=== PATIENT | male | born 1960 | race Hispanic/Latino ===

== ENCOUNTER 2018-04-24 20:46 | Inpatient (IN) | payer SELFPAY ==
[2018-04-24 21:39] VITALS: BMI 23.6
[2018-04-24] MEDS ORDERED: Morphine 4 mg/ml ISec IVP STA (21:51)
--- NOTE | 2018-04-24 21:56 | ED PDOC ---
Arrival/HPI <MirnaMarbin - Last Filed: 04/24/18 22:48> - General Historian: Patient - History of Present Illness Narrative History of Present Illness (Text): 04/24/18 21:59 57 y/o male, no significant pmh, nkda, c/o lower abdominal pain x 3 days. Pt. stated that he has lower abdominal pain x 3 days, nonradiating, associated with nausea/vomiting/diarrhea, no night sweat, no dizziness, no change in vision, no palpitation, no flank pain, no other medical or psychological complaints. <Melvin Moreau - Last Filed: 04/25/18 14:45> - General Time Seen by Provider: 04/24/18 21:45 Past Medical History - Provider Review Nursing Documentation Reviewed: Yes <Melvin Moreau - Last Filed: 04/25/18 14:45> Family/Social History - Physician Review Nursing Documentation Reviewed: Yes Family/Social History: Unknown Family HX <Melvin Moreau - Last Filed: 04/25/18 14:45> Allergies/Home Meds <Marbin Bradley - Last Filed: 04/24/18 22:48> <Melvin Moreau - Last Filed: 04/25/18 14:45> Allergies/Adverse Reactions: Allergies No Known Allergies Allergy (Verified 04/24/18 21:40) Home Medications: Home Meds Medication Instructions Recorded Confirmed No Known Home Med 04/24/18 04/24/18 Review of Systems - Review of Systems Constitutional: absent: Fatigue, Fevers Eyes: absent: Vision Changes ENT: absent: Hearing Changes Respiratory: absent: SOB, Cough Cardiovascular: absent: Chest Pain Gastrointestinal: Abdominal Pain, Diarrhea, Nausea, Vomiting Musculoskeletal: absent: Arthralgias, Back Pain Skin: absent: Rash, Pruritis Neurological: absent: Headache, Dizziness Psychiatric: absent: Anxiety, Depression, Suicidal Ideation <Melvin Moreau - Last Filed: 04/25/18 14:45> Physical Exam Vital Signs Reviewed: Yes Temperature: Afebrile Blood Pressure: Normal Pulse: Regular Respiratory Rate: Normal Appearance: Positive for: Well-Appearing, Non-Toxic, Comfortable Pain Distress: Mild Mental Status: Positive for: Alert and Oriented X 3 - Systems Exam Head: Present: Atraumatic, Normocephalic Pupils: Present: PERRL Extroacular Muscles: Present: EOMI Conjunctiva: Present: Normal Mouth: Present: Moist Mucous Membranes Neck: Present: Normal Range of Motion Respiratory/Chest: Present: Clear to Auscultation, Good Air Exchange. No: Respiratory Distress, Accessory Muscle Use Cardiovascular: Present: Regular Rate and Rhythm, Normal S1, S2. No: Murmurs Abdomen: Present: Tenderness (epigastric and lower periumbilical region). No: Distention, Peritoneal Signs, Rebound, Guarding Back: Present: Normal Inspection Upper Extremity: Present: Normal Inspection, Normal ROM, NORMAL PULSES, Neurovascularly Intact, Capillary Refill < 2s. No: Cyanosis, Edema, Deformity Lower Extremity: Present: Normal Inspection, Neurovascularly Intact. No: Edema Neurological: Present: GCS=15, CN II-XII Intact, Speech Normal, Motor Func Grossly Intact, Gait Normal, Memory Normal Skin: Present: Warm, Dry, Normal Color. No: Rashes Psychiatric: Present: Alert, Oriented x 3, Normal Insight, Normal Concentration <Melvin Moreau - Last Filed: 04/25/18 14:45> Medical Decision Making - RAD Interpretation Radiology Orders: 04/24/18 21:51 ABD & PELVIS IV CONTRAST ONLY [CT] Stat - Medication Orders Current Medication Orders: Sodium Chloride (Sodium Chloride 0.9%) 1,000 mls @ 100 mls/hr IV .Q10H MOODY Discontinued Medications Morphine Sulfate (Morphine) 4 mg IVP STAT STA Stop: 04/24/18 21:52 <Marbin Bradley - Last Filed: 04/24/18 22:48> ED Course and Treatment: 04/24/18 22:01 -Labs/ua -CT abdomen and pelvis -IVF/pepcid/morphine -Observe and reassess 04/25/18 00:33 -Labs show no acute findings except wbc 17.2 (blood culture/c.diff/stool cultures ordered, IV cipro and flagyl ordered) -Lactic acid within normal limit -UA ordered and pending result -CT abdomen and pelvis show Severe enteritis. Infections and inflammatory etiologies are considered. Consider consultation with GI service and follow-up with upper endoscopy and colonoscopy. Small amount of fluid in the pelvic cul-de-sac. -Pt. feels fatigue and tire, getting hydration now. -Pt. will need to be admitted for IV antibiotic/hydration and trending the wbc and further observation/evaluation/ -Paging hospitalist for admission. 04/25/18 00:57 -I spoke to the admitting team Dr. Lan Garza and the resident, discussed about the case/labs/radiology result, agreed on the admission. 04/25/18 02:19 -UA show no UTI - Lab Interpretations I have reviewed the lab results: Yes - RAD Interpretation Narrative RAD Interpretations (Text): CT Abdomen and Pelvis Findings: LUNG BASES: The lung bases appear clear. No pleural effusions are seen. LIVER: Unremarkable. GALLBLADDER AND BILE DUCTS: The gallbladder appears within normal limits. NO radiopaque gallstones are seen. No biliary ductal dilatation is evident. PANCREAS: Unremarkable. SPLEEN: Unremarkable. ADRENAL GLANDS: Unremarkable. KIDNEY, URETERS, AND BLADDER: The kidneys appear within normal limits. THere is no hydronephrosis or hydroureter. No urinary calculi are seen. STOMACH AND BOWEL: Thick walled fluid filled duodenum and loops of jejunum as well as ileum compatible with severe enteritis. Infections and inflammatory etiologies are considered. Consider consultatino with GI service and follow-up with upper endoscopy and colonoscopy. APPENDIX: No evidence of acute appendicitis on CT examination. PERITONEUM: No free fluids. No free air. LYMPH NODES: No lymphadenopathy is evident. REPRODUCTIVE: Unremarkable as visualized. VASCULATURE: No evidence of abdominal aortic aneurysm. BONES: s/p ORIF involving right proximal femur. MISCELLANEOUS: Small amount of fluid in the pelvic cul-de-sac Impression: 1. Severe enteritis. Infections and inflammatory etiologies are considered. Consider consultation with GI service and follow-up with upper endoscopy and colonoscopy. 2. Small amount of fluid in the pelvic cul-de-sac. Radiology Orders: 04/24/18 21:51 ABD & PELVIS IV CONTRAST ONLY [CT] Stat Container Repairer: Radiologist <Melvin Moreau - Last Filed: 04/25/18 14:45> - PA / BAND MAKER / Resident Statement / has reviewed & agrees with the documentation as recorded. <Marbin Bradley - Last Filed: 04/24/18 22:48> - PA / BAND MAKER / Resident Statement ZINA has reviewed & agrees with the documentation as recorded. <Melvin Moreau - Last Filed: 04/25/18 14:45> Disposition/Present on Arrival <Marbin Bradley - Last Filed: 04/24/18 22:48> - Present on Arrival Any Indicators Present on Arrival: No History of DVT/PE: No History of Uncontrolled Diabetes: No Urinary Catheter: No History of Decub. Ulcer: No - Disposition Have Diagnosis and Disposition been Completed?: Yes Disposition Time: 00:34 Patient Plan: Admission, Observation <Melvin Moreau - Last Filed: 04/25/18 14:45> - Disposition Diagnosis: Leukocytosis, Enteritis Disposition: HOSPITALIZED Patient Problems: Current Active Problems Problem Status Onset Enteritis Acute Leukocytosis Acute Condition: STABLE
[2018-04-24] MEDS: Sodium Chloride 0.9% 1,000 ML IV SCH (22:45)
[2018-04-24 23:08] LABS: BASO # 0.02 K/mm3 (0.0-2.0); BASO % 0.1 % (0.0-3.0); EOS % 0.1 % (1.5-5.0); GRAN # 14.35 (1.4-6.5); GRAN % 83.5 % (50.0-68.0); HEMOGLOBIN 14.4 g/dL (14.0-18.0); LYMPH # 1.5 (1.2-3.4); LYMPH % 8.4 % (22.0-35.0); MEAN CORPUSCULAR HEMOGLOBIN 31.6 pg (25.0-35.0); MEAN CORPUSCULAR HGB CONC 34.8 g/dl (31.0-37.0); MEAN PLATELET VOLUME 8.8 fl (7.0-11.0); MONO # 1.4 (0.1-0.6); MONO % 7.9 % (1.0-6.0); RBC 4.55 10^6/uL (3.5-6.1); RED CELL DISTRIBUTION WIDTH 13.6 % (11.5-14.5); WHITE BLOOD COUNT 17.2 10^3/ul (4.5-11.0)
[2018-04-24 23:18] LABS: ALB/GLOB RATIO 1.3 (1.1-1.8); ALBUMIN 4.5 g/dL (3.0-4.8); ALT/SGPT 13 U/L (7-56); AST/SGOT 21 U/L (17-59); BLOOD UREA NITROGEN 16 mg/dL (7-21); CALCIUM 9.6 mg/dL (8.4-10.5); GFR NON-AFRICAN AMERICAN > 60; LIPASE 45 U/L (23-300)
[2018-04-24] MEDS ORDERED: Magnesium Sulfate 1 gm in D5W 1 GM/100 ML BAG IVPB ONE (23:22)
[2018-04-24] MEDS ORDERED: Iohexol 350 MG/100 ML VIAL ONE (23:25)
[2018-04-24 23:57] LABS: VENOUS BLOOD GAS BASE EXCESS 1.5 mmol/L (0.0-2.0); VENOUS BLOOD GAS PO2 95 mm/Hg (30-55); VENOUS BLOOD PH 7.43 (7.32-7.43)
[2018-04-25] MEDS ORDERED: metroNIDAZOLE IV 500 mg/100 ml 500 MG/100 ML BAG IVPB STA (00:31)
[2018-04-25] MEDS ORDERED: Ciprofloxacin 400mg/200ml D5W 400 MG/200 ML BAG IVPB STA (00:31)
[2018-04-25] MEDS ORDERED: metroNIDAZOLE IV 500 mg/100 ml 500 MG/100 ML BAG IVPB SCH (01:45)
[2018-04-25 02:05] LABS: PH,URINE 6.5 (4.7-8.0); URINE BILIRUBIN NEGATIVE (NEGATIVE); URINE BLOOD NEGATIVE (NEGATIVE); URINE GLUCOSE (UA) NEGATIVE (NEGATIVE); URINE LEUKOCYTE ESTERASE NEGATIVE Leu/uL (NEGATIVE); URINE UROBILINOGEN 0.2 E.U./dL (<1 E.U./dL)
[2018-04-25 02:06] LABS: URINE APPEARANCE CLEAR (CLEAR); URINE PROTEIN NEGATIVE mg/dL (<30 mg/dL)
--- NOTE | 2018-04-25 02:19 | CP.PCM.HP ---
<Dave Cheung Alvino - Last Filed: 04/25/18 02:47> History of Present Illness - History of Present Illness History of Present Illness: Dave Cheung PGY1 History and Physical for Dr Cecile Garza Pt is a 57yo male with a PMH of alcoholism use who presents to the ED complaining of 10/10 lower abdominal pain which began Friday04-24-18 night. He states the pain is constant, does not radiate and worse after he urinates. Pt last bowel movement was yesterday morning, pt denies diarrhea, constipation, or blood in the stool. Pt denies nausea or vomiting. Nothing seems to make the pain better. Pt denies any sick contacts, or eating any new foods. This has never happened before. Pt rolling around in bed due to pain upon first arrival, upon second arrival pt was sleeping. A 12 point ROS was obtained and pertinent positives and negatives were added to HPI where appropriate. PMH: alcoholism PSH: right hip surgery SH: pt reports alcohol cessation 6 months ago, he used to drink 10 beers/day, tobacco 1ppd for 12 years, admits to daily marijuana use FH: reviewed and non contributory Home meds: pt take no medications Allergies: NKDA Present on Admission - Present on Admission Any Indicators Present on Admission: No Review of Systems - Review of Systems Review of Systems: a 12 point ROS was obtained and added to HPI where appropriate Past Patient History - Past Social History Smoking Status: Light Smoker < 10 Cigarettes Daily - CARDIAC Hx Cardiac Disorders: No - PULMONARY Hx Respiratory Disorders: No - NEUROLOGICAL Hx Neurological Disorder: No - HEMATOLOGICAL/ONCOLOGICAL Hx Blood Disorders: No - PSYCHIATRIC Hx Substance Use: No Meds Allergies/Adverse Reactions: Allergies Allergy/AdvReac Type Severity Reaction Status Date / Time No Known Allergies Allergy Verified 04/24/18 21:40 Physical Exam - Head Exam Head Exam: ATRAUMATIC, NORMOCEPHALIC - ENT Exam ENT Exam: Mucous Membranes Moist - Respiratory Exam Respiratory Exam: Clear to Auscultation Bilateral. absent: Accessory Muscle Use, Wheezes, Stridor - Cardiovascular Exam Cardiovascular Exam: RRR, +S1, +S2. absent: Diastolic murmur, Systolic Murmur - GI/Abdominal Exam GI & Abdominal Exam: Normal Bowel Sounds Additional comments: mild tenderness to palpation in the lower abdomen - Extremities Exam Extremities exam: Positive for: full ROM, pedal pulses present. Negative for: calf tenderness - Back Exam Back exam: FULL ROM. absent: CVA tenderness (L), CVA tenderness (R), muscle spasm - Neurological Exam Neurological exam: Alert, Oriented x3 - Skin Skin Exam: Intact, Normal Color, Warm Results - Vital Signs Recent Vital Signs: Last Vital Signs Temp 98 F 04/24/18 22:40 Pulse 86 04/25/18 00:41 Resp 18 04/25/18 00:41 BP 142/91 H 04/25/18 00:41 Pulse Ox 99 04/25/18 00:41 - Labs Result Diagrams: 04/24/18 22:51 04/24/18 22:51 Labs: Laboratory Results - last 24 hr 04/24/18 04/24/18 04/24/18 22:51 22:51 23:29 WBC 17.2 H RBC 4.55 Hgb 14.4 Hct 41.4 L MCV 91.0 MCH 31.6 MCHC 34.8 RDW 13.6 Plt Count 262 MPV 8.8 Gran % 83.5 H Lymph % (Auto) 8.4 L [place] % (Auto) 7.9 H Eos % (Auto) 0.1 L Baso % (Auto) 0.1 Gran # 14.35 H Lymph # (Auto) 1.5 [place] # (Auto) 1.4 H Eos # (Auto) 0.0 Baso # (Auto) 0.02 pO2 95 H VBG pH 7.43 VBG pCO2 39.0 L VBG HCO3 25.9 VBG Total CO2 27.1 VBG O2 Sat (Calc) 98.4 H VBG Base Excess 1.5 VBG Potassium 4.1 Glucose 126 H Lactate 0.9 FiO2 21.0 Sodium 137 133.0 Potassium 4.3 Chloride 98 100.0 Carbon Dioxide 26 Anion Gap 17 BUN 16 Creatinine 0.7 L Est GFR ( Amer) > 60 Est GFR (Non-Af Amer) > 60 Random Glucose 134 H Calcium 9.6 Magnesium 1.6 L Total Bilirubin 0.9 AST 21 ALT 13 Alkaline Phosphatase 92 Total Protein 8.0 Albumin 4.5 Globulin 3.6 Albumin/Globulin Ratio 1.3 Lipase 45 Venous Blood Potassium 4.1 Urine Color Urine Appearance Urine pH Ur Specific [place] Urine Protein Urine Glucose (UA) Urine Ketones Urine Blood Urine Nitrate Urine Bilirubin Urine Urobilinogen Ur Leukocyte Esterase 04/25/18 01:30 WBC RBC Hgb Hct MCV MCH MCHC RDW Plt Count MPV Gran % Lymph % (Auto) [place] % (Auto) Eos % (Auto) Baso % (Auto) Gran # Lymph # (Auto) [place] # (Auto) Eos # (Auto) Baso # (Auto) pO2 VBG pH VBG pCO2 VBG HCO3 VBG Total CO2 VBG O2 Sat (Calc) VBG Base Excess VBG Potassium Glucose Lactate FiO2 Sodium Potassium Chloride Carbon Dioxide Anion Gap BUN Creatinine Est GFR ( Amer) Est GFR (Non-Af Amer) Random Glucose Calcium Magnesium Total Bilirubin AST ALT Alkaline Phosphatase Total Protein Albumin Globulin Albumin/Globulin Ratio Lipase Venous Blood Potassium Urine Color yellow Urine Appearance Clear Urine pH 6.5 Ur Specific [place] 1.010 Urine Protein Negative Urine Glucose (UA) Negative Urine Ketones Trace H Urine Blood Negative Urine Nitrate Negative Urine Bilirubin Negative Urine Urobilinogen 0.2 Ur Leukocyte Esterase Negative Assessment & Plan - Assessment and Plan (Free Text) Assessment: Pt is a 57yo male with a PMH of alcoholism use who presents to the ED complaining of 10/10 lower abdominal pain which began Friday04-24-18 night. He states the pain is constant, does not radiate and worse after he urinates. Pt last bowel movement was yesterday morning, pt denies diarrhea, constipation, or blood in the stool. Plan: Intractable Abdominal Pain - WBC 17.2 - UDS - phos level - blood cultures - stool cultures - urine culture and sensitivities - c. diff ordered - tylenol 650mg PO q6 prn - one dose of Cipro given in ED - one dose of Flagyl given in ED - Morphine 4mg IVP stat given in ED - zofran 4mg IVP q6h PRN - NS 100 m/hr - CTAP: shows diffuse enteritis - klonopin 1mg - UA: no signs of UTI Hypomagnesemia - Mg 1.6 - replete PRN Tobacco use - nicotine patch History of alcoholism - alcohol screen, negative Ppx - protonix - NPO - SCD Pt seen, examined, assessment and plan discussed with Dr Cecile Cheung PGY1 - Date & Time Date: 04/25/18 Time: 02:23 <Cecile Garza - Last Filed: 04/26/18 00:19> History of Present Illness - History of Present Illness History of Present Illness: pt is c/o lower abdominal pain . pointing to supra pubic region pt is sleeping curling up . has received morphinr in ed does not answer questions and reluctant for exam. pt,s wbc count is 17 ,[address] abdomen shows enteritis. Results - Vital Signs Recent Vital Signs: Last Vital Signs Temp 98.6 F 04/25/18 16:06 Pulse 75 04/25/18 16:06 Resp 18 04/25/18 16:06 BP 99/62 L 04/25/18 16:06 Pulse Ox 96 04/25/18 16:06 - Labs Result Diagrams: 04/25/18 11:30 04/25/18 11:30 Labs: Laboratory Results - last 24 hr 04/24/18 04/25/18 04/25/18 23:29 01:30 01:30 WBC RBC Hgb Hct MCV MCH MCHC RDW Plt Count MPV Gran % Lymph % (Auto) [place] % (Auto) Eos % (Auto) Baso % (Auto) Gran # Lymph # (Auto) [place] # (Auto) Eos # (Auto) Baso # (Auto) PT INR pO2 95 H VBG pH 7.43 VBG pCO2 39.0 L VBG HCO3 25.9 VBG Total CO2 27.1 VBG O2 Sat (Calc) 98.4 H VBG Base Excess 1.5 VBG Potassium 4.1 Sodium 133.0 Chloride 100.0 Glucose 126 H Lactate 0.9 FiO2 21.0 Potassium Carbon Dioxide Anion Gap BUN Creatinine Est GFR ( Amer) Est GFR (Non-Af Amer) Random Glucose Calcium Phosphorus Magnesium Total Bilirubin AST ALT Alkaline Phosphatase Total Protein Albumin Globulin Albumin/Globulin Ratio Venous Blood Potassium 4.1 Urine Color yellow Urine Appearance Clear Urine pH 6.5 Ur Specific [place] 1.010 Urine Protein Negative Urine Glucose (UA) Negative Urine Ketones Trace H Urine Blood Negative Urine Nitrate Negative Urine Bilirubin Negative Urine Urobilinogen 0.2 Ur Leukocyte Esterase Negative Urine Opiates Screen Urine Methadone Screen Ur Barbiturates Screen Ur Phencyclidine Scrn Ur Amphetamines Screen U Benzodiazepines Scrn U Oth Cocaine Metabols U Cannabinoids Screen Alcohol, Quantitative < 10 04/25/18 04/25/18 04/25/18 04:40 11:30 11:30 WBC 19.0 H RBC 4.43 Hgb 14.1 Hct 39.9 L MCV 90.1 MCH 31.8 MCHC 35.3 RDW 13.6 Plt Count 248 MPV 9.0 Gran % 87.4 H Lymph % (Auto) 6.0 L [place] % (Auto) 6.5 H Eos % (Auto) 0.0 L Baso % (Auto) 0.1 Gran # 16.64 H Lymph # (Auto) 1.2 [place] # (Auto) 1.2 H Eos # (Auto) 0.0 Baso # (Auto) 0.01 PT INR pO2 VBG pH VBG pCO2 VBG HCO3 VBG Total CO2 VBG O2 Sat (Calc) VBG Base Excess VBG Potassium Sodium 134 Chloride 99 Glucose Lactate FiO2 Potassium 3.9 Carbon Dioxide 25 Anion Gap 13 BUN 16 Creatinine 0.8 Est GFR ( Amer) > 60 Est GFR (Non-Af Amer) > 60 Random Glucose 133 H Calcium 8.7 Phosphorus 3.5 Magnesium 1.8 Total Bilirubin 1.0 AST 20 ALT 13 Alkaline Phosphatase 83 Total Protein 7.1 Albumin 3.9 Globulin 3.2 Albumin/Globulin Ratio 1.2 Venous Blood Potassium Urine Color Urine Appearance Urine pH Ur Specific [place] Urine Protein Urine Glucose (UA) Urine Ketones Urine Blood Urine Nitrate Urine Bilirubin Urine Urobilinogen Ur Leukocyte Esterase Urine Opiates Screen Positive H Urine Methadone Screen Negative Ur Barbiturates Screen Negative Ur Phencyclidine Scrn Negative Ur Amphetamines Screen Negative U Benzodiazepines Scrn Negative U Oth Cocaine Metabols Negative U Cannabinoids Screen Positive H Alcohol, Quantitative 04/25/18 11:30 WBC RBC Hgb Hct MCV MCH MCHC RDW Plt Count MPV Gran % Lymph % (Auto) [place] % (Auto) Eos % (Auto) Baso % (Auto) Gran # Lymph # (Auto) [place] # (Auto) Eos # (Auto) Baso # (Auto) PT 15.3 H INR 1.32 pO2 VBG pH VBG pCO2 VBG HCO3 VBG Total CO2 VBG O2 Sat (Calc) VBG Base Excess VBG Potassium Sodium Chloride Glucose Lactate FiO2 Potassium Carbon Dioxide Anion Gap BUN Creatinine Est GFR ( Amer) Est GFR (Non-Af Amer) Random Glucose Calcium Phosphorus Magnesium Total Bilirubin AST ALT Alkaline Phosphatase Total Protein Albumin Globulin Albumin/Globulin Ratio Venous Blood Potassium Urine Color Urine Appearance Urine pH Ur Specific [place] Urine Protein Urine Glucose (UA) Urine Ketones Urine Blood Urine Nitrate Urine Bilirubin Urine Urobilinogen Ur Leukocyte Esterase Urine Opiates Screen Urine Methadone Screen Ur Barbiturates Screen Ur Phencyclidine Scrn Ur Amphetamines Screen U Benzodiazepines Scrn U Oth Cocaine Metabols U Cannabinoids Screen Alcohol, Quantitative
[2018-04-25] MEDS ORDERED: Influenza Vaccine 60 mcg/0.5 mL SYR (4YR UP) IM ONE (03:45)
[2018-04-25] MEDS ORDERED: Pneumococcal 23-Valent Vaccine IM ONE (03:45)
[2018-04-25] MEDS ORDERED: Pantoprazole 40 mg EC Tab PO SCH (06:00)
[2018-04-25 07:38] LABS: BARBITURATES, UR NEGATIVE (NEGATIVE); BENZODIAZEPINES, UR NEGATIVE (NEGATIVE); OPIATES, UR POSITIVE (NEGATIVE); PHENCYCLIDINE, UR NEGATIVE (NEGATIVE)
[2018-04-25] MEDS: metroNIDAZOLE IV 500 mg/100 ml 500 MG/100 ML BAG IVPB SCH ×2 (08:00→15:30)
--- NOTE | 2018-04-25 09:10 | CT ---
Date of service: 04/24/2018 PROCEDURE: CT Abdomen and Pelvis with contrast HISTORY: lower abdomina pain x 3 days COMPARISON: None. TECHNIQUE: Contrast dose: 100 cc Omnipaque 350 Radiation dose: Total exam DLP = 256.82 mGy-cm. This CT exam was performed using one or more of the following dose reduction techniques: Automated exposure control, adjustment of the mA and/or kV according to patient size, and/or use of iterative reconstruction technique. FINDINGS: LOWER THORAX: Unremarkable. LIVER: Unremarkable. No gross lesion or ductal dilatation. GALLBLADDER AND BILE DUCTS: Unremarkable. PANCREAS: Unremarkable. No gross lesion or ductal dilatation. SPLEEN: Unremarkable. ADRENALS: Unremarkable. No mass. KIDNEYS AND URETERS: Unremarkable. No hydronephrosis. No solid mass. VASCULATURE: Unremarkable. No aortic aneurysm. BOWEL: Unremarkable. No obstruction. No gross mural thickening. APPENDIX: The tubular structure in the right lower quadrant with multiple calcified densities likely appendicular less within an inflamed appendix. Acute appendicitis should be considered. There is more proximal dilatation of small bowel perhaps ileus related. Inflammatory changes in the right lower quadrant center about the cecum PERITONEUM: Trace fluid in the pelvis. No evidence of loculated air or free air. LYMPH NODES: Unremarkable. No enlarged lymph nodes. BLADDER: Unremarkable. REPRODUCTIVE: Unremarkable. BONES: No acute fracture. OTHER FINDINGS: None. IMPRESSION: Findings suspicious for acute appendicitis. Dilated tubular structure containing calcifications likely represents the appendix. There is trace fluid in the pelvis. Please note: These are discordant findings with those provided in the preliminary report rendered at 00:04. These findings were discussed with health Care personnel (Louise Wilson) involved in the care and management the patient at 09:09.
[2018-04-25] MEDS: Sodium Chloride 0.9% 1,000 ML IV SCH (09:21)
--- NOTE | 2018-04-25 09:22 | CARD ---
APPROVED REPORT Date of service: 04/25/2018 EKG Measurement Heart [id number] <Conclusion> Normal sinus rhythm Small q waves 2,3,F ST elevations 2,3,F. Possible early repolaruzation. LVH by voltage
--- NOTE | 2018-04-25 10:59 | CP.PCM.CON ---
History of Present Illness - History of Present Illness History of Present Illness: General Surgery Consult Note for Dr. Sarmiento This is a 57M with a PMH of polysubstance abuse and an AL 10 years ago, who presented to the ED last night 04/24/18 with abdominal pain that began one day prior 04/23/18. The pain started after dinner it was vague at first and gradually got worse, by last night he was unable to tolerate the pain so he came to the ED. He denies any similar incidence in the past. Nothing makes it better and nothing makes it worse. He reports his last BM was non bloody and of normal caliber yesterday morning. He reports nausea but no vomiting. He denies any feers or chills at home, he denies dysuria, or hematuria. In the Ed the pt had a CT scan initial read was significantfor enteritis however subequent read was significant for appendicitis. PMH: alcoholism, AL PSH: right hip surgery SH: pt reports alcohol cessation 6 months ago, he used to drink 10 beers/day, tobacco 1ppd for 12 years, admits to daily marijuana use Home meds: pt take no medications Allergies: NKDA Review of Systems - Review of Systems All systems: reviewed and no additional remarkable complaints except - Constitutional Constitutional: Anorexia. absent: Chills, Fever Past Patient History - Past Social History Smoking Status: Former Smoker - CARDIAC Hx Cardiac Disorders: No - PULMONARY Hx Respiratory Disorders: No - NEUROLOGICAL Hx Neurological Disorder: No - HEMATOLOGICAL/ONCOLOGICAL Hx Blood Disorders: No - MUSCULOSKELETAL/RHEUMATOLOGICAL Hx Falls: No - PSYCHIATRIC Hx Substance Use: No Meds Allergies/Adverse Reactions: Allergies Allergy/AdvReac Type Severity Reaction Status Date / Time No Known Allergies Allergy Verified 04/24/18 21:40 - Medications Medications: Current Medications Acetaminophen (Tylenol 325mg Tab) 650 mg PO Q6H PRN PRN Reason: Fever >100.4 F Sodium Chloride (Sodium Chloride 0.9%) 1,000 mls @ 100 mls/hr IV .Q10H [facility] Last Admin: 04/25/18 09:21 Dose: 100 mls/hr Ciprofloxacin (Cipro 400mg/200ml Dsw) 400 mg in 200 mls @ 133.3 mls/hr IVPB Q12 [facility]; Protocol Stop: 04/25/18 13:31 Metronidazole (Flagyl) 500 mg in 100 mls @ 100 mls/hr IVPB Q8 [facility]; Protocol Last Admin: 04/25/18 08:00 Dose: 100 mls/hr Ketorolac Tromethamine (Toradol) 15 mg IVP Q6 PRN PRN Reason: Pain, moderate (4-7) Last Admin: 04/25/18 08:00 Dose: 15 mg Nicotine (Nicoderm Cq) 1 patch TD DAILY [facility] Ondansetron HCl (Zofran Inj) 4 mg IVP Q6H PRN PRN Reason: Nausea/Vomiting Pantoprazole Sodium (Protonix Inj) 40 mg IVP DAILY [facility] Last Admin: 04/25/18 09:22 Dose: 40 mg Physical Exam - Constitutional Appears: Non-toxic - Head Exam Head Exam: ATRAUMATIC, NORMOCEPHALIC - Eye Exam Eye Exam: EOMI - ENT Exam ENT Exam: Mucous Membranes Moist - Respiratory Exam Respiratory Exam: NORMAL BREATHING PATTERN - Cardiovascular Exam Cardiovascular Exam: +S1, +S2 - GI/Abdominal Exam GI & Abdominal Exam: Guarding, Rebound, Soft, Tenderness. absent: Distended, Hernia, Rigid Additional comments: + rovsing, + obturator sign - Extremities Exam Extremities exam: Positive for: normal inspection - Neurological Exam Neurological exam: Alert - Psychiatric Exam Psychiatric exam: Normal Affect, Normal Mood - Skin Skin Exam: Dry, Intact Results - Vital Signs Recent Vital Signs: Last Vital Signs Temp 99.1 F 04/25/18 06:00 Pulse 97 H 04/25/18 06:00 Resp 20 04/25/18 06:00 BP 158/95 H 04/25/18 06:00 Pulse Ox 96 04/25/18 06:00 - Labs Result Diagrams: 04/24/18 22:51 04/24/18 22:51 Labs: Laboratory Results - last 24 hr 04/24/18 04/24/18 04/24/18 22:51 22:51 23:29 WBC 17.2 H RBC 4.55 Hgb 14.4 Hct 41.4 L MCV 91.0 MCH 31.6 MCHC 34.8 RDW 13.6 Plt Count 262 MPV 8.8 Gran % 83.5 H Lymph % (Auto) 8.4 L Mcpherson % (Auto) 7.9 H Eos % (Auto) 0.1 L Baso % (Auto) 0.1 Gran # 14.35 H Lymph # (Auto) 1.5 Mcpherson # (Auto) 1.4 H Eos # (Auto) 0.0 Baso # (Auto) 0.02 pO2 95 H VBG pH 7.43 VBG pCO2 39.0 L VBG HCO3 25.9 VBG Total CO2 27.1 VBG O2 Sat (Calc) 98.4 H VBG Base Excess 1.5 VBG Potassium 4.1 Glucose 126 H Lactate 0.9 FiO2 21.0 Sodium 137 133.0 Potassium 4.3 Chloride 98 100.0 Carbon Dioxide 26 Anion Gap 17 BUN 16 Creatinine 0.7 L Est GFR ( Amer) > 60 Est GFR (Non-Af Amer) > 60 Random Glucose 134 H Calcium 9.6 Magnesium 1.6 L Total Bilirubin 0.9 AST 21 ALT 13 Alkaline Phosphatase 92 Total Protein 8.0 Albumin 4.5 Globulin 3.6 Albumin/Globulin Ratio 1.3 Lipase 45 Venous Blood Potassium 4.1 Urine Color Urine Appearance Urine pH Ur Specific Weston Urine Protein Urine Glucose (UA) Urine Ketones Urine Blood Urine Nitrate Urine Bilirubin Urine Urobilinogen Ur Leukocyte Esterase Urine Opiates Screen Urine Methadone Screen Ur Barbiturates Screen Ur Phencyclidine Scrn Ur Amphetamines Screen U Benzodiazepines Scrn U Oth Cocaine Metabols U Cannabinoids Screen Alcohol, Quantitative 04/25/18 04/25/18 04/25/18 01:30 01:30 04:40 WBC RBC Hgb Hct MCV MCH MCHC RDW Plt Count MPV Gran % Lymph % (Auto) Mcpherson % (Auto) Eos % (Auto) Baso % (Auto) Gran # Lymph # (Auto) Mcpherson # (Auto) Eos # (Auto) Baso # (Auto) pO2 VBG pH VBG pCO2 VBG HCO3 VBG Total CO2 VBG O2 Sat (Calc) VBG Base Excess VBG Potassium Glucose Lactate FiO2 Sodium Potassium Chloride Carbon Dioxide Anion Gap BUN Creatinine Est GFR ( Amer) Est GFR (Non-Af Amer) Random Glucose Calcium Magnesium Total Bilirubin AST ALT Alkaline Phosphatase Total Protein Albumin Globulin Albumin/Globulin Ratio Lipase Venous Blood Potassium Urine Color yellow Urine Appearance Clear Urine pH 6.5 Ur Specific Weston 1.010 Urine Protein Negative Urine Glucose (UA) Negative Urine Ketones Trace H Urine Blood Negative Urine Nitrate Negative Urine Bilirubin Negative Urine Urobilinogen 0.2 Ur Leukocyte Esterase Negative Urine Opiates Screen Positive H Urine Methadone Screen Negative Ur Barbiturates Screen Negative Ur Phencyclidine Scrn Negative Ur Amphetamines Screen Negative U Benzodiazepines Scrn Negative U Oth Cocaine Metabols Negative U Cannabinoids Screen Positive H Alcohol, Quantitative < 10 - Imaging and Cardiology CT scan - pelvis Status: Image reviewed by me, Report reviewed by me CT scan - abdomen Status: Image reviewed by me, Report reviewed by me Assessment & Plan - Assessment and Plan (Free Text) Assessment: 57M with abdominal pain likely secondary to appendicitis NPO IVF ABX Plan for OR today F/U Medical clearance D/W Dr. Torsten Aranda PGY3
[2018-04-25 11:35] LABS: BASO # 0.01 K/mm3 (0.0-2.0); BASO % 0.1 % (0.0-3.0); GRAN # 16.64 (1.4-6.5); GRAN % 87.4 % (50.0-68.0); HEMOGLOBIN 14.1 g/dL (14.0-18.0); LYMPH # 1.2 (1.2-3.4); MEAN CELL VOLUME 90.1 fl (80.0-105.0); MEAN CORPUSCULAR HEMOGLOBIN 31.8 pg (25.0-35.0); MEAN CORPUSCULAR HGB CONC 35.3 g/dl (31.0-37.0); MONO # 1.2 (0.1-0.6); MONO % 6.5 % (1.0-6.0); RBC 4.43 10^6/uL (3.5-6.1); RED CELL DISTRIBUTION WIDTH 13.6 % (11.5-14.5)
[2018-04-25 11:45] LABS: ALB/GLOB RATIO 1.2 (1.1-1.8); ALBUMIN 3.9 g/dL (3.0-4.8); ALT/SGPT 13 U/L (7-56); AST/SGOT 20 U/L (17-59); BLOOD UREA NITROGEN 16 mg/dL (7-21); CALCIUM 8.7 mg/dL (8.4-10.5); GFR NON-AFRICAN AMERICAN > 60
[2018-04-25 11:58] LABS: INR 1.32; PROTHROMBIN TIME 15.3 SECONDS (9.4-12.5)
[2018-04-25] MEDS ORDERED: Ciprofloxacin 400mg/200ml D5W 400 MG/200 ML BAG IVPB SCH (12:00)
--- NOTE | 2018-04-25 12:33 | CP.PCM.PN ---
<Juaquin Tucker - Last Filed: 04/25/18 12:20> Subjective - Date & Time of Evaluation Date of Evaluation: 04/25/18 Time of Evaluation: 12:20 - Subjective Subjective: Yaniv Tucker PGY 2 IM Resident - Medicine Progress Note for Dr. Tate Patient seen and examined this AM. Patient noted to be in distress and in position in bed. Patient indicates suprapubic abdominal pain that is constant and not relieved with medication or positioning. Objective - Vital Signs/Intake and Output Vital Signs (last 24 hours): Temp Pulse Resp BP Pulse Ox 99.1 F 97 H 20 158/95 H 96 04/25/18 06:00 04/25/18 06:00 04/25/18 06:00 04/25/18 06:00 04/25/18 06:00 Intake and Output: 04/25/18 04/25/18 06:59 18:59 Intake Total 300 Balance 300 - Medications Medications: Current Medications Acetaminophen (Tylenol 325mg Tab) 650 mg PO Q6H PRN PRN Reason: Fever >100.4 F Sodium Chloride (Sodium Chloride 0.9%) 1,000 mls @ 100 mls/hr IV .Q10H [facility] Last Admin: 04/25/18 09:21 Dose: 100 mls/hr Ciprofloxacin (Cipro 400mg/200ml Dsw) 400 mg in 200 mls @ 133.3 mls/hr IVPB Q12 [facility]; Protocol Stop: 04/25/18 13:31 Metronidazole (Flagyl) 500 mg in 100 mls @ 100 mls/hr IVPB Q8 [facility]; Protocol Last Admin: 04/25/18 08:00 Dose: 100 mls/hr Ketorolac Tromethamine (Toradol) 15 mg IVP Q6 PRN PRN Reason: Pain, moderate (4-7) Last Admin: 04/25/18 08:00 Dose: 15 mg Nicotine (Nicoderm Cq) 1 patch TD DAILY [facility] Ondansetron HCl (Zofran Inj) 4 mg IVP Q6H PRN PRN Reason: Nausea/Vomiting Pantoprazole Sodium (Protonix Inj) 40 mg IVP DAILY [facility] Last Admin: 04/25/18 09:22 Dose: 40 mg - Labs Labs: 04/25/18 11:30 04/25/18 11:30 PT 15.3 SECONDS (9.4-12.5) H 04/25/18 11:30 INR 1.32 04/25/18 11:30 - Constitutional Appears: In Acute Distress - Head Exam Head Exam: ATRAUMATIC, NORMAL INSPECTION, NORMOCEPHALIC - Eye Exam Eye Exam: EOMI, PERRL - ENT Exam ENT Exam: Mucous Membranes Dry - Respiratory Exam Respiratory Exam: Clear to Ausculation Bilateral, NORMAL BREATHING PATTERN. absent: Rales, Rhonchi, Wheezes - Cardiovascular Exam Cardiovascular Exam: REGULAR RHYTHM, +S1, +S2 - GI/Abdominal Exam GI & Abdominal Exam: Guarding, Soft, Tenderness (diffuse, most prominent at suprapubic region b/l), Normal Bowel Sounds. absent: Distended, Firm, Rigid - Neurological Exam Neurological Exam: Alert, Awake, Normal Gait, Oriented x3 Neuro motor strength exam: Left Upper Extremity: 5, Right Upper Extremity: 5, Left Lower Extremity: 5, Right Lower Extremity: 5 - Psychiatric Exam Psychiatric exam: Agitated - Skin Skin Exam: Dry, Intact Assessment and Plan - Assessment and Plan (Free Text) Assessment: 57 year old male with past medical history of alcoholism and ?NH 10 years ago who presented to [facility] ED with abdominal pain. Patient evaluated with abdominal/pe lvis CT showing suspicious for acute eppendicitis and enteritis. General surgery consulted for appendectomy evaluation Plan: Possible Appendicitis - Abd/Pelvis CT showing suspicious findings for acute appendicitis - Elevated WBC, afebrile, rebound tenderness on exam - General Surgery consulted and agreeable to proceed with surgery - Cardiology consulted for risk stratification for surgery - EKG reviewed, CXR reviewed - Patient NPO - Receiving IVF, - Patient received flagyl and cipro in ED - Continue ciprofloxacin - Patient is considered to be moderate risk for low/moderate risk surgery Diagnosis, options for medical management vs. surgical intervention, risks and benefits were discussed with patient in detail. Patient verbalized his u nderstanding of conversation and was able to repeat it back to primary care team <Cameron Tate - Last Filed: 04/25/18 16:09> Objective - Vital Signs/Intake and Output Vital Signs (last 24 hours): Temp Pulse Resp BP Pulse Ox 98.6 F 77 20 102/64 97 04/25/18 15:51 04/25/18 15:51 04/25/18 15:51 04/25/18 15:51 04/25/18 15:51 Intake and Output: 04/25/18 04/25/18 06:59 18:59 Intake Total 300 Balance 300 - Medications Medications: Current Medications Acetaminophen (Tylenol 325mg Tab) 650 mg PO Q6H PRN PRN Reason: Fever >100.4 F Enoxaparin Sodium (Lovenox) 30 mg SC DAILY [facility]; Protocol Hydromorphone HCl (Dilaudid) 0.5 mg IVP Q15M PRN PRN Reason: Pain, moderate (4-7) Sodium Chloride (Sodium Chloride 0.9%) 1,000 mls @ 100 mls/hr IV .Q10H [facility] Last Admin: 04/25/18 09:21 Dose: 100 mls/hr Metronidazole (Flagyl) 500 mg in 100 mls @ 100 mls/hr IVPB Q8 [facility]; Protocol Stop: 04/25/18 22:00 Last Admin: 04/25/18 15:30 Dose: 100 mls/hr Lactated Ringer's (Lactated Ringer's) 1,000 mls @ 75 mls/hr IV .[id number] [facility] Stop: 04/25/18 17:16 Cefazolin Sodium 500 mg/ (Sodium Chloride) 100 mls @ 100 mls/hr IVPB Q8 [facility]; Protocol Stop: 04/26/18 06:59 Ketorolac Tromethamine (Toradol) 15 mg IVP Q6 PRN PRN Reason: Pain, moderate (4-7) Last Admin: 04/25/18 08:00 Dose: 15 mg Metoclopramide HCl (Reglan) 10 mg IV ONCE PRN PRN Reason: Nausea/Vomiting Nicotine (Nicoderm Cq) 1 patch TD DAILY [facility] Ondansetron HCl (Zofran Inj) 4 mg IVP Q6H PRN PRN Reason: Nausea/Vomiting Pantoprazole Sodium (Protonix Inj) 40 mg IVP DAILY [facility] Last Admin: 04/25/18 09:22 Dose: 40 mg - Labs Labs: 04/25/18 11:30 04/25/18 11:30 PT 15.3 SECONDS (9.4-12.5) H 04/25/18 11:30 INR 1.32 04/25/18 11:30 Attending/Attestation - Attestation I have personally seen and examined this patient.: Yes I have fully participated in the care of the patient.: Yes I have reviewed all pertinent clinical information, including history, physical exam and plan: Yes Notes (Text): 04/25/18 16:05 57 year old male with past medical history of alcohol use and ?NH 10 years ago who presented last night with complaint of lower abdominal pain. He was found to have CT findings suspicious for acute appendicitis. Leukocytosis of 17.2. Continue with NPO, iv fluids and iv antibiotics. Surgery evaluation is requested. EKG was reviewed, possible early repolarization. Patient denies any chest pain or shortness of breath. Repeat labs ordered for this morning. Magnesium was repleted. Leukocytosis secondary to above. Case discussed with cardiology and surgery this morning; patient is moderate risk for low-moderate risk procedure. Cameron Tate MD Hospitalist.
[2018-04-25] MEDS ORDERED: Propofol 10 mg/ml Inj (20 ML) ONE (13:29)
[2018-04-25] MEDS ORDERED: Succinylcholine 200 mg/10 ml Inj IV ONE (13:29)
[2018-04-25] MEDS ORDERED: Rocuronium 10 mg/ml (5 ml) ONE (13:29)
[2018-04-25] MEDS ORDERED: Etomidate 20 mg/10ml Inj IV ONE (13:29)
[2018-04-25] MEDS ORDERED: Lidocaine 1% Inj (20ml) ONE (13:30)
[2018-04-25] MEDS ORDERED: Neostigmine Methylsulfate 3mg/3ml Syringe IV ONE (13:50)
[2018-04-25] MEDS: Bupivacaine 0.5% Inj(30mL) ONE ×2 (14:02→14:51)
[2018-04-25] MEDS ORDERED: Sodium Chloride 0.9% 10 ML IV ONE (14:10)
[2018-04-25] MEDS ORDERED: ePHEDrine 50 mg/ml Inj ONE (14:40)
--- NOTE | 2018-04-25 15:11 | PCM.SURG1 ---
Surgeon's Initial Post Op Note - Surgeon's Notes Surgeon: Dr. Sarmiento Cashier Office: Dr. Aranda Type of Anesthesia: General Endo Anesthesia Administered By: Dr. Farooq Pre-Operative Diagnosis: Acute Appendicitis Operative Findings: See operative dictation Post-Operative Diagnosis: Acute perforated appendicitis Operation Performed: Surgical Appendectomy Specimen/Specimens Removed: Appendix Estimated Blood Loss: EBL {In ML}: 10 Blood Products Given: N/A Drains Used: Shivam Post-Op Condition: Good Date of Surgery/Procedure: 04/25/18 Time of Surgery/Procedure: 15:11
[2018-04-25] MEDS ORDERED: HYDROmorphone 1 mg/ml ISec IVP PRN (15:12)
[2018-04-25] MEDS ORDERED: Lactated Ringer's 1,000 ML IV SCH (15:15)
[2018-04-25] MEDS ORDERED: metroNIDAZOLE IV 500 mg/100 ml 500 MG/100 ML BAG ONE (15:33)
[2018-04-26] MEDS: metroNIDAZOLE IV 500 mg/100 ml 500 MG/100 ML BAG IVPB SCH ×3 (00:46→21:43)
--- NOTE | 2018-04-26 01:47 | CON ---
DATE: 04/25/2018 REASON FOR CONSULTATION: Acute appendicitis and history of coronary artery disease. HISTORY OF PRESENT ILLNESS: The patient is a 57-year-old male who has history of coronary artery disease, status post coronary stenting 6 to 7 years ago. The patient has not had any cardiac issues since then. He presented because of right lower abdominal pain and was diagnosed with acute appendicitis. The patient denies any associated chest pain and denies any associated diaphoresis, dizziness, or syncope. MEDICATIONS: Flagyl 500 mg intravenously every 8 hours, Nicoderm patch, Toradol 15 mg intravenously every 6 hours p.r.n., normal saline 100 mL an hour, Zofran 4 mg intravenously every 6 hours. REVIEW OF SYSTEMS: The patient complains of nausea. He denies any chest pain, palpitations, dizziness, or diaphoresis. SOCIAL HISTORY: The patient is a smoker. PHYSICAL EXAMINATION: GENERAL: The patient is a middle-aged male who does not appear to be in any distress. VITAL SIGNS: Blood pressure 142/92, heart rate 98, temperature 98.6, respirations 20. HEENT: Normocephalic. CHEST: Clear. HEART: S1, S2, regular. ABDOMEN: Exquisite McBurney point tenderness. EXTREMITIES: No edema. LABORATORY DATA: Hemoglobin and hematocrit 14.1 and 39.9, white count 19,000, and platelet count 248,000. Today's SMA-7 is within normal limit except for glucose 133. EKG revealed normal sinus rhythm, early repolarization pattern, LVH by voltage. Urine drug screen is positive for cannabinoids and opiates. Abdomen and pelvis CT scan suspicious for acute appendicitis. ASSESSMENT: 1. Coronary artery disease with history of coronary artery stenting in the past, 6 to 7 years ago. 2. Evidence of early repolarization changes by the EKG, unlikely represent any acute injury pattern. 3. Acute appendicitis. 4. Hypertension. RECOMMENDATIONS: Continue current IV Flagyl and IV Protonix. The patient can undergo appendectomy on urgent basis from the cardiac point of view with postoperative telemetry monitoring. Crow Elias MD
--- NOTE | 2018-04-26 07:14 | CP.PCM.PN ---
Subjective - Date & Time of Evaluation Date of Evaluation: 04/26/18 Time of Evaluation: 07:11 - Subjective Subjective: General Surgery Progress note for Dr. Sarmiento This 57M was seen and examined this AM at bedside. No acute events to report overnight. Pt had 130cc of purulent output from his giancarlo drain. He reports "healing pains" however he feels significantly better today compared with yesterday. He denies any chest pain or SOB. Objective - Vital Signs/Intake and Output Vital Signs (last 24 hours): Temp Pulse Resp BP Pulse Ox 98.6 F 75 18 99/62 L 96 04/25/18 16:06 04/25/18 16:06 04/25/18 16:06 04/25/18 16:06 04/25/18 16:06 - Medications Medications: Current Medications Acetaminophen (Tylenol 325mg Tab) 650 mg PO Q6H PRN PRN Reason: Fever >100.4 F Enoxaparin Sodium (Lovenox) 30 mg SC DAILY [facility]; Protocol Hydromorphone HCl (Dilaudid) 0.5 mg IVP Q15M PRN PRN Reason: Pain, moderate (4-7) Sodium Chloride (Sodium Chloride 0.9%) 1,000 mls @ 100 mls/hr IV .Q10H [facility] Last Admin: 04/25/18 09:21 Dose: 100 mls/hr Metronidazole (Flagyl) 500 mg in 100 mls @ 100 mls/hr IVPB Q8 [facility]; Protocol Ketorolac Tromethamine (Toradol) 15 mg IVP Q6 PRN PRN Reason: Pain, moderate (4-7) Last Admin: 04/26/18 00:53 Dose: 15 mg Metoclopramide HCl (Reglan) 10 mg IV ONCE PRN PRN Reason: Nausea/Vomiting Nicotine (Nicoderm Cq) 1 patch TD DAILY [facility] Last Admin: 04/25/18 17:22 Dose: Not Given Ondansetron HCl (Zofran Inj) 4 mg IVP Q6H PRN PRN Reason: Nausea/Vomiting Pantoprazole Sodium (Protonix Inj) 40 mg IVP DAILY [facility] Last Admin: 04/25/18 09:22 Dose: 40 mg - Labs Labs: 04/25/18 11:30 04/25/18 11:30 PT 15.3 SECONDS (9.4-12.5) H 04/25/18 11:30 INR 1.32 04/25/18 11:30 - Constitutional Appears: Non-toxic, No Acute Distress - Head Exam Head Exam: ATRAUMATIC, NORMOCEPHALIC - Eye Exam Eye Exam: EOMI, Normal appearance - ENT Exam ENT Exam: Mucous Membranes Moist - Respiratory Exam Respiratory Exam: NORMAL BREATHING PATTERN - Cardiovascular Exam Cardiovascular Exam: +S1, +S2 - GI/Abdominal Exam GI & Abdominal Exam: Soft, Tenderness Additional comments: apropriatly tender dressing clean dry and intact - Neurological Exam Neurological Exam: Alert, Awake - Psychiatric Exam Psychiatric exam: Normal Affect, Normal Mood - Skin Skin Exam: Dry, Intact Assessment and Plan - Assessment and Plan (Free Text) Assessment: 57M with acute perforated appendicits Regular diet Ambulate Pain control IV abx Monitor outputs Wound Checks Further recs per Dr. Torsten Aranda PGY3
[2018-04-26 07:23] LABS: BASO # 0.02 K/mm3 (0.0-2.0); BASO % 0.2 % (0.0-3.0); EOS # 0.1 (0.0-0.7); EOS % 0.7 % (1.5-5.0); GRAN # 10.14 (1.4-6.5); LYMPH # 1.7 (1.2-3.4); LYMPH % 13.3 % (22.0-35.0); MEAN CELL VOLUME 91.1 fl (80.0-105.0); MEAN CORPUSCULAR HEMOGLOBIN 31.1 pg (25.0-35.0); MEAN CORPUSCULAR HGB CONC 34.1 g/dl (31.0-37.0); MEAN PLATELET VOLUME 9.1 fl (7.0-11.0); MONO # 0.7 (0.1-0.6); MONO % 5.8 % (1.0-6.0); RBC 3.83 10^6/uL (3.5-6.1)
[2018-04-26 07:27] LABS: ALT/SGPT 19 U/L (7-56); AST/SGOT 24 U/L (17-59); BLOOD UREA NITROGEN 14 mg/dL (7-21); CALCIUM 8.2 mg/dL (8.4-10.5); GFR NON-AFRICAN AMERICAN > 60; HDL CHOLESTEROL 33 mg/dL (29-60)
[2018-04-26 07:37] LABS: LDL CHOLESTEROL 35 mg/dL (0-129)
[2018-04-26 08:01] LABS: HEMOGLOBIN 11.9 g/dL (14.0-18.0); WHITE BLOOD COUNT 12.7 10^3/ul (4.5-11.0)
[2018-04-26] MEDS: Sodium Chloride 0.9% 1,000 ML IV SCH (08:22)
[2018-04-26] MEDS ORDERED: Enoxaparin 30 mg Syringe SC SCH (10:00)
--- NOTE | 2018-04-26 10:36 | CP.PCM.PN ---
<Timothy Abbott - Last Filed: 04/26/18 15:13> Subjective - Date & Time of Evaluation Date of Evaluation: 04/26/18 Time of Evaluation: 09:36 - Subjective Subjective: Timothy Abbott PGY2 IM Progress Note for Dr. Tate Patient was seen and examined at bedside. His abdominal pain has improved. Per surgery team, "1300 purulent output from his giancarlo drain." Surgery team would like patient to remain for IV abx and further check-ups. Patient denies fevers/chills, nausea/vomiting/diarrhea. He denies passing flatus or any BMs. Objective - Vital Signs/Intake and Output Vital Signs (last 24 hours): Temp Pulse Resp BP Pulse Ox 98.6 F 75 16 111/76 96 04/26/18 06:00 04/26/18 06:00 04/26/18 06:00 04/26/18 06:00 04/26/18 06:00 Intake and Output: 04/26/18 04/26/18 06:59 18:59 Intake Total 1120 Output Total 1340 Balance -220 - Medications Medications: Current Medications Acetaminophen (Tylenol 325mg Tab) 650 mg PO Q6H PRN PRN Reason: Fever >100.4 F Enoxaparin Sodium (Lovenox) 30 mg SC DAILY [facility]; Protocol Last Admin: 04/26/18 09:54 Dose: 30 mg Hydromorphone HCl (Dilaudid) 0.5 mg IVP Q15M PRN PRN Reason: Pain, moderate (4-7) Metronidazole (Flagyl) 500 mg in 100 mls @ 100 mls/hr IVPB Q8 [facility]; Protocol Ampicillin Sodium/Sulbactam (Sodium 3 gm/ Sodium Chloride) 100 mls @ 200 mls/hr IVPB Q6 [facility]; Protocol Ketorolac Tromethamine (Toradol) 15 mg IVP Q6 PRN PRN Reason: Pain, moderate (4-7) Last Admin: 04/26/18 08:21 Dose: 15 mg Metoclopramide HCl (Reglan) 10 mg IV ONCE PRN PRN Reason: Nausea/Vomiting Nicotine (Nicoderm Cq) 1 patch TD DAILY [facility] Last Admin: 04/26/18 09:53 Dose: Not Given Ondansetron HCl (Zofran Inj) 4 mg IVP Q6H PRN PRN Reason: Nausea/Vomiting Pantoprazole Sodium (Protonix Inj) 40 mg IVP DAILY [facility] Last Admin: 04/26/18 09:58 Dose: 40 mg - Labs Labs: 04/26/18 06:30 04/26/18 06:30 PT 15.3 SECONDS (9.4-12.5) H 04/25/18 11:30 INR 1.32 04/25/18 11:30 - Constitutional Appears: Non-toxic, No Acute Distress - Head Exam Head Exam: NORMAL INSPECTION - Eye Exam Eye Exam: Normal appearance - ENT Exam ENT Exam: Mucous Membranes Moist - Neck Exam Neck Exam: Normal Inspection - Respiratory Exam Respiratory Exam: NORMAL BREATHING PATTERN. absent: Rales, Rhonchi, Wheezes - Cardiovascular Exam Cardiovascular Exam: RRR, +S1, +S2 - GI/Abdominal Exam GI & Abdominal Exam: Soft, Tenderness (right sided abdominal moderate tenderness w/ palpation), Diminished Bowel Sounds. absent: Distended Additional comments: drain in place w/ serosanguinous output - Extremities Exam Extremities Exam: Full ROM. absent: Pedal Edema - Back Exam Back Exam: NORMAL INSPECTION - Neurological Exam Neurological Exam: Alert, Awake, Oriented x3 - Psychiatric Exam Psychiatric exam: Normal Mood - Skin Skin Exam: Normal Color Assessment and Plan - Assessment and Plan (Free Text) Assessment: 57 year old male with past medical history of alcoholism and NH 10 years ago who presented to [facility] ED with abdominal pain, found to have acute appendicitis on imaging and clinically. Patient is POD 1 for lap appendectomy. Plan: 1. Appendicitis s/p appendectomy - leukocytosis improving - regular diet advanced as tolerated - started on Unasyn by Surgery team, cont on Flagyl - Zofran PRN n/v - Reglan PRN n/v - Toradol PRN pain - Tylenol PRN fevers - Dilaudid PRN severe pain 2. Nicotine use - nicoderm 3. PPX - cont PTX for GI ppx - Lovenox for DVT ppx Patient was examined and discussed with attending, Dr. Bebeto Abbott PGY2 <Cameron Tate - Last Filed: 04/26/18 15:30> Objective - Vital Signs/Intake and Output Vital Signs (last 24 hours): Temp Pulse Resp BP Pulse Ox 98.6 F 75 16 111/76 96 04/26/18 06:00 04/26/18 06:00 04/26/18 06:00 04/26/18 06:00 04/26/18 06:00 Intake and Output: 04/26/18 04/26/18 06:59 18:59 Intake Total 1120 Output Total 1340 Balance -220 - Medications Medications: Current Medications Acetaminophen (Tylenol 325mg Tab) 650 mg PO Q6H PRN PRN Reason: Fever >100.4 F Aspirin (Ecotrin) 81 mg PO DAILY [facility] Enoxaparin Sodium (Lovenox) 40 mg SC DAILY [facility]; Protocol Hydromorphone HCl (Dilaudid) 0.5 mg IVP Q15M PRN PRN Reason: Pain, moderate (4-7) Metronidazole (Flagyl) 500 mg in 100 mls @ 100 mls/hr IVPB Q8 [facility]; Protocol Last Admin: 04/26/18 14:00 Dose: 100 mls/hr Ampicillin Sodium/Sulbactam (Sodium 3 gm/ Sodium Chloride) 100 mls @ 200 mls/hr IVPB Q6 [facility]; Protocol Last Admin: 04/26/18 11:57 Dose: 200 mls/hr Ketorolac Tromethamine (Toradol) 15 mg IVP Q6 PRN PRN Reason: Pain, moderate (4-7) Last Admin: 04/26/18 08:21 Dose: 15 mg Metoclopramide HCl (Reglan) 10 mg IV ONCE PRN PRN Reason: Nausea/Vomiting Nicotine (Nicoderm Cq) 1 patch TD DAILY [facility] Last Admin: 04/26/18 09:53 Dose: Not Given Ondansetron HCl (Zofran Inj) 4 mg IVP Q6H PRN PRN Reason: Nausea/Vomiting Pantoprazole Sodium (Protonix Inj) 40 mg IVP DAILY [facility] Last Admin: 04/26/18 09:58 Dose: 40 mg - Labs Labs: 04/26/18 06:30 04/26/18 06:30 PT 15.3 SECONDS (9.4-12.5) H 04/25/18 11:30 INR 1.32 04/25/18 11:30 Attending/Attestation - Attestation I have personally seen and examined this patient.: Yes I have fully participated in the care of the patient.: Yes I have reviewed all pertinent clinical information, including history, physical exam and plan: Yes Notes (Text): 04/26/18 15:26 57 year old male with past medical history of alcohol use and CAD/NH s/p stent 10 years ago who presented with lower abdominal pain. He was found to have acute appendicitis on CT abd/pelvis. Leukocytosis of 17.2. He was seen by surgery and is s/p appendectomy POD #1. Continue with analgesics prn and antibiotics. Leukocytosis is improved. Continue with drain care as per surgery. Diet was advanced. Encouraged incentive spirometry. Encouraged OOB to chair. He has history of CAD s/p stent 10 years prior but is not on any medications. Started on aspirin. LDL is 35. Patient has no pmd and upon discharge can follow up at [facility]. Follow up with surgery as well. Cameron Tate MD Hospitalist.
--- NOTE | 2018-04-26 10:36 | RAD ---
Date of service: 04/26/2018 PROCEDURE: CHEST RADIOGRAPH, 1 VIEW HISTORY: surgical risk stratification COMPARISON: 09/28/2013 FINDINGS: LUNGS: Clear. PLEURA: No pneumothorax or pleural fluid seen. CARDIOVASCULAR: No radiographic findings to suggest acute or significant cardiovascular disease. OSSEOUS STRUCTURES: No significant abnormalities. VISUALIZED UPPER ABDOMEN: Normal. OTHER FINDINGS: None. IMPRESSION: No active disease. No acute/significant interval changes.
--- NOTE | 2018-04-26 19:01 | PN ---
DATE: 04/26/2018 SUBJECTIVE: The patient denies any chest pain. He tolerated clear liquid today. PHYSICAL EXAMINATION: VITAL SIGNS: Blood pressure 111/76, heart rate 75, temperature 98.6, respirations 16. HEENT: Normocephalic. CHEST: Clear. HEART: S1 and S2, regular. EXTREMITIES: No edema. LABORATORY DATA: Today's hemoglobin and hematocrit 11.9 and 34.9, white count 12.7, platelet count 223,000. Today's SMA-7 is within normal limit. Calcium is 8.2. ASSESSMENT: 1. History of coronary artery disease, status post coronary artery stenting, 6 to 7 years ago. 2. Status post appendectomy yesterday. 3. Hypertension. RECOMMENDATIONS: Continue current IV ampicillin 3 g every 6 hours. Continue IV Flagyl 500 mg every 8 hours, subcutaneous Lovenox 30 mg daily. Obtain 12-lead EKG postoperatively. Crow Elias MD
[2018-04-27] MEDS ORDERED: Morphine 4 mg/ml ISec IVP STA (01:39)
[2018-04-27] MEDS: metroNIDAZOLE IV 500 mg/100 ml 500 MG/100 ML BAG IVPB SCH ×3 (05:23→21:29)
[2018-04-27 06:36] LABS: ALB/GLOB RATIO 0.9 (1.1-1.8); ALBUMIN 2.9 g/dL (3.0-4.8); ALT/SGPT 20 U/L (7-56); AST/SGOT 24 U/L (17-59); BLOOD UREA NITROGEN 13 mg/dL (7-21); CALCIUM 8.1 mg/dL (8.4-10.5); GFR NON-AFRICAN AMERICAN > 60
[2018-04-27 07:11] LABS: BASO # 0.02 K/mm3 (0.0-2.0); BASO % 0.2 % (0.0-3.0); EOS # 0.3 (0.0-0.7); GRAN # 9.38 (1.4-6.5); GRAN % 76.5 % (50.0-68.0); LYMPH # 1.6 (1.2-3.4); MEAN CORPUSCULAR HGB CONC 34.9 g/dl (31.0-37.0); MEAN PLATELET VOLUME 8.9 fl (7.0-11.0); MONO % 8.3 % (1.0-6.0); RBC 4.19 10^6/uL (3.5-6.1); RED CELL DISTRIBUTION WIDTH 13.4 % (11.5-14.5); WHITE BLOOD COUNT 12.3 10^3/ul (4.5-11.0)
--- NOTE | 2018-04-27 07:31 | CP.PCM.PN ---
Subjective - Date & Time of Evaluation Date of Evaluation: 04/27/18 Time of Evaluation: 07:27 - Subjective Subjective: General Surgery Progress note for Dr. Sarmiento Patient was seen and examined at bedside. No acute events overnight. Patient denies having a bowel movement. He denies any chest pain, fevers, chills, or SOB. Objective - Vital Signs/Intake and Output Vital Signs (last 24 hours): Temp Pulse Resp BP Pulse Ox 100.2 F H 81 22 147/100 H 95 04/27/18 00:00 04/27/18 00:00 04/27/18 00:00 04/27/18 00:00 04/27/18 00:00 Intake and Output: 04/27/18 04/27/18 06:59 18:59 Intake Total 2740 Output Total 2405 Balance 335 - Medications Medications: Current Medications Acetaminophen (Tylenol 325mg Tab) 650 mg PO Q6H PRN PRN Reason: Fever >100.4 F Aspirin (Ecotrin) 81 mg PO DAILY [facility] Docusate Sodium (Colace) 100 mg PO TID [facility] Enoxaparin Sodium (Lovenox) 40 mg SC DAILY [facility]; Protocol Hydromorphone HCl (Dilaudid) 0.5 mg IVP Q15M PRN PRN Reason: Pain, moderate (4-7) Metronidazole (Flagyl) 500 mg in 100 mls @ 100 mls/hr IVPB Q8 [facility]; Protocol Last Admin: 04/27/18 05:23 Dose: 100 mls/hr Ampicillin Sodium/Sulbactam (Sodium 3 gm/ Sodium Chloride) 100 mls @ 200 mls/hr IVPB Q6 [facility]; Protocol Last Admin: 04/27/18 05:24 Dose: 200 mls/hr Ketorolac Tromethamine (Toradol) 15 mg IVP Q6 PRN PRN Reason: Pain, moderate (4-7) Last Admin: 04/27/18 05:24 Dose: 15 mg Metoclopramide HCl (Reglan) 10 mg IV ONCE PRN PRN Reason: Nausea/Vomiting Nicotine (Nicoderm Cq) 1 patch TD DAILY [facility] Last Admin: 04/26/18 09:53 Dose: Not Given Ondansetron HCl (Zofran Inj) 4 mg IVP Q6H PRN PRN Reason: Nausea/Vomiting Pantoprazole Sodium (Protonix Inj) 40 mg IVP DAILY [facility] Last Admin: 04/26/18 09:58 Dose: 40 mg - Labs Labs: 04/27/18 06:00 04/27/18 06:00 PT 15.3 SECONDS (9.4-12.5) H 04/25/18 11:30 INR 1.32 04/25/18 11:30 - Constitutional Appears: Well, Non-toxic, No Acute Distress - Head Exam Head Exam: ATRAUMATIC, NORMOCEPHALIC - Eye Exam Eye Exam: Normal appearance - ENT Exam ENT Exam: Mucous Membranes Moist - Respiratory Exam Respiratory Exam: NORMAL BREATHING PATTERN. absent: Decreased Breath Sounds, Respiratory Distress - Cardiovascular Exam Cardiovascular Exam: RRR - GI/Abdominal Exam GI & Abdominal Exam: Soft. absent: Distended, Tenderness Additional comments: Shivam drain in place in RLQ draining 855 mL of yellowish serous fluids. Dressing C/D/I. - Extremities Exam Extremities Exam: Normal Inspection - Neurological Exam Neurological Exam: Alert, Awake, Oriented x3 - Psychiatric Exam Psychiatric exam: Normal Affect, Normal Mood - Skin Skin Exam: Dry, Intact, Normal Color, Warm Assessment and Plan - Assessment and Plan (Free Text) Assessment: 57 year old male with acute perforated appendicitis. Plan: - Regular diet - Encourage ambulation as tolerated - Pain control - Continue with IV antibiotics - Monitor outputs - Wound Checks Discussed case with Dr. Torsten Severino DO PGY-1
--- NOTE | 2018-04-27 09:33 | CARD ---
APPROVED REPORT Date of service: 04/26/2018 EKG Measurement Heart [id number] <Conclusion> Normal sinus rhythm Minimal voltage criteria for LVH, may be normal variant Small q waves and ST elevations in 2,3,F No change
[2018-04-27] MEDS: Enoxaparin 40 mg Syringe SC SCH (10:27)
--- NOTE | 2018-04-27 14:06 | CP.PCM.PN ---
<Karan Lopez - Last Filed: 04/27/18 16:09> Subjective - Date & Time of Evaluation Date of Evaluation: 04/27/18 Time of Evaluation: 10:15 - Subjective Subjective: PGY-1 Karan Lopez Medicine Progress Note for Dr. Nichols's service Patient seen and examined at bedside. Patient reports lower abdominal pain both right and left sides. Patient states he has not had a bowel movement since friday. Patient denies headaches, lightheadedness, dizziness, chest pain, sob, nausea or vomiting, diarrhea, fevers and chills. Objective - Vital Signs/Intake and Output Vital Signs (last 24 hours): Temp Pulse Resp BP Pulse Ox 99.6 F 69 20 138/100 H 97 04/27/18 08:38 04/27/18 08:38 04/27/18 08:38 04/27/18 08:38 04/27/18 08:38 Intake and Output: 04/27/18 04/27/18 06:59 18:59 Intake Total 2740 Output Total 2405 Balance 335 - Medications Medications: Current Medications Acetaminophen (Tylenol 325mg Tab) 650 mg PO Q6H PRN PRN Reason: Fever >100.4 F Aspirin (Ecotrin) 81 mg PO DAILY [facility] Last Admin: 04/27/18 10:27 Dose: 81 mg Docusate Sodium (Colace) 100 mg PO TID [facility] Last Admin: 04/27/18 10:26 Dose: 100 mg Enoxaparin Sodium (Lovenox) 40 mg SC DAILY [facility]; Protocol Last Admin: 04/27/18 10:27 Dose: 40 mg Hydromorphone HCl (Dilaudid) 0.5 mg IVP Q15M PRN PRN Reason: Pain, moderate (4-7) Metronidazole (Flagyl) 500 mg in 100 mls @ 100 mls/hr IVPB Q8 [facility]; Protocol Last Admin: 04/27/18 05:23 Dose: 100 mls/hr Ampicillin Sodium/Sulbactam (Sodium 3 gm/ Sodium Chloride) 100 mls @ 200 mls/hr IVPB Q6 [facility]; Protocol Last Admin: 04/27/18 11:08 Dose: 200 mls/hr Ketorolac Tromethamine (Toradol) 15 mg IVP Q4 PRN PRN Reason: Pain, moderate (4-7) Last Admin: 04/27/18 11:10 Dose: 15 mg Nicotine (Nicoderm Cq) 1 patch TD DAILY [facility] Last Admin: 04/27/18 10:40 Dose: Not Given Ondansetron HCl (Zofran Inj) 4 mg IVP Q6H PRN PRN Reason: Nausea/Vomiting Pantoprazole Sodium (Protonix Ec Tab) 40 mg PO ACB [facility] - Labs Labs: 04/27/18 06:00 04/27/18 06:00 PT 15.3 SECONDS (9.4-12.5) H 04/25/18 11:30 INR 1.32 04/25/18 11:30 - Constitutional Appears: Non-toxic, No Acute Distress - Head Exam Head Exam: NORMAL INSPECTION, NORMOCEPHALIC - Eye Exam Eye Exam: EOMI, Normal appearance. absent: Nystagmus, Scleral icterus - ENT Exam ENT Exam: Mucous Membranes Moist - Respiratory Exam Respiratory Exam: Clear to Ausculation Bilateral, NORMAL BREATHING PATTERN. absent: Rales, Rhonchi, Wheezes - Cardiovascular Exam Cardiovascular Exam: REGULAR RHYTHM, +S1, +S2 - GI/Abdominal Exam GI & Abdominal Exam: Soft, Tenderness, Normal Bowel Sounds. absent: Distended Additional comments: drain in right lower abdominal area; no signs of erythema, oozing, draining noted at site of incision drain showing clear liquid - Extremities Exam Extremities Exam: Normal Inspection. absent: Calf Tenderness, Pedal Edema - Neurological Exam Neurological Exam: Alert, Awake, Oriented x3 - Psychiatric Exam Psychiatric exam: Normal Affect, Normal Mood - Skin Skin Exam: Intact, Normal Color Assessment and Plan - Assessment and Plan (Free Text) Assessment: 57 year old male with past medical history of alcoholism and ?[place] 10 years ago who presented to [facility] with abdominal pain. Patient evaluated with abdominal/pelvis CT showing suspicious for acute appendicitis. General surgery consulted for appendectomy evaluation. Ruptured appendix was noted with drain put in place and patient started on Abx s/p appendectomy. POD 3 currently. Plan: Acute Ruptured Appendicitis Surgery Consulted- Dr. Villanueva- Pain control + IV abx Dilaudid 0.5mg IVP q15m; Toradol 15mg IVP q4h prn Amb/Sulbactam q6 [facility] Flagyl 500mg q8 [facility] Drain clearing clear fluid - removal pending surgery reccs Constipation Docusate 100mg po tid [facility] Lactulose 30gm po once PPx: GI ppx- Protonix 40mg po DVT ppx- Lovenox 40mg sc daily <SimoneAdalandreas - Last Filed: 05/02/18 17:56> Objective - Vital Signs/Intake and Output Vital Signs (last 24 hours): Temp Pulse Resp BP Pulse Ox 98.1 F 89 20 143/95 H 96 05/02/18 08:06 05/02/18 08:06 05/02/18 08:06 05/01/18 17:00 05/02/18 08:06 Intake and Output: 05/02/18 05/02/18 06:59 18:59 Intake Total 960 Balance 960 - Medications Medications: Current Medications Acetaminophen (Tylenol 325mg Tab) 650 mg PO Q6H PRN PRN Reason: Fever >100.4 F Aspirin (Ecotrin) 81 mg PO DAILY [facility] Last Admin: 05/02/18 09:54 Dose: 81 mg Cephalexin Monohydrate (Keflex) 500 mg PO TID [facility]; Protocol Last Admin: 05/02/18 17:35 Dose: 500 mg Docusate Sodium (Colace) 100 mg PO TID [facility] Last Admin: 05/02/18 17:37 Dose: Not Given Enoxaparin Sodium (Lovenox) 40 mg SC DAILY [facility]; Protocol Last Admin: 05/02/18 09:54 Dose: 40 mg Hydralazine HCl (Apresoline) 10 mg IVP Q6 PRN PRN Reason: Systolic Blood Pressure Last Admin: 05/01/18 05:53 Dose: 10 mg Nicotine (Nicoderm Cq) 1 patch TD DAILY [facility] Last Admin: 05/02/18 08:59 Dose: Not Given Ondansetron HCl (Zofran Inj) 4 mg IVP Q6H PRN PRN Reason: Nausea/Vomiting Last Admin: 05/01/18 19:55 Dose: 4 mg Pantoprazole Sodium (Protonix Ec Tab) 40 mg PO ACB [facility] Last Admin: 05/02/18 06:37 Dose: 40 mg - Labs Labs: 05/01/18 05:30 05/02/18 13:00 PT 15.3 SECONDS (9.4-12.5) H 04/25/18 11:30 INR 1.32 04/25/18 11:30 Attending/Attestation - Attestation I have personally seen and examined this patient.: Yes I have fully participated in the care of the patient.: Yes I have reviewed all pertinent clinical information, including history, physical exam and plan: Yes Notes (Text): 05/02/18 17:56 Medical record note made by the resident after discussion with my direction and input after the patient was personally seen and examined by me. I have reviewed the chart and agree that the record accurately reflects by personal performance of the history, physical exam, data review, and medical decision-making, in the course for the patient. I have also personally directed the plan of care.
--- NOTE | 2018-04-27 22:02 | PN ---
DATE: 04/27/2018 SUBJECTIVE: The patient is experiencing lower abdominal pain, nausea, and vomiting. No retrosternal chest pain. PHYSICAL EXAMINATION: VITAL SIGNS: Blood pressure 147/100, heart rate 81, temperature 100.2, respirations 22. HEENT: Normocephalic. CHEST: Clear. HEART: S1 and S2 regular. ABDOMEN: Diffusely tender. EXTREMITIES: No edema. LABORATORY DATA: Hemoglobin and hematocrit 13 and 37.3, white count 12.3, and platelet count 233,000. Today's SMA-7: Sodium 129, potassium 3.7, chloride 94, CO2 of 26, glucose 107, BUN 13, creatinine 0.7. Yesterday, his EKG revealed normal sinus rhythm, minimal voltage criteria for LVH. No change compared to the preoperative EKG. ASSESSMENT: 1. Status post appendectomy. 2. Diffuse abdominal pain. 3. Hypertension. 4. History of coronary artery stenting 6 to 7 years ago. 5. Hyponatremia. RECOMMENDATIONS: Continue current IV ampicillin at 3 g every 6 hours. May hold on oral medications for now including aspirin. I recommended surgical followup and the nurse has already called the surgical team. Crow Elias MD
--- NOTE | 2018-04-28 03:44 | OP ---
PROCEDURE DATE: 04/25/2018 PREOPERATIVE DIAGNOSIS: Acute appendicitis. POSTOPERATIVE DIAGNOSIS: Acute perforated appendicitis. PROCEDURE: Open appendectomy. SURGEON: Richard Sarmiento MD WINERY CELLAR HAND: Geovani Aranda DO ANESTHESIOLOGIST: Wayne Farooq MD ANESTHESIA: General endotracheal anesthesia. ESTIMATED BLOOD LOSS: Minimum. SPECIMEN: Appendix. INDICATIONS: This is a 57-year-old male with past medical history of polysubstance abuse, who presented to the ED with 3 days of abdominal pain, which became significantly worsened the day prior to admission. On admission, the patient had significant leukocytosis. CT scan was performed showed fluid and inflammation in the pelvis and the right lower quadrant. The patient had tenderness in the right lower quadrant. CT scan was significant for calcifications and what appeared to be an appendiceal lumen. Decision was made to take the patient to the operating room for an appendectomy. DESCRIPTION OF PROCEDURE: The patient was brought to the operating room and placed in the operating table in the supine position. The patient was connected to the EKG, blood pressure, and pulse ox monitors. The patient underwent endotracheal intubation. He was prepped and draped in a usual sterile fashion. Standard time-out procedure took place when everyone was in the room and agreed to the patient's identity, diagnosis, and procedure that was going to be performed. The patient was placed in the operating table in the supine position. The incision was made in natural skin line centered over McBurney's point. Subcutaneous tissue was divided so the aponeurosis of external oblique was encountered, this was opened in direction parallel to the fibers extended immediately towards the rectus sheath and laterally towards the iliac crest. The underlying internal oblique aponeurosis was exposed and transverse abdominus was encountered and internally split, the transversalis fascia was encountered. The peritoneum was lifted using Elzbieta clamps and was opened using scalpel carefully to avoid injury to the bowel below, turbid fluid was encountered and cultured. Moist pads were used to protect the wound edge. The cecum was identified after omentum was moved cephalad. The abdomen was suctioned and using blunt finger dissection, the appendix was identified. Attachments and adhesions were dissected using sharp dissection. The appendix was then lifted through the incision. The mesentery of the appendix was divided between 2 clamps and ligated with a silk suture. The base of the appendix was identified and was dissected down meticulously. There was a Perforation about a Centimeter above of the base of the appendix with presence of some fecal material. The appendix was removed using a 35 TA stapler a Centimeter below the perforation and the staple line was cleaned with betadine. A Z-stitch taking the wall of the cecum and the appendix was then imbricated. Hemostasis was checked. Omentum was placed on the site. No other pathologies were noted. All purulent material was copiously irrigated and suctioned. A Shivam drain was placed along the paracolic recess as well as in the pelvis. The incision was closed in layers loosely and iodoform packing was placed below Jensen's fascia. The skin was closed using aram. A debriefing was completed to share information critical to the postoperative care of the patient. The patient tolerated the procedure well and was taken to the Postanesthesia Unit in satisfactory condition. Geovani Aranda DO Richard Sarmiento MD MTDEmely
[2018-04-28] MEDS: metroNIDAZOLE IV 500 mg/100 ml 500 MG/100 ML BAG IVPB SCH ×3 (05:30→21:37)
--- NOTE | 2018-04-28 07:51 | CP.PCM.PN ---
Subjective - Date & Time of Evaluation Date of Evaluation: 04/28/18 Time of Evaluation: 06:45 - Subjective Subjective: Patient seen and examined. Reports having one bout of bilious emesis earlier this morning. Denies any abdominal pain. Drain had 890cc/24hr of slightly seropurulent drainage from it. No other complaints. Abdominal dressing taken down, surgical incision site is c/d/i. Objective - Vital Signs/Intake and Output Vital Signs (last 24 hours): Temp Pulse Resp BP Pulse Ox 99.0 F 85 20 134/77 95 04/27/18 18:19 04/27/18 18:19 04/27/18 18:19 04/27/18 18:19 04/27/18 18:19 Intake and Output: 04/28/18 04/28/18 06:59 18:59 Intake Total 1320 Output Total 1290 Balance 30 - Medications Medications: Current Medications Acetaminophen (Tylenol 325mg Tab) 650 mg PO Q6H PRN PRN Reason: Fever >100.4 F Aspirin (Ecotrin) 81 mg PO DAILY [facility] Last Admin: 04/27/18 10:27 Dose: 81 mg Docusate Sodium (Colace) 100 mg PO TID [facility] Last Admin: 04/27/18 17:52 Dose: 100 mg Enoxaparin Sodium (Lovenox) 40 mg SC DAILY [facility]; Protocol Last Admin: 04/27/18 10:27 Dose: 40 mg Hydromorphone HCl (Dilaudid) 0.5 mg IVP Q15M PRN PRN Reason: Pain, moderate (4-7) Metronidazole (Flagyl) 500 mg in 100 mls @ 100 mls/hr IVPB Q8 [facility]; Protocol Last Admin: 04/28/18 05:30 Dose: 100 mls/hr Ampicillin Sodium/Sulbactam (Sodium 3 gm/ Sodium Chloride) 100 mls @ 200 mls/hr IVPB Q6 [facility]; Protocol Last Admin: 04/28/18 05:24 Dose: 200 mls/hr Nicotine (Nicoderm Cq) 1 patch TD DAILY [facility] Last Admin: 04/27/18 10:40 Dose: Not Given Ondansetron HCl (Zofran Inj) 4 mg IVP Q6H PRN PRN Reason: Nausea/Vomiting Last Admin: 04/28/18 05:28 Dose: 4 mg Pantoprazole Sodium (Protonix Ec Tab) 40 mg PO ACB [facility] - Labs Labs: 04/27/18 06:00 04/27/18 06:00 PT 15.3 SECONDS (9.4-12.5) H 04/25/18 11:30 INR 1.32 04/25/18 11:30 - Constitutional Appears: No Acute Distress - Head Exam Head Exam: NORMOCEPHALIC - Eye Exam Eye Exam: EOMI, Normal appearance - ENT Exam ENT Exam: Mucous Membranes Moist - Respiratory Exam Respiratory Exam: NORMAL BREATHING PATTERN - Cardiovascular Exam Cardiovascular Exam: +S1, +S2 - GI/Abdominal Exam GI & Abdominal Exam: Soft. absent: Distended, Firm, Guarding, Rigid, Rebound - Neurological Exam Neurological Exam: Alert, Awake, Oriented x3 - Psychiatric Exam Psychiatric exam: Normal Mood - Skin Skin Exam: Dry, Intact, Warm Assessment and Plan - Assessment and Plan (Free Text) Assessment: 57M with perforated appendix POD 4 Plan: -Monitor drain output -C/w ABx -DVT ppx -Encourage ambulation -Will d/c abdominal wound packing prior to d/c -D/w Dr. Torsten Brennan PGY3
[2018-04-28 08:00] LABS: BASO # 0.02 K/mm3 (0.0-2.0); BASO % 0.2 % (0.0-3.0); EOS # 0.2 (0.0-0.7); EOS % 1.9 % (1.5-5.0); GRAN # 7.67 (1.4-6.5); GRAN % 76.6 % (50.0-68.0); HEMOGLOBIN 12.8 g/dL (14.0-18.0); LYMPH # 1.1 (1.2-3.4); MEAN CELL VOLUME 87.7 fl (80.0-105.0); MEAN CORPUSCULAR HEMOGLOBIN 30.8 pg (25.0-35.0); MEAN CORPUSCULAR HGB CONC 35.2 g/dl (31.0-37.0); MEAN PLATELET VOLUME 8.5 fl (7.0-11.0); MONO % 10.3 % (1.0-6.0); RBC 4.15 10^6/uL (3.5-6.1); RED CELL DISTRIBUTION WIDTH 13.2 % (11.5-14.5)
[2018-04-28 08:22] LABS: ALBUMIN 3.1 g/dL (3.0-4.8); ALT/SGPT 18 U/L (7-56); AST/SGOT 26 U/L (17-59); BLOOD UREA NITROGEN 18 mg/dL (7-21); CALCIUM 8.5 mg/dL (8.4-10.5); GFR NON-AFRICAN AMERICAN > 60
[2018-04-28] MEDS: Enoxaparin 40 mg Syringe SC SCH (09:38)
[2018-04-28] MEDS: Pantoprazole 40 mg EC Tab PO SCH (09:38)
[2018-04-28] MEDS ORDERED: POLYETHYLENE GLYCOL 3350 17 GM/Dose PACKET PO STA (11:00)
--- NOTE | 2018-04-28 13:35 | CP.PCM.PN ---
<JohnJonnathanmell - Last Filed: 04/28/18 13:29> Subjective - Date & Time of Evaluation Date of Evaluation: 04/28/18 Time of Evaluation: 10:30 - Subjective Subjective: PGY-1 [facility] Progress Note for Dr. Nichols's service Patient seen and examined at bedside. Patient reports no complete bowel movement but states a very little came out. Patient states less abdominal discomfort from yesterday. Patient states he had 1 episode of vomiting early in the morning looking similar to bile. No more episodes since. Patient denies fever, chills, sob, chest pain Objective - Vital Signs/Intake and Output Vital Signs (last 24 hours): Temp Pulse Resp BP Pulse Ox 97.8 F 87 20 140/97 H 97 04/28/18 07:54 04/28/18 07:54 04/28/18 07:54 04/28/18 07:54 04/28/18 07:54 Intake and Output: 04/28/18 04/28/18 06:59 18:59 Intake Total 1320 Output Total 1290 Balance 30 - Medications Medications: Current Medications Acetaminophen (Tylenol 325mg Tab) 650 mg PO Q6H PRN PRN Reason: Fever >100.4 F Aspirin (Ecotrin) 81 mg PO DAILY [facility] Last Admin: 04/28/18 09:38 Dose: 81 mg Docusate Sodium (Colace) 100 mg PO TID [facility] Last Admin: 04/28/18 09:37 Dose: 100 mg Enoxaparin Sodium (Lovenox) 40 mg SC DAILY [facility]; Protocol Last Admin: 04/28/18 09:38 Dose: 40 mg Metronidazole (Flagyl) 500 mg in 100 mls @ 100 mls/hr IVPB Q8 [facility]; Protocol Last Admin: 04/28/18 05:30 Dose: 100 mls/hr Ampicillin Sodium/Sulbactam (Sodium 3 gm/ Sodium Chloride) 100 mls @ 200 mls/hr IVPB Q6 [facility]; Protocol Last Admin: 04/28/18 12:04 Dose: 200 mls/hr Nicotine (Nicoderm Cq) 1 patch TD DAILY [facility] Last Admin: 04/28/18 09:38 Dose: Not Given Ondansetron HCl (Zofran Inj) 4 mg IVP Q6H PRN PRN Reason: Nausea/Vomiting Last Admin: 04/28/18 05:28 Dose: 4 mg Pantoprazole Sodium (Protonix Ec Tab) 40 mg PO ACB [facility] Last Admin: 04/28/18 09:38 Dose: 40 mg - Labs Labs: 04/28/18 07:45 04/28/18 07:45 PT 15.3 SECONDS (9.4-12.5) H 04/25/18 11:30 INR 1.32 04/25/18 11:30 - Additional Findings Additional findings: - Constitutional Appears: Non-toxic, No Acute Distress - Head Exam Head Exam: NORMAL INSPECTION, NORMOCEPHALIC - Eye Exam Eye Exam: EOMI, Normal appearance. absent: Nystagmus, Scleral icterus - ENT Exam ENT Exam: Mucous Membranes Moist - Respiratory Exam Respiratory Exam: Clear to Ausculation Bilateral, NORMAL BREATHING PATTERN. absent: Rales, Rhonchi, Wheezes - Cardiovascular Exam Cardiovascular Exam: REGULAR RHYTHM, +S1, +S2 - GI/Abdominal Exam GI & Abdominal Exam: Soft, Tenderness, Normal Bowel Sounds. absent: Distended Additional comments: giancarlo drain in right lower abdominal area; no signs of erythema, oozing, draining noted at site of incision drain showing yellow fluid - Extremities Exam Extremities Exam: Normal Inspection. absent: Calf Tenderness, Pedal Edema - Neurological Exam Neurological Exam: Alert, Awake, Oriented x3 - Psychiatric Exam Psychiatric exam: Normal Affect, Normal Mood - Skin Skin Exam: Intact, Normal Color Assessment and Plan - Assessment and Plan (Free Text) Assessment: 57 year old male with past medical history of alcoholism and ?[place] 10 years ago who [place] [facility] [place]. Patient evaluated with abdominal/pelvis CT showing suspicious for acute appendicitis. General surgery consulted for appendectomy evaluation. Ruptured appendix was noted with drain put in place and patient started on Abx s/p appendectomy. POD 4 currently. Plan: Acute Ruptured Appendicitis Surgery Consulted- Dr. Villanueva- Pain control + IV abx + giancarlo drain Tylenol 325mg for fever; Zofran 4mg IVP q6h prn for N/V Amb/Sulbactam q6 [facility] Flagyl 500mg q8 [facility] Drain clearing clear yellow fluid - removal pending surgery reccs Constipation Docusate 100mg po tid [facility] Lactulose 30gm po once Miralax 17gm po once Mineral oil enema 135 ml RC once PPx: GI ppx- Protonix 40mg po DVT ppx- Lovenox 40mg sc daily Plan discussed with Dr. Simone Lopez PGY-2 <Joseluis Nichols - Last Filed: 05/02/18 17:56> Objective - Vital Signs/Intake and Output Vital Signs (last 24 hours): Temp Pulse Resp BP Pulse Ox 98.1 F 89 20 143/95 H 96 05/02/18 08:06 05/02/18 08:06 05/02/18 08:06 05/01/18 17:00 05/02/18 08:06 Intake and Output: 05/02/18 05/02/18 06:59 18:59 Intake Total 960 Balance 960 - Medications Medications: Current Medications Acetaminophen (Tylenol 325mg Tab) 650 mg PO Q6H PRN PRN Reason: Fever >100.4 F Aspirin (Ecotrin) 81 mg PO DAILY [facility] Last Admin: 05/02/18 09:54 Dose: 81 mg Cephalexin Monohydrate (Keflex) 500 mg PO TID [facility]; Protocol Last Admin: 05/02/18 17:35 Dose: 500 mg Docusate Sodium (Colace) 100 mg PO TID [facility] Last Admin: 05/02/18 17:37 Dose: Not Given Enoxaparin Sodium (Lovenox) 40 mg SC DAILY [facility]; Protocol Last Admin: 05/02/18 09:54 Dose: 40 mg Hydralazine HCl (Apresoline) 10 mg IVP Q6 PRN PRN Reason: Systolic Blood Pressure Last Admin: 05/01/18 05:53 Dose: 10 mg Nicotine (Nicoderm Cq) 1 patch TD DAILY [facility] Last Admin: 05/02/18 08:59 Dose: Not Given Ondansetron HCl (Zofran Inj) 4 mg IVP Q6H PRN PRN Reason: Nausea/Vomiting Last Admin: 05/01/18 19:55 Dose: 4 mg Pantoprazole Sodium (Protonix Ec Tab) 40 mg PO ACB [facility] Last Admin: 05/02/18 06:37 Dose: 40 mg - Labs Labs: 05/01/18 05:30 05/02/18 13:00 PT 15.3 SECONDS (9.4-12.5) H 04/25/18 11:30 INR 1.32 04/25/18 11:30 Attending/Attestation - Attestation I have personally seen and examined this patient.: Yes I have fully participated in the care of the patient.: Yes I have reviewed all pertinent clinical information, including history, physical exam and plan: Yes Notes (Text): 05/02/18 17:56 Medical record note made by the resident after discussion with my direction and input after the patient was personally seen and examined by me. I have reviewed the chart and agree that the record accurately reflects by personal performance of the history, physical exam, data review, and medical decision-making, in the course for the patient. I have also personally directed the plan of care.
[2018-04-28] MEDS ORDERED: Mineral Oil Enema 135 ml RC ONE (13:40)
[2018-04-28] MEDS: Lactated Ringer's 1,000 ML IV SCH (16:36)
--- NOTE | 2018-04-28 16:58 | PN ---
DATE: 04/28/2018 FOLLOWUP SUBJECTIVE: The patient's abdominal pain has improved. He did eat breakfast, but vomited today. No retrosternal chest pain. PHYSICAL EXAMINATION: VITAL SIGNS: Blood pressure 140/97, heart rate 87, temperature 97.8, respirations 20. HEENT: Normocephalic. CHEST: Clear. HEART: S1 and S2 regular. EXTREMITIES: No edema. LABORATORY DATA: Hemoglobin and hematocrit 12.8 and 36.4. White count and platelet count are within normal limits. SMA-7: Sodium 131, potassium 3.7, chloride 96, CO2 of 26, glucose 114, BUN 18, creatinine 0.8. ASSESSMENT: 1. Status post appendectomy. 2. History of coronary artery disease, status post coronary artery stenting in the past. 3. Hypertension. 4. Hyponatremia. RECOMMENDATIONS: Continue current IV ampicillin at 3 g every 6 hours, continue aspirin 81 mg once a day, Flagyl 500 mg intravenously every 8 hours. Continue IV lactated Ringer's at 100 mL an hour, subcutaneous Lovenox at 40 mg once a day, Protonix 40 mg orally daily and Zofran 4 mg intravenously every 6 hours p.r.n. Crow Elias MD
[2018-04-29] MEDS ORDERED: DiphenhydrAMINE 50 mg/ml Inj IVP STA (00:22)
[2018-04-29] MEDS: metroNIDAZOLE IV 500 mg/100 ml 500 MG/100 ML BAG IVPB SCH ×3 (05:37→22:40)
[2018-04-29 06:02] LABS: BASO # 0.06 K/mm3 (0.0-2.0); BASO % 0.6 % (0.0-3.0); EOS # 0.3 (0.0-0.7); GRAN # 6.77 (1.4-6.5); GRAN % 64.6 % (50.0-68.0); HEMOGLOBIN 12.5 g/dL (14.0-18.0); LYMPH # 1.7 (1.2-3.4); MEAN CELL VOLUME 88.7 fl (80.0-105.0); MEAN CORPUSCULAR HEMOGLOBIN 30.6 pg (25.0-35.0); MEAN CORPUSCULAR HGB CONC 34.5 g/dl (31.0-37.0); MEAN PLATELET VOLUME 8.4 fl (7.0-11.0); MONO # 1.7 (0.1-0.6); MONO % 15.8 % (1.0-6.0); RBC 4.08 10^6/uL (3.5-6.1); RED CELL DISTRIBUTION WIDTH 13.2 % (11.5-14.5); WHITE BLOOD COUNT 10.5 10^3/ul (4.5-11.0)
[2018-04-29 06:17] LABS: ALB/GLOB RATIO 0.9 (1.1-1.8); ALBUMIN 2.9 g/dL (3.0-4.8); ALT/SGPT 19 U/L (7-56); AST/SGOT 24 U/L (17-59); BLOOD UREA NITROGEN 15 mg/dL (7-21); CALCIUM 8.4 mg/dL (8.4-10.5); GFR NON-AFRICAN AMERICAN > 60
[2018-04-29] MEDS: Pantoprazole 40 mg EC Tab PO SCH (08:50)
[2018-04-29] MEDS: Enoxaparin 40 mg Syringe SC SCH (09:24)
--- NOTE | 2018-04-29 11:39 | CP.PCM.PN ---
Subjective - Date & Time of Evaluation Date of Evaluation: 04/29/18 Time of Evaluation: 11:36 - Subjective Subjective: Surgery: Dr. Sarmiento Patient feeling better today. No further nausea vomiting episodes. Reports being out of bed ambulating. Objective - Vital Signs/Intake and Output Vital Signs (last 24 hours): Temp Pulse Resp BP Pulse Ox 98.2 F 66 18 155/97 H 97 04/29/18 06:00 04/29/18 06:00 04/29/18 06:00 04/29/18 06:00 04/29/18 06:00 Intake and Output: 04/29/18 04/29/18 06:59 18:59 Intake Total 1460 Output Total 2110 Balance -650 - Medications Medications: Current Medications Acetaminophen (Tylenol 325mg Tab) 650 mg PO Q6H PRN PRN Reason: Fever >100.4 F Aspirin (Ecotrin) 81 mg PO DAILY [facility] Last Admin: 04/29/18 09:25 Dose: 81 mg Docusate Sodium (Colace) 100 mg PO TID [facility] Last Admin: 04/29/18 09:25 Dose: 100 mg Enoxaparin Sodium (Lovenox) 40 mg SC DAILY [facility]; Protocol Last Admin: 04/29/18 09:24 Dose: 40 mg Metronidazole (Flagyl) 500 mg in 100 mls @ 100 mls/hr IVPB Q8 [facility]; Protocol Last Admin: 04/29/18 05:37 Dose: 100 mls/hr Ampicillin Sodium/Sulbactam (Sodium 3 gm/ Sodium Chloride) 100 mls @ 200 mls/hr IVPB Q6 [facility]; Protocol Last Admin: 04/29/18 05:36 Dose: 200 mls/hr Lactated Ringer's (Lactated Ringer's) 1,000 mls @ 100 mls/hr IV .Q10H [facility] Last Admin: 04/28/18 16:36 Dose: 100 mls/hr Potassium Chloride (Potassium Chloride 20 Meq/100 Ml) 20 meq in 100 mls @ 50 mls/hr IVPB Q2H [facility] Stop: 04/29/18 11:44 Last Admin: 04/29/18 11:24 Dose: 50 mls/hr Metoclopramide HCl (Reglan) 10 mg IVP Q6H PRN PRN Reason: n/v Last Admin: 04/29/18 09:25 Dose: 10 mg Nicotine (Nicoderm Cq) 1 patch TD DAILY [facility] Last Admin: 04/29/18 09:25 Dose: Not Given Ondansetron HCl (Zofran Inj) 4 mg IVP Q6H PRN PRN Reason: Nausea/Vomiting Last Admin: 04/28/18 21:37 Dose: 4 mg Pantoprazole Sodium (Protonix Ec Tab) 40 mg PO ACB [facility] Last Admin: 04/29/18 08:50 Dose: 40 mg - Labs Labs: 04/29/18 05:30 04/29/18 05:30 PT 15.3 SECONDS (9.4-12.5) H 04/25/18 11:30 INR 1.32 04/25/18 11:30 - Constitutional Appears: Non-toxic, No Acute Distress - Head Exam Head Exam: ATRAUMATIC, NORMOCEPHALIC - Eye Exam Eye Exam: EOMI, Normal appearance - ENT Exam ENT Exam: Mucous Membranes Moist - Respiratory Exam Respiratory Exam: NORMAL BREATHING PATTERN. absent: Respiratory Distress - Cardiovascular Exam Cardiovascular Exam: REGULAR RHYTHM. absent: Tachycardia - GI/Abdominal Exam GI & Abdominal Exam: Soft. absent: Distended, Guarding, Tenderness, Rebound Additional comments: giancarlo output serous 400cc - Neurological Exam Neurological Exam: Alert, Awake Assessment and Plan - Assessment and Plan (Free Text) Assessment: 57 y/o male s/p open appendectomy w/ post operative ileus-improving Plan: -liquid diet -OOB -replace electrolytes prn -d/c IVFs once tolerating diet -ADAT -will remove drain when cleared for d/c -if patient tolerating regular diet and +BMs, possible d/c 04/30 -seen and examined w/ Dr. Sarmiento [facility] PGY4
--- NOTE | 2018-04-29 12:40 | CP.PCM.PN ---
<Dell Real - Last Filed: 04/29/18 12:36> Subjective - Date & Time of Evaluation Date of Evaluation: 04/29/18 Time of Evaluation: 11:00 - Subjective Subjective: Dell Real PGY1 Progress Note for Dr. Nichols Pt was examined at bedside this morning. He denied any further episodes of nausea or vomiting. He reported 2 small bowel movements. He denied any chest pain, shortness of breath, abdominal pain, dysuria. Objective - Vital Signs/Intake and Output Vital Signs (last 24 hours): Temp Pulse Resp BP Pulse Ox 98.2 F 66 18 155/97 H 97 04/29/18 06:00 04/29/18 06:00 04/29/18 06:00 04/29/18 06:00 04/29/18 06:00 Intake and Output: 04/29/18 04/29/18 06:59 18:59 Intake Total 1460 Output Total 2110 Balance -650 - Medications Medications: Current Medications Acetaminophen (Tylenol 325mg Tab) 650 mg PO Q6H PRN PRN Reason: Fever >100.4 F Aspirin (Ecotrin) 81 mg PO DAILY [facility] Last Admin: 04/29/18 09:25 Dose: 81 mg Docusate Sodium (Colace) 100 mg PO TID [facility] Last Admin: 04/29/18 09:25 Dose: 100 mg Enoxaparin Sodium (Lovenox) 40 mg SC DAILY [facility]; Protocol Last Admin: 04/29/18 09:24 Dose: 40 mg Metronidazole (Flagyl) 500 mg in 100 mls @ 100 mls/hr IVPB Q8 [facility]; Protocol Last Admin: 04/29/18 05:37 Dose: 100 mls/hr Ampicillin Sodium/Sulbactam (Sodium 3 gm/ Sodium Chloride) 100 mls @ 200 mls/hr IVPB Q6 [facility]; Protocol Last Admin: 04/29/18 05:36 Dose: 200 mls/hr Lactated Ringer's (Lactated Ringer's) 1,000 mls @ 100 mls/hr IV .Q10H [facility] Last Admin: 04/28/18 16:36 Dose: 100 mls/hr Metoclopramide HCl (Reglan) 10 mg IVP Q6H PRN PRN Reason: n/v Last Admin: 04/29/18 09:25 Dose: 10 mg Nicotine (Nicoderm Cq) 1 patch TD DAILY [facility] Last Admin: 04/29/18 09:25 Dose: Not Given Ondansetron HCl (Zofran Inj) 4 mg IVP Q6H PRN PRN Reason: Nausea/Vomiting Last Admin: 04/28/18 21:37 Dose: 4 mg Pantoprazole Sodium (Protonix Ec Tab) 40 mg PO ACB [facility] Last Admin: 04/29/18 08:50 Dose: 40 mg - Labs Labs: 04/29/18 05:30 04/29/18 05:30 PT 15.3 SECONDS (9.4-12.5) H 04/25/18 11:30 INR 1.32 04/25/18 11:30 - Constitutional Appears: Well, No Acute Distress - Head Exam Head Exam: ATRAUMATIC, NORMOCEPHALIC - Eye Exam Eye Exam: EOMI, Normal appearance, PERRL Pupil Exam: NORMAL ACCOMODATION - ENT Exam ENT Exam: Mucous Membranes Moist - Neck Exam Neck Exam: Normal Inspection - Respiratory Exam Respiratory Exam: Clear to Ausculation Bilateral, NORMAL BREATHING PATTERN. absent: Rales, Rhonchi, Wheezes - Cardiovascular Exam Cardiovascular Exam: REGULAR RHYTHM, +S1, +S2. absent: Gallop, Rubs, Murmur - GI/Abdominal Exam GI & Abdominal Exam: Soft, Tenderness, Normal Bowel Sounds. absent: Distended, Guarding Additional comments: tenderness near surgical site, clean dry intact, well-healing - Extremities Exam Extremities Exam: absent: Pedal Edema, Tenderness - Neurological Exam Neurological Exam: Alert, Awake, Oriented x3 - Psychiatric Exam Psychiatric exam: Normal Affect, Normal Mood Assessment and Plan - Assessment and Plan (Free Text) Assessment: 57 yo M with PMH of alcoholism and ?[place] 10 years ago who presented to [facility] [place] ED with abdominal pain. Patient evaluated with abdominal/pelvis CT showing suspicious for acute appendicitis. General surgery consulted for appendectomy evaluation. Ruptured appendix was noted with drain put in place and patient started on Abx s/p appendectomy. POD 5 currently. Plan: Acute Ruptured Appendicitis - pt afebrile - POD #5 s/p open appendectomy - Drain clearing clear yellow fluid - removal upon d/c - Tylenol 325mg for fever; Zofran 4mg IVP q6h prn for N/V - continue Amb/Sulbactam q6 formerly [facility] - continue Flagyl 500mg q8 [facility] - advance to clear liquid diet - Surgery Consulted- Dr. Villanueva- Pain control + IV abx + giancarlo drain Constipation - likely secondary to post-op ileus - pt reports two small bowel movements - Docusate 100mg po tid [facility] - Lactulose 30gm po once - Miralax 17gm po once - Mineral oil enema 135 ml RC once PPx: GI ppx- Protonix 40mg po DVT ppx- Lovenox 40mg sc daily Dispo: plan for d/c tomorrow if able to tolerate advanced diet Pt seen and plan discussed with Dr. Nichols <Joseluis Nichols - Last Filed: 05/02/18 16:45> Objective - Vital Signs/Intake and Output Vital Signs (last 24 hours): Temp Pulse Resp BP Pulse Ox 98.1 F 89 20 143/95 H 96 05/02/18 08:06 05/02/18 08:06 05/02/18 08:06 05/01/18 17:00 05/02/18 08:06 Intake and Output: 05/02/18 05/02/18 06:59 18:59 Intake Total 960 Balance 960 - Medications Medications: Current Medications Acetaminophen (Tylenol 325mg Tab) 650 mg PO Q6H PRN PRN Reason: Fever >100.4 F Aspirin (Ecotrin) 81 mg PO DAILY [facility] Last Admin: 05/02/18 09:54 Dose: 81 mg Cephalexin Monohydrate (Keflex) 500 mg PO TID [facility]; Protocol Docusate Sodium (Colace) 100 mg PO TID [facility] Last Admin: 05/02/18 14:18 Dose: 100 mg Enoxaparin Sodium (Lovenox) 40 mg SC DAILY [facility]; Protocol Last Admin: 05/02/18 09:54 Dose: 40 mg Hydralazine HCl (Apresoline) 10 mg IVP Q6 PRN PRN Reason: Systolic Blood Pressure Last Admin: 05/01/18 05:53 Dose: 10 mg Nicotine (Nicoderm Cq) 1 patch TD DAILY [facility] Last Admin: 05/02/18 08:59 Dose: Not Given Ondansetron HCl (Zofran Inj) 4 mg IVP Q6H PRN PRN Reason: Nausea/Vomiting Last Admin: 05/01/18 19:55 Dose: 4 mg Pantoprazole Sodium (Protonix Ec Tab) 40 mg PO ACB [facility] Last Admin: 05/02/18 06:37 Dose: 40 mg - Labs Labs: 05/01/18 05:30 05/02/18 13:00 PT 15.3 SECONDS (9.4-12.5) H 04/25/18 11:30 INR 1.32 04/25/18 11:30 Attending/Attestation - Attestation I have personally seen and examined this patient.: Yes I have fully participated in the care of the patient.: Yes I have reviewed all pertinent clinical information, including history, physical exam and plan: Yes Notes (Text): 05/02/18 16:45 Medical record note made by the resident after discussion with my direction and input after the patient was personally seen and examined by me. I have reviewed the chart and agree that the record accurately reflects by personal performance of the history, physical exam, data review, and medical decision-making, in the course for the patient. I have also personally directed the plan of care.
--- NOTE | 2018-04-29 15:38 | PN ---
DATE: 04/29/2018 FOLLOWUP SUBJECTIVE: No chest pain. The patient is still experiencing nausea. PHYSICAL EXAMINATION: VITAL SIGNS: Blood pressure 155/97, heart rate 66, temperature 98.2, respirations 18. HEENT: Normocephalic. CHEST: Clear. HEART: S1 and S2 regular. EXTREMITIES: No edema. LABORATORY DATA: Hemoglobin and hematocrit 12.5 and 36.2. White count and platelet count are within normal limit. Today's SMA-7 is within normal limit except for potassium of 3.4 and chloride of 96. ASSESSMENT: 1. Status post appendectomy. 2. Coronary artery disease with history of coronary artery stenting about 6 years ago. 3. Hypokalemia. RECOMMENDATIONS: Continue current IV ampicillin 3 g every 6 hours, aspirin 81 mg once a day, lactated Ringers at 100 mL/hour, subcutaneous Lovenox at 40 mg daily. The patient did receive today 20 mEq of IV potassium replacement. Crow Elias MD
[2018-04-29] MEDS: Lactated Ringer's 1,000 ML IV SCH (18:07)
[2018-04-30] MEDS ORDERED: DiphenhydrAMINE 50 mg/ml Inj IVP STA (00:22)
[2018-04-30] MEDS: metroNIDAZOLE IV 500 mg/100 ml 500 MG/100 ML BAG IVPB SCH ×3 (05:51→22:15)
[2018-04-30 07:15] LABS: BASO # 0.04 K/mm3 (0.0-2.0); BASO % 0.3 % (0.0-3.0); EOS # 0.2 (0.0-0.7); EOS % 1.6 % (1.5-5.0); GRAN # 9.08 (1.4-6.5); GRAN % 67.7 % (50.0-68.0); HEMOGLOBIN 12.3 g/dL (14.0-18.0); LYMPH % 14.8 % (22.0-35.0); MEAN CELL VOLUME 88.4 fl (80.0-105.0); MEAN CORPUSCULAR HEMOGLOBIN 31.1 pg (25.0-35.0); MEAN CORPUSCULAR HGB CONC 35.2 g/dl (31.0-37.0); MEAN PLATELET VOLUME 8.4 fl (7.0-11.0); MONO # 2.1 (0.1-0.6); MONO % 15.6 % (1.0-6.0); RBC 3.95 10^6/uL (3.5-6.1); RED CELL DISTRIBUTION WIDTH 13.2 % (11.5-14.5); WHITE BLOOD COUNT 13.4 10^3/ul (4.5-11.0)
[2018-04-30 07:16] LABS: ALT/SGPT 26 U/L (7-56); AST/SGOT 31 U/L (17-59); BLOOD UREA NITROGEN 8 mg/dL (7-21); CALCIUM 8.3 mg/dL (8.4-10.5); GFR NON-AFRICAN AMERICAN > 60
[2018-04-30] MEDS ORDERED: Barium Sulfate Susp 2.1% w/v, 2.0% w/w 450 mL Bottle PO ONE (08:22)
--- NOTE | 2018-04-30 08:53 | CP.PCM.PN ---
Subjective - Date & Time of Evaluation Date of Evaluation: 04/30/18 Time of Evaluation: 08:50 - Subjective Subjective: General Surgery Progress note for Dr. Sarmiento This 57M was seen and examined this AM at bedside. Overnight one episode of non bloody non bilious emesis. Pt had 75cc of serous output from his giancarlo drain. He reports mild vague lower abdominal pain. Otherwise he is ambulating, voiding, moving his bowels without issues. Objective - Vital Signs/Intake and Output Vital Signs (last 24 hours): Temp Pulse Resp BP Pulse Ox 98.6 F 75 20 151/98 H 99 04/29/18 18:00 04/29/18 18:00 04/29/18 18:00 04/29/18 18:00 04/29/18 18:00 Intake and Output: 04/30/18 04/30/18 06:59 18:59 Intake Total 4080 Output Total 300 Balance 3780 - Medications Medications: Current Medications Acetaminophen (Tylenol 325mg Tab) 650 mg PO Q6H PRN PRN Reason: Fever >100.4 F Aspirin (Ecotrin) 81 mg PO DAILY [facility] Last Admin: 04/29/18 09:25 Dose: 81 mg Docusate Sodium (Colace) 100 mg PO TID [facility] Last Admin: 04/29/18 18:06 Dose: 100 mg Enoxaparin Sodium (Lovenox) 40 mg SC DAILY [facility]; Protocol Last Admin: 04/29/18 09:24 Dose: 40 mg Metronidazole (Flagyl) 500 mg in 100 mls @ 100 mls/hr IVPB Q8 [facility]; Protocol Last Admin: 04/30/18 05:51 Dose: 100 mls/hr Ampicillin Sodium/Sulbactam (Sodium 3 gm/ Sodium Chloride) 100 mls @ 200 mls/hr IVPB Q6 [facility]; Protocol Last Admin: 04/30/18 05:50 Dose: 200 mls/hr Lactated Ringer's (Lactated Ringer's) 1,000 mls @ 100 mls/hr IV .Q10H [facility] Last Admin: 04/29/18 18:07 Dose: 100 mls/hr Metoclopramide HCl (Reglan) 10 mg IVP Q6H PRN PRN Reason: n/v Last Admin: 04/29/18 09:25 Dose: 10 mg Nicotine (Nicoderm Cq) 1 patch TD DAILY [facility] Last Admin: 04/29/18 09:25 Dose: Not Given Ondansetron HCl (Zofran Inj) 4 mg IVP Q6H PRN PRN Reason: Nausea/Vomiting Last Admin: 04/28/18 21:37 Dose: 4 mg Pantoprazole Sodium (Protonix Ec Tab) 40 mg PO ACB [facility] Last Admin: 04/29/18 08:50 Dose: 40 mg - Labs Labs: 04/30/18 06:30 04/30/18 06:30 PT 15.3 SECONDS (9.4-12.5) H 04/25/18 11:30 INR 1.32 04/25/18 11:30 - Constitutional Appears: Non-toxic, No Acute Distress - Head Exam Head Exam: ATRAUMATIC, NORMOCEPHALIC - Eye Exam Eye Exam: EOMI, Normal appearance - ENT Exam ENT Exam: Mucous Membranes Moist - Respiratory Exam Respiratory Exam: NORMAL BREATHING PATTERN. absent: Respiratory Distress - Cardiovascular Exam Cardiovascular Exam: REGULAR RHYTHM. absent: Tachycardia - GI/Abdominal Exam GI & Abdominal Exam: Soft. absent: Distended, Guarding, Tenderness, Rebound Additional comments: Wound well approximated non tender non erthematous non draining giancarlo output serous 75cc - Neurological Exam Neurological Exam: Alert, Awake Assessment and Plan - Assessment and Plan (Free Text) Assessment: 57M POD#5 s/p open appendectomy for a ruptured appendicitis with feculent peritonitis. WBC increased from 10.5 -->13.4 Mild tenderness Plan: -OOB -replace electrolytes prn -Follow up CT with PO & IV contrast if negative for abscess ADAT -will remove drain when cleared for d/c -Continue IV abx Further recs per Dr. Torsten Aranda PGY3
[2018-04-30] MEDS ORDERED: Iohexol 350 MG/100 ML VIAL ONE (08:59)
--- NOTE | 2018-04-30 09:28 | CP.PCM.PN ---
<Dell Real - Last Filed: 04/30/18 14:50> Subjective - Date & Time of Evaluation Date of Evaluation: 04/30/18 Time of Evaluation: 09:24 - Subjective Subjective: Dell Real PGY1 Progress Note for Dr. Nichols Pt was examined at bedside this morning. He reported one epsiode of green vomit last night. He reported some abdominal pain near the surgical site. He also reported another complete soft bowel movement. He denied any chest pain, shortness of breath, nausea, diarrhea. Objective - Vital Signs/Intake and Output Vital Signs (last 24 hours): Temp Pulse Resp BP Pulse Ox 98.6 F 75 20 151/98 H 99 04/29/18 18:00 04/29/18 18:00 04/29/18 18:00 04/29/18 18:00 04/29/18 18:00 Intake and Output: 04/30/18 04/30/18 06:59 18:59 Intake Total 4080 Output Total 300 Balance 3780 - Medications Medications: Current Medications Acetaminophen (Tylenol 325mg Tab) 650 mg PO Q6H PRN PRN Reason: Fever >100.4 F Aspirin (Ecotrin) 81 mg PO DAILY [facility] Last Admin: 04/29/18 09:25 Dose: 81 mg Docusate Sodium (Colace) 100 mg PO TID [facility] Last Admin: 04/29/18 18:06 Dose: 100 mg Enoxaparin Sodium (Lovenox) 40 mg SC DAILY [facility]; Protocol Last Admin: 04/29/18 09:24 Dose: 40 mg Metronidazole (Flagyl) 500 mg in 100 mls @ 100 mls/hr IVPB Q8 [facility]; Protocol Last Admin: 04/30/18 05:51 Dose: 100 mls/hr Ampicillin Sodium/Sulbactam (Sodium 3 gm/ Sodium Chloride) 100 mls @ 200 mls/hr IVPB Q6 [facility]; Protocol Last Admin: 04/30/18 05:50 Dose: 200 mls/hr Lactated Ringer's (Lactated Ringer's) 1,000 mls @ 100 mls/hr IV .Q10H [facility] Last Admin: 04/29/18 18:07 Dose: 100 mls/hr Metoclopramide HCl (Reglan) 10 mg IVP Q6H PRN PRN Reason: n/v Last Admin: 10/03/18 09:25 Dose: 10 mg Nicotine (Nicoderm Cq) 1 patch TD DAILY [facility] Last Admin: 04/29/18 09:25 Dose: Not Given Ondansetron HCl (Zofran Inj) 4 mg IVP Q6H PRN PRN Reason: Nausea/Vomiting Last Admin: 04/28/18 21:37 Dose: 4 mg Pantoprazole Sodium (Protonix Ec Tab) 40 mg PO ACB [facility] Last Admin: 04/29/18 08:50 Dose: 40 mg - Labs Labs: 04/30/18 06:30 04/30/18 06:30 PT 15.3 SECONDS (9.4-12.5) H 04/25/18 11:30 INR 1.32 04/25/18 11:30 - Constitutional Appears: Well, No Acute Distress - Head Exam Head Exam: ATRAUMATIC, NORMOCEPHALIC - Eye Exam Eye Exam: EOMI, Normal appearance Pupil Exam: NORMAL ACCOMODATION, PERRL - ENT Exam ENT Exam: Mucous Membranes Moist - Respiratory Exam Respiratory Exam: Clear to Ausculation Bilateral, NORMAL BREATHING PATTERN. absent: Rales, Rhonchi, Wheezes - Cardiovascular Exam Cardiovascular Exam: REGULAR RHYTHM, +S1, +S2. absent: Gallop, Rubs, Murmur - GI/Abdominal Exam GI & Abdominal Exam: Soft, Tenderness, Normal Bowel Sounds. absent: Distended, Rigid Additional comments: tenderness to L lower abdomen surgical site clean, dry intact - Extremities Exam Extremities Exam: Normal Inspection. absent: Pedal Edema - Neurological Exam Neurological Exam: Alert, Awake, Oriented x3 - Psychiatric Exam Psychiatric exam: Normal Affect, Normal Mood Assessment and Plan - Assessment and Plan (Free Text) Assessment: 57 yo M with PMH of alcoholism and ?[place] 10 years ago who presented to [facility] ED with abdominal pain. Patient evaluated with abdominal/pelvis CT showing suspicious for acute appendicitis. General surgery consulted for appendectomy evaluation. Ruptured appendix was noted with drain put in place and patient started on Abx s/p appendectomy. POD 6 currently. Plan: Acute Ruptured Appendicitis - pt afebrile - POD #6 s/p open appendectomy - peritoneal fluid Cx: E.coli and E. faecalis - Drain clearing clear yellow fluid - removal upon d/c - Tylenol 325mg for fever; Zofran 4mg IVP q6h prn for N/V - continue Amb/Sulbactam q6 lauryn - continue Flagyl 500mg q8 [facility] - Surgery Consulted- Dr. Villanueva- Pain control + IV abx + giancarlo drain Emesis - pt reports another episode of green vomit - likely secondary to intra-abdominal abscess - CT abdomen: large ileus, no abscess - continue zofran 4 IVP q6h PRN - advance diet as tolerated, currently on full liquid Constipation - likely secondary to post-op ileus - pt reports one larger bowel movement today - Docusate 100mg po tid lauryn - Lactulose 30gm po once - Miralax 17gm po once - Mineral oil enema 135 ml RC once PPx: GI ppx- Protonix 40mg po DVT ppx- Lovenox 40mg sc daily Dispo: plan for d/c tomorrow if able to tolerate advanced diet Pt seen and plan discussed with Dr. Nichols <Joseluis Nichols - Last Filed: 05/02/18 16:45> Objective - Vital Signs/Intake and Output Vital Signs (last 24 hours): Temp Pulse Resp BP Pulse Ox 98.1 F 89 20 143/95 H 96 05/02/18 08:06 05/02/18 08:06 05/02/18 08:06 05/01/18 17:00 05/02/18 08:06 Intake and Output: 05/02/18 05/02/18 06:59 18:59 Intake Total 960 Balance 960 - Medications Medications: Current Medications Acetaminophen (Tylenol 325mg Tab) 650 mg PO Q6H PRN PRN Reason: Fever >100.4 F Aspirin (Ecotrin) 81 mg PO DAILY [facility] Last Admin: 05/02/18 09:54 Dose: 81 mg Cephalexin Monohydrate (Keflex) 500 mg PO TID [facility]; Protocol Docusate Sodium (Colace) 100 mg PO TID [facility] Last Admin: 05/02/18 14:18 Dose: 100 mg Enoxaparin Sodium (Lovenox) 40 mg SC DAILY [facility]; Protocol Last Admin: 05/02/18 09:54 Dose: 40 mg Hydralazine HCl (Apresoline) 10 mg IVP Q6 PRN PRN Reason: Systolic Blood Pressure Last Admin: 05/01/18 05:53 Dose: 10 mg Nicotine (Nicoderm Cq) 1 patch TD DAILY [facility] Last Admin: 05/02/18 08:59 Dose: Not Given Ondansetron HCl (Zofran Inj) 4 mg IVP Q6H PRN PRN Reason: Nausea/Vomiting Last Admin: 05/01/18 19:55 Dose: 4 mg Pantoprazole Sodium (Protonix Ec Tab) 40 mg PO ACB [facility] Last Admin: 05/02/18 06:37 Dose: 40 mg - Labs Labs: 05/01/18 05:30 05/02/18 13:00 PT 15.3 SECONDS (9.4-12.5) H 04/25/18 11:30 INR 1.32 04/25/18 11:30 Attending/Attestation - Attestation I have personally seen and examined this patient.: Yes I have fully participated in the care of the patient.: Yes I have reviewed all pertinent clinical information, including history, physical exam and plan: Yes Notes (Text): 05/02/18 16:44 Medical record note made by the resident after discussion with my direction and input after the patient was personally seen and examined by me. I have reviewed the chart and agree that the record accurately reflects by personal performance of the history, physical exam, data review, and medical decision-making, in the course for the patient. I have also personally directed the plan of care.
[2018-04-30] MEDS: Enoxaparin 40 mg Syringe SC SCH (09:36)
[2018-04-30] MEDS: Pantoprazole 40 mg EC Tab PO SCH (09:39)
[2018-04-30] MEDS: Lactated Ringer's 1,000 ML IV SCH ×2 (09:47→18:18)
--- NOTE | 2018-04-30 12:03 | CT ---
Date of service: 04/30/2018 PROCEDURE: CT Abdomen and Pelvis with contrast HISTORY: rule out intra abdominal/pelvic abscess COMPARISON: 04/24/2018 TECHNIQUE: Contrast dose: 100 cc of Omni 350 Radiation dose: Total exam DLP = 361 mGy-cm. This CT exam was performed using one or more of the following dose reduction techniques: Automated exposure control, adjustment of the mA and/or kV according to patient size, and/or use of iterative reconstruction technique. FINDINGS: LOWER THORAX: Unremarkable. LIVER: Unremarkable. No gross lesion or ductal dilatation. GALLBLADDER AND BILE DUCTS: Unremarkable. PANCREAS: Unremarkable. No gross lesion or ductal dilatation. SPLEEN: Unremarkable. ADRENALS: Unremarkable. No mass. KIDNEYS AND URETERS: Unremarkable. No hydronephrosis. No solid mass. VASCULATURE: Unremarkable. No aortic aneurysm. BOWEL: Severely dilated loops of small bowel are seen throughout the abdomen. Findings are consistent with small bowel obstruction versus severe postoperative ileus. The colon is completely decompressed and flattened. There is a surgical drain in the right lower quadrant. No evidence of abscess APPENDIX: Resected PERITONEUM: Small amount of free fluid LYMPH NODES: Unremarkable. No enlarged lymph nodes. BLADDER: Unremarkable. REPRODUCTIVE: Unremarkable. BONES: No acute fracture. OTHER FINDINGS: None. IMPRESSION: Severely dilated loops of small bowel are seen throughout the abdomen. Findings are consistent with small bowel obstruction versus severe postoperative ileus. The colon is completely decompressed and flattened. There is a surgical drain in the right lower quadrant. No evidence of abscess
[2018-04-30] MEDS ORDERED: Metoprolol 1 mg/ml Inj IVP ONE (16:20)
[2018-04-30] MEDS ORDERED: Lactated Ringer's 1,000 ML IV SCH (16:45)
[2018-05-01] MEDS: Lactated Ringer's 1,000 ML IV SCH (01:00)
[2018-05-01] MEDS: metroNIDAZOLE IV 500 mg/100 ml 500 MG/100 ML BAG IVPB SCH (05:50)
[2018-05-01 06:10] LABS: BASO # 0.06 K/mm3 (0.0-2.0); BASO % 0.5 % (0.0-3.0); EOS # 0.3 (0.0-0.7); EOS % 2.6 % (1.5-5.0); GRAN # 7.43 (1.4-6.5); GRAN % 60.4 % (50.0-68.0); HEMOGLOBIN 12.7 g/dL (14.0-18.0); LYMPH # 2.3 (1.2-3.4); LYMPH % 18.6 % (22.0-35.0); MEAN CELL VOLUME 87.5 fl (80.0-105.0); MEAN CORPUSCULAR HEMOGLOBIN 31.1 pg (25.0-35.0); MEAN CORPUSCULAR HGB CONC 35.5 g/dl (31.0-37.0); MEAN PLATELET VOLUME 8.6 fl (7.0-11.0); MONO # 2.2 (0.1-0.6); MONO % 17.9 % (1.0-6.0); RBC 4.09 10^6/uL (3.5-6.1); RED CELL DISTRIBUTION WIDTH 13.2 % (11.5-14.5); WHITE BLOOD COUNT 12.3 10^3/ul (4.5-11.0)
[2018-05-01 07:13] LABS: ALBUMIN 2.9 g/dL (3.0-4.8); ALT/SGPT 26 U/L (7-56); AST/SGOT 33 U/L (17-59); BLOOD UREA NITROGEN 5 mg/dL (7-21); CALCIUM 8.1 mg/dL (8.4-10.5); GFR NON-AFRICAN AMERICAN > 60
[2018-05-01] MEDS ORDERED: Magnesium Sulfate 2 gm/50 ml 2 GM/50 ML BAG IVPB ONE (07:24)
--- NOTE | 2018-05-01 08:04 | CP.PCM.PN ---
Subjective - Date & Time of Evaluation Date of Evaluation: 05/01/18 Time of Evaluation: 07:59 - Subjective Subjective: General surgery progress note for Dr. Sarmiento Patient seen and examined at bedside. No acute events overnight. Patient did have a complaint of chest pain which began shortly after waking up this morning lasting 2 minutes. Described it as a burning sensation, 7/10, non radiating and was similar in pain to his previous OR (currently has [address]). Denies palpitations, SOB, diaphoresis, fevers, chills, N/V. Did have diarrhea overnight without blood. Objective - Vital Signs/Intake and Output Vital Signs (last 24 hours): Temp Pulse Resp BP Pulse Ox 98.1 F 72 20 151/107 H 97 04/30/18 16:57 04/30/18 16:57 04/30/18 16:57 05/01/18 05:53 04/30/18 16:57 - Medications Medications: Current Medications Acetaminophen (Tylenol 325mg Tab) 650 mg PO Q6H PRN PRN Reason: Fever >100.4 F Aspirin (Ecotrin) 81 mg PO DAILY [facility] Last Admin: 04/30/18 09:35 Dose: 81 mg Docusate Sodium (Colace) 100 mg PO TID [facility] Last Admin: 04/30/18 18:16 Dose: 100 mg Enoxaparin Sodium (Lovenox) 40 mg SC DAILY [facility]; Protocol Last Admin: 04/30/18 09:36 Dose: 40 mg Hydralazine HCl (Apresoline) 10 mg IVP Q6 PRN PRN Reason: Systolic Blood Pressure Last Admin: 05/01/18 05:53 Dose: 10 mg Magnesium Sulfate (Magnesium Sulfate 2 Gm/50 Ml Water) 2 gm in 50 mls @ 50 mls/hr IVPB ONCE ONE Stop: 05/01/18 08:23 Nicotine (Nicoderm Cq) 1 patch TD DAILY [facility] Last Admin: 04/30/18 09:36 Dose: Not Given Ondansetron HCl (Zofran Inj) 4 mg IVP Q6H PRN PRN Reason: Nausea/Vomiting Last Admin: 04/30/18 16:37 Dose: 4 mg Pantoprazole Sodium (Protonix Ec Tab) 40 mg PO ACB [facility] Last Admin: 04/30/18 09:39 Dose: 40 mg - Labs Labs: 05/01/18 05:30 05/01/18 05:30 PT 15.3 SECONDS (9.4-12.5) H 04/25/18 11:30 INR 1.32 04/25/18 11:30 - Constitutional Appears: Well, Non-toxic, No Acute Distress - Head Exam Head Exam: ATRAUMATIC, NORMOCEPHALIC - Eye Exam Eye Exam: Normal appearance - ENT Exam ENT Exam: Mucous Membranes Moist - Respiratory Exam Respiratory Exam: NORMAL BREATHING PATTERN. absent: Respiratory Distress - Cardiovascular Exam Cardiovascular Exam: RRR. absent: Bradycardia, Tachycardia, JVD - GI/Abdominal Exam GI & Abdominal Exam: Tenderness. absent: Distended, Guarding, Rigid Additional comments: Tenderness to palpation in LLQ - Extremities Exam Extremities Exam: absent: Calf Tenderness - Neurological Exam Neurological Exam: Alert, Awake, Oriented x3 - Psychiatric Exam Psychiatric exam: Normal Affect, Normal Mood - Skin Skin Exam: Dry, Intact, Normal Color, Warm. absent: Diaphoretic Assessment and Plan - Assessment and Plan (Free Text) Assessment: 57 year old male POD #6 s/p open appendectomy for a ruptured appendicitis with feculent peritonitis. Plan: - Encourage OOB and incentive spirometer - Clear liquid diet, advance as tolerated - Replace electrolytes PRN, magnesium repleted - Will remove drain when cleared for discharge - Discontinue IV antibiotics - Follow up EKG and troponin Case discussed with Dr. Torsten Severino DO PGY-1
[2018-05-01] MEDS: Pantoprazole 40 mg EC Tab PO SCH (08:50)
[2018-05-01] MEDS: Enoxaparin 40 mg Syringe SC SCH (11:43)
--- NOTE | 2018-05-01 14:28 | CP.PCM.PN ---
<Darrel Massey - Last Filed: 05/01/18 14:48> Subjective - Date & Time of Evaluation Date of Evaluation: 05/01/18 Time of Evaluation: 08:00 - Subjective Subjective: Darrel Massey PGY-1 Progress Note for Hospitalist Service HPI: Patient seen and evaluated at bedside. Patient reported improvement in abdominal pain and had no episodes of N/V. Reported passing a BM with minimal pain and flatus. Patient reported a passing episode of substernal chest pain that lasted a few minutes. Denies shortness of breath, radiation to arm or jaw, diaphoresis, leg swelling and leg pain. Objective - Vital Signs/Intake and Output Vital Signs (last 24 hours): Temp Pulse Resp BP Pulse Ox 98.0 F 78 220 H 150/99 H 95 05/01/18 06:00 05/01/18 06:00 05/01/18 06:00 05/01/18 06:00 05/01/18 06:00 - Medications Medications: Current Medications Acetaminophen (Tylenol 325mg Tab) 650 mg PO Q6H PRN PRN Reason: Fever >100.4 F Aspirin (Ecotrin) 81 mg PO DAILY [facility] Last Admin: 05/01/18 11:43 Dose: 81 mg Docusate Sodium (Colace) 100 mg PO TID [facility] Last Admin: 05/01/18 11:40 Dose: 100 mg Enoxaparin Sodium (Lovenox) 40 mg SC DAILY [facility]; Protocol Last Admin: 05/01/18 11:43 Dose: 40 mg Hydralazine HCl (Apresoline) 10 mg IVP Q6 PRN PRN Reason: Systolic Blood Pressure Last Admin: 05/01/18 05:53 Dose: 10 mg Nicotine (Nicoderm Cq) 1 patch TD DAILY [facility] Last Admin: 05/01/18 11:36 Dose: Not Given Ondansetron HCl (Zofran Inj) 4 mg IVP Q6H PRN PRN Reason: Nausea/Vomiting Last Admin: 04/30/18 16:37 Dose: 4 mg Pantoprazole Sodium (Protonix Ec Tab) 40 mg PO ACB [facility] Last Admin: 05/01/18 08:50 Dose: 40 mg - Labs Labs: 05/01/18 05:30 05/01/18 05:30 PT 15.3 SECONDS (9.4-12.5) H 04/25/18 11:30 INR 1.32 04/25/18 11:30 - Constitutional Appears: Well, Non-toxic, No Acute Distress - Head Exam Head Exam: ATRAUMATIC, NORMOCEPHALIC - Eye Exam Eye Exam: EOMI Pupil Exam: PERRL - ENT Exam ENT Exam: Mucous Membranes Moist - Neck Exam Neck Exam: Normal Inspection - Respiratory Exam Respiratory Exam: Clear to Ausculation Bilateral, NORMAL BREATHING PATTERN. absent: Chest Wall Tenderness, Decreased Breath Sounds - Cardiovascular Exam Cardiovascular Exam: REGULAR RHYTHM, RRR, +S1, +S2. absent: JVD - GI/Abdominal Exam GI & Abdominal Exam: Soft. absent: Tenderness Additional comments: surgical site RLQ nontender, nonerythematous, no drainage, discharge or purulence - Neurological Exam Neurological Exam: Alert, Awake, Oriented x3 Assessment and Plan - Assessment and Plan (Free Text) Assessment: Assessment: 57 yo M with PMH of alcoholism and ?[place] 10 years ago who presented to [facility] [place] ED with abdominal pain. Patient evaluated with abdominal/pelvis CT showing suspicious for acute appendicitis. General surgery consulted for appendectomy evaluation. Ruptured appendix was noted with drain put in place and patient started on Abx s/p appendectomy. POD 7 currently. Episode of chest pain this morning. Plan: Chest Pain r/o ACS 5 minute episode of nonradiating, pinpoint substernal chest pain this AM EKG was unchanged from previous one week ago other than prolonged QT. NSR @ 90, no new ST or T wave changes. Trop neg x2 - will follow up 3rd troponin Hyponatremia Na 127 in setting of normal glucose possibly due to poor oral intake f/u urine electrolytes for etiology Acute Ruptured Appendicitis - pt afebrile - POD #7 s/p open appendectomy - peritoneal fluid Cx: E.coli and E. faecalis - Drain clearing clear yellow fluid - removal upon d/c - Tylenol 325mg for fever; Zofran 4mg IVP q6h prn for N/V - antibiotics discontinued - Surgery Consulted- Dr. Villanueva- Pain control + IV abx + giancarlo drain to be removed today. HypoMg 1.5 Repleted with 2 gm Mg sulfate Continue to monitor Pseudohypocalcemia corrected Ca is 8.6 in setting of hypoalbuminemia continue to monitor Emesis- resolved - Pt reports no further episode of green vomit - CT abdomen: large ileus, no abscess - continue zofran 4 IVP q6h PRN - advance diet as tolerated. No pain with full liquid, so will advance to regular diet later today per surgery Constipation- resolved - pt reports flatus and bowel movement today - Docusate 100mg po tid lauryn - Mineral oil enema 135 ml RC once PPx: GI ppx- Protonix 40mg po DVT ppx- Lovenox 40mg sc daily Pt seen and plan discussed with Dr. Simone Massey, PGY-1 <Joseluis Nichols - Last Filed: 05/02/18 16:45> Objective - Vital Signs/Intake and Output Vital Signs (last 24 hours): Temp Pulse Resp BP Pulse Ox 98.1 F 89 20 143/95 H 96 05/02/18 08:06 05/02/18 08:06 05/02/18 08:06 05/01/18 17:00 05/02/18 08:06 Intake and Output: 05/02/18 05/02/18 06:59 18:59 Intake Total 960 Balance 960 - Medications Medications: Current Medications Acetaminophen (Tylenol 325mg Tab) 650 mg PO Q6H PRN PRN Reason: Fever >100.4 F Aspirin (Ecotrin) 81 mg PO DAILY [facility] Last Admin: 05/02/18 09:54 Dose: 81 mg Cephalexin Monohydrate (Keflex) 500 mg PO TID [facility]; Protocol Docusate Sodium (Colace) 100 mg PO TID [facility] Last Admin: 05/02/18 14:18 Dose: 100 mg Enoxaparin Sodium (Lovenox) 40 mg SC DAILY [facility]; Protocol Last Admin: 05/02/18 09:54 Dose: 40 mg Hydralazine HCl (Apresoline) 10 mg IVP Q6 PRN PRN Reason: Systolic Blood Pressure Last Admin: 05/01/18 05:53 Dose: 10 mg Nicotine (Nicoderm Cq) 1 patch TD DAILY [facility] Last Admin: 05/02/18 08:59 Dose: Not Given Ondansetron HCl (Zofran Inj) 4 mg IVP Q6H PRN PRN Reason: Nausea/Vomiting Last Admin: 05/01/18 19:55 Dose: 4 mg Pantoprazole Sodium (Protonix Ec Tab) 40 mg PO ACB [facility] Last Admin: 05/02/18 06:37 Dose: 40 mg - Labs Labs: 05/01/18 05:30 05/02/18 13:00 PT 15.3 SECONDS (9.4-12.5) H 04/25/18 11:30 INR 1.32 04/25/18 11:30 Attending/Attestation - Attestation I have personally seen and examined this patient.: Yes I have fully participated in the care of the patient.: Yes I have reviewed all pertinent clinical information, including history, physical exam and plan: Yes Notes (Text): 05/02/18 16:44 Medical record note made by the resident after discussion with my direction and input after the patient was personally seen and examined by me. I have reviewed the chart and agree that the record accurately reflects by personal performance of the history, physical exam, data review, and medical decision-making, in the course for the patient. I have also personally directed the plan of care.
--- NOTE | 2018-05-01 14:35 | CARD ---
APPROVED REPORT Date of service: 05/01/2018 EKG Measurement Heart [id number] <Conclusion> Normal sinus rhythm Minimal voltage criteria for LVH, may be normal variant Prolonged QT Abnormal ECG
[2018-05-01] MEDS: Sodium Chloride 0.9% 1,000 ML IV SCH (17:53)
[2018-05-01 18:20] LABS: OSMOLALITY,URINE 448 mosm/kg (300-1000)
[2018-05-02] MEDS: Sodium Chloride 0.9% 1,000 ML IV SCH (06:34)
[2018-05-02] MEDS: Pantoprazole 40 mg EC Tab PO SCH (06:37)
--- NOTE | 2018-05-02 08:59 | CP.PCM.PN ---
Subjective - Date & Time of Evaluation Date of Evaluation: 05/02/18 Time of Evaluation: 07:20 - Subjective Subjective: General Surgery progress note for Dr. Sarmiento Patient seen and examined this am at bedside. Patient is resting comfortably but does admit to one episode of bilious emesis overnight. He currently denies nausea, bloating, abdominal pain, ELIZABETH, CP, SOB, dysuria, and extremity pain. He does endorse flatus and BM overnight. Objective - Vital Signs/Intake and Output Vital Signs (last 24 hours): Temp Pulse Resp BP Pulse Ox 98.1 F 89 20 143/95 H 96 05/02/18 08:06 05/02/18 08:06 05/02/18 08:06 05/01/18 17:00 05/02/18 08:06 Intake and Output: 05/02/18 05/02/18 06:59 18:59 Intake Total 960 Balance 960 - Medications Medications: Current Medications Acetaminophen (Tylenol 325mg Tab) 650 mg PO Q6H PRN PRN Reason: Fever >100.4 F Aspirin (Ecotrin) 81 mg PO DAILY [facility] Last Admin: 05/01/18 11:43 Dose: 81 mg Docusate Sodium (Colace) 100 mg PO TID [facility] Last Admin: 05/01/18 17:57 Dose: 100 mg Enoxaparin Sodium (Lovenox) 40 mg SC DAILY [facility]; Protocol Last Admin: 05/01/18 11:43 Dose: 40 mg Hydralazine HCl (Apresoline) 10 mg IVP Q6 PRN PRN Reason: Systolic Blood Pressure Last Admin: 05/01/18 05:53 Dose: 10 mg Sodium Chloride (Sodium Chloride 0.9%) 1,000 mls @ 70 mls/hr IV .[id number] [facility] Last Admin: 05/02/18 06:34 Dose: 70 mls/hr Nicotine (Nicoderm Cq) 1 patch TD DAILY [facility] Last Admin: 05/01/18 11:36 Dose: Not Given Ondansetron HCl (Zofran Inj) 4 mg IVP Q6H PRN PRN Reason: Nausea/Vomiting Last Admin: 05/01/18 19:55 Dose: 4 mg Pantoprazole Sodium (Protonix Ec Tab) 40 mg PO ACB [facility] Last Admin: 05/02/18 06:37 Dose: 40 mg - Labs Labs: 05/01/18 05:30 05/01/18 05:30 PT 15.3 SECONDS (9.4-12.5) H 04/25/18 11:30 INR 1.32 04/25/18 11:30 - Constitutional Appears: Well, Non-toxic, No Acute Distress - Head Exam Head Exam: ATRAUMATIC, NORMOCEPHALIC - Eye Exam Eye Exam: EOMI - ENT Exam ENT Exam: Mucous Membranes Moist - Respiratory Exam Respiratory Exam: NORMAL BREATHING PATTERN - GI/Abdominal Exam GI & Abdominal Exam: Soft, Tenderness. absent: Distended, Guarding Additional comments: mild RLQ - Extremities Exam Extremities Exam: absent: Calf Tenderness, Pedal Edema, Tenderness - Neurological Exam Neurological Exam: Alert, Awake, Oriented x3 - Psychiatric Exam Psychiatric exam: Normal Affect, Normal Mood - Skin Skin Exam: Dry, Intact, Normal Color, Warm Assessment and Plan - Assessment and Plan (Free Text) Assessment: 57 year old male POD #7 s/p open appendectomy for a ruptured appendicitis with feculent peritonitis, recovering well Plan: - Encourage OOB and incentive spirometer - reg diet for breakfast, if pt vomits again will deescalate - Replace electrolytes PRN - drain site cdi, no drainage - troponins negative, EKG shows minimal lvh and prolonged QTc at 494, likely iat rogenic - will continue to follow, possible D/c planning for tomorrow Case discussed with Dr. Torsten Forrester, PGY 1
[2018-05-02] MEDS: Enoxaparin 40 mg Syringe SC SCH (09:54)
--- NOTE | 2018-05-02 12:48 | CP.PCM.PN ---
<Karan Lopez - Last Filed: 05/02/18 12:45> Subjective - Date & Time of Evaluation Date of Evaluation: 05/02/18 Time of Evaluation: 09:00 - Subjective Subjective: PGY-1 Medicine Progress Note for Dr. Nichols's service Patient seen and examined at bedside. Patient reports 1 episode bilious vomiting earlier in the morning. Patient admits to a bowel movement and passing gas. Patient denies fevers, chills, cp, sob, abd pain, nausea, constipation or diarrhea, dysuria. Objective - Vital Signs/Intake and Output Vital Signs (last 24 hours): Temp Pulse Resp BP Pulse Ox 98.1 F 89 20 143/95 H 96 05/02/18 08:06 05/02/18 08:06 05/02/18 08:06 05/01/18 17:00 05/02/18 08:06 Intake and Output: 05/02/18 05/02/18 06:59 18:59 Intake Total 960 Balance 960 - Medications Medications: Current Medications Acetaminophen (Tylenol 325mg Tab) 650 mg PO Q6H PRN PRN Reason: Fever >100.4 F Aspirin (Ecotrin) 81 mg PO DAILY [facility] Last Admin: 05/02/18 09:54 Dose: 81 mg Docusate Sodium (Colace) 100 mg PO TID [facility] Last Admin: 05/02/18 09:53 Dose: 100 mg Enoxaparin Sodium (Lovenox) 40 mg SC DAILY [facility]; Protocol Last Admin: 05/02/18 09:54 Dose: 40 mg Hydralazine HCl (Apresoline) 10 mg IVP Q6 PRN PRN Reason: Systolic Blood Pressure Last Admin: 05/01/18 05:53 Dose: 10 mg Sodium Chloride (Sodium Chloride 0.9%) 1,000 mls @ 70 mls/hr IV .[id number] [facility] Last Admin: 05/02/18 06:34 Dose: 70 mls/hr Nicotine (Nicoderm Cq) 1 patch TD DAILY [facility] Last Admin: 05/02/18 08:59 Dose: Not Given Ondansetron HCl (Zofran Inj) 4 mg IVP Q6H PRN PRN Reason: Nausea/Vomiting Last Admin: 05/01/18 19:55 Dose: 4 mg Pantoprazole Sodium (Protonix Ec Tab) 40 mg PO ACB [facility] Last Admin: 05/02/18 06:37 Dose: 40 mg - Labs Labs: 05/01/18 05:30 05/01/18 05:30 PT 15.3 SECONDS (9.4-12.5) H 04/25/18 11:30 INR 1.32 04/25/18 11:30 - Additional Findings Additional findings: - Constitutional Appears: Well, Non-toxic, No Acute Distress - Head Exam Head Exam: ATRAUMATIC, NORMOCEPHALIC - Eye Exam Eye Exam: EOMI Pupil Exam: PERRL - ENT Exam ENT Exam: Mucous Membranes Moist - Neck Exam Neck Exam: Normal Inspection - Respiratory Exam Respiratory Exam: Clear to Ausculation Bilateral, NORMAL BREATHING PATTERN. absent: Chest Wall Tenderness, Decreased Breath Sounds - Cardiovascular Exam Cardiovascular Exam: REGULAR RHYTHM, RRR, +S1, +S2. absent: JVD - GI/Abdominal Exam GI & Abdominal Exam: Soft. absent: Tenderness Additional comments: surgical site RLQ nontender, nonerythematous, no drainage, discharge or purulenc e - Neurological Exam Neurological Exam: Alert, Awake, Oriented x3 Assessment and Plan - Assessment and Plan (Free Text) Assessment: 57 yo M with PMH of alcoholism and ?OR 10 years ago who [place] [facility] [place]. Patient evaluated with abdominal/pelvis CT showing suspicious f or acute appendicitis. General surgery consulted for appendectomy evaluation. Ruptured appendix was noted with drain put in place and patient started on Abx s/p appendectomy. POD 7 currently. Episode of chest pain this morning. EKG shows no acute abnormalities. Surgery recommends 1 more day due to patient vomiting. Plan: Acute Ruptured Appendicitis Surgery Consulted- Dr. Villanueva- Drain removed and Abx course completed; Likely d/c from surgery possibly tomorrow dependent on patient tolerating diet w/o vomiting pt afebrile POD #7 s/p open appendectomy peritoneal fluid Cx: E.coli and E. faecalis Tylenol 325mg for fever; Zofran 4mg IVP q6h prn for N/V Chest Pain r/o ACS 5 minute episode of nonradiating, pinpoint substernal chest pain this AM EKG was unchanged from previous one week ago other than prolonged QT. NSR @ 90, no new ST or T wave changes. Trop neg x3 negative Hyponatremia Na 127 in setting of normal glucose possibly due to poor oral intake f/u urine electrolytes for etiology HypoMag Repeat Mag pending Pseudohypocalcemia corrected Ca is 8.6 in setting of hypoalbuminemia continue to monitor Emesis Pt reports no further episode of green vomit CT abdomen: large ileus, no abscess continue zofran 4 IVP q6h PRN Regular diet Constipation Resolved Colace 100mg po tid PPx GI ppx- Protonix 40mg po DVT ppx- Lovenox 40mg sc daily Dispo Possible d/c tomorrow as per surgery if no more episodes of vomitus Pt seen and plan discussed with Dr. Simone Lopez PGY-1 <Joseluis Nichols - Last Filed: 05/02/18 16:33> Objective - Vital Signs/Intake and Output Vital Signs (last 24 hours): Temp Pulse Resp BP Pulse Ox 98.1 F 89 20 143/95 H 96 05/02/18 08:06 05/02/18 08:06 05/02/18 08:06 05/01/18 17:00 05/02/18 08:06 Intake and Output: 05/02/18 05/02/18 06:59 18:59 Intake Total 960 Balance 960 - Medications Medications: Current Medications Acetaminophen (Tylenol 325mg Tab) 650 mg PO Q6H PRN PRN Reason: Fever >100.4 F Aspirin (Ecotrin) 81 mg PO DAILY [facility] Last Admin: 05/02/18 09:54 Dose: 81 mg Docusate Sodium (Colace) 100 mg PO TID [facility] Last Admin: 05/02/18 14:18 Dose: 100 mg Enoxaparin Sodium (Lovenox) 40 mg SC DAILY [facility]; Protocol Last Admin: 05/02/18 09:54 Dose: 40 mg Hydralazine HCl (Apresoline) 10 mg IVP Q6 PRN PRN Reason: Systolic Blood Pressure Last Admin: 05/01/18 05:53 Dose: 10 mg Nicotine (Nicoderm Cq) 1 patch TD DAILY [facility] Last Admin: 05/02/18 08:59 Dose: Not Given Ondansetron HCl (Zofran Inj) 4 mg IVP Q6H PRN PRN Reason: Nausea/Vomiting Last Admin: 05/01/18 19:55 Dose: 4 mg Pantoprazole Sodium (Protonix Ec Tab) 40 mg PO ACB [facility] Last Admin: 05/02/18 06:37 Dose: 40 mg - Labs Labs: 05/01/18 05:30 05/02/18 13:00 PT 15.3 SECONDS (9.4-12.5) H 04/25/18 11:30 INR 1.32 04/25/18 11:30 Attending/Attestation - Attestation I have personally seen and examined this patient.: Yes I have fully participated in the care of the patient.: Yes I have reviewed all pertinent clinical information, including history, physical exam and plan: Yes Notes (Text): 05/02/18 16:27 Medical record note made by the resident after discussion with my direction and input after the patient was personally seen and examined by me. I have reviewed the chart and agree that the record accurately reflects by personal performance of the history, physical exam, data review, and medical decision-making, in the course for the patient. I have also personally directed the plan of care. 57 yrs old Male with PMH of alcoholism and OR? 10 years ago who [place] [facility] [place]. Abdominal/pelvis CT showing suspicious for acute appendicitis. Patient underwent surghery and was found to have Ruptured appendix .He is SP s/p appendectomy and SP LOUIE drain which was removed yesterd ay.Patient is SP ileus which is resolved.Patient is tolerating regular food.He has one episode of vomiting last night, since then he is tolerating food. Hyponatremia is stable.Patient is asymptometic, did not improve with IV hydration, Urine sodium is high 142, Urine osmolality is also high 448, junior ggestive of SIADH. we will stop IV fluid, will start patient on fluid restriction and will get Nephrology consult. Patient is asymptomatic. 05/02/18 16:33 05/02/18 16:33
[2018-05-02 13:29] LABS: ALBUMIN 3.2 g/dL (3.0-4.8); ALT/SGPT 30 U/L (7-56); AST/SGOT 27 U/L (17-59); BLOOD UREA NITROGEN 7 mg/dL (7-21); CALCIUM 8.1 mg/dL (8.4-10.5); GFR NON-AFRICAN AMERICAN > 60
[2018-05-02] MEDS ORDERED: levoFLOXacin 500 MG TAB PO SCH (16:45)
--- NOTE | 2018-05-03 06:26 | CP.PCM.PN ---
Subjective - Date & Time of Evaluation Date of Evaluation: 05/03/18 Time of Evaluation: 10:30 - Subjective Subjective: PGY-1 Medicine Progress Note for Dr. Nichols's service Patient seen and examined at bedside. Patient offers no acute complaints. Patient did vomit after lunch. Patient denies fevers, chills, abdominal pain, chest pain, sob, n/v, constipation or diarrhea. Objective - Vital Signs/Intake and Output Vital Signs (last 24 hours): Temp Pulse Resp BP Pulse Ox 98.0 F 84 20 133/94 H 99 05/02/18 18:00 05/02/18 18:00 05/02/18 18:00 05/02/18 18:00 05/02/18 18:00 Intake and Output: 05/02/18 05/03/18 18:59 06:59 Intake Total 1670 Output Total 150 Balance 1520 - Medications Medications: Current Medications Acetaminophen (Tylenol 325mg Tab) 650 mg PO Q6H PRN PRN Reason: Fever >100.4 F Aspirin (Ecotrin) 81 mg PO DAILY [facility] Last Admin: 05/02/18 09:54 Dose: 81 mg Cephalexin Monohydrate (Keflex) 500 mg PO TID [facility]; Protocol Last Admin: 05/02/18 17:35 Dose: 500 mg Docusate Sodium (Colace) 100 mg PO TID [facility] Last Admin: 05/02/18 17:37 Dose: Not Given Enoxaparin Sodium (Lovenox) 40 mg SC DAILY [facility]; Protocol Last Admin: 05/02/18 09:54 Dose: 40 mg Hydralazine HCl (Apresoline) 10 mg IVP Q6 PRN PRN Reason: Systolic Blood Pressure Last Admin: 05/01/18 05:53 Dose: 10 mg Nicotine (Nicoderm Cq) 1 patch TD DAILY [facility] Last Admin: 05/02/18 08:59 Dose: Not Given Ondansetron HCl (Zofran Inj) 4 mg IVP Q6H PRN PRN Reason: Nausea/Vomiting Last Admin: 05/01/18 19:55 Dose: 4 mg Pantoprazole Sodium (Protonix Ec Tab) 40 mg PO ACB [facility] Last Admin: 05/02/18 06:37 Dose: 40 mg - Labs Labs: 05/01/18 05:30 05/02/18 13:00 PT 15.3 SECONDS (9.4-12.5) H 04/25/18 11:30 INR 1.32 04/25/18 11:30 - Additional Findings Additional findings: - Constitutional Appears: Well, Non-toxic, No Acute Distress - Head Exam Head Exam: ATRAUMATIC, NORMOCEPHALIC - Eye Exam Eye Exam: EOMI Pupil Exam: PERRL - ENT Exam ENT Exam: Mucous Membranes Moist - Neck Exam Neck Exam: Normal Inspection - Respiratory Exam Respiratory Exam: Clear to Ausculation Bilateral, NORMAL BREATHING PATTERN. absent: Chest Wall Tenderness, Decreased Breath Sounds - Cardiovascular Exam Cardiovascular Exam: REGULAR RHYTHM, RRR, +S1, +S2. absent: JVD - GI/Abdominal Exam GI & Abdominal Exam: Soft. absent: Tenderness Additional comments: surgical site RLQ nontender, nonerythematous, no drainage, discharge or purulence sutures in place - Extremities Exam Extremities Exam: Normal Inspection. absent: Calf Tenderness, Pedal Edema - Neurological Exam Neurological Exam: Alert, Awake, Oriented x3 - Psychiatric Exam Psychiatric exam: Normal Affect, Normal Mood - Skin Skin Exam: Intact, Normal Color Assessment and Plan - Assessment and Plan (Free Text) Assessment: 57 yo M with PMH of alcoholism and ?OR 10 years ago who presented to [facility] [place] with abdominal pain. Patient evaluated with abdominal/pelvis CT showing suspicious for acute appendicitis. General surgery consulted for appendectomy evaluation. Ruptured appendix was noted with drain put in place and patient started on Abx s/p appendectomy. POD 7 currently. Episode of chest pain this morning. EKG shows no acute abnormalities. Patient will be discharged pending 24 hrs of non vomitus Plan: Acute Ruptured Appendicitis Surgery Consulted- Dr. Villanueva- Drain removed and Abx course completed; Likel y d/c from surgery possibly tomorrow dependent on patient tolerating diet w/o vomiting POD #8 s/p open appendectomy peritoneal fluid Cx: E.coli and E. faecalis Tylenol 325mg for fever; Zofran 4mg IVP q6h prn for N/V Keflex 500mg tid (started -6) Hyponatremia Trending up Asymptomatic Rpeat CMP in AM Emesis Pt reports no further episode of green vomit CT abdomen: large ileus, no abscess continue zofran 4 IVP q6h PRN Regular diet PPx GI ppx- Protonix 40mg po DVT ppx- Lovenox 40mg sc daily Dispo Possible d/c tomorrow as per surgery if no more episodes of vomitus Pt seen and plan discussed with Dr. Simone Lopez PGY-1
[2018-05-03 07:20] LABS: BASO # 0.03 K/mm3 (0.0-2.0); BASO % 0.2 % (0.0-3.0); EOS # 0.2 (0.0-0.7); EOS % 1.6 % (1.5-5.0); GRAN # 7.39 (1.4-6.5); GRAN % 60.9 % (50.0-68.0); HEMOGLOBIN 12.5 g/dL (14.0-18.0); LYMPH # 2.3 (1.2-3.4); LYMPH % 19.1 % (22.0-35.0); MEAN CELL VOLUME 87.7 fl (80.0-105.0); MEAN CORPUSCULAR HEMOGLOBIN 30.9 pg (25.0-35.0); MEAN CORPUSCULAR HGB CONC 35.2 g/dl (31.0-37.0); MEAN PLATELET VOLUME 8.3 fl (7.0-11.0); MONO # 2.2 (0.1-0.6); MONO % 18.2 % (1.0-6.0); RBC 4.05 10^6/uL (3.5-6.1); RED CELL DISTRIBUTION WIDTH 13.3 % (11.5-14.5); WHITE BLOOD COUNT 12.1 10^3/ul (4.5-11.0)
[2018-05-03] MEDS: Pantoprazole 40 mg EC Tab PO SCH (08:25)
[2018-05-03] MEDS ORDERED: Potassium Chloride 20 mEq ER Tab PO ONE (09:37)
[2018-05-03] MEDS: Enoxaparin 40 mg Syringe SC SCH (09:48)
[2018-05-03 10:00] LABS: BLOOD UREA NITROGEN 9 mg/dL (7-21); GFR NON-AFRICAN AMERICAN > 60
[2018-05-03] MEDS ORDERED: Potassium Chloride 20 mEq ER Tab PO STA (10:00)
[2018-05-03 10:01] LABS: ALB/GLOB RATIO 0.9 (1.1-1.8); ALT/SGPT 24 U/L (7-56); AST/SGOT 43 U/L (17-59); CALCIUM 8.3 mg/dL (8.4-10.5)
--- NOTE | 2018-05-03 10:31 | CP.PCM.PN ---
Subjective - Date & Time of Evaluation Date of Evaluation: 05/03/18 Time of Evaluation: 10:28 - Subjective Subjective: Surgery: Dr. Sanchez covering Dr. Sarmiento Patient with vomiting last night, small amount gastric contents. Denies f/c. +flatus, +BM. Denies abdominal pain. Objective - Vital Signs/Intake and Output Vital Signs (last 24 hours): Temp Pulse Resp BP Pulse Ox 97.8 F 81 19 129/91 H 98 05/03/18 08:15 05/03/18 08:15 05/03/18 08:15 05/03/18 08:15 05/03/18 08:15 Intake and Output: 05/03/18 05/03/18 06:59 18:59 Intake Total 3370 Output Total 450 Balance 2920 - Medications Medications: Current Medications Acetaminophen (Tylenol 325mg Tab) 650 mg PO Q6H PRN PRN Reason: Fever >100.4 F Aspirin (Ecotrin) 81 mg PO DAILY [facility] Last Admin: 05/03/18 09:48 Dose: 81 mg Cephalexin Monohydrate (Keflex) 500 mg PO TID [facility]; Protocol Last Admin: 05/03/18 09:48 Dose: 500 mg Docusate Sodium (Colace) 100 mg PO TID [facility] Last Admin: 05/03/18 09:47 Dose: 100 mg Enoxaparin Sodium (Lovenox) 40 mg SC DAILY [facility]; Protocol Last Admin: 05/03/18 09:48 Dose: 40 mg Hydralazine HCl (Apresoline) 10 mg IVP Q6 PRN PRN Reason: Systolic Blood Pressure Last Admin: 05/01/18 05:53 Dose: 10 mg Nicotine (Nicoderm Cq) 1 patch TD DAILY [facility] Last Admin: 05/03/18 09:48 Dose: Not Given Ondansetron HCl (Zofran Inj) 4 mg IVP Q6H PRN PRN Reason: Nausea/Vomiting Last Admin: 05/01/18 19:55 Dose: 4 mg Pantoprazole Sodium (Protonix Ec Tab) 40 mg PO ACB [facility] Last Admin: 05/03/18 08:25 Dose: 40 mg - Labs Labs: 05/03/18 05:00 05/03/18 05:00 PT 15.3 SECONDS (9.4-12.5) H 04/25/18 11:30 INR 1.32 04/25/18 11:30 - Constitutional Appears: Non-toxic, No Acute Distress - Head Exam Head Exam: ATRAUMATIC, NORMOCEPHALIC - Eye Exam Eye Exam: EOMI, Normal appearance - ENT Exam ENT Exam: Mucous Membranes Moist - Respiratory Exam Respiratory Exam: NORMAL BREATHING PATTERN. absent: Respiratory Distress - Cardiovascular Exam Cardiovascular Exam: REGULAR RHYTHM. absent: Tachycardia - GI/Abdominal Exam GI & Abdominal Exam: Soft. absent: Distended, Tenderness Additional comments: Incision CDI staple closure Assessment and Plan - Assessment and Plan (Free Text) Assessment: 57 y/o male s/p open appy 04/25 Plan: -continues with vomiting although clinically not obstructed -rec GI consult -cont diet -work up for hyponatremia -replace electrolytes prn -OOB -DVT ppx -d/w Dr. Daniel Sarkar PGY4
[2018-05-03 16:13] LABS: BLOOD UREA NITROGEN 10 mg/dL (7-21); CALCIUM 8.5 mg/dL (8.4-10.5); GFR NON-AFRICAN AMERICAN > 60
--- NOTE | 2018-05-03 17:02 | CON ---
DATE: 05/03/2018 HISTORY OF PRESENT ILLNESS: I saw Mr. Keating this morning. He is a 57-year-old white male with past history of alcoholism, coronary artery disease, presenting with severe abdominal pain. I reviewed the notes for the last several days, which were significant for initial CT scan indicating acute appendicitis. Ruptured appendix was noted during laparotomy. The patient has been recovering, is currently postop day #7. The patient noted that yesterday he had some nausea, vomiting, and some mild abdominal pain, which subsequently resolved. At bedside this morning, the patient indicates may be 2 or 3 level mild right lower quadrant discomfort. Other than that, the abdomen has been decompressed and has no discomfort. He is not nauseous and is able to handle liquids and solids. PHYSICAL EXAMINATION: VITAL SIGNS: I reviewed this patient's vital signs. HEENT: Noncontributory. LUNGS: Clear to auscultation, apical decreased breath sounds, basilar. HEART: Irregular rhythm. ABDOMEN: Soft. Irregular bowel sounds. Mild tenderness elicited in the right lower quadrant. LABORATORY DATA: I reviewed this patient's laboratory data indicative of white count of 12,000 with H and H of 12 and 35, and platelet count 349, most recent. Chemistry for the most part indicative of hyponatremia. BUN and creatinine within normal limits. Mild elevation of glucose. Rest noncontributory. I reviewed the note of Dr. Nichols. OVERALL ASSESSMENT: This is a 57-year-old male admitted with acute appendicitis, postoperative laparotomy. The patient appears to be doing well according to the current notes. I reviewed the last CT scan obtained on 04/30/2018, significant for small bowel ileus, most likely postoperative. There is no abscess. The patient appears to be doing well. Symptoms appeared to be self limited that he had yesterday. The patient is going to be discharged as per surgical recommendations. Not much to offer in this case. Bam Tinajero DO, PhD CINDY
--- NOTE | 2018-05-04 01:24 | CON ---
DATE: 05/03/2018 REFERRING PHYSICIAN: Joseluis Nichols MD REASON FOR CONSULTATION: Hyponatremia. CHIEF COMPLAINT AND HISTORY OF PRESENT ILLNESS: This is a 57-year-old male who is coming into the hospital complaining of abdominal pain. The patient was found to have acute appendicitis. He was taken to the OR and had an appendectomy done. The patient had initially elevated white count that was 13.4. The patient initially came to the hospital with a normal sodium and that has slowly decreased to sodium of 128. The patient has not been eating well because he was having abdominal pain and had surgery. He says he is feeling better this morning. He has no complaints of any chest pain. No shortness of breath. He did had nausea also during his hospital stay and that has improved as well as the pain. He denies any fevers or chills. No dysuria or frequency. No nocturia. He says he is starting to eat regular meals now. REVIEW OF SYSTEMS: All other review of symptoms are within normal limits except that was mentioned. PAST MEDICAL HISTORY: Alcoholism. PAST SURGICAL HISTORY: Right hip surgery. SOCIAL HISTORY: He drinks about 10 beers a day. He smokes a pack a day for the past 12 years. He also uses marijuana. FAMILY HISTORY: Noncontributory. ALLERGIES: NO KNOWN DRUG ALLERGIES. HOME MEDICATIONS: The patient takes no medications at home. PHYSICAL EXAMINATION: VITAL SIGNS: Temperature is 97.8, pulse of 81, blood pressure is 129/91, respirations 19, O2 saturation 98%. GENERAL: The patient lying in bed, uncomfortable, and in no acute distress. HEENT: Atraumatic and normocephalic. Anicteric sclerae. Moist mucosa. Mazon conjunctivae. No oral lesions. NECK: No JVD, anterior and posterior adenopathy, thyromegaly, or bruits. CARDIOVASCULAR: S1 and S2 regular. No murmur, rubs, or gallop. LUNGS: Clear to auscultation bilaterally. No wheezes, rales, or rhonchi. ABDOMEN: Bowel sounds are positive. Soft, nontender and nondistended. No hepatosplenomegaly. No rebound and no guarding. EXTREMITIES: No cyanosis, clubbing, or edema. NEUROLOGIC: No facial asymmetry. Tongue is midline. No uvula deviation. Power is 5/5 upper extremity and lower extremity. Sensation intact in upper extremity and lower extremity. PSYCHIATRIC: She is awake, alert and oriented x3. No anxiety or depression. She has normal affect. GENITOURINARY: No CVA tenderness. VASCULAR: 2+ pulses in the carotid pulses and pedal pulses. SKIN: No erythema or nodules SPINE: Shows normal curvature. LABORATORY DATA: Sodium is 128. Creatinine is 0.8. Troponin x3 have been negative. White count of 12.1, hemoglobin 12.5, platelet count is 521. Chest x-ray done shows no active disease. EKG shows sinus rhythm with a heart rate of 87, there is small Qs in II, III and aVF. QTc is 478. ASSESSMENT: 1. Hyponatremia. 2. Hypokalemia. 3. History of alcoholism. 4. Status post appendectomy. 5. Tobacco use. PLAN: The patient is currently comfortable. His pain is better controlled. His hyponatremia is from a combination of nausea, pain and fluid intake with not much intake. The patient now is on a regular diet. His sodium has improved. He will also need potassium replacement, I will replace his potassium. The patient has no pain and nausea. Repeat blood work will be done tomorrow. The patient is on nicotine patch. He is going to continue with Protonix. He is on Zofran for any nausea. His urine osmolality is 448 indicating that he has ADH and this may be secondary to the pain, nausea that he was having. His sodium has improved slightly from yesterday. Continue current treatment. This is coverage for Dr. Block. Mohamud Adams MD
[2018-05-04 08:15] VITALS: BP 129/92; PULSE 76; RESP 19; TEMP 97.6; O2SAT 97
--- NOTE | 2018-05-04 09:28 | CP.PCM.PN ---
Subjective - Date & Time of Evaluation Date of Evaluation: 05/04/18 Time of Evaluation: 08:30 - Subjective Subjective: Patient was seen and examined at bedside. He reports having diarrhea and nausea overnight. He denies headache, chest pain, fever, weakness. Objective - Vital Signs/Intake and Output Vital Signs (last 24 hours): Temp Pulse Resp BP Pulse Ox 97.6 F 76 19 129/92 H 97 05/04/18 08:14 05/04/18 08:14 05/04/18 08:14 05/04/18 08:14 05/04/18 08:14 Intake and Output: 05/04/18 05/04/18 06:59 18:59 Intake Total 240 Output Total 150 Balance 90 - Medications Medications: Current Medications Acetaminophen (Tylenol 325mg Tab) 650 mg PO Q6H PRN PRN Reason: Fever >100.4 F Aspirin (Ecotrin) 81 mg PO DAILY [facility] Last Admin: 05/03/18 09:48 Dose: 81 mg Cephalexin Monohydrate (Keflex) 500 mg PO TID [facility]; Protocol Last Admin: 05/03/18 18:47 Dose: 500 mg Docusate Sodium (Colace) 100 mg PO TID [facility] Last Admin: 05/03/18 18:46 Dose: 100 mg Enoxaparin Sodium (Lovenox) 40 mg SC DAILY [facility]; Protocol Last Admin: 05/03/18 09:48 Dose: 40 mg Hydralazine HCl (Apresoline) 10 mg IVP Q6 PRN PRN Reason: Systolic Blood Pressure Last Admin: 05/01/18 05:53 Dose: 10 mg Nicotine (Nicoderm Cq) 1 patch TD DAILY [facility] Last Admin: 05/03/18 09:48 Dose: Not Given Ondansetron HCl (Zofran Inj) 4 mg IVP Q6H PRN PRN Reason: Nausea/Vomiting Last Admin: 05/01/18 19:55 Dose: 4 mg Pantoprazole Sodium (Protonix Ec Tab) 40 mg PO ACB [facility] Last Admin: 05/03/18 08:25 Dose: 40 mg - Labs Labs: 05/03/18 05:00 05/03/18 15:46 PT 15.3 SECONDS (9.4-12.5) H 04/25/18 11:30 INR 1.32 04/25/18 11:30 - Constitutional Appears: Well, Non-toxic - Head Exam Head Exam: ATRAUMATIC, NORMOCEPHALIC - Eye Exam Eye Exam: EOMI, Normal appearance - ENT Exam ENT Exam: Mucous Membranes Moist - Neck Exam Neck Exam: Normal Inspection - Respiratory Exam Respiratory Exam: Clear to Ausculation Bilateral, NORMAL BREATHING PATTERN - Cardiovascular Exam Cardiovascular Exam: RRR, +S1, +S2 - GI/Abdominal Exam GI & Abdominal Exam: absent: Tenderness, Rebound - Extremities Exam Extremities Exam: absent: Calf Tenderness, Tenderness - Neurological Exam Neurological Exam: Alert, Awake, CN II-XII Intact - Psychiatric Exam Psychiatric exam: Normal Affect, Normal Mood - Skin Skin Exam: Dry, Intact, Normal Color, Warm Assessment and Plan - Assessment and Plan (Free Text) Assessment: 57 year old male admitted for ruptured appendicitis who has had poor oral intake, been on IV fluids, and relatively hyponatremia that has since resolved. Plan: 1) Hyponatremia - Encourage regular diet Case reviewed and discussed with attending physician
[2018-05-04] MEDS ORDERED: Sodium Chloride 0.9% 1,000 ML IV SCH (10:00)
[2018-05-04] MEDS: Enoxaparin 40 mg Syringe SC SCH (10:01)
[2018-05-04] MEDS: Pantoprazole 40 mg EC Tab PO SCH (10:02)
[2018-05-04 11:25] LABS: ALBUMIN 3.1 g/dL (3.0-4.8); ALT/SGPT 22 U/L (7-56); AST/SGOT 44 U/L (17-59); BLOOD UREA NITROGEN 9 mg/dL (7-21); CALCIUM 8.2 mg/dL (8.4-10.5); GFR NON-AFRICAN AMERICAN > 60
--- NOTE | 2018-05-04 14:27 | CP.PCM.DIS ---
Provider - Provider Date of Admission: 04/26/18 12:58 Attending physician: Joseluis Nichols MD Consults: Dr. Mckayla Tinajero Time Spent in preparation of Discharge (in minutes): 45 Hospital Course - Lab Results Lab Results: Micro Results 04/25/18 14:15 Peritoneal Fluid Body Fluid Culture - Final Escherichia Coli Enterococcus Faecalis 04/25/18 01:00 Blood-Venous Blood Culture - Final NO GROWTH AFTER 5 DAYS 04/25/18 01:00 Blood-Venous Gram Stain - Final TEST NOT PERFORMED 04/25/18 00:30 Blood-Venous Blood Culture - Final NO GROWTH AFTER 5 DAYS 04/25/18 00:30 Blood-Venous Gram Stain - Final TEST NOT PERFORMED 04/25/18 04:40 Urine,Clean Catch Urine Culture - Final No Growth (<1,000 CFU/ML) Most Recent Lab Values WBC 12.1 10^3/ul (4.5-11.0) H 05/03/18 05:00 RBC 4.05 10^6/uL (3.5-6.1) 05/03/18 05:00 Hgb 12.5 g/dL (14.0-18.0) L 05/03/18 05:00 Hct 35.5 % (42.0-52.0) L 05/03/18 05:00 MCV 87.7 fl (80.0-105.0) 05/03/18 05:00 MCH 30.9 pg (25.0-35.0) 05/03/18 05:00 MCHC 35.2 g/dl (31.0-37.0) 05/03/18 05:00 RDW 13.3 % (11.5-14.5) 05/03/18 05:00 Plt Count 521 10^3/uL (120.0-450.0) H 05/03/18 05:00 MPV 8.3 fl (7.0-11.0) 05/03/18 05:00 Gran % 60.9 % (50.0-68.0) 05/03/18 05:00 Lymph % (Auto) 19.1 % (22.0-35.0) L 05/03/18 05:00 [place] % (Auto) 18.2 % (1.0-6.0) H 05/03/18 05:00 Eos % (Auto) 1.6 % (1.5-5.0) 05/03/18 05:00 Baso % (Auto) 0.2 % (0.0-3.0) 05/03/18 05:00 Gran # 7.39 (1.4-6.5) H 05/03/18 05:00 Lymph # (Auto) 2.3 (1.2-3.4) 05/03/18 05:00 [place] # (Auto) 2.2 (0.1-0.6) H 05/03/18 05:00 Eos # (Auto) 0.2 (0.0-0.7) 05/03/18 05:00 Baso # (Auto) 0.03 K/mm3 (0.0-2.0) 05/03/18 05:00 PT 15.3 SECONDS (9.4-12.5) H 04/25/18 11:30 INR 1.32 04/25/18 11:30 pO2 95 mm/Hg (30-55) H 04/24/18 23:29 VBG pH 7.43 (7.32-7.43) 04/24/18 23:29 VBG pCO2 39.0 (40-60) L 04/24/18 23:29 VBG HCO3 25.9 mmol/l (21-28) 04/24/18 23:29 VBG Total CO2 27.1 mmol.L (22-28) 04/24/18 23:29 VBG O2 Sat (Calc) 98.4 % (40-65) H 04/24/18 23:29 VBG Base Excess 1.5 mmol/L (0.0-2.0) 04/24/18 23:29 VBG Potassium 4.1 mmol/L (3.6-5.2) 04/24/18 23: Sodium 133.0 mmol/L (132-148) 04/24/18 23: Chloride 100.0 mmol/L (98-107) 04/24/18 23: Glucose 126 mg/dl (75-110) H 04/24/18 23:29 Lactate 0.9 mmol/L (0.7-2.1) 04/24/18 23:29 FiO2 21.0 % 04/24/18 23:29 Sodium 130 mmol/L (132-148) L 05/04/18 10:47 Potassium 3.9 mmol/L (3.6-5.0) 05/04/18 10:47 Chloride 94 mmol/L (98-107) L 05/04/18 10:47 Carbon Dioxide 25 mmol/L (21-33) 05/04/18 10:47 Anion Gap 14 (10-20) 05/04/18 10:47 BUN 9 mg/dL (7-21) 05/04/18 10:47 Creatinine 0.7 mg/dl (0.8-1.5) L 05/04/18 10:47 Est GFR ( Amer) > 60 05/04/18 10:47 Est GFR (Non-Af Amer) > 60 05/04/18 10:47 Random Glucose 123 mg/dL (70-110) H 05/04/18 10:47 Calcium 8.2 mg/dL (8.4-10.5) L 05/04/18 10:47 Phosphorus 3.1 mg/dL (2.5-4.5) 05/04/18 10:47 Magnesium 1.6 mg/dL (1.7-2.2) L 05/04/18 10:47 Total Bilirubin 0.3 mg/dL (0.2-1.3) 05/04/18 10:47 AST 44 U/L (17-59) 05/04/18 10:47 ALT 22 U/L (7-56) 05/04/18 10:47 Alkaline Phosphatase 58 U/L (38-126) 05/04/18 10:47 Troponin I < 0.01 ng/mL 05/01/18 18:40 Total Protein 6.3 g/dL (5.8-8.3) 05/04/18 10:47 Albumin 3.1 g/dL (3.0-4.8) 05/04/18 10:47 Globulin 3.2 gm/dL 05/04/18 10:47 Albumin/Globulin Ratio 1.0 (1.1-1.8) L 05/04/18 10:47 Triglycerides 62 mg/dL (35-160) 04/26/18 06:30 Cholesterol 110 mg/dL (130-200) L 04/26/18 06:30 LDL Cholesterol Direct 35 mg/dL (0-129) 04/26/18 06:30 HDL Cholesterol 33 mg/dL (29-60) 04/26/18 06:30 Lipase 45 U/L (23-300) 04/24/18 22:51 Venous Blood Potassium 4.1 mmol/L (3.6-5.2) 04/24/18 23:29 Urine Color yellow (YELLOW) 04/25/18 01:30 Urine Appearance Clear (CLEAR) 04/25/18 01:30 Urine pH 6.5 (4.7-8.0) 04/25/18 01:30 Ur Specific [place] 1.010 (1.005-1.035) 04/25/18 01:30 Urine Protein Negative mg/dL (<30 mg/dL) 04/25/18 01:30 Urine Glucose (UA) Negative mg/dL (NEGATIVE) 04/25/18 01:30 Urine Ketones Trace mg/dL (NEGATIVE) H 04/25/18 01:30 Urine Blood Negative (NEGATIVE) 04/25/18 01:30 Urine Nitrate Negative (NEGATIVE) 04/25/18 01:30 Urine Bilirubin Negative (NEGATIVE) 04/25/18 01:30 Urine Urobilinogen 0.2 E.U./dL (<1 E.U./dL) 04/25/18 01:30 Ur Leukocyte Esterase Negative Eva/uL (NEGATIVE) 04/25/18 01:30 Urine Osmolality 448 mosm/kg (300-1000) 05/01/18 16:25 Ur Random Creatinine 206 mg/dL 05/03/18 14:01 Ur Random Sodium 152 meq/L 05/01/18 16:25 Urine Opiates Screen Positive (NEGATIVE) H 04/25/18 04:40 Urine Methadone Screen Negative (NEGATIVE) 04/25/18 04:40 Ur Barbiturates Screen Negative (NEGATIVE) 04/25/18 04:40 Ur Phencyclidine Scrn Negative (NEGATIVE) 04/25/18 04:40 Ur Amphetamines Screen Negative (NEGATIVE) 04/25/18 04:40 U Benzodiazepines Scrn Negative (NEGATIVE) 04/25/18 04:40 U Oth Cocaine Metabols Negative (NEGATIVE) 04/25/18 04:40 U Cannabinoids Screen Positive (NEGATIVE) H 04/25/18 04:40 Alcohol, Quantitative < 10 mg/dL (0-10) 04/25/18 01:30 - Hospital Course Hospital Course: Upon admission Pt is a 57yo male with a PMH of alcoholism use who presents to the ED complaining of 10/10 lower abdominal pain which began Friday04-24-18 night. He states the pain is constant, does not radiate and worse after he urinates. Pt last bowel movement was yesterday morning, pt denies diarrhea, constipation, or blood in the stool. Pt denies nausea or vomiting. Nothing seems to make the pain better. Pt denies any sick contacts, or eating any new foods. This has never happened before. Pt rolling around in bed due to pain upon first arrival, upon second arrival pt was sleeping. A 12 point ROS was obtained and pertinent positives and negatives were added to HPI where appropriate. Hospital Course 57 year old male admitted for abdominal pain. CT A/P resulted findings suspicious for acute appendicitis which later was found to have perforatd. He was found to have hypomagnesemia, which was repleted and monitored. Patient was given 1 dose of Cipro and 1 dose of Flagyl in the ED. Surgery was consulted for appendectomy evaluation. Cardio was consulted for risk stratification. Cardio recommended patient could undergo appendectomy on urgent basis from cardiac point of view with post-op telemetry monitoring. Patient found to be moderate risk for low/moderate risk surgery. Patient had appendectomy with drain put it place for acute perforated appendicitis performed on 04/25/2018. He was given 1 dose of Ancef. On 04/26/2018, 1 day post-op, he was started amb/sulbtactam (last dose on 05/01) and flagyl (last dose on 05/01). During admission, he experienced episodes of vomiting, daily, and intermittent episodes of diarrhea. POD 5 patient developed constipation, likely secondary to post-op ileus resolved after enema. Repeat CT A/P resulted severely dilated loops of small bowel seen throughout the abdomen, findings consistent with SBO vs severe postoperative ileus. Peritoneal fluid cultures resulted E.coli and E.faecalis. On 05/02/2018 patient was started on Keflex. Patient also became hyponatremic, likely secondary to poor oral intake, urine electrolytes monitored for etiology. Nephr ology, Dr. Mohamud Adams, was consulted. Nephrology found that hyponatremia was likely due to combination of nausea, pain, and decreased intake, improved when patient began regular diet; potassium replacement; continue with protonix, urine osmolality 448 indicating ADH and may be secondary to pain and nausea; continue with current treatment. Surgery continued to follow patient, and recommended GI consult as patient continued vomiting, although clinically not obstructed. Drain was removed and patient was cleared for discharge home with 21 day course of Flagyl 500mg. Discharge plan Patient is stable for discharge to home as per Dr. Aquino. He was counseled to return to the emergency department if symptoms return or worsen. Patient is to follow up with primary medical doctor or [facility], within 3-5 days of discharge. Patient is to follow up with cardiology, Dr. Crow Elias, as scheduled. Patient should resume all home medications as prescribed and instructed. Patient is to follow up with GI as outpatient. Patient to begin Flagyl by mouth for 7 days as prescribed and instructed in discharge instructions. Discussed keeping surgical scar clean and dry. Reviewed all medications with patient, and he understands instructions. Patient understands and agrees with discharge plan. Disclaimer: Written above is a synopsis of patients current hospital admission. For full admission refer to EMR. Discharge Exam - Head Exam Head Exam: ATRAUMATIC, NORMAL INSPECTION, NORMOCEPHALIC - Eye Exam Eye Exam: EOMI, Normal appearance. absent: Nystagmus, Scleral icterus - ENT Exam ENT Exam: Mucous Membranes Moist - Respiratory Exam Respiratory Exam: NORMAL BREATHING PATTERN. absent: Accessory Muscle Use, Decreased Breath Sounds, Wheezes, Respiratory Distress - Cardiovascular Exam Cardiovascular Exam: REGULAR RHYTHM, +S1, +S2. absent: Tachycardia, Systolic Murmur - GI/Abdominal Exam GI & Abdominal Exam: Normal Bowel Sounds, Soft. absent: Distended, Firm, Guarding, Tenderness - Neurological Exam Neurological exam: Alert, Normal Gait, Oriented x3 - Psychiatric Exam Psychiatric exam: Normal Affect, Normal Mood - Skin Skin Exam: Intact, Normal Color Discharge Plan - Discharge Medications Prescriptions: metroNIDAZOLE [Flagyl] 500 mg PO TID #21 tab - Follow Up Plan Condition: STABLE Disposition: HOME/ ROUTINE Additional Instructions: 1. Patient is stable for discharge as per Dr. Aquino and surgery. 2. Patient will follow up in [facility] within 3-5 days of discharge from hospital for repeat BMP as sodium numbers are trending up. 3. Patient will resume all home medications and according to patient he has no medications because he has no medical problems. Patient will be discharged with metronidazole 500mg to be taken for 7 days. Each day patient will take 3 pills by mouth in time by 8 hours. 4. Patient should return to hospital if symptoms worsen or recur. 5. Patient understands the plan as above and agrees. Ref[place]: [facility] [place] [facility] [place]
--- NOTE | 2018-05-04 16:42 | CP.PCM.PN ---
Subjective - Date & Time of Evaluation Date of Evaluation: 05/04/18 Time of Evaluation: 16:39 - Subjective Subjective: General surgery progress note for Dr. Sarmiento Patient seen and examined at bedside. Patient vomited 150 cc of fluids this morning. Denies fevers, chills, shortness of breath, chest pain, abdominal pain, or any other complaints at this time. Objective - Vital Signs/Intake and Output Vital Signs (last 24 hours): Temp Pulse Resp BP Pulse Ox 97.6 F 76 19 129/92 H 97 05/04/18 08:14 05/04/18 08:14 05/04/18 08:14 05/04/18 08:14 05/04/18 08:14 Intake and Output: 05/04/18 05/04/18 06:59 18:59 Intake Total 240 Output Total 150 Balance 90 - Medications Medications: Current Medications Acetaminophen (Tylenol 325mg Tab) 650 mg PO Q6H PRN PRN Reason: Fever >100.4 F Aspirin (Ecotrin) 81 mg PO DAILY [facility] Last Admin: 05/04/18 10:00 Dose: 81 mg Cephalexin Monohydrate (Keflex) 500 mg PO TID [facility]; Protocol Last Admin: 05/04/18 10:00 Dose: 500 mg Docusate Sodium (Colace) 100 mg PO TID [facility] Last Admin: 05/04/18 10:01 Dose: Not Given Enoxaparin Sodium (Lovenox) 40 mg SC DAILY [facility]; Protocol Last Admin: 05/04/18 10:01 Dose: 40 mg Hydralazine HCl (Apresoline) 10 mg IVP Q6 PRN PRN Reason: Systolic Blood Pressure Last Admin: 05/01/18 05:53 Dose: 10 mg Sodium Chloride (Sodium Chloride 0.9%) 1,000 mls @ 75 mls/hr IV .[id number] [facility] Last Admin: 05/04/18 11:17 Dose: 75 mls/hr Nicotine (Nicoderm Cq) 1 patch TD DAILY [facility] Last Admin: 05/04/18 10:01 Dose: Not Given Ondansetron HCl (Zofran Inj) 4 mg IVP Q6H PRN PRN Reason: Nausea/Vomiting Last Admin: 05/01/18 19:55 Dose: 4 mg Pantoprazole Sodium (Protonix Ec Tab) 40 mg PO ACB [facility] Last Admin: 05/04/18 10:02 Dose: 40 mg - Labs Labs: 05/03/18 05:00 05/04/18 10:47 PT 15.3 SECONDS (9.4-12.5) H 04/25/18 11:30 INR 1.32 04/25/18 11:30 - Constitutional Appears: Well, Non-toxic, No Acute Distress - Head Exam Head Exam: ATRAUMATIC, NORMOCEPHALIC - Eye Exam Eye Exam: Normal appearance - ENT Exam ENT Exam: Mucous Membranes Moist - Respiratory Exam Respiratory Exam: NORMAL BREATHING PATTERN. absent: Respiratory Distress - Cardiovascular Exam Cardiovascular Exam: RRR. absent: Tachycardia - GI/Abdominal Exam GI & Abdominal Exam: Soft, Tenderness. absent: Distended, Guarding Additional comments: Tender at incision site, C/D/I - Extremities Exam Extremities Exam: Normal Inspection. absent: Calf Tenderness - Neurological Exam Neurological Exam: Alert, Awake, Oriented x3 - Psychiatric Exam Psychiatric exam: Normal Affect, Normal Mood - Skin Skin Exam: Dry, Intact, Normal Color, Warm Assessment and Plan - Assessment and Plan (Free Text) Assessment: 57 year old male s/p open appendectomy for a ruptured appendicitis with feculent peritonitis. Plan: - Remove aram today - Clear for discharge from surgical standpoint Discussed case with Dr. Torsten Severino DO PGY-1
== END 2018-05-04 16:54 | disposition home or self-care (01) | DRG 339 ==
LOC: ED 20:46 → ERH 04-25 00:40 → 3RNO 04-25 03:23 → OBSVTOIN 04-26 12:58
PROVIDERS: ADMIT Hospitalist; ATTEND Internal Medicine
PROC: 0DTJ0ZZ Resection of Appendix, Open Approach (ICD-10-PCS; principal; 2018-04-25 12:41)
DX: K35.32 Acute appendicitis with perforation, localized peritonitis, and gangrene, without abscess (principal); K91.89 Other postprocedural complications and disorders of digestive system; K56.7 Ileus, unspecified; E87.1 Hypo-osmolality and hyponatremia; I25.10 Atherosclerotic heart disease of native coronary artery without angina pectoris; I10 Essential (primary) hypertension; E83.42 Hypomagnesemia; E87.6 Hypokalemia; F12.90 Cannabis use, unspecified, uncomplicated; K52.9 Noninfective gastroenteritis and colitis, unspecified; F17.210 Nicotine dependence, cigarettes, uncomplicated; I25.2 Old myocardial infarction; Z95.5 Presence of coronary angioplasty implant and graft

== ENCOUNTER 2018-05-05 22:20 | Inpatient (IN) | payer MEDICAID, OTHER ==
[2018-05-05 22:20] VITALS: BMI 23.6
--- NOTE | 2018-05-05 22:57 | ED PDOC ---
Arrival/HPI - General Chief Complaint: Abdominal Pain Time Seen by Provider: 05/05/18 22:24 Historian: Patient - History of Present Illness Narrative History of Present Illness (Text): 05/05/18 22:54 57 year old male, whose past medical history includes appendectomy, presents to the emergency department with lower abdominal pain, nausea, and vomiting. Patient states he recently had his appendectomy, and feels symptoms are ass ociated with it. Patient denies any fevers, chills, headache, dizziness, chest pain, shortness of breath, cough, diarrhea, back pain, neck pain, urinary/bowel changes, or any other complaint. Time/Duration: Prior to Arrival Quality: Aching Past Medical History - Provider Review Nursing Documentation Reviewed: Yes - Cardiac Hx Cardiac Disorders: No - Pulmonary Hx Respiratory Disorders: No - Neurological Hx Neurological Disorder: No - Hematological/Oncological Hx Blood Transfusions: No Hx Blood Transfusion Reaction: No - Musculoskeletal/Rheumatological Hx Falls: No - Psychiatric Hx Substance Use: No - Surgical History Hx Appendectomy: Yes (04/25/18) - Anesthesia Hx Anesthesia Reactions: No Hx Malignant Hyperthermia: No Family/Social History - Physician Review Nursing Documentation Reviewed: Yes Family/Social History: No Known Family HX Smoking Status: Former Smoker Hx Alcohol Use: No Hx Substance Use: No Allergies/Home Meds Allergies/Adverse Reactions: Allergies No Known Allergies Allergy (Verified 04/24/18 21:40) Review of Systems - Physician Review All systems were reviewed & negative as marked: Yes - Review of Systems Constitutional: absent: Fevers, Night Sweats Respiratory: absent: SOB, Cough Cardiovascular: absent: Chest Pain Gastrointestinal: Abdominal Pain, Nausea, Vomiting. absent: Diarrhea Genitourinary Male: absent: Urinary Output Changes Musculoskeletal: absent: Back Pain, Neck Pain Neurological: absent: Headache, Dizziness Physical Exam Vital Signs Reviewed: Yes Vital Signs Temp Pulse Resp BP Pulse Ox 05/05/18 22:44 98.5 F 91 H 18 150/90 100 Temperature: Afebrile Blood Pressure: Normal Pulse: Regular Respiratory Rate: Normal Appearance: Positive for: Well-Appearing, Non-Toxic, Comfortable Pain Distress: None Mental Status: Positive for: Alert and Oriented X 3 - Systems Exam Head: Present: Atraumatic, Normocephalic Pupils: Present: PERRL Extroacular Muscles: Present: EOMI Conjunctiva: Present: Normal Mouth: Present: Moist Mucous Membranes Neck: Present: Normal Range of Motion Respiratory/Chest: Present: Clear to Auscultation, Good Air Exchange. No: Respiratory Distress, Accessory Muscle Use Cardiovascular: Present: Regular Rate and Rhythm, Normal S1, S2. No: Murmurs Abdomen: Present: Tenderness (slight tenderness in all quadrants), Distention (slight distention) Back: Present: Normal Inspection Upper Extremity: Present: Normal Inspection. No: Cyanosis, Edema Lower Extremity: Present: Normal Inspection. No: Edema Neurological: Present: GCS=15, CN II-XII Intact, Speech Normal Skin: Present: Warm, Dry, Normal Color. No: Rashes Psychiatric: Present: Alert, Oriented x 3, Normal Insight, Normal Concentration Medical Decision Making ED Course and Treatment: 05/05/18 22:57 Impression: 57 year old male presents with lower abdominal pain, nausea and vomiting. Plan: -- CT ABD & Pelvis -- EKG -- Urinalysis -- Morphine -- Zofran -- Reassess and disposition Prior Visits: Notes and results from previous visits were reviewed. P Progress Notes: 05/06/18 01:25 CT ABD & Pelvis reviewed by radiologist, shows: Moderate partial mechanical small bowel obstruction. Probably secondary to an internal hernia. Transition zone and right lower quadrant. No bowel perforation or pneumatosis intestinalis. Associated twisting of the mesenteric vessels. Interposition of the distended small bowel between the colon and anterior abdominal wall. Findings are suggestive of an internal hernia. Diffuse thickening of the transverse, descending and sigmoid colon. Under distention, spasm versus mild acute inflammatory pathology. Small amount of free pelvic fluid in the pelvis. An emergent surgical consultation is recommended. 05/06/18 01:50 Contacted ophthalmology surgical technician. spoke with dr chaves see pt in am , iv fluids and ab, case d/w dr lunsford 05/06/18 06:04 - Scribe Statement The provider has reviewed the documentation as recorded by the Natalee Jane Provider Scribe Attestation: All medical record entries made by the Scribe were at my direction and per sonally dictated by me. I have reviewed the chart and agree that the record accurately reflects my personal performance of the history, physical exam, medical decision making, and the department course for this patient. I have also personally directed, reviewed, and agree with the discharge instructions and disposition. Disposition/Present on Arrival - Present on Arrival Any Indicators Present on Arrival: No History of DVT/PE: No History of Uncontrolled Diabetes: No Urinary Catheter: No History of Decub. Ulcer: No History Surgical Site Infection Following: None - Disposition Have Diagnosis and Disposition been Completed?: Yes Diagnosis: Small bowel obstruction Disposition: HOSPITALIZED Disposition Time: 03:00 Condition: FAIR
[2018-05-05] MEDS ORDERED: Morphine 2 mg/ml ISec IVP STA (23:14)
[2018-05-05] MEDS ORDERED: Sodium Chloride 0.9% 1,000 ML IV SCH (23:15)
[2018-05-05] MEDS ORDERED: Morphine 2 mg/ml ISec ONE (23:17)
[2018-05-05 23:33] LABS: BASO # 0.03 K/mm3 (0.0-2.0); BASO % 0.2 % (0.0-3.0); EOS # 0.1 (0.0-0.7); EOS % 0.4 % (1.5-5.0); GRAN # 13.37 (1.4-6.5); GRAN % 76.6 % (50.0-68.0); LYMPH # 2.4 (1.2-3.4); LYMPH % 13.7 % (22.0-35.0); MEAN CELL VOLUME 89.1 fl (80.0-105.0); MEAN CORPUSCULAR HEMOGLOBIN 31.4 pg (25.0-35.0); MEAN CORPUSCULAR HGB CONC 35.2 g/dl (31.0-37.0); MEAN PLATELET VOLUME 8.1 fl (7.0-11.0); MONO # 1.6 (0.1-0.6); MONO % 9.1 % (1.0-6.0); RBC 4.14 10^6/uL (3.5-6.1); RED CELL DISTRIBUTION WIDTH 13.6 % (11.5-14.5); WHITE BLOOD COUNT 17.4 10^3/ul (4.5-11.0)
[2018-05-05 23:39] LABS: INR 0.97; PARTIAL THROMBOPLASTIN TIME 29.9 Seconds (25.1-36.5); PROTHROMBIN TIME 11.1 SECONDS (9.4-12.5)
[2018-05-05 23:50] LABS: TROPONIN I < 0.01 ng/mL
[2018-05-06 00:27] LABS: ALBUMIN 3.6 g/dL (3.0-4.8); ALT/SGPT 27 U/L (7-56); AMYLASE 124 U/L (35-125); AST/SGOT 28 U/L (17-59); BLOOD UREA NITROGEN 8 mg/dL (7-21); CALCIUM 8.7 mg/dL (8.4-10.5); GFR NON-AFRICAN AMERICAN > 60; LIPASE 204 U/L (23-300)
[2018-05-06] MEDS ORDERED: Iohexol 350 MG/100 ML VIAL ONE (00:34)
[2018-05-06 02:07] LABS: URINE BILIRUBIN NEGATIVE (NEGATIVE); URINE BLOOD NEGATIVE (NEGATIVE); URINE GLUCOSE (UA) NEGATIVE (NEGATIVE); URINE LEUKOCYTE ESTERASE NEGATIVE Leu/uL (NEGATIVE); URINE PROTEIN NEGATIVE mg/dL (<30 mg/dL); URINE UROBILINOGEN 0.2 E.U./dL (<1 E.U./dL)
[2018-05-06 02:15] LABS: URINE APPEARANCE CLEAR (CLEAR); URINE COLOR YELLOW (YELLOW)
[2018-05-06] MEDS ORDERED: Piperacillin/Tazobact 3.375 gm 100 ML IVPB STA (02:15)
[2018-05-06] MEDS ORDERED: metroNIDAZOLE IV 500 mg/100 ml 500 MG/100 ML BAG IVPB STA (02:15)
--- NOTE | 2018-05-06 02:16 | CP.PCM.CON ---
History of Present Illness - History of Present Illness History of Present Illness: Surgery: Dr. Sarmiento Reason for consult: nausea, vomiting, diarrhea, abdominal pain s/p open appendectomy CC: RLQ abdominal pain adn diarrhea HPI: Patient is a 57 y/o male w/ significant history of open appendectomy due to perforated appendicitis on 04/25. Post operative course complicated by post operative ileus which resolved on 05/04 and patient was discharged home in good condition. Patient presents to ED complaining of RLQ abdominal pain, nausea, vomiting and increasing bouts of diarrhea which started on Friday Patient reports the pain is similar to that of when he originally had appendicitis. He reports episode of nonbloody nonbilious vomiting x1 immediately after eating chicken and rice soup on Friday. He complains of diarrhea, nonbloody multiple episodes. He does state his abdomen feels distended more that usual. He denies chest pain, SOB, fever, chills. PMH: polysubstance abuse, CAD s/p stents x2 PSH: open appendectomy Social: + prior drug use, denies recent abuse of ETOH, drugs, tobacco Review of Systems - Constitutional Constitutional: absent: Fatigue, Fever - EENT Eyes: absent: Blurred Vision, Change in Vision Nose/Mouth/Throat: absent: Nasal Congestion, Dry Mouth - Cardiovascular Cardiovascular: absent: Chest Pain, Palpitations - Respiratory Respiratory: absent: Cough, Wheezing - Gastrointestinal Gastrointestinal: Abdominal Pain, Bloating, Diarrhea, Nausea, Vomiting. absent: Belching, Constipation, Early Satiety, Hematemesis, Hematochezia - Genitourinary Genitourinary: absent: Hematuria, Pyuria - Musculoskeletal Musculoskeletal: absent: Numbness, Tingling - Integumentary Integumentary: absent: Sores, Jaundice - Neurological Neurological: absent: Dizziness, Numbness - Psychiatric Psychiatric: absent: Confusion, Depression - Endocrine Endocrine: absent: Polydipsia, Polyphagia - Hematologic/Lymphatic Hematologic: absent: Easy Bleeding, Easy Bruising Past Patient History - Past Social History Smoking Status: Former Smoker - CARDIAC Hx Cardiac Disorders: No - PULMONARY Hx Respiratory Disorders: No - NEUROLOGICAL Hx Neurological Disorder: No - HEMATOLOGICAL/ONCOLOGICAL Hx Blood Transfusions: No Hx Blood Transfusion Reaction: No - MUSCULOSKELETAL/RHEUMATOLOGICAL Hx Falls: No - PSYCHIATRIC Hx Substance Use: No - SURGICAL HISTORY Hx Appendectomy: Yes (04/25/18) - ANESTHESIA Hx Anesthesia Reactions: No Hx Malignant Hyperthermia: No Meds Allergies/Adverse Reactions: Allergies Allergy/AdvReac Type Severity Reaction Status Date / Time No Known Allergies Allergy Verified 04/24/18 21:40 - Medications Medications: Current Medications Sodium Chloride (Sodium Chloride 0.9%) 1,000 mls @ 80 mls/hr IV .[id number] [place] Last Admin: 05/05/18 23:33 Dose: 80 mls/hr Physical Exam - Constitutional Appears: Non-toxic, No Acute Distress - Head Exam Head Exam: ATRAUMATIC, NORMOCEPHALIC - Eye Exam Eye Exam: EOMI, Normal appearance - ENT Exam ENT Exam: Mucous Membranes Moist - Respiratory Exam Respiratory Exam: NORMAL BREATHING PATTERN. absent: Respiratory Distress - Cardiovascular Exam Cardiovascular Exam: REGULAR RHYTHM. absent: Tachycardia - GI/Abdominal Exam GI & Abdominal Exam: Distended, Soft, Tenderness (right lower quadrant and left lower quadrant, mild to palpation ). absent: Guarding, Hernia, Rebound, Rigid Additional comments: no peritoneal signs or pain out of proportion to exam RLQ incision CDI w/ steris over incision, some mild erythema noted to skin edges - Rectal Exam Rectal Exam: Deferred - Extremities Exam Extremities exam: Positive for: normal inspection. Negative for: calf tenderness - Neurological Exam Neurological exam: Alert, Oriented x3 - Psychiatric Exam Psychiatric exam: Normal Affect, Normal Mood Results - Vital Signs Recent Vital Signs: Last Vital Signs Temp 98.5 F 05/05/18 22:44 Pulse 91 H 05/05/18 22:44 Resp 18 05/05/18 22:44 BP 150/90 05/05/18 22:44 Pulse Ox 100 05/05/18 22:44 - Labs Result Diagrams: 05/05/18 23:05 05/05/18 23:05 Labs: Laboratory Results - last 24 hr 05/05/18 05/05/18 05/05/18 23:05 23:05 23:05 WBC 17.4 H D RBC 4.14 Hgb 13.0 L Hct 36.9 L MCV 89.1 MCH 31.4 MCHC 35.2 RDW 13.6 Plt Count 609 H MPV 8.1 Gran % 76.6 H Lymph % (Auto) 13.7 L [place] % (Auto) 9.1 H Eos % (Auto) 0.4 L Baso % (Auto) 0.2 Gran # 13.37 H Lymph # (Auto) 2.4 [place] # (Auto) 1.6 H Eos # (Auto) 0.1 Baso # (Auto) 0.03 PT 11.1 INR 0.97 APTT 29.9 Sodium 131 L Potassium 4.0 Chloride 91 L Carbon Dioxide 28 Anion Gap 17 BUN 8 Creatinine 0.8 Est GFR ( Amer) > 60 Est GFR (Non-Af Amer) > 60 Random Glucose 110 Calcium 8.7 Total Bilirubin 0.2 AST 28 ALT 27 Alkaline Phosphatase 62 Lactate Dehydrogenase 305 L Total Creatine Kinase 28 L Troponin I < 0.01 Total Protein 7.1 Albumin 3.6 Globulin 3.5 Albumin/Globulin Ratio 1.0 L Amylase 124 Lipase 204 Assessment & Plan - Assessment and Plan (Free Text) Assessment: 57 y/o male w/ postoperative ileus vs SBO s/p open appendectomy on 04/25 Plan: -NPO -IVF -NGT if vomits -stool studies -medical admit -strict intake and output -serial abdominal exams -f/u lactic acid serum level -daily labs -further surgical recs pending clinical course -d/w Dr. Torsten Sarkar PGY4 - Date & Time Date: 05/06/18 Time: 02:
--- NOTE | 2018-05-06 02:45 | CP.PCM.HP ---
History of Present Illness - History of Present Illness History of Present Illness: Darrel Massey, PGY-1 History and Physical for Hospitalist Service CC: Abdominal pain HPI: Patient is a 57 y/o male w/ PMHx of ETOH and recent open appendectomy here at [facility] due to perforated appendicitis on 04/25. Post operative course (day 12) complicated by post operative ileus which resolved on 05/04 and patient was discharged home in good condition on Flagyl. Patient presents to ED tonight complaining of RLQ abdominal pain, nausea, vomiting and two bouts of diarrhea since discharge. Patient reports the pain is similar to that of when he originally had appendicitis, and reports his abdomen feels bloated. He denies chest pain, SOB, fever, chills, dizziness, headache, blurry vision. PMH: polysubstance abuse, ETOH abuse, CAD s/p stents x2 PSH: open appendectomy 2018, R hip surgery All: NKDA Social: pt reports alcohol cessation 6 months ago, he used to drink 10 beers/day, tobacco 1ppd for 12 years, admits to marijuana use FHx: reviewed and non contributory Home meds: Flagyl 500 mg TID Allergy: NKDA No PCP Present on Admission - Present on Admission Any Indicators Present on Admission: No Review of Systems - Review of Systems Review of Systems: 12 point ROS completed and negative except as described in HPI. Past Patient History - Past Social History Smoking Status: Former Smoker - CARDIAC Hx Cardiac Disorders: No - PULMONARY Hx Respiratory Disorders: No - NEUROLOGICAL Hx Neurological Disorder: No - HEMATOLOGICAL/ONCOLOGICAL Hx Blood Transfusions: No Hx Blood Transfusion Reaction: No - MUSCULOSKELETAL/RHEUMATOLOGICAL Hx Falls: No - PSYCHIATRIC Hx Substance Use: No - SURGICAL HISTORY Hx Appendectomy: Yes (04/25/18) - ANESTHESIA Hx Anesthesia Reactions: No Hx Malignant Hyperthermia: No Meds Allergies/Adverse Reactions: Allergies Allergy/AdvReac Type Severity Reaction Status Date / Time No Known Allergies Allergy Verified 04/24/18 21:40 Physical Exam - Constitutional Appears: Non-toxic, No Acute Distress - Head Exam Head Exam: ATRAUMATIC, NORMOCEPHALIC - Eye Exam Eye Exam: EOMI, Normal appearance Pupil Exam: PERRL - ENT Exam ENT Exam: Mucous Membranes Moist - Respiratory Exam Respiratory Exam: Clear to Auscultation Bilateral, NORMAL BREATHING PATTERN. absent: Decreased Breath Sounds, Rhonchi, Wheezes - Cardiovascular Exam Cardiovascular Exam: RRR, +S1, +S2 - GI/Abdominal Exam GI & Abdominal Exam: Distended, Firm (RLQ>RUQ>LLQ), Hyperactive Bowel Sounds, So ft, Tenderness. absent: Guarding, Pulsatile Mass, Rebound Additional comments: RLQ appendectomy incision and scar clear dry and intact, minimal surrounding erythema. - Extremities Exam Extremities exam: Positive for: full ROM. Negative for: pedal edema, tenderness - Neurological Exam Neurological exam: CN II-XII Intact, Normal Gait, Oriented x3 - Psychiatric Exam Psychiatric exam: Normal Affect, Normal Mood - Skin Skin Exam: Dry, Intact, Normal Color, Warm Results - Vital Signs Recent Vital Signs: Last Vital Signs Temp 98.5 F 05/05/18 22:44 Pulse 91 H 05/05/18 22:44 Resp 18 05/05/18 22:44 BP 150/90 05/05/18 22:44 Pulse Ox 100 05/05/18 22:44 - Labs Result Diagrams: 05/06/18 06:15 05/05/18 23:05 Labs: Laboratory Results - last 24 hr 05/05/18 05/05/18 05/05/18 23:05 23:05 23:05 WBC 17.4 H D RBC 4.14 Hgb 13.0 L Hct 36.9 L MCV 89.1 MCH 31.4 MCHC 35.2 RDW 13.6 Plt Count 609 H MPV 8.1 Gran % 76.6 H Lymph % (Auto) 13.7 L Hendry % (Auto) 9.1 H Eos % (Auto) 0.4 L Baso % (Auto) 0.2 Gran # 13.37 H Lymph # (Auto) 2.4 Hendry # (Auto) 1.6 H Eos # (Auto) 0.1 Baso # (Auto) 0.03 PT 11.1 INR 0.97 APTT 29.9 Sodium 131 L Potassium 4.0 Chloride 91 L Carbon Dioxide 28 Anion Gap 17 BUN 8 Creatinine 0.8 Est GFR ( Amer) > 60 Est GFR (Non-Af Amer) > 60 Random Glucose 110 Calcium 8.7 Total Bilirubin 0.2 AST 28 ALT 27 Alkaline Phosphatase 62 Lactate Dehydrogenase 305 L Total Creatine Kinase 28 L Troponin I < 0.01 Total Protein 7.1 Albumin 3.6 Globulin 3.5 Albumin/Globulin Ratio 1.0 L Amylase 124 Lipase 204 Urine Color Urine Appearance Urine pH Ur Specific Coulter Urine Protein Urine Glucose (UA) Urine Ketones Urine Blood Urine Nitrate Urine Bilirubin Urine Urobilinogen Ur Leukocyte Esterase 05/06/18 01:04 WBC RBC Hgb Hct MCV MCH MCHC RDW Plt Count MPV Gran % Lymph % (Auto) Hendry % (Auto) Eos % (Auto) Baso % (Auto) Gran # Lymph # (Auto) Hendry # (Auto) Eos # (Auto) Baso # (Auto) PT INR APTT Sodium Potassium Chloride Carbon Dioxide Anion Gap BUN Creatinine Est GFR ( Amer) Est GFR (Non-Af Amer) Random Glucose Calcium Total Bilirubin AST ALT Alkaline Phosphatase Lactate Dehydrogenase Total Creatine Kinase Troponin I Total Protein Albumin Globulin Albumin/Globulin Ratio Amylase Lipase Urine Color Yellow Urine Appearance Clear Urine pH 6.0 Ur Specific Coulter 1.020 Urine Protein Negative Urine Glucose (UA) Negative Urine Ketones Negative Urine Blood Negative Urine Nitrate Negative Urine Bilirubin Negative Urine Urobilinogen 0.2 Ur Leukocyte Esterase Negative Assessment & Plan - Assessment and Plan (Free Text) Assessment: Assessment: 57 M with recent admission for appendectomy who presents with Postop ileus vs SBO with transition at RLQ Plan: Postop ileus vs SBO with transition at RLQ possibly d/t post-surgical changes, s/p open appendectomy POD#12 - NPO, IVF @ 125 cc/hr, NGT if vomiting - strict Is and Os - Zofran for nausea - serial abdomen exams - f/u lactate and AM labs - avoid opioids - Surgical consult - Dr. Sarmiento Twisting of mesenteric vessels - Per surgery team, the mesenteric vessels were unchanged compared to last CT A/P - Possibly anatomic variant - Will continue to monitor clinical course Diffuse thickening of transverse descending and sigmoid colon likely due to underdistension, spasm vs mild acute inflammatory pathology , R/O C. diff - Recent antibiotics, Flagyl since discharge - f/u C. diff toxin and antigen, f/u procal - currently on Zosyn, f/u ID recommendations - ID consult (Dr. Linda) Leukocytosis at 17.4 - likely reactive to surgery - continue to monitor and trend Chronic normocytic anemia Thrombocytosis 609, likely reactive continue to monitor AM labs Hyponatremia f/u serum osm, urine Na and urine osm f/u urine eos. f/u Nephro consult (Dr. Block) Patient seen, case reviewed, and plan discussed with Dr. Mckeon, attending. Darrel Massey, PGY-1
[2018-05-06 03:24] LABS: VENOUS BLOOD GAS PO2 119 mm/Hg (30-55); VENOUS BLOOD PH 7.45 (7.32-7.43)
[2018-05-06] MEDS: Sodium Chloride 0.9% 1,000 ML IV SCH ×2 (03:56→13:58)
[2018-05-06 04:08] LABS: OSMOLALITY,SERUM 267 mosm/kg (272-300)
[2018-05-06] MEDS ORDERED: Morphine 2 mg/ml ISec IVP STA (04:12)
[2018-05-06 06:34] LABS: BASO # 0.03 K/mm3 (0.0-2.0); BASO % 0.2 % (0.0-3.0); EOS # 0.1 (0.0-0.7); EOS % 0.4 % (1.5-5.0); GRAN # 13.2 (1.4-6.5); GRAN % 78.8 % (50.0-68.0); HEMOGLOBIN 11.1 g/dL (14.0-18.0); LYMPH # 1.8 (1.2-3.4); LYMPH % 10.7 % (22.0-35.0); MEAN CELL VOLUME 88.8 fl (80.0-105.0); MEAN CORPUSCULAR HGB CONC 34.9 g/dl (31.0-37.0); MEAN PLATELET VOLUME 7.8 fl (7.0-11.0); MONO # 1.7 (0.1-0.6); MONO % 9.9 % (1.0-6.0); RBC 3.58 10^6/uL (3.5-6.1); RED CELL DISTRIBUTION WIDTH 13.6 % (11.5-14.5); WHITE BLOOD COUNT 16.8 10^3/ul (4.5-11.0)
[2018-05-06 07:04] LABS: BLOOD UREA NITROGEN 6 mg/dL (7-21); GFR NON-AFRICAN AMERICAN > 60
[2018-05-06] MEDS ORDERED: Magnesium Sulfate 2 gm/50 ml 2 GM/50 ML BAG IVPB ONE ×2 (08:12→10:59)
--- NOTE | 2018-05-06 08:50 | CARD ---
APPROVED REPORT Date of service: 05/06/2018 EKG Measurement Heart [id number] <Conclusion> Normal sinus rhythm Possible Lateral infarct, age Old? Possible Inferior infarct, age Old? Abnormal ECG
--- NOTE | 2018-05-06 09:39 | CP.PCM.CON ---
<Kristy Zhang - Last Filed: 05/06/18 13:08> History of Present Illness - History of Present Illness History of Present Illness: PGY-3 Resident ID consult note for Dr. Linda. Reason for consult: intra-abdominal infection r/o c.diff Patient is a 57 y/o Male with PMHx of polysubstance abuse, etoh abuse, CAD s/p PCI, recently admitted and discharged on 05/04/18 after undergoing open appendectomy. Pt was sent home on 7 days of flagyl, returned last night with right lower quadrant abdominal pain. Patient states when he got home he had chicken noodle soup, afterward he experienced the sharp abdominal pain. Patient vomited x1, non bloody and non billous. Patient had 2 episodes of watery diar estefani as well, non bloody, non foul smelly. Denies fever or chills. Since admission no diarrhea and no vomiting. Path report from last surgery revealed acute necrotizing appendicitis with perforation and associated severe periappendicitis In the ED, patient was found to have leukocytosis with wbc of 17.4. CT abdomen and pelvis revealed moderate partial mechanical bowel obstruction probably secon gonzález to internal hernia with transition point at the right lower quadrant. No bowel perforation or pneumatosis intestinalis, twisting of the mesenteric vessels, diffuse thickening of the transverse, descending and sigmoid colon- underdistention, spasm versus mild acute inflammatory pathology. ID is consulted to evaluate for possible c. diff. PMHx: polysubstance abuse, etoh abuse, CAD, perforated appendix PSHx: open appendectomy recently, PCI, right hip fracture FMHx: non contributory Social: + tobacco, alcohol and illicit drug use in the past Allergy: NKDA Home meds: as per chart. Review of Systems - Constitutional Constitutional: absent: Chills, Fatigue, Fever - EENT Eyes: absent: Change in Vision Ears: absent: Dizziness Nose/Mouth/Throat: absent: Sore Throat - Cardiovascular Cardiovascular: absent: Chest Pain, Chest Pain at Rest, Claudication, Diaphoresis, Dyspnea, Lightheadedness - Respiratory Respiratory: absent: Cough, Dyspnea, Hemoptysis, Wheezing - Gastrointestinal Gastrointestinal: Abdominal Pain, Cramping, Diarrhea, Vomiting. absent: Belching, Bloating, Constipation, Nausea - Genitourinary Genitourinary: Dysuria - Musculoskeletal Musculoskeletal: absent: Joint Swelling - Integumentary Integumentary: Wounds (surgical ) - Neurological Neurological: absent: Confusion, Dizziness Past Patient History - Infectious Disease Hx of Infectious Diseases: None - Tetanus Immunizations Tetanus Immunization: Unknown - Past Medical History & Family History Past Medical History?: Yes - Past Social History Smoking Status: Former Smoker Alcohol: Occasional Drugs: Denies Home Situation {Lives}: Alone - CARDIAC Hx Cardiac Disorders: No - PULMONARY Hx Respiratory Disorders: No - NEUROLOGICAL Hx Neurological Disorder: No - HEENT Hx HEENT Problems: No Hx Blind: No Hx Cataracts: No Hx Deafness: No Hx Difficulty Chewing: No Hx Epistaxis: No Hx Glaucoma: No Hx Macular Degeneration: No - RENAL Hx Chronic Kidney Disease: No Hx Dialysis: No Hx Kidney Stones: No Hx Neurogenic Bladder: No Hx Pyelonephritis: No Hx Renal (Kidney) Cancer: No Hx Renal Failure: No - ENDOCRINE/METABOLIC Hx Endocrine Disorders: No Hx Adrenal Cancer: No Hx Diabetes Insipidus: No Hx Diabetes Mellitus Type 1: No Hx Diabetes Mellitus Type 2: No Hx Hyperthyroidism: No Hx Hypothyroidism: No Hx Systemic Lupus Erythematosus: No - HEMATOLOGICAL/ONCOLOGICAL Hx Blood Transfusions: No Hx Blood Transfusion Reaction: No - INTEGUMENTARY Hx Dermatological Problems: No Hx Basil Cell: No Hx Eczema: No Hx Melanoma: No Hx Psoriasis: No Hx Squamous Cell: No - MUSCULOSKELETAL/RHEUMATOLOGICAL Hx Falls: No - GASTROINTESTINAL Hx Gastrointestinal Disorders: No Hx Colostomy: No Hx Crohn's Disease: No Hx Diverticulitis: No Hx Gall Bladder Disease: No Hx Gastroesophageal Reflux: No Hx Ileostomy: No Hx Liver Failure: No Hx Pancreatitis: No HX Swallowing Problems: No Hx Ulcer: No - GENITOURINARY/GYNECOLOGICAL Hx Genitourinary Disorders: No Hx Hematuria: No Hx Incontinence: No Hx Prostate Problems: No Hx Sexually Transmitted Disorders: No Hx Urinary Tract Infection: No - PSYCHIATRIC Hx Substance Use: No - SURGICAL HISTORY Hx Appendectomy: Yes (04/25/18) - ANESTHESIA Hx Anesthesia Reactions: No Hx Malignant Hyperthermia: No Meds Allergies/Adverse Reactions: Allergies Allergy/AdvReac Type Severity Reaction Status Date / Time No Known Allergies Allergy Verified 04/24/18 21:40 - Medications Medications: Current Medications Sodium Chloride (Sodium Chloride 0.9%) 1,000 mls @ 125 mls/hr IV .Q8H MOODY Last Admin: 05/06/18 03:56 Dose: 125 mls/hr Piperacillin Sod/Tazobactam Sod (Zosyn 3.375 In Ns 100ml) 100 mls @ 25 mls/hr IVPB Q8 MOODY; Protocol Stop: 05/13/18 14:01 Ondansetron HCl (Zofran Inj) 4 mg IVP Q4 PRN PRN Reason: Nausea/Vomiting Last Admin: 05/06/18 04:48 Dose: 4 mg Physical Exam - Constitutional Appears: No Acute Distress, Older Than Stated Age, Cachectic - Head Exam Head Exam: ATRAUMATIC, NORMAL INSPECTION, NORMOCEPHALIC - Eye Exam Eye Exam: Normal appearance, PERRL. absent: Scleral icterus Pupil Exam: NORMAL ACCOMODATION - ENT Exam ENT Exam: Mucous Membranes Moist - Neck Exam Neck exam: Positive for: Normal Inspection - Respiratory Exam Respiratory Exam: Clear to Auscultation Bilateral, NORMAL BREATHING PATTERN. absent: Prolonged Expiratory Phase, Rales, Rhonchi, Wheezes, Respiratory Distress, Stridor - Cardiovascular Exam Cardiovascular Exam: REGULAR RHYTHM, +S1, +S2. absent: Systolic Murmur - GI/Abdominal Exam GI & Abdominal Exam: Hypoactive Bowel Sounds, Soft, Tenderness (periumbilical ). absent: Distended, Firm, Guarding, Rebound, Rigid - Extremities Exam Extremities exam: Positive for: normal inspection - Back Exam Back exam: NORMAL INSPECTION - Neurological Exam Neurological exam: Alert, Oriented x3 - Psychiatric Exam Psychiatric exam: Flat Affect - Skin Additional comments: right lower abdomen with surgical incision site, appears clean, with steri strips. Results - Vital Signs Recent Vital Signs: Last Vital Signs Temp 97.8 F 05/06/18 06:00 Pulse 93 H 05/06/18 06:00 Resp 20 05/06/18 06:00 BP 137/95 H 05/06/18 06:00 Pulse Ox 96 05/06/18 06:00 - Labs Result Diagrams: 05/06/18 06:15 05/06/18 06:15 Labs: Laboratory Results - last 24 hr 05/05/18 05/05/18 05/05/18 23:05 23:05 23:05 WBC 17.4 H D RBC 4.14 Hgb 13.0 L Hct 36.9 L MCV 89.1 MCH 31.4 MCHC 35.2 RDW 13.6 Plt Count 609 H MPV 8.1 Gran % 76.6 H Lymph % (Auto) 13.7 L [place] % (Auto) 9.1 H Eos % (Auto) 0.4 L Baso % (Auto) 0.2 Gran # 13.37 H Lymph # (Auto) 2.4 [place] # (Auto) 1.6 H Eos # (Auto) 0.1 Baso # (Auto) 0.03 PT 11.1 INR 0.97 APTT 29.9 pO2 VBG pH VBG pCO2 VBG HCO3 VBG Total CO2 VBG O2 Sat (Calc) VBG Base Excess VBG Potassium Glucose Lactate FiO2 Sodium 131 L Potassium 4.0 Chloride 91 L Carbon Dioxide 28 Anion Gap 17 BUN 8 Creatinine 0.8 Est GFR ( Amer) > 60 Est GFR (Non-Af Amer) > 60 Random Glucose 110 Serum Osmolality Lactic Acid Calcium 8.7 Phosphorus Magnesium Total Bilirubin 0.2 AST 28 ALT 27 Alkaline Phosphatase 62 Lactate Dehydrogenase 305 L Total Creatine Kinase 28 L Troponin I < 0.01 Total Protein 7.1 Albumin 3.6 Globulin 3.5 Albumin/Globulin Ratio 1.0 L Amylase 124 Lipase 204 Venous Blood Potassium Urine Color Urine Appearance Urine pH Ur Specific [place] Urine Protein Urine Glucose (UA) Urine Ketones Urine Blood Urine Nitrate Urine Bilirubin Urine Urobilinogen Ur Leukocyte Esterase Alcohol, Quantitative 05/05/18 05/06/18 05/06/18 23:05 01:04 02:44 WBC RBC Hgb Hct MCV MCH MCHC RDW Plt Count MPV Gran % Lymph % (Auto) [place] % (Auto) Eos % (Auto) Baso % (Auto) Gran # Lymph # (Auto) [place] # (Auto) Eos # (Auto) Baso # (Auto) PT INR APTT pO2 119 H VBG pH 7.45 H VBG pCO2 39.0 L VBG HCO3 27.1 VBG Total CO2 28.3 H VBG O2 Sat (Calc) 98.5 H VBG Base Excess 3.0 H VBG Potassium 3.9 Glucose 107 Lactate 0.6 L FiO2 21.0 Sodium 126.0 L Potassium Chloride 96.0 L Carbon Dioxide Anion Gap BUN Creatinine Est GFR ( Amer) Est GFR (Non-Af Amer) Random Glucose Serum Osmolality 267 L Lactic Acid Calcium Phosphorus Magnesium Total Bilirubin AST ALT Alkaline Phosphatase Lactate Dehydrogenase Total Creatine Kinase Troponin I Total Protein Albumin Globulin Albumin/Globulin Ratio Amylase Lipase Venous Blood Potassium 3.9 Urine Color Yellow Urine Appearance Clear Urine pH 6.0 Ur Specific [place] 1.020 Urine Protein Negative Urine Glucose (UA) Negative Urine Ketones Negative Urine Blood Negative Urine Nitrate Negative Urine Bilirubin Negative Urine Urobilinogen 0.2 Ur Leukocyte Esterase Negative Alcohol, Quantitative < 10 05/06/18 05/06/18 05/06/18 06:15 06:15 06:15 WBC 16.8 H RBC 3.58 Hgb 11.1 L Hct 31.8 L MCV 88.8 MCH 31.0 MCHC 34.9 RDW 13.6 Plt Count 525 H MPV 7.8 Gran % 78.8 H Lymph % (Auto) 10.7 L [place] % (Auto) 9.9 H Eos % (Auto) 0.4 L Baso % (Auto) 0.2 Gran # 13.20 H Lymph # (Auto) 1.8 [place] # (Auto) 1.7 H Eos # (Auto) 0.1 Baso # (Auto) 0.03 PT INR APTT pO2 VBG pH VBG pCO2 VBG HCO3 VBG Total CO2 VBG O2 Sat (Calc) VBG Base Excess VBG Potassium Glucose Lactate FiO2 Sodium 129 L Potassium 3.7 Chloride 95 L Carbon Dioxide 28 Anion Gap 11 BUN 6 L Creatinine 0.7 L Est GFR ( Amer) > 60 Est GFR (Non-Af Amer) > 60 Random Glucose 104 Serum Osmolality Lactic Acid 0.6 L Calcium 8.0 L Phosphorus 3.9 Magnesium 1.2 L Total Bilirubin AST ALT Alkaline Phosphatase Lactate Dehydrogenase Total Creatine Kinase Troponin I Total Protein Albumin Globulin Albumin/Globulin Ratio Amylase Lipase Venous Blood Potassium Urine Color Urine Appearance Urine pH Ur Specific [place] Urine Protein Urine Glucose (UA) Urine Ketones Urine Blood Urine Nitrate Urine Bilirubin Urine Urobilinogen Ur Leukocyte Esterase Alcohol, Quantitative Assessment & Plan - Assessment and Plan (Free Text) Assessment: Episode of diarrhea r/o intra-abdominal infection Less likely c. diff Moderate partial SBO due to internal hernia, recent open appendectomy Possible inflammatory changes on CT likely due to recent surgery, r/o colitis Anemia, Hyponatremia polysubstance abuse, etoh abuse, CAD, perforated appendix Peritoneal fluid from 04/25 with ecoli and e feacalis Plan: Patient presented with leukocytosis, no fever. No lactic acidosis. Continue with Zosyn, pending blood cultures. Collect C diff if diarrhea persists. Follow up with surgical evaluation. Thank you for your consult. Patient seen, examined and case discussed with Dr. Linda. - Date & Time Date: 05/06/18 Time: 09:00 <Isaiah Linda - Last Filed: 05/06/18 19:57> Meds - Medications Medications: Current Medications Enoxaparin Sodium (Lovenox) 40 mg SC DAILY MOODY; Protocol Hydromorphone HCl (Dilaudid) 0.5 mg IVP Q15M PRN PRN Reason: Pain, moderate (4-7) Stop: 05/06/18 20:11 Last Admin: 05/06/18 19:10 Dose: 0.5 mg Sodium Chloride (Sodium Chloride 0.9%) 1,000 mls @ 125 mls/hr IV .Q8H MOODY Last Admin: 05/06/18 13:58 Dose: 125 mls/hr Piperacillin Sod/Tazobactam Sod (Zosyn 3.375 In Ns 100ml) 100 mls @ 25 mls/hr IVPB Q8 MOODY; Protocol Stop: 05/13/18 14:01 Last Admin: 05/06/18 14:00 Dose: 25 mls/hr Lactated Ringer's (Lactated Ringer's) 1,000 mls @ 75 mls/hr IV .[id number] MOODY Stop: 05/06/18 20:16 Hydromorphone HCl (Dilaudid 0.2 Mg/Ml Loan Officer Assistant) 30 mls @ 0 mls/hr IV PRN PRN; Betsey col PRN Reason: ADDRESS CHANGE CLERK PER MD ORDER Ketorolac Tromethamine (Toradol) 15 mg IVP Q6 PRN PRN Reason: Pain, moderate (4-7) Last Admin: 05/06/18 11:59 Dose: 15 mg Ondansetron HCl (Zofran Inj) 4 mg IVP Q4 PRN PRN Reason: Nausea/Vomiting Last Admin: 05/06/18 04:48 Dose: 4 mg Ondansetron HCl (Zofran Inj) 4 mg IVP ONCE PRN PRN Reason: Nausea/Vomiting Results - Vital Signs Recent Vital Signs: Last Vital Signs Temp 96.8 F L 05/06/18 19:42 Pulse 101 H 05/06/18 19:42 Resp 20 10/10/18 19:42 BP 136/80 05/06/18 19:42 Pulse Ox 99 05/06/18 19:42 - Labs Result Diagrams: 05/06/18 06:15 05/06/18 06:15 Labs: Laboratory Results - last 24 hr 05/05/18 05/05/18 05/05/18 23:05 23:05 23:05 WBC 17.4 H D RBC 4.14 Hgb 13.0 L Hct 36.9 L MCV 89.1 MCH 31.4 MCHC 35.2 RDW 13.6 Plt Count 609 H MPV 8.1 Gran % 76.6 H Lymph % (Auto) 13.7 L [place] % (Auto) 9.1 H Eos % (Auto) 0.4 L Baso % (Auto) 0.2 Gran # 13.37 H Lymph # (Auto) 2.4 [place] # (Auto) 1.6 H Eos # (Auto) 0.1 Baso # (Auto) 0.03 PT 11.1 INR 0.97 APTT 29.9 pO2 VBG pH VBG pCO2 VBG HCO3 VBG Total CO2 VBG O2 Sat (Calc) VBG Base Excess VBG Potassium Glucose Lactate FiO2 Sodium 131 L Potassium 4.0 Chloride 91 L Carbon Dioxide 28 Anion Gap 17 BUN 8 Creatinine 0.8 Est GFR ( Amer) > 60 Est GFR (Non-Af Amer) > 60 Random Glucose 110 Serum Osmolality Lactic Acid Calcium 8.7 Phosphorus Magnesium Total Bilirubin 0.2 AST 28 ALT 27 Alkaline Phosphatase 62 Lactate Dehydrogenase 305 L Total Creatine Kinase 28 L Troponin I < 0.01 Total Protein 7.1 Albumin 3.6 Globulin 3.5 Albumin/Globulin Ratio 1.0 L Amylase 124 Lipase 204 Procalcitonin Venous Blood Potassium Urine Color Urine Appearance Urine pH Ur Specific [place] Urine Protein Urine Glucose (UA) Urine Ketones Urine Blood Urine Nitrate Urine Bilirubin Urine Urobilinogen Ur Leukocyte Esterase Urine Osmolality Ur Random Sodium Urine Opiates Screen Urine Methadone Screen Ur Barbiturates Screen Ur Phencyclidine Scrn Ur Amphetamines Screen U Benzodiazepines Scrn U Oth Cocaine Metabols U Cannabinoids Screen Alcohol, Quantitative 05/05/18 05/06/18 05/06/18 23:05 01:04 02:44 WBC RBC Hgb Hct MCV MCH MCHC RDW Plt Count MPV Gran % Lymph % (Auto) [place] % (Auto) Eos % (Auto) Baso % (Auto) Gran # Lymph # (Auto) [place] # (Auto) Eos # (Auto) Baso # (Auto) PT INR APTT pO2 119 H VBG pH 7.45 H VBG pCO2 39.0 L VBG HCO3 27.1 VBG Total CO2 28.3 H VBG O2 Sat (Calc) 98.5 H VBG Base Excess 3.0 H VBG Potassium 3.9 Glucose 107 Lactate 0.6 L FiO2 21.0 Sodium 126.0 L Potassium Chloride 96.0 L Carbon Dioxide Anion Gap BUN Creatinine Est GFR ( Amer) Est GFR (Non-Af Amer) Random Glucose Serum Osmolality 267 L Lactic Acid Calcium Phosphorus Magnesium Total Bilirubin AST ALT Alkaline Phosphatase Lactate Dehydrogenase Total Creatine Kinase Troponin I Total Protein Albumin Globulin Albumin/Globulin Ratio Amylase Lipase Procalcitonin Venous Blood Potassium 3.9 Urine Color Yellow Urine Appearance Clear Urine pH 6.0 Ur Specific [place] 1.020 Urine Protein Negative Urine Glucose (UA) Negative Urine Ketones Negative Urine Blood Negative Urine Nitrate Negative Urine Bilirubin Negative Urine Urobilinogen 0.2 Ur Leukocyte Esterase Negative Urine Osmolality Ur Random Sodium Urine Opiates Screen Urine Methadone Screen Ur Barbiturates Screen Ur Phencyclidine Scrn Ur Amphetamines Screen U Benzodiazepines Scrn U Oth Cocaine Metabols U Cannabinoids Screen Alcohol, Quantitative < 10 05/06/18 05/06/18 05/06/18 06:15 06:15 06:15 WBC 16.8 H RBC 3.58 Hgb 11.1 L Hct 31.8 L MCV 88.8 MCH 31.0 MCHC 34.9 RDW 13.6 Plt Count 525 H MPV 7.8 Gran % 78.8 H Lymph % (Auto) 10.7 L [place] % (Auto) 9.9 H Eos % (Auto) 0.4 L Baso % (Auto) 0.2 Gran # 13.20 H Lymph # (Auto) 1.8 [place] # (Auto) 1.7 H Eos # (Auto) 0.1 Baso # (Auto) 0.03 PT INR APTT pO2 VBG pH VBG pCO2 VBG HCO3 VBG Total CO2 VBG O2 Sat (Calc) VBG Base Excess VBG Potassium Glucose Lactate FiO2 Sodium 129 L Potassium 3.7 Chloride 95 L Carbon Dioxide 28 Anion Gap 11 BUN 6 L Creatinine 0.7 L Est GFR ( Amer) > 60 Est GFR (Non-Af Amer) > 60 Random Glucose 104 Serum Osmolality Lactic Acid 0.6 L Calcium 8.0 L Phosphorus 3.9 Magnesium 1.2 L Total Bilirubin AST ALT Alkaline Phosphatase Lactate Dehydrogenase Total Creatine Kinase Troponin I Total Protein Albumin Globulin Albumin/Globulin Ratio Amylase Lipase Procalcitonin Venous Blood Potassium Urine Color Urine Appearance Urine pH Ur Specific [place] Urine Protein Urine Glucose (UA) Urine Ketones Urine Blood Urine Nitrate Urine Bilirubin Urine Urobilinogen Ur Leukocyte Esterase Urine Osmolality Ur Random Sodium Urine Opiates Screen Urine Methadone Screen Ur Barbiturates Screen Ur Phencyclidine Scrn Ur Amphetamines Screen U Benzodiazepines Scrn U Oth Cocaine Metabols U Cannabinoids Screen Alcohol, Quantitative 05/06/18 05/06/18 05/06/18 06:59 16:25 16:25 WBC RBC Hgb Hct MCV MCH MCHC RDW Plt Count MPV Gran % Lymph % (Auto) [place] % (Auto) Eos % (Auto) Baso % (Auto) Gran # Lymph # (Auto) [place] # (Auto) Eos # (Auto) Baso # (Auto) PT INR APTT pO2 VBG pH VBG pCO2 VBG HCO3 VBG Total CO2 VBG O2 Sat (Calc) VBG Base Excess VBG Potassium Glucose Lactate FiO2 Sodium Potassium Chloride Carbon Dioxide Anion Gap BUN Creatinine Est GFR ( Amer) Est GFR (Non-Af Amer) Random Glucose Serum Osmolality Lactic Acid Calcium Phosphorus Magnesium Total Bilirubin AST ALT Alkaline Phosphatase Lactate Dehydrogenase Total Creatine Kinase Troponin I Total Protein Albumin Globulin Albumin/Globulin Ratio Amylase Lipase Procalcitonin 0.10 L Venous Blood Potassium Urine Color Urine Appearance Urine pH Ur Specific [place] Urine Protein Urine Glucose (UA) Urine Ketones Urine Blood Urine Nitrate Urine Bilirubin Urine Urobilinogen Ur Leukocyte Esterase Urine Osmolality 760 Ur Random Sodium 130 Urine Opiates Screen Positive H Urine Methadone Screen Negative Ur Barbiturates Screen Negative Ur Phencyclidine Scrn Negative Ur Amphetamines Screen Negative U Benzodiazepines Scrn Negative U Oth Cocaine Metabols Negative U Cannabinoids Screen Positive H Alcohol, Quantitative Assessment & Plan - Assessment and Plan (Free Text) Plan: Infectious Diseases Attending Physician Attestation Patient seen and examined, discussed with coroner/medical examiner. I have the pertinent clinical findings, history of present illness, medical histories, physical exam and pertinent labs and imaging. I agree with the above findings, assessment and plan. In addition, we have started Zosyn for possible intra-abdominal infection in this patient with partial small bowel obstruction, patient is S/P appendectomy last month for perforated appendicitis. Follow up stool work up and blood cx. Will monitor clinically.
--- NOTE | 2018-05-06 09:57 | CT ---
Date of service: 05/06/2018 PROCEDURE: CT Abdomen and Pelvis with contrast HISTORY: Abdominal pain. COMPARISON: 04/30/2018. CT abdomen and pelvis TECHNIQUE: Intravenous contrast dose: 100 cc Omnipaque 350. Radiation dose: Total exam DLP = 356.99 mGy-cm. This CT exam was performed using one or more of the following dose reduction techniques: Automated exposure control, adjustment of the mA and/or kV according to patient size, and/or use of iterative reconstruction technique. FINDINGS: LOWER THORAX: Unremarkable. LIVER: Unremarkable. No gross lesion or ductal dilatation. GALLBLADDER AND BILE DUCTS: Unremarkable. PANCREAS: Unremarkable. No gross lesion or ductal dilatation. SPLEEN: Unremarkable. ADRENALS: Unremarkable. No mass. KIDNEYS AND URETERS: Unremarkable. No hydronephrosis. No solid mass. VASCULATURE: Unremarkable. No aortic aneurysm. BOWEL: Persistent or recurrent distal small bowel obstruction. Markedly dilated loops of small bowel noted, the the likely obstructing point is right lower quadrant at the site of the surgical suture line. Fluid and debris identified in nondistended right maicol colon. Postoperative changes in the right lower quadrant have improved and a surgical drain has been removed. APPENDIX: Prior appendectomy performed 04/25/2018. PERITONEUM: Low volume intra-abdominal and pelvic ascites. No free air. Mesenteric "whirl sign" identified. LYMPH NODES: Unremarkable. No enlarged lymph nodes. BLADDER: Unremarkable. REPRODUCTIVE: Unremarkable. BONES: No acute fracture. OTHER FINDINGS: None. IMPRESSION: Small-bowel obstruction again identified distally. The degree of distention of small bowel similar to that seen previously. The degree of debris air and fluid within the colon has improved. Concordant results (preliminary interpretation) provided by [facility]. Procedure Completed: 00:51. Preliminary Report: Dictated and Authenticated: 01:44. Final Interpretation: 18:53.
--- NOTE | 2018-05-06 10:06 | CP.PCM.CON ---
<Allie Escalante - Last Filed: 05/06/18 13:20> History of Present Illness - History of Present Illness History of Present Illness: Allie Escalante DO, PGY-2: Nephrology Consult Note for Dr. Block 57 year old male with a past medical of polysubstance abuse, alcohol abuse, CAD s/p PCI, recently admitted and discharged on 05/04/18 after undergoing open appendectomy complicated with SBO and electrolyte imbalance. Patient was sent home on 7 days of Metronidazole but returned last night after developing right lower quadrant pain, nausea, and vomiting after eating some chicken noodle soup. The pathology report from his surgery revealed with acute necrotizing appendicitis with perforation and associated severe periappendicitis. In the ED, patient was found to have leukocytosis with wbc of 17.4. CT abdomen and pelvis revealed moderate partial mechanical bowel obstruction probably secondary to internal hernia with transition point at the tirhg lower quadrant. No bowel per foration or pneumatosis intestinalis, twisting of the mesenteric vessels, diffuse thickening of the transverse, descending and sigmoid colon- underdistention, spasm versus mild acute inflammatory pathology. At the time of my examination the patient reports pain in the RLQ and is NPO for an exploratory procedure planned for 5 PM today. Night team placed him on 125 mls/hr of NS. He denies fever, chills, and reports last bowel movement was at 6:30 PM yesterday. Nephrology was consulted for hyponatremia for a serum Na of 130. PMHx: polysubstance abuse, etoh abuse, CAD, perforated appendix PSHx: open appendectomy recently, PCI, right hip fracture Review of Systems - Review of Systems All systems: reviewed and no additional remarkable complaints except (as per HPI) Past Patient History - Past Social History Smoking Status: Former Smoker - CARDIAC Hx Cardiac Disorders: No - PULMONARY Hx Respiratory Disorders: No - NEUROLOGICAL Hx Neurological Disorder: No - HEENT Hx HEENT Problems: No Hx Blind: No Hx Cataracts: No Hx Deafness: No Hx Difficulty Chewing: No Hx Epistaxis: No Hx Glaucoma: No Hx Macular Degeneration: No - RENAL Hx Chronic Kidney Disease: No Hx Dialysis: No Hx Kidney Stones: No Hx Neurogenic Bladder: No Hx Pyelonephritis: No Hx Renal (Kidney) Cancer: No Hx Renal Failure: No - ENDOCRINE/METABOLIC Hx Endocrine Disorders: No Hx Adrenal Cancer: No Hx Diabetes Insipidus: No Hx Diabetes Mellitus Type 1: No Hx Diabetes Mellitus Type 2: No Hx Hyperthyroidism: No Hx Hypothyroidism: No Hx Systemic Lupus Erythematosus: No - HEMATOLOGICAL/ONCOLOGICAL Hx Blood Transfusions: No Hx Blood Transfusion Reaction: No - INTEGUMENTARY Hx Dermatological Problems: No Hx Basil Cell: No Hx Eczema: No Hx Melanoma: No Hx Psoriasis: No Hx Squamous Cell: No - MUSCULOSKELETAL/RHEUMATOLOGICAL Hx Falls: No - GASTROINTESTINAL Hx Gastrointestinal Disorders: No Hx Colostomy: No Hx Crohn's Disease: No Hx Diverticulitis: No Hx Gall Bladder Disease: No Hx Gastroesophageal Reflux: No Hx Ileostomy: No Hx Liver Failure: No Hx Pancreatitis: No HX Swallowing Problems: No Hx Ulcer: No - GENITOURINARY/GYNECOLOGICAL Hx Genitourinary Disorders: No Hx Hematuria: No Hx Incontinence: No Hx Prostate Problems: No Hx Sexually Transmitted Disorders: No Hx Urinary Tract Infection: No - PSYCHIATRIC Hx Substance Use: No - SURGICAL HISTORY Hx Appendectomy: Yes (04/25/18) - ANESTHESIA Hx Anesthesia Reactions: No Hx Malignant Hyperthermia: No Meds Allergies/Adverse Reactions: Allergies Allergy/AdvReac Type Severity Reaction Status Date / Time No Known Allergies Allergy Verified 04/24/18 21:40 - Medications Medications: Current Medications Sodium Chloride (Sodium Chloride 0.9%) 1,000 mls @ 125 mls/hr IV .Q8H [facility] Last Admin: 05/06/18 03:56 Dose: 125 mls/hr Piperacillin Sod/Tazobactam Sod (Zosyn 3.375 In Ns 100ml) 100 mls @ 25 mls/hr IVPB Q8 [facility]; Protocol Stop: 05/13/18 14:01 Ondansetron HCl (Zofran Inj) 4 mg IVP Q4 PRN PRN Reason: Nausea/Vomiting Last Admin: 05/06/18 04:48 Dose: 4 mg Physical Exam - Constitutional Appears: Non-toxic, No Acute Distress - Head Exam Head Exam: ATRAUMATIC, NORMOCEPHALIC - Eye Exam Eye Exam: EOMI, Normal appearance - ENT Exam ENT Exam: Mucous Membranes Dry - Neck Exam Neck exam: Positive for: Normal Inspection - Respiratory Exam Respiratory Exam: Clear to Auscultation Bilateral, NORMAL BREATHING PATTERN. absent: Accessory Muscle Use - Cardiovascular Exam Cardiovascular Exam: RRR, +S1, +S2 - GI/Abdominal Exam GI & Abdominal Exam: absent: Distended, Guarding, Rebound - Extremities Exam Extremities exam: Positive for: normal inspection. Negative for: calf tenderness - Neurological Exam Neurological exam: Alert, CN II-XII Intact, Oriented x3 - Psychiatric Exam Psychiatric exam: Normal Affect, Normal Mood - Skin Skin Exam: Dry, Intact, Normal Color, Warm Results - Vital Signs Recent Vital Signs: Last Vital Signs Temp 97.8 F 05/06/18 06:00 Pulse 93 H 05/06/18 06:00 Resp 20 05/06/18 06:00 BP 137/95 H 05/06/18 06:00 Pulse Ox 96 05/06/18 06:00 - Labs Result Diagrams: 05/06/18 06:15 05/06/18 06:15 Labs: Laboratory Results - last 24 hr 05/05/18 05/05/18 05/05/18 23:05 23:05 23:05 WBC 17.4 H D RBC 4.14 Hgb 13.0 L Hct 36.9 L MCV 89.1 MCH 31.4 MCHC 35.2 RDW 13.6 Plt Count 609 H MPV 8.1 Gran % 76.6 H Lymph % (Auto) 13.7 L [place] % (Auto) 9.1 H Eos % (Auto) 0.4 L Baso % (Auto) 0.2 Gran # 13.37 H Lymph # (Auto) 2.4 [place] # (Auto) 1.6 H Eos # (Auto) 0.1 Baso # (Auto) 0.03 PT 11.1 INR 0.97 APTT 29.9 pO2 VBG pH VBG pCO2 VBG HCO3 VBG Total CO2 VBG O2 Sat (Calc) VBG Base Excess VBG Potassium Glucose Lactate FiO2 Sodium 131 L Potassium 4.0 Chloride 91 L Carbon Dioxide 28 Anion Gap 17 BUN 8 Creatinine 0.8 Est GFR ( Amer) > 60 Est GFR (Non-Af Amer) > 60 Random Glucose 110 Serum Osmolality Lactic Acid Calcium 8.7 Phosphorus Magnesium Total Bilirubin 0.2 AST 28 ALT 27 Alkaline Phosphatase 62 Lactate Dehydrogenase 305 L Total Creatine Kinase 28 L Troponin I < 0.01 Total Protein 7.1 Albumin 3.6 Globulin 3.5 Albumin/Globulin Ratio 1.0 L Amylase 124 Lipase 204 Venous Blood Potassium Urine Color Urine Appearance Urine pH Ur Specific [place] Urine Protein Urine Glucose (UA) Urine Ketones Urine Blood Urine Nitrate Urine Bilirubin Urine Urobilinogen Ur Leukocyte Esterase Alcohol, Quantitative 05/05/18 05/06/18 05/06/18 23:05 01:04 02:44 WBC RBC Hgb Hct MCV MCH MCHC RDW Plt Count MPV Gran % Lymph % (Auto) [place] % (Auto) Eos % (Auto) Baso % (Auto) Gran # Lymph # (Auto) [place] # (Auto) Eos # (Auto) Baso # (Auto) PT INR APTT pO2 119 H VBG pH 7.45 H VBG pCO2 39.0 L VBG HCO3 27.1 VBG Total CO2 28.3 H VBG O2 Sat (Calc) 98.5 H VBG Base Excess 3.0 H VBG Potassium 3.9 Glucose 107 Lactate 0.6 L FiO2 21.0 Sodium 126.0 L Potassium Chloride 96.0 L Carbon Dioxide Anion Gap BUN Creatinine Est GFR ( Amer) Est GFR (Non-Af Amer) Random Glucose Serum Osmolality 267 L Lactic Acid Calcium Phosphorus Magnesium Total Bilirubin AST ALT Alkaline Phosphatase Lactate Dehydrogenase Total Creatine Kinase Troponin I Total Protein Albumin Globulin Albumin/Globulin Ratio Amylase Lipase Venous Blood Potassium 3.9 Urine Color Yellow Urine Appearance Clear Urine pH 6.0 Ur Specific [place] 1.020 Urine Protein Negative Urine Glucose (UA) Negative Urine Ketones Negative Urine Blood Negative Urine Nitrate Negative Urine Bilirubin Negative Urine Urobilinogen 0.2 Ur Leukocyte Esterase Negative Alcohol, Quantitative < 10 05/06/18 05/06/18 05/06/18 06:15 06:15 06:15 WBC 16.8 H RBC 3.58 Hgb 11.1 L Hct 31.8 L MCV 88.8 MCH 31.0 MCHC 34.9 RDW 13.6 Plt Count 525 H MPV 7.8 Gran % 78.8 H Lymph % (Auto) 10.7 L [place] % (Auto) 9.9 H Eos % (Auto) 0.4 L Baso % (Auto) 0.2 Gran # 13.20 H Lymph # (Auto) 1.8 [place] # (Auto) 1.7 H Eos # (Auto) 0.1 Baso # (Auto) 0.03 PT INR APTT pO2 VBG pH VBG pCO2 VBG HCO3 VBG Total CO2 VBG O2 Sat (Calc) VBG Base Excess VBG Potassium Glucose Lactate FiO2 Sodium 129 L Potassium 3.7 Chloride 95 L Carbon Dioxide 28 Anion Gap 11 BUN 6 L Creatinine 0.7 L Est GFR ( Amer) > 60 Est GFR (Non-Af Amer) > 60 Random Glucose 104 Serum Osmolality Lactic Acid 0.6 L Calcium 8.0 L Phosphorus 3.9 Magnesium 1.2 L Total Bilirubin AST ALT Alkaline Phosphatase Lactate Dehydrogenase Total Creatine Kinase Troponin I Total Protein Albumin Globulin Albumin/Globulin Ratio Amylase Lipase Venous Blood Potassium Urine Color Urine Appearance Urine pH Ur Specific [place] Urine Protein Urine Glucose (UA) Urine Ketones Urine Blood Urine Nitrate Urine Bilirubin Urine Urobilinogen Ur Leukocyte Esterase Alcohol, Quantitative Assessment & Plan - Assessment and Plan (Free Text) Assessment: 57 year old male with a past medical of polysubstance abuse, alcohol abuse, CAD s/p PCI, recently admitted and discharged on 05/04/18 after undergoing open appendectomy complicated with SBO and electrolyte imbalance. Patient returned last night after developing right lower quadrant pain, nausea, and vomiting after eating some chicken noodle soup. In the ED, patient was found to have leukocytosis with wbc of 17.4. CT abdomen and pelvis revealed moderate partial mechanical bowel obstruction probably secondary to internal hernia with transition point at the tirhg lower quadrant. No bowel perforation or pneumatosis intestinalis, twisting of the mesenteric vessels, diffuse thickening of the transverse, descending and sigmoid colon- underdistention, spasm versus mild acute inflammatory pathology. At the time of my examination the patient reports pain in the RLQ and is NPO for an exploratory procedure planned for 5 PM today. Night team placed him on 125 mls/hr of NS. He denies fever, chills, and reports last bowel movement was at 6:30 PM yesterday. Plan: 1) Hyponatremia Agree with NS at 125 mls/hr. Will obtain urine osmoles, serum osmoles, and urine Na. As always, thank you for allowing us to participate in the care of this patient. 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 Last Admin: 05/06/18 20:04 Dose: 0.1 mls/hr Sodium Chloride (Sodium Chloride 0.9%) 1,000 mls @ 125 mls/hr IV .Q8H [facility] Last Admin: 05/07/18 03:02 Dose: 125 mls/hr Ketorolac Tromethamine (Toradol) 15 mg IVP Q6 PRN PRN Reason: Pain, moderate (4-7) Last Admin: 05/06/18 11:59 Dose: 15 mg Ondansetron HCl (Zofran Inj) 4 mg IVP Q4 PRN PRN Reason: Nausea/Vomiting Last Admin: 05/06/18 04:48 Dose: 4 mg Ondansetron HCl (Zofran Inj) 4 mg IVP ONCE PRN PRN Reason: Nausea/Vomiting Results - Vital Signs Recent Vital Signs: Last Vital Signs Temp 98.3 F 05/07/18 06:00 Pulse 96 H 05/07/18 06:00 Resp 20 05/07/18 06:00 BP 121/81 05/07/18 06:00 Pulse Ox 97 05/07/18 06:00 - Labs Result Diagrams: 05/07/18 06:20 05/07/18 06:20 Labs: Laboratory Results - last 24 hr 05/06/18 05/06/18 05/06/18 06:59 16:25 16:25 WBC RBC Hgb Hct MCV MCH MCHC RDW Plt Count MPV Gran % Lymph % (Auto) [place] % (Auto) Eos % (Auto) Baso % (Auto) Gran # Lymph # (Auto) [place] # (Auto) Eos # (Auto) Baso # (Auto) Sodium Potassium Chloride Carbon Dioxide Anion Gap BUN Creatinine Est GFR ( Amer) Est GFR (Non-Af Amer) Random Glucose Calcium Magnesium Procalcitonin 0.10 L Urine Eosinophils Negative Urine Osmolality 760 Ur Random Sodium 130 Urine Opiates Screen Urine Methadone Screen Ur Barbiturates Screen Ur Phencyclidine Scrn Ur Amphetamines Screen U Benzodiazepines Scrn U Oth Cocaine Metabols U Cannabinoids Screen 05/06/18 05/07/18 05/07/18 16:25 06:20 06:20 WBC 15.1 H RBC 3.88 Hgb 11.9 L Hct 34.7 L MCV 89.4 MCH 30.7 MCHC 34.3 RDW 13.8 Plt Count 611 H MPV 8.1 Gran % 87.8 H Lymph % (Auto) 5.8 L [place] % (Auto) 6.3 H Eos % (Auto) 0.0 L Baso % (Auto) 0.1 Gran # 13.29 H Lymph # (Auto) 0.9 L [place] # (Auto) 1.0 H Eos # (Auto) 0.0 Baso # (Auto) 0.01 Sodium 131 L Potassium 4.7 Chloride 101 Carbon Dioxide 21 Anion Gap 14 BUN 10 Creatinine 1.0 Est GFR ( Amer) > 60 Est GFR (Non-Af Amer) > 60 Random Glucose 114 H Calcium 7.1 L Magnesium Procalcitonin Urine Eosinophils Urine Osmolality Ur Random Sodium Urine Opiates Screen Positive H Urine Methadone Screen Negative Ur Barbiturates Screen Negative Ur Phencyclidine Scrn Negative Ur Amphetamines Screen Negative U Benzodiazepines Scrn Negative U Oth Cocaine Metabols Negative U Cannabinoids Screen Positive H 05/07/18 06:20 WBC RBC Hgb Hct MCV MCH MCHC RDW Plt Count MPV Gran % Lymph % (Auto) [place] % (Auto) Eos % (Auto) Baso % (Auto) Gran # Lymph # (Auto) [place] # (Auto) Eos # (Auto) Baso # (Auto) Sodium Potassium Chloride Carbon Dioxide Anion Gap BUN Creatinine Est GFR ( Amer) Est GFR (Non-Af Amer) Random Glucose Calcium Magnesium 1.7 Procalcitonin Urine Eosinophils Urine Osmolality Ur Random Sodium Urine Opiates Screen Urine Methadone Screen Ur Barbiturates Screen Ur Phencyclidine Scrn Ur Amphetamines Screen U Benzodiazepines Scrn U Oth Cocaine Metabols U Cannabinoids Screen Attending/Attestation - Attestation I have personally seen and examined this patient.: Yes I have fully participated in the care of the patient.: Yes I have reviewed all pertinent clinical information: Yes Notes (Text): Patient seen and examined; I agree with the resident's note as above with the following additions/edits: 57 year old male with a past medical of polysubstance abuse, alcohol abuse, CAD s/p PCI, recent admission with open appendectomy for ruptured appendix, seen at that time for hyponatremia, thought be due to intravascular volume depletion and improved with IVF; again being consulted for hyponatremia; Patient with vomiting at home; currently NPO due to possible SBO; hemodynamic ally stable; high urine osm indicative of volume depletion; -agree with NS at 125 cc/hr; increase rate as needed (for decreased BP, tachycardia); -recommend to avoid NSAIDS for pain relief (risk of SILVINO in the setting of volume depletion; also can worsen hyponatremia by potentiating the effect of ADH);
[2018-05-06] MEDS: Piperacillin/Tazobact 3.375 gm 100 ML IVPB SCH ×2 (14:00→22:21)
[2018-05-06] MEDS ORDERED: Rocuronium 10 mg/ml (5 ml) ONE (15:59)
[2018-05-06] MEDS ORDERED: Succinylcholine 200 mg/10 ml Inj IV ONE (15:59)
[2018-05-06] MEDS ORDERED: Propofol 10 mg/ml Inj (20 ML) ONE (15:59)
[2018-05-06] MEDS ORDERED: Phenylephrine 10 mg/ml Inj ONE (16:03)
[2018-05-06] MEDS ORDERED: Bupivacaine 0.5% 50 ML IJ ONE (16:24)
[2018-05-06] MEDS ORDERED: metroNIDAZOLE IV 500 mg/100 ml 500 MG/100 ML BAG ONE (16:45)
[2018-05-06] MEDS ORDERED: cefTRIAXone (Rocephin) 1 gm Inj ONE (16:45)
[2018-05-06 17:10] LABS: OSMOLALITY,URINE 760 mosm/kg (300-1000)
[2018-05-06] MEDS ORDERED: Esmolol 100 mg/10ml Inj IV ONE (17:16)
[2018-05-06 17:24] LABS: BARBITURATES, UR NEGATIVE (NEGATIVE); BENZODIAZEPINES, UR NEGATIVE (NEGATIVE); OPIATES, UR POSITIVE (NEGATIVE); PHENCYCLIDINE, UR NEGATIVE (NEGATIVE)
[2018-05-06] MEDS ORDERED: HYDROmorphone 1 mg/ml ISec IVP PRN (18:11)
[2018-05-06] MEDS ORDERED: Lactated Ringer's 1,000 ML IV SCH (18:15)
[2018-05-06] MEDS ORDERED: Glycopyrrolate 0.2 mg/ml (2ml vial) ONE (18:30)
[2018-05-06] MEDS ORDERED: Neostigmine Methylsulfate 3mg/3ml Syringe IV ONE (18:34)
[2018-05-06] MEDS ORDERED: Morphine 4 mg/ml ISec ONE (18:45)
--- NOTE | 2018-05-06 19:03 | PCM.SURG1 ---
Surgeon's Initial Post Op Note - Surgeon's Notes Surgeon: Dr. Carr Manager Business Planning: Dr. Camara PGY3 Type of Anesthesia: General Endo Pre-Operative Diagnosis: partial SBO, possible internal hernia Operative Findings: see operative report Post-Operative Diagnosis: see operative report Operation Performed: diagnostic laparoscopy converted to laparotomy. lysis of adhesions. small bowerl resection Specimen/Specimens Removed: small bowel. omentum Estimated Blood Loss: EBL {In ML}: 75 Blood Products Given: N/A Drains Used: Shivam Post-Op Condition: Good Date of Surgery/Procedure: 05/06/18 Time of Surgery/Procedure: 17:30
[2018-05-06] MEDS ORDERED: HYDROmorphone 0.2 mg/ml (30ml) 30 ML IV PRN (19:05)
[2018-05-06] MEDS ORDERED: HYDROmorphone 1 mg/ml ISec ONE ×3 (19:11→19:46)
[2018-05-06] MEDS ORDERED: HYDROmorphone 1 mg/ml ISec IVP ONE ×2 (19:26→19:46)
[2018-05-06] MEDS ORDERED: Sodium Chloride 0.9% 1,000 ML IV STA (23:17)
[2018-05-07] MEDS: Sodium Chloride 0.9% 1,000 ML IV SCH ×4 (00:25→21:29)
[2018-05-07] MEDS ORDERED: Sodium Chloride 0.9% 1,000 ML IV STA (01:21)
[2018-05-07] MEDS: Piperacillin/Tazobact 3.375 gm 100 ML IVPB SCH ×3 (05:50→21:29)
--- NOTE | 2018-05-07 06:43 | CP.PCM.PN ---
<Kristy Zhang - Last Filed: 05/07/18 12:50> Subjective - Date & Time of Evaluation Date of Evaluation: 05/07/18 Time of Evaluation: 08:15 - Subjective Subjective: PGY-3 Resident ID progress note for Dr. Linda Patient is s/p partial small bowel resection and lysis of adhesion POD#1. Patient states he's doing well. Denies fever or chills. + abdominal soreness from the surgery. No diarrhea. No nausea, or vomiting. Objective - Vital Signs/Intake and Output Vital Signs (last 24 hours): Temp Pulse Resp BP Pulse Ox 97.2 F L 107 H 18 124/84 93 L 05/06/18 22:00 05/06/18 22:00 05/06/18 22:00 05/06/18 22:00 05/06/18 22:00 Intake and Output: 05/06/18 05/07/18 18:59 06:59 Intake Total 100 1225 Output Total 800 Balance 100 425 - Medications Medications: Current Medications Enoxaparin Sodium (Lovenox) 40 mg SC DAILY [facility]; Protocol Piperacillin Sod/Tazobactam Sod (Zosyn 3.375 In Ns 100ml) 100 mls @ 25 mls/hr IVPB Q8 [facility]; Protocol Stop: 05/13/18 14:01 Last Admin: 05/07/18 05:50 Dose: 25 mls/hr Hydromorphone HCl (Dilaudid 0.2 Mg/Ml Development Technologist) 30 mls @ 0 mls/hr IV PRN PRN; 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 Last Admin: 05/06/18 20:04 Dose: 0.1 mls/hr Sodium Chloride (Sodium Chloride 0.9%) 1,000 mls @ 125 mls/hr IV .Q8H [facility] Last Admin: 05/07/18 03:02 Dose: 125 mls/hr Ketorolac Tromethamine (Toradol) 15 mg IVP Q6 PRN PRN Reason: Pain, moderate (4-7) Last Admin: 05/06/18 11:59 Dose: 15 mg Ondansetron HCl (Zofran Inj) 4 mg IVP Q4 PRN PRN Reason: Nausea/Vomiting Last Admin: 05/06/18 04:48 Dose: 4 mg Ondansetron HCl (Zofran Inj) 4 mg IVP ONCE PRN PRN Reason: Nausea/Vomiting - Labs Labs: 05/06/18 06:15 05/06/18 06:15 PT 11.1 SECONDS (9.4-12.5) 05/05/18 23:05 INR 0.97 05/05/18 23:05 APTT 29.9 Seconds (25.1-36.5) 05/05/18 23:05 - Constitutional Appears: No Acute Distress, Cachectic - Head Exam Head Exam: NORMAL INSPECTION - Eye Exam Eye Exam: Normal appearance - ENT Exam ENT Exam: Mucous Membranes Moist - Neck Exam Neck Exam: Normal Inspection - Respiratory Exam Respiratory Exam: Clear to Ausculation Bilateral, NORMAL BREATHING PATTERN. absent: Rales, Rhonchi, Wheezes, Respiratory Distress, Stridor - Cardiovascular Exam Cardiovascular Exam: REGULAR RHYTHM, +S1, +S2 - GI/Abdominal Exam GI & Abdominal Exam: Soft, Tenderness, Normal Bowel Sounds. absent: Distended, Firm, Guarding, Rebound Additional comments: Surgical incision sites with clean dressings. - Extremities Exam Extremities Exam: Normal Inspection - Back Exam Back Exam: NORMAL INSPECTION - Neurological Exam Neurological Exam: Alert, Awake, Oriented x3 - Psychiatric Exam Psychiatric exam: Normal Affect, Normal Mood - Skin Skin Exam: Dry, Warm Assessment and Plan - Assessment and Plan (Free Text) Assessment: Patient is a 57 y/o with PMHx: SBO s/p partial bowel resection and lysis of adhesion pod# 1, Episode of diarrhea- resolved R/o intra-abdominal infection Less likely c. diff Recent open appendectomy due to perforated appendix Anemia, Hyponatremia polysubstance abuse, etoh abuse, CAD, Peritoneal fluid from 04/25 with ecoli and e feacalis Plan: Leukocytosis trending down, afebrile. Blood cultures with so far no growth. Will continue Zosyn for now until leukocytosis resolves, patient able to tolerate solid food, and remains afebrile. Post op care as per surgery and primary. Patient seen, examined and case discussed with Dr. Linda. <Isaiah Linda - Last Filed: 05/07/18 21:04> Objective - Vital Signs/Intake and Output Vital Signs (last 24 hours): Temp Pulse Resp BP Pulse Ox 99.6 F 102 H 20 124/85 97 05/07/18 14:00 05/07/18 14:00 05/07/18 14:00 05/07/18 14:00 05/07/18 14:00 Intake and Output: 05/07/18 05/08/18 18:59 06:59 Intake Total 2480 360 Output Total 50 100 Balance 2430 260 - Medications Medications: Current Medications Acetaminophen (Tylenol 325mg Tab) 650 mg PO Q4 PRN PRN Reason: Fever >100.4 F Enoxaparin Sodium (Lovenox) 40 mg SC DAILY [facility]; Protocol Last Admin: 05/07/18 17:32 Dose: 40 mg Piperacillin Sod/Tazobactam Sod (Zosyn 3.375 In Ns 100ml) 100 mls @ 25 mls/hr IVPB Q8 [facility]; Protocol Stop: 05/13/18 14:01 Last Admin: 05/07/18 13:32 Dose: 25 mls/hr Sodium Chloride (Sodium Chloride 0.9%) 1,000 mls @ 125 mls/hr IV .Q8H [facility] Last Admin: 05/07/18 13:34 Dose: 125 mls/hr Ketorolac Tromethamine (Toradol) 15 mg IVP Q6 PRN PRN Reason: Pain, moderate (4-7) Last Admin: 05/06/18 11:59 Dose: 15 mg Ondansetron HCl (Zofran Inj) 4 mg IVP Q4 PRN PRN Reason: Nausea/Vomiting Last Admin: 05/06/18 04:48 Dose: 4 mg Ondansetron HCl (Zofran Inj) 4 mg IVP ONCE PRN PRN Reason: Nausea/Vomiting - Labs Labs: 05/07/18 06:20 05/07/18 06:20 PT 11.1 SECONDS (9.4-12.5) 05/05/18 23:05 INR 0.97 05/05/18 23:05 APTT 29.9 Seconds (25.1-36.5) 05/05/18 23:05 Assessment and Plan - Assessment and Plan (Free Text) Plan: Infectious Diseases Attending Physician Attestation Patient seen and examined, discussed with lead medical technologist. I have the pertinent clinical findings, history of present illness, medical histories, physical exam and pertinent labs and imaging. I agree with the above findings, assessment and plan. In addition, we have started Zosyn for possible intra-abdominal infection in this patient with partial small bowel obstruction, now S/P ex-lap and small bowel resection. Patient is S/P appendectomy last month for perforated appendicitis. Follow up stool work up and blood cx are negative. Will continue to monitor clinically.
[2018-05-07 07:03] LABS: BASO # 0.01 K/mm3 (0.0-2.0); BASO % 0.1 % (0.0-3.0); GRAN # 13.29 (1.4-6.5); GRAN % 87.8 % (50.0-68.0); HEMOGLOBIN 11.9 g/dL (14.0-18.0); LYMPH # 0.9 (1.2-3.4); LYMPH % 5.8 % (22.0-35.0); MEAN CELL VOLUME 89.4 fl (80.0-105.0); MEAN CORPUSCULAR HEMOGLOBIN 30.7 pg (25.0-35.0); MEAN CORPUSCULAR HGB CONC 34.3 g/dl (31.0-37.0); MEAN PLATELET VOLUME 8.1 fl (7.0-11.0); MONO % 6.3 % (1.0-6.0); RBC 3.88 10^6/uL (3.5-6.1); RED CELL DISTRIBUTION WIDTH 13.8 % (11.5-14.5); WHITE BLOOD COUNT 15.1 10^3/ul (4.5-11.0)
[2018-05-07 07:10] LABS: BLOOD UREA NITROGEN 10 mg/dL (7-21); CALCIUM 7.1 mg/dL (8.4-10.5); GFR NON-AFRICAN AMERICAN > 60
--- NOTE | 2018-05-07 08:22 | CP.PCM.PN ---
Subjective - Date & Time of Evaluation Date of Evaluation: 05/07/18 Time of Evaluation: 08:19 - Subjective Subjective: General Surgery Progress Note for Dr. Sarmiento This 57M was seen and examined this AM at bedside no acute events reported overnight. He made 700cc of urine in the past 12 hours. His drain output is serosang 90cc. He denies any flatus, or BM. He reports pain well controlled. No new complaints at this time aside from the discomfort of the NGT. Objective - Vital Signs/Intake and Output Vital Signs (last 24 hours): Temp Pulse Resp BP Pulse Ox 98.3 F 96 H 20 121/81 97 05/07/18 06:00 05/07/18 06:00 05/07/18 06:00 05/07/18 06:00 05/07/18 06:00 Intake and Output: 05/07/18 05/07/18 06:59 18:59 Intake Total 1225 Output Total 800 Balance 425 - Medications Medications: Current Medications Enoxaparin Sodium (Lovenox) 40 mg SC DAILY [facility]; Protocol Piperacillin Sod/Tazobactam Sod (Zosyn 3.375 In Ns 100ml) 100 mls @ 25 mls/hr IVPB Q8 [facility]; Protocol Stop: 05/13/18 14:01 Last Admin: 05/07/18 05:50 Dose: 25 mls/hr Hydromorphone HCl (Dilaudid 0.2 Mg/Ml Exhibition Carver) 30 mls @ 0 mls/hr IV PRN PRN; Protocol 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 Last Admin: 05/06/18 20:04 Dose: 0.1 mls/hr Sodium Chloride (Sodium Chloride 0.9%) 1,000 mls @ 125 mls/hr IV .Q8H [facility] Last Admin: 05/07/18 03:02 Dose: 125 mls/hr Ketorolac Tromethamine (Toradol) 15 mg IVP Q6 PRN PRN Reason: Pain, moderate (4-7) Last Admin: 05/06/18 11:59 Dose: 15 mg Ondansetron HCl (Zofran Inj) 4 mg IVP Q4 PRN PRN Reason: Nausea/Vomiting Last Admin: 05/06/18 04:48 Dose: 4 mg Ondansetron HCl (Zofran Inj) 4 mg IVP ONCE PRN PRN Reason: Nausea/Vomiting - Labs Labs: 05/07/18 06:20 05/07/18 06:20 PT 11.1 SECONDS (9.4-12.5) 05/05/18 23:05 INR 0.97 05/05/18 23:05 APTT 29.9 Seconds (25.1-36.5) 05/05/18 23:05 - Constitutional Appears: Non-toxic, No Acute Distress - Head Exam Head Exam: ATRAUMATIC, NORMOCEPHALIC - Eye Exam Eye Exam: EOMI - Respiratory Exam Respiratory Exam: NORMAL BREATHING PATTERN - Cardiovascular Exam Cardiovascular Exam: +S1, +S2 - GI/Abdominal Exam GI & Abdominal Exam: Soft. absent: Distended, Firm, Guarding, Rigid Additional comments: apropriatly tender with the dressing clean dry and intact - Neurological Exam Neurological Exam: Alert, Awake - Psychiatric Exam Psychiatric exam: Normal Affect, Normal Mood - Skin Skin Exam: Dry, Intact Assessment and Plan - Assessment and Plan (Free Text) Assessment: 57M s/p exlap with small segment SB resection and primary anastamosis POD#1 Regular diet AE hose D/C NGT D/C Flor Ambulate D/W Dr. Torsten Aranda PGY3
[2018-05-07 08:43] LABS: VENOUS BLOOD GAS BASE EXCESS -2.2 mmol/L (0.0-2.0); VENOUS BLOOD GAS PO2 172 mm/Hg (30-55); VENOUS BLOOD PH 7.36 (7.32-7.43)
[2018-05-07] MEDS: Enoxaparin 40 mg Syringe SC SCH (17:32)
--- NOTE | 2018-05-07 18:38 | CP.PCM.PN ---
<Dave Cheung - Last Filed: 05/07/18 18:51> Subjective - Date & Time of Evaluation Date of Evaluation: 05/07/18 Time of Evaluation: 18:35 - Subjective Subjective: Pt seen and examined at bedside this morning. Pt reports he still has abdominal pain, which is improving Objective - Vital Signs/Intake and Output Vital Signs (last 24 hours): Temp Pulse Resp BP Pulse Ox 99.6 F 102 H 20 124/85 97 05/07/18 14:00 05/07/18 14:00 05/07/18 14:00 05/07/18 14:00 05/07/18 14:00 Intake and Output: 05/07/18 05/07/18 06:59 18:59 Intake Total 1225 2480 Output Total 800 50 Balance 425 2430 - Medications Medications: Current Medications Acetaminophen (Tylenol 325mg Tab) 650 mg PO Q4 PRN PRN Reason: Fever >100.4 F Enoxaparin Sodium (Lovenox) 40 mg SC DAILY [facility]; Protocol Last Admin: 05/07/18 17:32 Dose: 40 mg Piperacillin Sod/Tazobactam Sod (Zosyn 3.375 In Ns 100ml) 100 mls @ 25 mls/hr IVPB Q8 [facility]; Protocol Stop: 05/13/18 14:01 Last Admin: 05/07/18 13:32 Dose: 25 mls/hr Sodium Chloride (Sodium Chloride 0.9%) 1,000 mls @ 125 mls/hr IV .Q8H [facility] Last Admin: 05/07/18 13:34 Dose: 125 mls/hr Ketorolac Tromethamine (Toradol) 15 mg IVP Q6 PRN PRN Reason: Pain, moderate (4-7) Last Admin: 05/06/18 11:59 Dose: 15 mg Ondansetron HCl (Zofran Inj) 4 mg IVP Q4 PRN PRN Reason: Nausea/Vomiting Last Admin: 05/06/18 04:48 Dose: 4 mg Ondansetron HCl (Zofran Inj) 4 mg IVP ONCE PRN PRN Reason: Nausea/Vomiting - Labs Labs: 05/07/18 06:20 05/07/18 06:20 PT 11.1 SECONDS (9.4-12.5) 05/05/18 23:05 INR 0.97 05/05/18 23:05 APTT 29.9 Seconds (25.1-36.5) 05/05/18 23:05 - Constitutional Appears: No Acute Distress - Head Exam Head Exam: ATRAUMATIC, NORMOCEPHALIC - Eye Exam Eye Exam: EOMI - ENT Exam ENT Exam: Mucous Membranes Moist - Neck Exam Neck Exam: Full ROM - Respiratory Exam Respiratory Exam: Clear to Ausculation Bilateral, NORMAL BREATHING PATTERN. absent: Accessory Muscle Use, Wheezes, Respiratory Distress - Cardiovascular Exam Cardiovascular Exam: REGULAR RHYTHM, RRR, +S1, +S2. absent: Diastolic murmur, Murmur - GI/Abdominal Exam GI & Abdominal Exam: Soft, Normal Bowel Sounds. absent: Rebound - Extremities Exam Extremities Exam: Full ROM - Neurological Exam Neurological Exam: Alert, Awake, Oriented x3 - Psychiatric Exam Psychiatric exam: Normal Affect, Normal Mood - Skin Skin Exam: Dry, Intact, Warm Assessment and Plan - Assessment and Plan (Free Text) Assessment: 57yo male with recent admission for appendectomy who presents with Postop ileus vs SBO with transition at [facility]. Plan: SBO d/t post-surgical changes, s/p open appendectomy - Zofran for nausea - hydromorphone for pain control - continue to monitor - Surgical consult - Dr. Sarmiento Twisting of mesenteric vessels - Per surgery team, the mesenteric vessels were unchanged compared to last CT A/P - Possibly anatomic variant Chronic normocytic anemia - continue to monitor AM labs Hyponatremia - 131, improving - Nephro consult (Dr. Block) Pt seen, examined, assessment and plan discussed with Dr Bebeto Cheung PGY1, Internal Medicine Resident <Cameron Tate - Last Filed: 05/07/18 19:21> Objective - Vital Signs/Intake and Output Vital Signs (last 24 hours): Temp Pulse Resp BP Pulse Ox 99.6 F 102 H 20 124/85 97 05/07/18 14:00 05/07/18 14:00 05/07/18 14:00 05/07/18 14:00 05/07/18 14:00 Intake and Output: 05/07/18 05/08/18 18:59 06:59 Intake Total 2480 360 Output Total 50 100 Balance 2430 260 - Medications Medications: Current Medications Acetaminophen (Tylenol 325mg Tab) 650 mg PO Q4 PRN PRN Reason: Fever >100.4 F Enoxaparin Sodium (Lovenox) 40 mg SC DAILY [facility]; Protocol Last Admin: 05/07/18 17:32 Dose: 40 mg Piperacillin Sod/Tazobactam Sod (Zosyn 3.375 In Ns 100ml) 100 mls @ 25 mls/hr IVPB Q8 [facility]; Protocol Stop: 05/13/18 14:01 Last Admin: 05/07/18 13:32 Dose: 25 mls/hr Sodium Chloride (Sodium Chloride 0.9%) 1,000 mls @ 125 mls/hr IV .Q8H [facility] Last Admin: 05/07/18 13:34 Dose: 125 mls/hr Ketorolac Tromethamine (Toradol) 15 mg IVP Q6 PRN PRN Reason: Pain, moderate (4-7) Last Admin: 05/06/18 11:59 Dose: 15 mg Ondansetron HCl (Zofran Inj) 4 mg IVP Q4 PRN PRN Reason: Nausea/Vomiting Last Admin: 05/06/18 04:48 Dose: 4 mg Ondansetron HCl (Zofran Inj) 4 mg IVP ONCE PRN PRN Reason: Nausea/Vomiting - Labs Labs: 05/07/18 06:20 05/07/18 06:20 PT 11.1 SECONDS (9.4-12.5) 05/05/18 23:05 INR 0.97 05/05/18 23:05 APTT 29.9 Seconds (25.1-36.5) 05/05/18 23:05 Attending/Attestation - Attestation I have personally seen and examined this patient.: Yes I have fully participated in the care of the patient.: Yes I have reviewed all pertinent clinical information, including history, physical exam and plan: Yes Notes (Text): 05/07/18 19:18 57 year old male with recent appendectomy who presented with abdominal pain. Found to have SBO on CT scan. He was seen by surgery and is s/p ex lap with small segment of small bowel resected POD #1. Encouraged incentive spirometer. Encouraged ambulation. Continue with iv antibiotics as per ID. Leukocytosis secondary to above; will continue to monitor. Nephrology is following for hyponatremia which is improving. Cameron Tate MD Hospitalist.
[2018-05-08 03:59] LABS: BASO # 0.02 K/mm3 (0.0-2.0); BASO % 0.1 % (0.0-3.0); EOS % 0.2 % (1.5-5.0); GRAN # 12.2 (1.4-6.5); GRAN % 77.2 % (50.0-68.0); HEMOGLOBIN 10.3 g/dL (14.0-18.0); LYMPH # 1.4 (1.2-3.4); LYMPH % 8.9 % (22.0-35.0); MEAN CELL VOLUME 88.6 fl (80.0-105.0); MEAN PLATELET VOLUME 7.6 fl (7.0-11.0); MONO # 2.2 (0.1-0.6); MONO % 13.6 % (1.0-6.0); RBC 3.32 10^6/uL (3.5-6.1); RED CELL DISTRIBUTION WIDTH 13.7 % (11.5-14.5); WHITE BLOOD COUNT 15.8 10^3/ul (4.5-11.0)
[2018-05-08 04:39] LABS: B-TYPE NATRIURETIC PEPTIDE 186 pg/mL (0-450); TROPONIN I < 0.01 ng/mL
[2018-05-08 04:54] LABS: ALB/GLOB RATIO 0.9 (1.1-1.8); ALBUMIN 2.5 g/dL (3.0-4.8); ALT/SGPT 23 U/L (7-56); AST/SGOT 29 U/L (17-59); BLOOD UREA NITROGEN 10 mg/dL (7-21); CALCIUM 7.6 mg/dL (8.4-10.5); GFR NON-AFRICAN AMERICAN > 60
[2018-05-08] MEDS: Piperacillin/Tazobact 3.375 gm 100 ML IVPB SCH ×3 (05:16→21:31)
[2018-05-08] MEDS: Sodium Chloride 0.9% 1,000 ML IV SCH (05:16)
[2018-05-08 07:03] LABS: BASO # 0.02 K/mm3 (0.0-2.0); BASO % 0.1 % (0.0-3.0); EOS % 0.2 % (1.5-5.0); GRAN # 12.22 (1.4-6.5); GRAN % 78.3 % (50.0-68.0); HEMOGLOBIN 9.6 g/dL (14.0-18.0); LYMPH # 1.4 (1.2-3.4); LYMPH % 8.6 % (22.0-35.0); MEAN CELL VOLUME 88.2 fl (80.0-105.0); MEAN CORPUSCULAR HEMOGLOBIN 30.6 pg (25.0-35.0); MEAN CORPUSCULAR HGB CONC 34.7 g/dl (31.0-37.0); MEAN PLATELET VOLUME 7.7 fl (7.0-11.0); MONO % 12.8 % (1.0-6.0); RBC 3.14 10^6/uL (3.5-6.1); RED CELL DISTRIBUTION WIDTH 13.8 % (11.5-14.5); WHITE BLOOD COUNT 15.6 10^3/ul (4.5-11.0)
--- NOTE | 2018-05-08 09:10 | CP.PCM.PN ---
Subjective - Date & Time of Evaluation Date of Evaluation: 05/08/18 Time of Evaluation: 09:07 - Subjective Subjective: General Surgery Progress Note for Dr. Sarmiento Patient seen and examined at bedside. No acute events reported overnight. Patient is concerned of his scrotal swelling. He made 700cc of urine overnight but denies any flatus or bowel movement. His drain output is serosanguinous 20cc. He denies fevers, chills, shortness of breath, or chest pain. Objective - Vital Signs/Intake and Output Vital Signs (last 24 hours): Temp Pulse Resp BP Pulse Ox 97.8 F 97 H 18 119/87 96 05/08/18 06:00 05/08/18 06:00 05/08/18 06:00 05/08/18 06:00 05/08/18 06:00 Intake and Output: 05/08/18 05/08/18 06:59 18:59 Intake Total 480 Output Total 700 Balance -220 - Medications Medications: Current Medications Acetaminophen (Tylenol 325mg Tab) 650 mg PO Q6H [facility] Enoxaparin Sodium (Lovenox) 40 mg SC DAILY [facility]; Protocol Last Admin: 05/07/18 17:32 Dose: 40 mg Piperacillin Sod/Tazobactam Sod (Zosyn 3.375 In Ns 100ml) 100 mls @ 25 mls/hr IVPB Q8 [facility]; Protocol Stop: 05/13/18 14:01 Last Admin: 05/08/18 05:16 Dose: 25 mls/hr Ketorolac Tromethamine (Toradol) 15 mg IVP Q6 PRN PRN Reason: Pain, moderate (4-7) Last Admin: 05/08/18 03:26 Dose: 15 mg Lidocaine (Lidoderm) 1 ea TD DAILY [facility] Ondansetron HCl (Zofran Inj) 4 mg IVP Q4 PRN PRN Reason: Nausea/Vomiting Last Admin: 05/08/18 08:35 Dose: 4 mg Ondansetron HCl (Zofran Inj) 4 mg IVP ONCE PRN PRN Reason: Nausea/Vomiting - Labs Labs: 05/08/18 06:45 05/08/18 03:35 PT 11.1 SECONDS (9.4-12.5) 05/05/18 23:05 INR 0.97 05/05/18 23:05 APTT 29.9 Seconds (25.1-36.5) 05/05/18 23:05 - Constitutional Appears: Well, Non-toxic, No Acute Distress - Head Exam Head Exam: ATRAUMATIC, NORMOCEPHALIC - Eye Exam Eye Exam: Normal appearance - ENT Exam ENT Exam: Mucous Membranes Moist - Respiratory Exam Respiratory Exam: NORMAL BREATHING PATTERN. absent: Respiratory Distress - Cardiovascular Exam Cardiovascular Exam: RRR. absent: Bradycardia, Tachycardia - GI/Abdominal Exam GI & Abdominal Exam: Soft, Tenderness. absent: Distended, Guarding Additional comments: Tender to palpation at incision site, site C/D/I, Shivam drain in place draining 20 cc of serosanguinous fluids. - Exam Exam: Scrotal Swelling - Extremities Exam Extremities Exam: Normal Inspection - Neurological Exam Neurological Exam: Alert, Awake, Oriented x3 - Psychiatric Exam Psychiatric exam: Normal Affect, Normal Mood - Skin Skin Exam: Dry, Intact, Normal Color, Warm Assessment and Plan - Assessment and Plan (Free Text) Assessment: Patient is a 57 year old male s/p exlap with small segment SB resection and primary anastamosis POD #2. Plan: - Regular diet - Discontinue IVF - Pain management with PO pain medications - Continue with IV antibiotics - Start salt tabs - Monitor bowel movement Case discussed with Dr. Torsten Severino PGY-1
[2018-05-08 12:04] LABS: URINE BILIRUBIN NEGATIVE (NEGATIVE); URINE BLOOD SMALL (NEGATIVE); URINE GLUCOSE (UA) NEGATIVE (NEGATIVE); URINE LEUKOCYTE ESTERASE NEGATIVE Leu/uL (NEGATIVE); URINE PROTEIN TRACE mg/dL (<30 mg/dL); URINE UROBILINOGEN 0.2 E.U./dL (<1 E.U./dL)
[2018-05-08] MEDS: Enoxaparin 40 mg Syringe SC SCH (12:14)
[2018-05-08] MEDS: Lidocaine 5% Patch TD SCH (12:15)
--- NOTE | 2018-05-08 12:22 | CP.PCM.PN ---
<Allie Escalante - Last Filed: 05/08/18 12:26> Subjective - Date & Time of Evaluation Date of Evaluation: 05/08/18 Time of Evaluation: 12:15 - Subjective Subjective: Allie Escalante DO, PGY-2: Nephrology Progress Note Patient was seen and examined at bedside. Patient's was present at bedside. Patient's reports that his penis and legs are swollen. Otherwise, no adverse events noted overnight. Objective - Vital Signs/Intake and Output Vital Signs (last 24 hours): Temp Pulse Resp BP Pulse Ox 97.8 F 97 H 18 119/87 96 05/08/18 06:00 05/08/18 06:00 05/08/18 06:00 05/08/18 06:00 05/08/18 06:00 Intake and Output: 05/08/18 05/08/18 06:59 18:59 Intake Total 480 Output Total 700 Balance -220 - Medications Medications: Current Medications Acetaminophen (Tylenol 325mg Tab) 650 mg PO Q6H [facility] Enoxaparin Sodium (Lovenox) 40 mg SC DAILY [facility]; Protocol Last Admin: 05/07/18 17:32 Dose: 40 mg Furosemide (Lasix) 20 mg IVP ONCE ONE Stop: 05/08/18 12:16 Furosemide (Lasix) 20 mg IVP Q12 [facility] Piperacillin Sod/Tazobactam Sod (Zosyn 3.375 In Ns 100ml) 100 mls @ 25 mls/hr IVPB Q8 [facility]; Protocol Stop: 05/13/18 14:01 Last Admin: 05/08/18 05:16 Dose: 25 mls/hr Ketorolac Tromethamine (Toradol) 15 mg IVP Q6 PRN PRN Reason: Pain, moderate (4-7) Last Admin: 05/08/18 09:33 Dose: 15 mg Lidocaine (Lidoderm) 1 ea TD DAILY [facility] Ondansetron HCl (Zofran Inj) 4 mg IVP Q4 PRN PRN Reason: Nausea/Vomiting Last Admin: 05/08/18 08:35 Dose: 4 mg Ondansetron HCl (Zofran Inj) 4 mg IVP ONCE PRN PRN Reason: Nausea/Vomiting Sodium Chloride (Sodium Chloride Tab) 1 gm PO WM [facility] - Labs Labs: 05/08/18 06:45 05/08/18 03:35 PT 11.1 SECONDS (9.4-12.5) 05/05/18 23:05 INR 0.97 05/05/18 23:05 APTT 29.9 Seconds (25.1-36.5) 05/05/18 23:05 - Constitutional Appears: Other (tired) - Head Exam Head Exam: ATRAUMATIC, NORMOCEPHALIC - Eye Exam Eye Exam: EOMI, Normal appearance - ENT Exam ENT Exam: Mucous Membranes Moist - Neck Exam Neck Exam: Normal Inspection - Respiratory Exam Respiratory Exam: Clear to Ausculation Bilateral, NORMAL BREATHING PATTERN. absent: Accessory Muscle Use - GI/Abdominal Exam Additional comments: staple line intact - Extremities Exam Additional comments: non-pitting edema noted bilaterally - Neurological Exam Neurological Exam: Alert, Awake - Psychiatric Exam Psychiatric exam: Normal Affect, Normal Mood - Skin Skin Exam: Dry, Intact, Normal Color, Warm Assessment and Plan - Assessment and Plan (Free Text) Assessment: Hyponatremia in the setting of decreased solid intake in a patient with pulmonary hypertension - Will start Lasix 20 mg q12h - Follow up urine osmoles, urine Na, and urine Creatinine Case was reviewed and discussed with attending physician, Dr. Block <Francesco Block - Last Filed: 05/09/18 07:43> Objective - Vital Signs/Intake and Output Vital Signs (last 24 hours): Temp Pulse Resp BP Pulse Ox 97.8 F 97 H 18 110/70 96 05/08/18 06:00 05/08/18 06:00 05/08/18 06:00 05/08/18 17:10 05/08/18 06:00 Intake and Output: 05/09/18 05/09/18 06:59 18:59 Intake Total 720 Output Total 10 Balance 710 - Medications Medications: Current Medications Acetaminophen (Tylenol 325mg Tab) 650 mg PO Q6H [facility] Last Admin: 05/09/18 02:00 Dose: Not Given Enoxaparin Sodium (Lovenox) 40 mg SC DAILY [facility]; Protocol Last Admin: 05/08/18 12:14 Dose: 40 mg Furosemide (Lasix) 20 mg IVP Q12 [facility] Last Admin: 05/08/18 17:10 Dose: 20 mg Piperacillin Sod/Tazobactam Sod (Zosyn 3.375 In Ns 100ml) 100 mls @ 25 mls/hr IVPB Q8 [facility]; Protocol Stop: 05/13/18 14:01 Last Admin: 05/09/18 05:44 Dose: 25 mls/hr Ketorolac Tromethamine (Toradol) 15 mg IVP Q6 PRN PRN Reason: Pain, moderate (4-7) Last Admin: 05/09/18 05:48 Dose: 15 mg Lidocaine (Lidoderm) 1 ea TD DAILY [facility] Last Admin: 05/08/18 12:15 Dose: Not Given Ondansetron HCl (Zofran Inj) 4 mg IVP Q4 PRN PRN Reason: Nausea/Vomiting Last Admin: 05/09/18 05:50 Dose: 4 mg Ondansetron HCl (Zofran Inj) 4 mg IVP ONCE PRN PRN Reason: Nausea/Vomiting Sodium Chloride (Sodium Chloride Tab) 1 gm PO WM [facility] Last Admin: 05/08/18 17:10 Dose: 1 gm - Labs Labs: 05/08/18 06:45 05/08/18 16:58 PT 11.1 SECONDS (9.4-12.5) 05/05/18 23:05 INR 0.97 05/05/18 23:05 APTT 29.9 Seconds (25.1-36.5) 05/05/18 23:05 Attending/Attestation - Attestation I have personally seen and examined this patient.: Yes I have fully participated in the care of the patient.: Yes I have reviewed all pertinent clinical information, including history, physical exam and plan: Yes Notes (Text): Patient seen and examined; I agree with the resident's note as above with the following additions/edits: 57 year old male with a past medical of polysubstance abuse, alcohol abuse, CAD s/p PCI, recent admission with open appendectomy for ruptured appendix, admitted with abd pain/vomiting, underwent ex-lap with small segment small bowel resection and primary anastamosis, nephrology following for hyponatremia; Hyponatremia had improved before worsening again despite having been getting aggressive volume repletion (NS at 125 cc/hr), no significant GI/drain losses; patient getting edematous, no dyspnea; urine osm remain markedly elevated in a patient with hyponatremia; given his edematous state, should obtain echo to assess LV/RV/valvular function as decreased effective arterial blood volume is a stimulus for ADH release; for now, we will place patient on IV lasix 20 mg q12h (helps decrease medullary concentrating gradient and hence decreases free water resorption) and salt tabs; also of note, NSAIDS can potentiate the effect of ADH and worsen hyponatremia (patient on ketorolac, consider an alternative); 05/09/18 07:43
[2018-05-08 12:33] LABS: URINE APPEARANCE CLEAR (CLEAR); URINE COLOR YELLOW (YELLOW)
[2018-05-08 12:40] LABS: URINE WBC 0 - 2 /hpf (0-6)
[2018-05-08 12:41] LABS: URINE AMORPHOUS SEDIMENT FEW; URINE BACTERIA MOD (NEG)
--- NOTE | 2018-05-08 13:23 | CP.PCM.PN ---
<Dave Cheung - Last Filed: 05/08/18 14:09> Subjective - Date & Time of Evaluation Date of Evaluation: 05/08/18 Time of Evaluation: 13:21 - Subjective Subjective: Pt seen and examined this morning at bedside. Pt reports abdominal pain status post surgery, pt also reports penial swelling Objective - Vital Signs/Intake and Output Vital Signs (last 24 hours): Temp Pulse Resp BP Pulse Ox 97.8 F 97 H 18 110/70 96 05/08/18 06:00 05/08/18 06:00 05/08/18 06:00 05/08/18 12:33 05/08/18 06:00 Intake and Output: 05/08/18 05/08/18 06:59 18:59 Intake Total 480 Output Total 700 Balance -220 - Medications Medications: Current Medications Acetaminophen (Tylenol 325mg Tab) 650 mg PO Q6H [facility] Enoxaparin Sodium (Lovenox) 40 mg SC DAILY [facility]; Protocol Last Admin: 05/08/18 12:14 Dose: 40 mg Furosemide (Lasix) 20 mg IVP Q12 [facility] Piperacillin Sod/Tazobactam Sod (Zosyn 3.375 In Ns 100ml) 100 mls @ 25 mls/hr IVPB Q8 [facility]; Protocol Stop: 05/13/18 14:01 Last Admin: 05/08/18 05:16 Dose: 25 mls/hr Ketorolac Tromethamine (Toradol) 15 mg IVP Q6 PRN PRN Reason: Pain, moderate (4-7) Last Admin: 05/08/18 09:33 Dose: 15 mg Lidocaine (Lidoderm) 1 ea TD DAILY [facility] Last Admin: 05/08/18 12:15 Dose: Not Given Ondansetron HCl (Zofran Inj) 4 mg IVP Q4 PRN PRN Reason: Nausea/Vomiting Last Admin: 05/08/18 08:35 Dose: 4 mg Ondansetron HCl (Zofran Inj) 4 mg IVP ONCE PRN PRN Reason: Nausea/Vomiting Sodium Chloride (Sodium Chloride Tab) 1 gm PO WM [facility] Last Admin: 05/08/18 12:14 Dose: 1 gm - Labs Labs: 05/08/18 06:45 05/08/18 03:35 PT 11.1 SECONDS (9.4-12.5) 05/05/18 23:05 INR 0.97 05/05/18 23:05 APTT 29.9 Seconds (25.1-36.5) 05/05/18 23:05 - Constitutional Appears: Non-toxic, No Acute Distress - Head Exam Head Exam: ATRAUMATIC, NORMAL INSPECTION, NORMOCEPHALIC - Eye Exam Eye Exam: EOMI, Normal appearance. absent: Scleral icterus - ENT Exam ENT Exam: Mucous Membranes Moist - Neck Exam Neck Exam: Full ROM - Respiratory Exam Respiratory Exam: Clear to Ausculation Bilateral, NORMAL BREATHING PATTERN. absent: Wheezes, Respiratory Distress - Cardiovascular Exam Cardiovascular Exam: RRR, +S1, +S2. absent: Diastolic murmur, Murmur - GI/Abdominal Exam GI & Abdominal Exam: Soft, Tenderness, Normal Bowel Sounds. absent: Rebound Additional comments: pt reports tenderness at surgical sites - Exam Exam: absent: Scrotal Swelling, Bladder Distension (pt has mild penial swelling, likely from catheter ) - Extremities Exam Extremities Exam: Full ROM. absent: Calf Tenderness - Neurological Exam Neurological Exam: Alert, Awake, Oriented x3 - Psychiatric Exam Psychiatric exam: Normal Affect, Normal Mood - Skin Skin Exam: Dry, Normal Color, Warm Assessment and Plan - Assessment and Plan (Free Text) Assessment: 57yo male with recent admission for appendectomy who presents with postop ileus vs SBO with transition at [facility]. Plan: SBO d/t post-surgical changes, s/p open appendectomy - Zofran for nausea - toradol for pain control - continue zosyn - continue incentive spirometry - Surgical consult - Dr. Sarmiento Chronic normocytic anemia - Hgb 9 - continue to monitor Hyponatremia - Na 125 - Nephro, Dr. Block: lasix 20mg Q12 IVP Twisting of mesenteric vessels - Per surgery team, the mesenteric vessels were unchanged compared to last CT A/P - Possibly anatomic variant Ppx - lovenox - liquid diet Pt seen, examined, assessment and plan discussed with Dr Bebeto Cheung PGY1 <Cameron Tate - Last Filed: 05/08/18 17:16> Objective - Vital Signs/Intake and Output Vital Signs (last 24 hours): Temp Pulse Resp BP Pulse Ox 97.8 F 97 H 18 110/70 96 05/08/18 06:00 05/08/18 06:00 05/08/18 06:00 05/08/18 12:33 05/08/18 06:00 Intake and Output: 05/08/18 05/08/18 06:59 18:59 Intake Total 480 720 Output Total 700 400 Balance -220 320 - Medications Medications: Current Medications Acetaminophen (Tylenol 325mg Tab) 650 mg PO Q6H [facility] Last Admin: 05/08/18 13:33 Dose: 650 mg Enoxaparin Sodium (Lovenox) 40 mg SC DAILY [facility]; Protocol Last Admin: 05/08/18 12:14 Dose: 40 mg Furosemide (Lasix) 20 mg IVP Q12 [facility] Piperacillin Sod/Tazobactam Sod (Zosyn 3.375 In Ns 100ml) 100 mls @ 25 mls/hr IVPB Q8 [facility]; Protocol Stop: 05/13/18 14:01 Last Admin: 05/08/18 13:33 Dose: 25 mls/hr Ketorolac Tromethamine (Toradol) 15 mg IVP Q6 PRN PRN Reason: Pain, moderate (4-7) Last Admin: 05/08/18 09:33 Dose: 15 mg Lidocaine (Lidoderm) 1 ea TD DAILY [facility] Last Admin: 05/08/18 12:15 Dose: Not Given Ondansetron HCl (Zofran Inj) 4 mg IVP Q4 PRN PRN Reason: Nausea/Vomiting Last Admin: 05/08/18 08:35 Dose: 4 mg Ondansetron HCl (Zofran Inj) 4 mg IVP ONCE PRN PRN Reason: Nausea/Vomiting Sodium Chloride (Sodium Chloride Tab) 1 gm PO WM [facility] Last Admin: 05/08/18 12:14 Dose: 1 gm - Labs Labs: 05/08/18 06:45 05/08/18 03:35 PT 11.1 SECONDS (9.4-12.5) 05/05/18 23:05 INR 0.97 05/05/18 23:05 APTT 29.9 Seconds (25.1-36.5) 05/05/18 23:05 Attending/Attestation - Attestation I have personally seen and examined this patient.: Yes I have fully participated in the care of the patient.: Yes I have reviewed all pertinent clinical information, including history, physical exam and plan: Yes Notes (Text): 05/08/18 17:13 57 year old male with recent appendectomy who presented with abdominal pain. Found to have SBO on CT scan. He was seen by surgery and is s/p ex lap with small segment of small bowel resected POD #2. Encouraged incentive spirometer. Encouraged ambulation. Continue with iv antibiotics as per ID. Leukocytosis secondary to above; remains stable. Nephrology is following for hyponatremia. Sodium is 125 today and he was started lasix today. This morning patient complains of feet and penile swelling. On exam penis is mildly swollen without erythema, tenderness or discharge. No scrotal swelling. Ray was removed yesterday. His fluids were discontinued. Will continue to monitor and obtain UA. is at bedside and questions were answered. Cameron Tate MD Hospitalist.
[2018-05-08 17:22] LABS: BLOOD UREA NITROGEN 10 mg/dL (7-21); CALCIUM 7.7 mg/dL (8.4-10.5); GFR NON-AFRICAN AMERICAN > 60
--- NOTE | 2018-05-08 22:20 | CP.PCM.PN ---
Subjective - Date & Time of Evaluation Date of Evaluation: 05/08/18 Time of Evaluation: 13:40 - Subjective Subjective: Less abdominal pain, no fevers, not in distress. Objective - Vital Signs/Intake and Output Vital Signs (last 24 hours): Temp Pulse Resp BP Pulse Ox 99.6 F 102 H 20 124/85 97 05/07/18 14:00 05/07/18 14:00 05/07/18 14:00 05/07/18 14:00 05/07/18 14:00 Intake and Output: 05/07/18 05/08/18 18:59 06:59 Intake Total 3980 360 Output Total 700 100 Balance 3280 260 - Medications Medications: Current Medications Acetaminophen (Tylenol 325mg Tab) 650 mg PO Q4 PRN PRN Reason: Fever >100.4 F Enoxaparin Sodium (Lovenox) 40 mg SC DAILY [facility]; Protocol Last Admin: 05/07/18 17:32 Dose: 40 mg Piperacillin Sod/Tazobactam Sod (Zosyn 3.375 In Ns 100ml) 100 mls @ 25 mls/hr IVPB Q8 [facility]; Protocol Stop: 05/13/18 14:01 Last Admin: 05/07/18 13:32 Dose: 25 mls/hr Sodium Chloride (Sodium Chloride 0.9%) 1,000 mls @ 125 mls/hr IV .Q8H [facility] Last Admin: 05/07/18 13:34 Dose: 125 mls/hr Ketorolac Tromethamine (Toradol) 15 mg IVP Q6 PRN PRN Reason: Pain, moderate (4-7) Last Admin: 05/06/18 11:59 Dose: 15 mg Ondansetron HCl (Zofran Inj) 4 mg IVP Q4 PRN PRN Reason: Nausea/Vomiting Last Admin: 05/06/18 04:48 Dose: 4 mg Ondansetron HCl (Zofran Inj) 4 mg IVP ONCE PRN PRN Reason: Nausea/Vomiting - Labs Labs: 05/07/18 06:20 05/07/18 06:20 PT 11.1 SECONDS (9.4-12.5) 05/05/18 23:05 INR 0.97 05/05/18 23:05 APTT 29.9 Seconds (25.1-36.5) 05/05/18 23:05 - Constitutional Appears: Chronically Ill - Head Exam Head Exam: NORMAL INSPECTION - Respiratory Exam Respiratory Exam: Decreased Breath Sounds - Cardiovascular Exam Cardiovascular Exam: +S1, +S2 Assessment and Plan - Assessment and Plan (Free Text) Plan: Assessment small bowel obstruction and adhesions S/P small bowel resection S/P adhesiolysis POD #2 history of perforated appendicitis S/P appendectomy polysubstance abuse Plan continue Zosyn and will monitor progression of his diet and abdominal pain
[2018-05-09] MEDS: Piperacillin/Tazobact 3.375 gm 100 ML IVPB SCH ×3 (05:44→21:13)
--- NOTE | 2018-05-09 06:45 | CP.PCM.PN ---
Subjective - Date & Time of Evaluation Date of Evaluation: 05/09/18 Time of Evaluation: 06:35 - Subjective Subjective: General Surgery Progress Note for Dr. Sarmiento Patient seen and examined at bedside. No acute events reported overnight. He denies N/v, flatus and BM. His drain output is serosanguinous 10cc. He denies fevers, chills, shortness of breath, or chest pain. Objective - Vital Signs/Intake and Output Vital Signs (last 24 hours): Temp Pulse Resp BP Pulse Ox 97.8 F 97 H 18 110/70 96 05/08/18 06:00 05/08/18 06:00 05/08/18 06:00 05/08/18 17:10 05/08/18 06:00 Intake and Output: 05/08/18 05/09/18 18:59 06:59 Intake Total 720 720 Output Total 400 10 Balance 320 710 - Medications Medications: Current Medications Acetaminophen (Tylenol 325mg Tab) 650 mg PO Q6H [facility] Last Admin: 05/09/18 02:00 Dose: Not Given Enoxaparin Sodium (Lovenox) 40 mg SC DAILY [facility]; Protocol Last Admin: 05/08/18 12:14 Dose: 40 mg Furosemide (Lasix) 20 mg IVP Q12 [facility] Last Admin: 05/08/18 17:10 Dose: 20 mg Piperacillin Sod/Tazobactam Sod (Zosyn 3.375 In Ns 100ml) 100 mls @ 25 mls/hr IVPB Q8 [facility]; Protocol Stop: 05/13/18 14:01 Last Admin: 05/09/18 05:44 Dose: 25 mls/hr Ketorolac Tromethamine (Toradol) 15 mg IVP Q6 PRN PRN Reason: Pain, moderate (4-7) Last Admin: 05/09/18 05:48 Dose: 15 mg Lidocaine (Lidoderm) 1 ea TD DAILY [facility] Last Admin: 05/08/18 12:15 Dose: Not Given Ondansetron HCl (Zofran Inj) 4 mg IVP Q4 PRN PRN Reason: Nausea/Vomiting Last Admin: 05/09/18 05:50 Dose: 4 mg Ondansetron HCl (Zofran Inj) 4 mg IVP ONCE PRN PRN Reason: Nausea/Vomiting Sodium Chloride (Sodium Chloride Tab) 1 gm PO WM [facility] Last Admin: 05/08/18 17:10 Dose: 1 gm - Labs Labs: 05/08/18 06:45 05/08/18 16:58 PT 11.1 SECONDS (9.4-12.5) 05/05/18 23:05 INR 0.97 05/05/18 23:05 APTT 29.9 Seconds (25.1-36.5) 05/05/18 23:05 - Constitutional Appears: Well, Non-toxic, No Acute Distress - Head Exam Head Exam: ATRAUMATIC, NORMOCEPHALIC - Eye Exam Eye Exam: EOMI Pupil Exam: PERRL - ENT Exam ENT Exam: Mucous Membranes Moist - Respiratory Exam Respiratory Exam: NORMAL BREATHING PATTERN - Cardiovascular Exam Cardiovascular Exam: REGULAR RHYTHM - GI/Abdominal Exam GI & Abdominal Exam: Soft, Tenderness. absent: Distended, Guarding, Rebound - Extremities Exam Extremities Exam: absent: Calf Tenderness, Pedal Edema - Neurological Exam Neurological Exam: Alert, Awake, Oriented x3 - Psychiatric Exam Psychiatric exam: Normal Affect, Normal Mood - Skin Skin Exam: Dry, Intact, Normal Color, Warm Assessment and Plan - Assessment and Plan (Free Text) Assessment: Patient is a 57 year old male s/p exlap with small segment SB resection and primary anastamosis POD #3 Plan: - continue IVF - continue IV abs - monitor for bowel function - monitor drain output - continue salt tabs Adali Forrester, PGY 1
[2018-05-09 07:45] LABS: BASO # 0.02 K/mm3 (0.0-2.0); BASO % 0.1 % (0.0-3.0); EOS # 0.1 (0.0-0.7); EOS % 0.5 % (1.5-5.0); GRAN # 12.22 (1.4-6.5); GRAN % 81.7 % (50.0-68.0); HEMOGLOBIN 9.4 g/dL (14.0-18.0); LYMPH % 6.4 % (22.0-35.0); MEAN CELL VOLUME 87.4 fl (80.0-105.0); MEAN CORPUSCULAR HEMOGLOBIN 30.4 pg (25.0-35.0); MEAN CORPUSCULAR HGB CONC 34.8 g/dl (31.0-37.0); MEAN PLATELET VOLUME 7.8 fl (7.0-11.0); MONO # 1.7 (0.1-0.6); MONO % 11.3 % (1.0-6.0); RBC 3.09 10^6/uL (3.5-6.1); RED CELL DISTRIBUTION WIDTH 13.8 % (11.5-14.5)
[2018-05-09 08:08] LABS: BLOOD UREA NITROGEN 8 mg/dL (7-21); CALCIUM 7.7 mg/dL (8.4-10.5); GFR NON-AFRICAN AMERICAN > 60
[2018-05-09 09:11] LABS: ALB/GLOB RATIO 0.8 (1.1-1.8); ALBUMIN 2.4 g/dL (3.0-4.8); ALT/SGPT 20 U/L (7-56); AST/SGOT 30 U/L (17-59); BILIRUBIN,DIRECT 0.3 mg/dL (0.0-0.4)
[2018-05-09] MEDS: Enoxaparin 40 mg Syringe SC SCH (10:20)
[2018-05-09] MEDS: Potassium Chloride 40 mEq/30 ml LIQ UD PO SCH (10:20)
[2018-05-09] MEDS: Lidocaine 5% Patch TD SCH (10:20)
[2018-05-09] MEDS: Sodium Chloride 0.9% 1,000 ML IV SCH (12:45)
[2018-05-09] MEDS ORDERED: Tolvaptan 15 MG TAB PO ONE (12:46)
[2018-05-09] MEDS: Oxycodone/Acetaminophen 5/325 mg Tab PO PRN ×2 (13:08→21:19)
--- NOTE | 2018-05-09 15:49 | CARD ---
APPROVED REPORT Date of service: 05/09/2018 EXAM: Two-dimensional and M-mode echocardiogram with Doppler and color Doppler. INDICATION EDEMATOUS, R/O CHF/VALVULAR ABN, PULM HTN 2D DIMENSIONS IVSd1.1 (0.7-1.1cm)LVDd4.5 (3.9-5.9cm) PWd1.1 (0.7-1.1cm)FS (%) 3.0 % M-Mode DIMENSIONS Left Atrium (MM)4.00 (2.5-4.0cm)Aortic Root3.40 (2.2-3.7cm) Aortic Cusp Exc.2.20 (1.5-2.0cm) Aortic Valve AoV Peak Fvtskjkh910.0cm/Juan F Peak GR.12mmHg Mitral Valve MV E Ewxjiubl37.5cm/sMV A Juexeugi37.9cm/sE/A ratio0.9 TDI Lateral E' Peak V8.58cm/sMedial E' Peak V7.60cm/sE/Lateral E'8.9 E/Medial E'10.1 Tricuspid Valve TR Peak Mcklogwo324co/sRAP [id number] Peak Gr.19mmHg [id number] LEFT VENTRICLE The left ventricle is normal size. There is normal left ventricular wall thickness. Left ventricle systolic function is low normal.EF-50-55 There is normal LV segmental wall motion. Transmitral Doppler flow pattern is Grade III-reversible restrictive diastolic dysfunction. No left ventricle thrombus noted on this study. There is no ventricular septal defect visualized. There is no left ventricular aneurysm. There is no mass noted in the left ventricle. RIGHT VENTRICLE The right ventricle is normal size. There is normal right ventricular wall thickness. The right ventricular systolic function is normal. AORTIC VALVE The aortic valve is thickened but opens well. No aortic regurgitation is present. There is no aortic valvular stenosis. There is no aortic valvular vegetation. MITRAL VALVE The mitral valve is not well visualized. Mitral regurgitation is trace. There is no mitral valve stenosis. There is no evidence of mitral valve prolapse. TRICUSPID VALVE The tricuspid valve leaflets are thickened , but open well. There is trace tricuspid regurgitation.RVSP-29 mmof Hg There is no tricuspid valve stenosis. There is no tricuspid valve prolapse or vegetation. GREAT VESSELS The aortic root is normal in size. The ascending aorta is normal in size. The pulmonary artery is normal. The IVC is normal in size and collapses >50% with inspiration. PERICARDIAL EFFUSION There is no pleural effusion. There is no pericardial effusion. <Conclusion> The left ventricle is normal size. There is normal left ventricular wall thickness. Left ventricle systolic function is low normal.EF-50-55 Mitral regurgitation is trace. There is trace tricuspid regurgitation.RVSP-29 mmof Hg The IVC is normal in size and collapses >50% with inspiration. There is no pericardial effusion.
--- NOTE | 2018-05-09 18:54 | CP.PCM.PN ---
<Dave Cheung - Last Filed: 05/09/18 19:06> Subjective - Date & Time of Evaluation Date of Evaluation: 05/09/18 Time of Evaluation: 18:50 - Subjective Subjective: Pt seen and examined this morning. Pt reports vomiting after eating his breakfast. Reports penial swelling has improved. Pt denies bowel movement, or flatulence. Objective - Vital Signs/Intake and Output Vital Signs (last 24 hours): Temp Pulse Resp BP Pulse Ox 98.7 F 89 18 131/90 96 05/09/18 14:00 05/09/18 14:00 05/09/18 14:00 05/09/18 14:00 05/09/18 14:00 Intake and Output: 05/09/18 05/09/18 06:59 18:59 Intake Total 720 480 Output Total 10 1400 Balance 710 -920 - Medications Medications: Current Medications Acetaminophen (Tylenol 325mg Tab) 650 mg PO Q6H [facility] Last Admin: 05/09/18 14:00 Dose: Not Given Enoxaparin Sodium (Lovenox) 40 mg SC DAILY [facility]; Protocol Last Admin: 05/09/18 10:20 Dose: 40 mg Sodium Chloride (Sodium Chloride 0.9%) 1,000 mls @ 80 mls/hr IV .[id number] [facility] Last Admin: 05/09/18 12:45 Dose: 80 mls/hr Piperacillin Sod/Tazobactam Sod (Zosyn 3.375 In Ns 100ml) 100 mls @ 25 mls/hr IVPB Q8 [facility]; Protocol Stop: 05/10/18 09:59 Lidocaine (Lidoderm) 1 ea TD DAILY [facility] Last Admin: 05/09/18 10:20 Dose: 1 ea Ondansetron HCl (Zofran Inj) 4 mg IVP Q4 PRN PRN Reason: Nausea/Vomiting Last Admin: 05/09/18 10:20 Dose: 4 mg Ondansetron HCl (Zofran Inj) 4 mg IVP ONCE PRN PRN Reason: Nausea/Vomiting Oxycodone/Acetaminophen (Percocet 5/325 Mg Tab) 1 tab PO Q6H PRN PRN Reason: Pain, severe (8-10) Stop: 05/12/18 12:42 Last Admin: 05/09/18 13:08 Dose: 1 tab Potassium Chloride (Potassium Chloride Oral Soln) 40 meq PO DAILY [facility] Last Admin: 05/09/18 10:20 Dose: 40 meq Sodium Chloride (Sodium Chloride Tab) 1 gm PO WM [facility] Last Admin: 05/09/18 17:09 Dose: 1 gm Tramadol HCl (Ultram) 25 mg PO Q6H PRN PRN Reason: Pain, moderate (4-7) - Labs Labs: 05/09/18 06:30 05/09/18 06:30 PT 11.1 SECONDS (9.4-12.5) 05/05/18 23:05 INR 0.97 05/05/18 23:05 APTT 29.9 Seconds (25.1-36.5) 05/05/18 23:05 - Constitutional Appears: Well, No Acute Distress - Head Exam Head Exam: ATRAUMATIC, NORMAL INSPECTION, NORMOCEPHALIC - Eye Exam Eye Exam: EOMI - ENT Exam ENT Exam: Mucous Membranes Moist, Normal Exam - Neck Exam Neck Exam: Full ROM - Respiratory Exam Respiratory Exam: Clear to Ausculation Bilateral, NORMAL BREATHING PATTERN. absent: Accessory Muscle Use, Rhonchi, Wheezes, Respiratory Distress - Cardiovascular Exam Cardiovascular Exam: REGULAR RHYTHM, RRR, +S1, +S2. absent: Diastolic murmur, Murmur - GI/Abdominal Exam GI & Abdominal Exam: Soft, Normal Bowel Sounds. absent: Rebound Additional comments: incision healing well, pt reports tenderness - Exam Additional comments: penial swelling has improved, no erythema, no signs of infection, no bleeding - Extremities Exam Extremities Exam: Full ROM. absent: Pedal Edema - Neurological Exam Neurological Exam: Alert, Awake, Oriented x3 - Psychiatric Exam Psychiatric exam: Normal Affect, Normal Mood - Skin Skin Exam: Dry, Intact, Warm Assessment and Plan - Assessment and Plan (Free Text) Assessment: Pt is a 57yo male who was recently admitted for appendectomy, and returns with an SBO. Pt subsequently underwent lysis of adhesions and surgical resection of SBO. Plan: SBO, pt recently underwent open appendectomy with lysis of adhesions and resection of SBO - Zofran for nausea - toradol for pain control - continue zosyn - continue incentive spirometry - Surgical consult - Dr. Sarmiento, rec continue liquid diet Shortness of Breath - ECHO: 50-55% Chronic normocytic anemia - Hgb 9 - likely dilutional - continue to monitor Hyponatremia - Na 126 - Nephro, Dr. Block: lasix 20mg Q12 IVP Ppx - lovenox - liquid diet per surgery Pt seen, examined, assessment and plan discussed with Dr Bebeto Cheung PGY1 <Cameron Tate - Last Filed: 05/10/18 08:12> Objective - Vital Signs/Intake and Output Vital Signs (last 24 hours): Temp Pulse Resp BP Pulse Ox 98.4 F 86 20 143/99 H 99 05/10/18 06:00 05/10/18 06:00 05/10/18 06:00 05/10/18 06:00 05/10/18 06:00 Intake and Output: 05/10/18 05/10/18 06:59 18:59 Intake Total 1620 Output Total 3520 Balance -1900 - Medications Medications: Current Medications Acetaminophen (Tylenol 325mg Tab) 650 mg PO Q6H [facility] Last Admin: 05/10/18 02:00 Dose: Not Given Enoxaparin Sodium (Lovenox) 40 mg SC DAILY [facility]; Protocol Last Admin: 05/09/18 10:20 Dose: 40 mg Sodium Chloride (Sodium Chloride 0.9%) 1,000 mls @ 80 mls/hr IV .[id number] [facility] Last Admin: 05/09/18 12:45 Dose: 80 mls/hr Piperacillin Sod/Tazobactam Sod (Zosyn 3.375 In Ns 100ml) 100 mls @ 25 mls/hr IVPB Q8 [facility]; Protocol Stop: 05/10/18 09:59 Last Admin: 05/10/18 06:27 Dose: 25 mls/hr Lidocaine (Lidoderm) 1 ea TD DAILY [facility] Last Admin: 05/09/18 10:20 Dose: 1 ea Ondansetron HCl (Zofran Inj) 4 mg IVP Q4 PRN PRN Reason: Nausea/Vomiting Last Admin: 05/10/18 04:28 Dose: 4 mg Ondansetron HCl (Zofran Inj) 4 mg IVP ONCE PRN PRN Reason: Nausea/Vomiting Oxycodone/Acetaminophen (Percocet 5/325 Mg Tab) 1 tab PO Q6H PRN PRN Reason: Pain, severe (8-10) Stop: 05/12/18 12:42 Last Admin: 05/09/18 21:19 Dose: 1 tab Potassium Chloride (Potassium Chloride Oral Soln) 40 meq PO DAILY [facility] Last Admin: 05/09/18 10:20 Dose: 40 meq Sodium Chloride (Sodium Chloride Tab) 1 gm PO WM [facility] Last Admin: 05/09/18 17:09 Dose: 1 gm Tramadol HCl (Ultram) 25 mg PO Q6H PRN PRN Reason: Pain, moderate (4-7) - Labs Labs: 05/09/18 06:30 05/09/18 06:30 PT 11.1 SECONDS (9.4-12.5) 05/05/18 23:05 INR 0.97 05/05/18 23:05 APTT 29.9 Seconds (25.1-36.5) 05/05/18 23:05 Attending/Attestation - Attestation I have personally seen and examined this patient.: Yes I have fully participated in the care of the patient.: Yes I have reviewed all pertinent clinical information, including history, physical exam and plan: Yes Notes (Text): 05/09/18 57 year old male with recent appendectomy who presented with abdominal pain. Found to have SBO on CT scan. He was seen by surgery and is s/p ex lap with small segment of small bowel resected POD #3. Encouraged incentive spirometer. Encouraged ambulation. Continue with iv antibiotics as per ID. Leukocytosis secondary to above; remains stable. He reports his abdominal pain has improved although he continues to have intermittent episodes of nausea/vomiting. Continue with liquid diet as tolerated. Surgery is following. Continue to monitor hyponatremia which is stable. Will follow up with nephrology recommendations. is at bedside and questions were answered. Cameron Tate MD Hospitalist.
[2018-05-09 20:02] LABS: OSMOLALITY,URINE 454 mosm/kg (300-1000)
--- NOTE | 2018-05-09 23:04 | CP.PCM.PN ---
Subjective - Date & Time of Evaluation Date of Evaluation: 05/09/18 Time of Evaluation: 12:30 - Subjective Subjective: Patient vomiting most of PO intake, able to hold down meds; no BM; still with abd pain; penile swelling improved; Objective - Vital Signs/Intake and Output Vital Signs (last 24 hours): Temp Pulse Resp BP Pulse Ox 98.8 F 90 18 154/98 H 97 05/09/18 22:00 05/09/18 22:00 05/09/18 22:00 05/09/18 22:00 05/09/18 22:00 Intake and Output: 05/09/18 05/10/18 18:59 06:59 Intake Total 480 Output Total 1400 Balance -920 - Medications Medications: Current Medications Acetaminophen (Tylenol 325mg Tab) 650 mg PO Q6H [facility] Last Admin: 05/09/18 20:52 Dose: Not Given Enoxaparin Sodium (Lovenox) 40 mg SC DAILY [facility]; Protocol Last Admin: 05/09/18 10:20 Dose: 40 mg Sodium Chloride (Sodium Chloride 0.9%) 1,000 mls @ 80 mls/hr IV .[id number] [facility] Last Admin: 05/09/18 12:45 Dose: 80 mls/hr Piperacillin Sod/Tazobactam Sod (Zosyn 3.375 In Ns 100ml) 100 mls @ 25 mls/hr IVPB Q8 [facility]; Protocol Stop: 05/10/18 09:59 Last Admin: 05/09/18 21:13 Dose: 25 mls/hr Lidocaine (Lidoderm) 1 ea TD DAILY [facility] Last Admin: 05/09/18 10:20 Dose: 1 ea Ondansetron HCl (Zofran Inj) 4 mg IVP Q4 PRN PRN Reason: Nausea/Vomiting Last Admin: 05/09/18 10:20 Dose: 4 mg Ondansetron HCl (Zofran Inj) 4 mg IVP ONCE PRN PRN Reason: Nausea/Vomiting Oxycodone/Acetaminophen (Percocet 5/325 Mg Tab) 1 tab PO Q6H PRN PRN Reason: Pain, severe (8-10) Stop: 05/12/18 12:42 Last Admin: 05/09/18 21:19 Dose: 1 tab Potassium Chloride (Potassium Chloride Oral Soln) 40 meq PO DAILY [facility] Last Admin: 05/09/18 10:20 Dose: 40 meq Sodium Chloride (Sodium Chloride Tab) 1 gm PO WM [facility] Last Admin: 05/09/18 17:09 Dose: 1 gm Tramadol HCl (Ultram) 25 mg PO Q6H PRN PRN Reason: Pain, moderate (4-7) - Labs Labs: 05/09/18 06:30 05/09/18 06:30 PT 11.1 SECONDS (9.4-12.5) 05/05/18 23:05 INR 0.97 05/05/18 23:05 APTT 29.9 Seconds (25.1-36.5) 05/05/18 23:05 - Constitutional Appears: Non-toxic - Eye Exam Eye Exam: Normal appearance - ENT Exam ENT Exam: Mucous Membranes Moist - Respiratory Exam Respiratory Exam: Clear to Ausculation Bilateral. absent: Respiratory Distress - Cardiovascular Exam Cardiovascular Exam: RRR, +S1, +S2 - GI/Abdominal Exam GI & Abdominal Exam: Soft, Tenderness - Extremities Exam Additional comments: mild lower leg edema, improved; - Neurological Exam Neurological Exam: Alert, Awake - Psychiatric Exam Psychiatric exam: absent: Agitated - Skin Skin Exam: Warm. absent: Cyanosis Assessment and Plan (1) Hyponatremia Assessment & Plan: Mild but persistent; not much improvement with IV lasix; suspect some degree of SIADH as he did not improve with volume repletion initially and urine osm has persistently been elevated; however, currently is having GI losses and may now be intravascularly volume depleted; -Restart IVF w/ NS at 80 cc/hr; -giving dose of tolvaptan 15 mg x 1; -d/c ketorolac for pain (NSAIDS can potentiate effect of ADH); starting prn tramadol and percocet; adequate pain control also helpful in hyponatremia; Status: Acute (2) CHF (congestive heart failure) Assessment & Plan: Became edematous after volume repletion, improved with IV lasix; echo showing evidence of diastolic dysfunction; lasix stopped and IVF restarted due to vomiting but will need to monitor closely and d/c once vomiting resolved; Status: Acute (3) Small bowel obstruction Assessment & Plan: s/p ex-lap and short segment small bowel resection; see above regarding pain; Status: Acute
--- NOTE | 2018-05-10 01:11 | PN ---
DATE: 05/09/2018 SUBJECTIVE: The patient is in bed, in no acute distress, nontoxic. PHYSICAL EXAMINATION VITAL SIGNS: Temperature is 98, blood pressure is 120/90, respiratory rate of 20, heart rate of 90. HEENT: Unremarkable. NECK: Supple. LUNGS: Have decreased breath sounds. HEART: Normal S1 and S2. ABDOMEN: Soft. LABORATORY DATA: Reveals a white count of 15,000, hemoglobin is 9. BUN of 8, creatinine of 0.8. Chemistries are noted. Urinalysis is noted. Microbiology reveals the blood cultures are negative. ASSESSMENT AND PLAN: A 57 years old with a small-bowel obstruction and adhesion status post small-bowel resection, status post adhesiolysis postprocedure day #3, history of perforated appendicitis, history of appendectomy and history of polysubstance abuse, on Zosyn and at this point, the patient has been afebrile, white count is still 15,000. Review of orders reveals pathology is pending. The patient was on Zosyn and it has been discontinued by pharmacy. Currently off of antibiotics. Dr. Forrester's progress note is reviewed. The patient is status post exploratory laparotomy with small-bowel resection and primary anastomosis, postprocedure day #3, currently off of antibiotics. We will follow the WBC count. Jesus Man MD
[2018-05-10] MEDS: Piperacillin/Tazobact 3.375 gm 100 ML IVPB SCH (06:27)
--- NOTE | 2018-05-10 07:19 | CP.PCM.PN ---
Subjective - Date & Time of Evaluation Date of Evaluation: 05/10/18 Time of Evaluation: 07:15 - Subjective Subjective: Surgery: Dr. Sarmiento Patient reports pain to the abdomen, stable. He states he took a percocet last night on an empty stomach which caused him to vomit small amount of emesis. He states he had 2 small drops of a bowel movement after suppository but denies flatus. He reports spending most of his time OOB yesterday. He denies f/c. Objective - Vital Signs/Intake and Output Vital Signs (last 24 hours): Temp Pulse Resp BP Pulse Ox 98.8 F 90 18 154/98 H 97 05/09/18 22:00 05/09/18 22:00 05/09/18 22:00 05/09/18 22:00 05/09/18 22:00 Intake and Output: 05/10/18 05/10/18 06:59 18:59 Intake Total 1620 Output Total 3520 Balance -1900 - Medications Medications: Current Medications Acetaminophen (Tylenol 325mg Tab) 650 mg PO Q6H [facility] Last Admin: 05/10/18 02:00 Dose: Not Given Enoxaparin Sodium (Lovenox) 40 mg SC DAILY [facility]; Protocol Last Admin: 05/09/18 10:20 Dose: 40 mg Sodium Chloride (Sodium Chloride 0.9%) 1,000 mls @ 80 mls/hr IV .[id number] [facility] Last Admin: 05/09/18 12:45 Dose: 80 mls/hr Piperacillin Sod/Tazobactam Sod (Zosyn 3.375 In Ns 100ml) 100 mls @ 25 mls/hr IVPB Q8 [facility]; Protocol Stop: 05/10/18 09:59 Last Admin: 05/10/18 06:27 Dose: 25 mls/hr Lidocaine (Lidoderm) 1 ea TD DAILY [facility] Last Admin: 05/09/18 10:20 Dose: 1 ea Ondansetron HCl (Zofran Inj) 4 mg IVP Q4 PRN PRN Reason: Nausea/Vomiting Last Admin: 05/10/18 04:28 Dose: 4 mg Ondansetron HCl (Zofran Inj) 4 mg IVP ONCE PRN PRN Reason: Nausea/Vomiting Oxycodone/Acetaminophen (Percocet 5/325 Mg Tab) 1 tab PO Q6H PRN PRN Reason: Pain, severe (8-10) Stop: 05/12/18 12:42 Last Admin: 05/09/18 21:19 Dose: 1 tab Potassium Chloride (Potassium Chloride Oral Soln) 40 meq PO DAILY [facility] Last Admin: 05/09/18 10:20 Dose: 40 meq Sodium Chloride (Sodium Chloride Tab) 1 gm PO WM [facility] Last Admin: 05/09/18 17:09 Dose: 1 gm Tramadol HCl (Ultram) 25 mg PO Q6H PRN PRN Reason: Pain, moderate (4-7) - Labs Labs: 05/09/18 06:30 05/09/18 06:30 PT 11.1 SECONDS (9.4-12.5) 05/05/18 23:05 INR 0.97 05/05/18 23:05 APTT 29.9 Seconds (25.1-36.5) 05/05/18 23:05 - Constitutional Appears: Non-toxic, No Acute Distress - Head Exam Head Exam: ATRAUMATIC, NORMOCEPHALIC - Eye Exam Eye Exam: EOMI, Normal appearance - ENT Exam ENT Exam: Mucous Membranes Moist - Respiratory Exam Respiratory Exam: NORMAL BREATHING PATTERN. absent: Respiratory Distress - Cardiovascular Exam Cardiovascular Exam: REGULAR RHYTHM. absent: Tachycardia - GI/Abdominal Exam GI & Abdominal Exam: Distended, Soft, Tenderness (guerline-incisional, appropriate). absent: Guarding, Rebound Additional comments: incisions CDI w/ staple closure Shivam with 15cc/SA fluid - Neurological Exam Neurological Exam: Alert, Awake - Psychiatric Exam Psychiatric exam: Normal Affect, Normal Mood - Skin Skin Exam: Warm Assessment and Plan - Assessment and Plan (Free Text) Assessment: 57 y/o male s/p open appendectomy w/ post op SBO requiring re-op exploration with persistent n/v Plan: -CT scan abd/pelvis today -f/u results -electrolyte replete -f/u am labs -further surgical recs pending imaging -d/w Dr. Torsten DE LA CRUZricardo PGY4
[2018-05-10] MEDS ORDERED: Iohexol 240 (50 ml) ONE (07:25)
[2018-05-10 08:21] LABS: BASO # 0.04 K/mm3 (0.0-2.0); BASO % 0.3 % (0.0-3.0); EOS % 0.3 % (1.5-5.0); GRAN # 8.65 (1.4-6.5); GRAN % 69.8 % (50.0-68.0); HEMOGLOBIN 11.7 g/dL (14.0-18.0); LYMPH # 2.1 (1.2-3.4); LYMPH % 16.9 % (22.0-35.0); MEAN CELL VOLUME 89.2 fl (80.0-105.0); MEAN CORPUSCULAR HEMOGLOBIN 30.9 pg (25.0-35.0); MEAN CORPUSCULAR HGB CONC 34.6 g/dl (31.0-37.0); MEAN PLATELET VOLUME 7.9 fl (7.0-11.0); MONO # 1.6 (0.1-0.6); MONO % 12.7 % (1.0-6.0); RBC 3.79 10^6/uL (3.5-6.1); RED CELL DISTRIBUTION WIDTH 13.9 % (11.5-14.5); WHITE BLOOD COUNT 12.4 10^3/ul (4.5-11.0)
[2018-05-10 09:05] LABS: BLOOD UREA NITROGEN 8 mg/dL (7-21); CALCIUM 8.9 mg/dL (8.4-10.5); GFR NON-AFRICAN AMERICAN > 60
[2018-05-10] MEDS ORDERED: Iohexol 350 MG/100 ML VIAL ONE (09:37)
--- NOTE | 2018-05-10 10:44 | CT ---
Date of service: 05/10/2018 PROCEDURE: CT Abdomen and Pelvis with contrast HISTORY: post op ileus vs obstruction COMPARISON: 05/06/2018 TECHNIQUE: Contrast dose: 100 mL Omnipaque 350 Radiation dose: Total exam DLP = 552.46 mGy-cm. This CT exam was performed using one or more of the following dose reduction techniques: Automated exposure control, adjustment of the mA and/or kV according to patient size, and/or use of iterative reconstruction technique. FINDINGS: LOWER THORAX: Trace bilateral pleural effusion. Bilateral lower lobe minimal compressive atelectasis and right lower lobe linear scar/atelectasis. Circumferential mural thickening of distal thoracic esophagus, nonspecific. LIVER: Unremarkable. No gross lesion or ductal dilatation. GALLBLADDER AND BILE DUCTS: Partially contracted. No calcified gallstones. PANCREAS: Unremarkable. No gross lesion or ductal dilatation. SPLEEN: Unremarkable. ADRENALS: Unremarkable. No mass. KIDNEYS AND URETERS: Unremarkable. No hydronephrosis. No solid mass. VASCULATURE: Unremarkable. No aortic aneurysm. BOWEL: Dilatation of almost the entire small bowel. The distal ileum is normal in caliber but there is not appear to be any definable transition point and fluid is seen within the small bowel to the level of the ileocecal valve. More likely postoperative ileus than mechanical bowel obstruction but follow-up is advised. Cannot rule out mechanical obstruction at the level of the ileocecal valve particularly in light of the extensive postoperative changes seen at the cecum. There is partially liquified fecal matter seen in the ascending and transverse colon. The left colon is predominantly collapsed. The stomach is distended with fluid. APPENDIX: Not identified. PERITONEUM: Mild ascites. No pneumoperitoneum. Percutaneous drainage catheter seen in right abdomen/pelvis. LYMPH NODES: Unremarkable. No enlarged lymph nodes. BLADDER: Unremarkable REPRODUCTIVE: Normal prostate BONES: No acute fracture OTHER FINDINGS: None. IMPRESSION: Findings more likely reflective of adynamic ileus rather than mechanical bowel obstruction. However, obstruction at the level of the cecum/ileocecal valve cannot be entirely excluded on the basis of this examination. The extent of bowel dilatation is not substantially changed when compared to the prior examination of 05/06/2018. The bowel is, however, now distended with fluid. Follow-up advised. Mild ascites. Drainage catheter. No pneumoperitoneum. Incidentally noted circumferential mural thickening of distal thoracic esophagus, nonspecific. Trace bilateral pleural effusion.
[2018-05-10] MEDS: Lidocaine 5% Patch TD SCH (11:55)
[2018-05-10] MEDS: Enoxaparin 40 mg Syringe SC SCH (11:55)
[2018-05-10] MEDS: Potassium Chloride 40 mEq/30 ml LIQ UD PO SCH (12:00)
--- NOTE | 2018-05-10 13:19 | CP.PCM.PN ---
<Dave Cheung - Last Filed: 05/10/18 13:33> Subjective - Date & Time of Evaluation Date of Evaluation: 05/10/18 Time of Evaluation: 13:16 - Subjective Subjective: Pt seen and examined, pt reports nausea and vomiting after drinking PO contrast. unable to tolerate diet Objective - Vital Signs/Intake and Output Vital Signs (last 24 hours): Temp Pulse Resp BP Pulse Ox 98.4 F 86 20 143/99 H 99 05/10/18 06:00 05/10/18 06:00 05/10/18 06:00 05/10/18 06:00 05/10/18 06:00 Intake and Output: 05/10/18 05/10/18 06:59 18:59 Intake Total 1620 Output Total 3520 Balance -1900 - Medications Medications: Current Medications Acetaminophen (Tylenol 325mg Tab) 650 mg PO Q6H [facility] Last Admin: 05/10/18 08:20 Dose: Not Given Enoxaparin Sodium (Lovenox) 40 mg SC DAILY [facility]; Protocol Last Admin: 05/10/18 11:55 Dose: 40 mg Sodium Chloride (Sodium Chloride 0.9%) 1,000 mls @ 80 mls/hr IV .[id number] [facility] Last Admin: 05/09/18 12:45 Dose: 80 mls/hr Lidocaine (Lidoderm) 1 ea TD DAILY [facility] Last Admin: 05/10/18 11:55 Dose: 1 ea Ondansetron HCl (Zofran Inj) 4 mg IVP Q4 PRN PRN Reason: Nausea/Vomiting Last Admin: 05/10/18 08:10 Dose: 4 mg Oxycodone/Acetaminophen (Percocet 5/325 Mg Tab) 1 tab PO Q6H PRN PRN Reason: Pain, severe (8-10) Stop: 05/12/18 12:42 Last Admin: 05/09/18 21:19 Dose: 1 tab Potassium Chloride (Potassium Chloride Oral Soln) 40 meq PO DAILY [facility] Last Admin: 05/10/18 12:00 Dose: Not Given Sodium Chloride (Sodium Chloride Tab) 1 gm PO WM [facility] Last Admin: 05/10/18 12:00 Dose: Not Given Tramadol HCl (Ultram) 25 mg PO Q6H PRN PRN Reason: Pain, moderate (4-7) - Labs Labs: 05/10/18 07:00 05/10/18 07:00 PT 11.1 SECONDS (9.4-12.5) 05/05/18 23:05 INR 0.97 05/05/18 23:05 APTT 29.9 Seconds (25.1-36.5) 05/05/18 23:05 - Constitutional Appears: Non-toxic, No Acute Distress - Head Exam Head Exam: ATRAUMATIC, NORMAL INSPECTION, NORMOCEPHALIC - Eye Exam Eye Exam: EOMI - ENT Exam ENT Exam: Mucous Membranes Moist - Neck Exam Neck Exam: Full ROM - Respiratory Exam Respiratory Exam: Clear to Ausculation Bilateral, NORMAL BREATHING PATTERN. absent: Wheezes, Respiratory Distress - Cardiovascular Exam Cardiovascular Exam: RRR, +S1, +S2. absent: Diastolic murmur, Murmur - GI/Abdominal Exam GI & Abdominal Exam: Soft, Tenderness, Normal Bowel Sounds. absent: Rigid, Rebound Additional comments: surgical sites healing well, pt reports tenderness to palpation, drain is serosanginuous - Extremities Exam Extremities Exam: Full ROM. absent: Calf Tenderness, Pedal Edema - Neurological Exam Neurological Exam: Alert, Oriented x3 - Psychiatric Exam Psychiatric exam: Normal Affect, Normal Mood - Skin Skin Exam: Dry, Normal Color, Warm Assessment and Plan - Assessment and Plan (Free Text) Assessment: Pt is a 57yo male who was recently admitted for appendectomy, and returns with an SBO. Pt subsequently underwent lysis of adhesions and surgical resection of SBO. Plan: SBO, pt recently underwent open appendectomy with lysis of adhesions and resection of SBO - Zofran for nausea - continue incentive spirometry - percocet for pain control - CTAP: findings likely reflective of adynamic ileus, rather than mechanical bowel obstruction. But cannot exclude cecum/ileocecal valve. Bowel is distended with fluid. - pt vomiting from IV contrast, will hold lasix and start IVF NS@80 - Surgical consult - Dr. Sarmiento Shortness of Breath - ECHO: 50-55% Chronic normocytic anemia - Hgb 9, improved to 11.7 - likely dilutional - continue to monitor Hyponatremia - Na 126, improved to 134 today - Nephro, Dr. Block, stop IVF when vomiting resolves Ppx - lovenox - liquid diet per surgery Pt seen, examined, assessment and plan discussed with Dr Bebeto Cheung PGY1 <Cameron Tate - Last Filed: 05/10/18 13:38> Objective - Vital Signs/Intake and Output Vital Signs (last 24 hours): Temp Pulse Resp BP Pulse Ox 98.4 F 86 20 143/99 H 99 05/10/18 06:00 05/10/18 06:00 05/10/18 06:00 05/10/18 06:00 05/10/18 06:00 Intake and Output: 05/10/18 05/10/18 06:59 18:59 Intake Total 1620 Output Total 3520 Balance -1900 - Medications Medications: Current Medications Acetaminophen (Tylenol 325mg Tab) 650 mg PO Q6H [facility] Last Admin: 05/10/18 08:20 Dose: Not Given Enoxaparin Sodium (Lovenox) 40 mg SC DAILY [facility]; Protocol Last Admin: 05/10/18 11:55 Dose: 40 mg Sodium Chloride (Sodium Chloride 0.9%) 1,000 mls @ 80 mls/hr IV .[id number] [facility] Last Admin: 05/09/18 12:45 Dose: 80 mls/hr Lidocaine (Lidoderm) 1 ea TD DAILY [facility] Last Admin: 05/10/18 11:55 Dose: 1 ea Ondansetron HCl (Zofran Inj) 4 mg IVP Q4 PRN PRN Reason: Nausea/Vomiting Last Admin: 05/10/18 08:10 Dose: 4 mg Oxycodone/Acetaminophen (Percocet 5/325 Mg Tab) 1 tab PO Q6H PRN PRN Reason: Pain, severe (8-10) Stop: 05/12/18 12:42 Last Admin: 05/09/18 21:19 Dose: 1 tab Potassium Chloride (Potassium Chloride Oral Soln) 40 meq PO DAILY [facility] Last Admin: 05/10/18 12:00 Dose: Not Given Sodium Chloride (Sodium Chloride Tab) 1 gm PO WM [facility] Last Admin: 05/10/18 12:00 Dose: Not Given Tramadol HCl (Ultram) 25 mg PO Q6H PRN PRN Reason: Pain, moderate (4-7) - Labs Labs: 05/10/18 07:00 05/10/18 07:00 PT 11.1 SECONDS (9.4-12.5) 05/05/18 23:05 INR 0.97 10/09/18 23:05 APTT 29.9 Seconds (25.1-36.5) 05/05/18 23:05 Attending/Attestation - Attestation I have personally seen and examined this patient.: Yes I have fully participated in the care of the patient.: Yes I have reviewed all pertinent clinical information, including history, physical exam and plan: Yes Notes (Text): 05/10/18 13:37 57 year old male with recent appendectomy who presented with abdominal pain. Fo und to have SBO on CT scan. He was seen by surgery and is s/p ex lap with small segment of small bowel resected POD #4. Encouraged incentive spirometer. Encouraged ambulation. Continue with iv antibiotics as per ID. Leukocytosis is improving. He reports his abdominal pain has improved although he continues to have intermittent episodes of nausea/vomiting. Continue with liquid diet as tolerat ed. Surgery is following. Repeat CT abd/pelvis was done today which showed findings suggestive of adynamic ileus rather than mechanical bowel obstruction. Will follow up with surgery recommendations. Nephrology is also following for hyponatremia which has improved today. Cameron Tate MD Hospitalist.
--- NOTE | 2018-05-10 16:52 | RAD ---
Date of service: 05/10/2018 HISTORY: abdominal pain COMPARISON: No prior. FINDINGS: BOWEL: Dilated small bowel loops in the upper abdomen with differential air-fluid levels raising concern for early mechanical small-bowel obstruction. Follow-up advised. No hepatic or splenic enlargement. No masses or abnormal intra-abdominal calcifications. No free intraperitoneal air appreciated. BONES: Normal. OTHER FINDINGS: None. IMPRESSION: Findings concerning for early mechanical small bowel obstruction.
--- NOTE | 2018-05-10 18:16 | PN ---
DATE: 05/10/2018 SUBJECTIVE: The patient is in bed. The patient was seen earlier this morning in 560, bed 2. No fevers, no chills. PHYSICAL EXAMINATION VITAL SIGNS: Temperature is 98, blood pressure is 150/60, respiratory rate of 20, heart rate of 86. HEENT: Unremarkable. NECK: Supple. LUNGS: Decreased breath sounds. HEART: Normal S1, S2. ABDOMEN: Soft, nontender. LABORATORY EXAMINATION: Reveals a white count of 12,400, hemoglobin 11, and platelets of 716. Chemistries are noted. BUN of 8, creatinine of 0.9. Procalcitonin 0.1. Urinalysis is noted. Microbiology reveals blood cultures, no growth. CAT scan of the abdomen and pelvis, adynamic ileus rather than mechanical bowel obstruction. Review of orders reveals the patient is off antibiotics. ASSESSMENT AND PLAN: A 57-year-old male with small bowel obstruction, adhesion, status post small bowel resection, status post adhesiolysis and postprocedure day #4, history of perforated appendicitis, history of appendectomy, polysubstance abuse, and now afebrile. Did have bowel movement, off antibiotics. He does have mild leukocytosis. We will follow the WBCs, off antibiotics, and Dr. Tate's note is reviewed. Dr. Woods's note is reviewed. Status post appendectomy, status post small bowel obstruction and reexploration. We will follow with you. Jesus Man MD
[2018-05-10] MEDS: Sodium Chloride 0.9% 1,000 ML IV SCH (18:21)
[2018-05-10] MEDS ORDERED: Phenol Topical 1.4% Throat Spray (180 ml) MT PRN (19:49)
[2018-05-10] MEDS ORDERED: Sodium Chloride 0.9% 1,000 ML IV SCH (22:45)
--- NOTE | 2018-05-11 06:19 | CP.PCM.PN ---
Subjective - Date & Time of Evaluation Date of Evaluation: 05/10/18 Time of Evaluation: 22:00 - Subjective Subjective: Patient had NG tube placed earlier today, draining copious amount of bilious fluid; patient feeling better since then, abd pain improved; Objective - Vital Signs/Intake and Output Vital Signs (last 24 hours): Temp Pulse Resp BP Pulse Ox 98.5 F 99 H 18 164/115 H 95 05/10/18 22:00 05/10/18 22:00 05/10/18 22:00 05/10/18 22:00 05/10/18 22:00 Intake and Output: 05/10/18 05/11/18 18:59 06:59 Intake Total 800 1920 Output Total 575 4090 Balance 225 -2170 - Medications Medications: Current Medications Acetaminophen (Tylenol 325mg Tab) 650 mg PO Q6H [facility] Last Admin: 05/10/18 20:43 Dose: Not Given Enoxaparin Sodium (Lovenox) 40 mg SC DAILY [facility]; Protocol Last Admin: 05/10/18 11:55 Dose: 40 mg Potassium Chloride 40 meq/ (Sodium Chloride) 1,020 mls @ 80 mls/hr IV .[id number] [facility] Last Admin: 05/10/18 23:03 Dose: 80 mls/hr Lidocaine (Lidoderm) 1 ea TD DAILY [facility] Last Admin: 05/10/18 11:55 Dose: 1 ea Ondansetron HCl (Zofran Inj) 4 mg IVP Q4 PRN PRN Reason: Nausea/Vomiting Last Admin: 05/10/18 08:10 Dose: 4 mg Oxycodone/Acetaminophen (Percocet 5/325 Mg Tab) 1 tab PO Q6H PRN PRN Reason: Pain, severe (8-10) Stop: 05/12/18 12:42 Last Admin: 05/09/18 21:19 Dose: 1 tab Pantoprazole Sodium (Protonix Inj) 40 mg IVP DAILY [facility] Last Admin: 05/10/18 23:03 Dose: 40 mg Phenol/Menthol (Phenaseptic 1.4% Throat [place]) 2 ml MT Q2H PRN PRN Reason: Pain, Mild (1-3) Last Admin: 05/10/18 20:31 Dose: 2 spr Potassium Chloride (Potassium Chloride Oral Soln) 40 meq PO DAILY [facility] Last Admin: 05/10/18 12:00 Dose: Not Given Tramadol HCl (Ultram) 25 mg PO Q6H PRN PRN Reason: Pain, moderate (4-7) - Labs Labs: 05/10/18 07:00 05/10/18 07:00 PT 11.1 SECONDS (9.4-12.5) 05/05/18 23:05 INR 0.97 05/05/18 23:05 APTT 29.9 Seconds (25.1-36.5) 05/05/18 23:05 - Constitutional Appears: Non-toxic, No Acute Distress - Eye Exam Eye Exam: Normal appearance - ENT Exam ENT Exam: Mucous Membranes Moist - Respiratory Exam Respiratory Exam: Clear to Ausculation Bilateral. absent: Respiratory Distress - Cardiovascular Exam Cardiovascular Exam: RRR, +S1, +S2 - GI/Abdominal Exam GI & Abdominal Exam: Distended, Soft - Extremities Exam Additional comments: minimal lower leg edema; - Neurological Exam Neurological Exam: Alert, Awake - Psychiatric Exam Psychiatric exam: absent: Agitated - Skin Skin Exam: Warm. 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; responded to single dose of tolvaptan yesterday; need to keep volume replete in light of copious NG drainage; -continue IVF with isotonic saline -avoid NSAIDS for pain (no absolute contraindication but can potentiate effect of SIADH); -will re-dose tolvaptan as needed; Status: Acute (2) Small bowel obstruction Assessment & Plan: s/p ex-lap with short segment small bowel resection; now with ileus; having copious NG drainage; -starting IV protonix 40 mg daily to avoid ensuing metabolic alkalosis; -Adding 40 meq KCl/L to NS at 80 cc/hr to avoid ensuing hypokalemia; Status: Acute (3) CHF (congestive heart failure) Status: Acute
[2018-05-11 07:13] LABS: BASO # 0.04 K/mm3 (0.0-2.0); BASO % 0.4 % (0.0-3.0); EOS # 0.2 (0.0-0.7); EOS % 1.5 % (1.5-5.0); GRAN # 5.57 (1.4-6.5); GRAN % 56.1 % (50.0-68.0); HEMOGLOBIN 10.4 g/dL (14.0-18.0); LYMPH # 2.4 (1.2-3.4); LYMPH % 23.7 % (22.0-35.0); MEAN CELL VOLUME 89.3 fl (80.0-105.0); MEAN CORPUSCULAR HGB CONC 34.8 g/dl (31.0-37.0); MEAN PLATELET VOLUME 7.6 fl (7.0-11.0); MONO # 1.8 (0.1-0.6); MONO % 18.3 % (1.0-6.0); RBC 3.35 10^6/uL (3.5-6.1); WHITE BLOOD COUNT 9.9 10^3/ul (4.5-11.0)
[2018-05-11 07:42] LABS: BLOOD UREA NITROGEN 6 mg/dL (7-21); GFR NON-AFRICAN AMERICAN > 60
[2018-05-11] MEDS: Lidocaine 5% Patch TD SCH (10:07)
[2018-05-11] MEDS: Potassium Chloride 40 mEq/30 ml LIQ UD PO SCH (10:08)
[2018-05-11] MEDS: Enoxaparin 40 mg Syringe SC SCH (10:08)
--- NOTE | 2018-05-11 12:16 | CP.PCM.PN ---
<Allie Escalante - Last Filed: 05/11/18 12:16> Subjective - Date & Time of Evaluation Date of Evaluation: 05/11/18 Time of Evaluation: 10:00 - Subjective Subjective: Allie Escalante DO, PGY-2: Nephrology Progress Note for Dr. Block Patient seen and examined at bedside. He is laying comfortably watching TV. He is without complaints. Objective - Vital Signs/Intake and Output Vital Signs (last 24 hours): Temp Pulse Resp BP Pulse Ox 97.4 F L 87 18 149/100 H 95 05/11/18 06:00 05/11/18 06:00 05/11/18 06:00 05/11/18 06:00 05/11/18 06:00 Intake and Output: 05/11/18 05/11/18 06:59 18:59 Intake Total 1920 Output Total 4090 Balance -2170 - Medications Medications: Current Medications Acetaminophen (Tylenol 325mg Tab) 650 mg PO Q6H [facility] Last Admin: 05/11/18 10:09 Dose: Not Given Enoxaparin Sodium (Lovenox) 40 mg SC DAILY [facility]; Protocol Last Admin: 05/11/18 10:08 Dose: 40 mg Potassium Chloride (Potassium Chloride 10 Meq/100 Ml) 10 meq in 100 mls @ 50 mls/hr IVPB Q2H [facility] Stop: 05/11/18 13:44 Last Admin: 05/11/18 10:50 Dose: 50 mls/hr Potassium Chloride 40 meq/ (Sodium Chloride) 1,020 mls @ 100 mls/hr IV .[id number] [facility] Last Admin: 05/11/18 10:50 Dose: 100 mls/hr Lidocaine (Lidoderm) 1 ea TD DAILY [facility] Last Admin: 05/11/18 10:07 Dose: 1 ea Ondansetron HCl (Zofran Inj) 4 mg IVP Q4 PRN PRN Reason: Nausea/Vomiting Last Admin: 05/10/18 08:10 Dose: 4 mg Oxycodone/Acetaminophen (Percocet 5/325 Mg Tab) 1 tab PO Q6H PRN PRN Reason: Pain, severe (8-10) Stop: 05/12/18 12:42 Last Admin: 05/09/18 21:19 Dose: 1 tab Pantoprazole Sodium (Protonix Inj) 40 mg IVP DAILY [facility] Last Admin: 05/11/18 10:09 Dose: 40 mg Phenol/Menthol (Phenaseptic 1.4% Throat [place]) 2 ml MT Q2H PRN PRN Reason: Pain, Mild (1-3) Last Admin: 05/10/18 20:31 Dose: 2 spr Potassium Chloride (Potassium Chloride Oral Soln) 40 meq PO DAILY [facility] Last Admin: 05/11/18 10:08 Dose: Not Given Tramadol HCl (Ultram) 25 mg PO Q6H PRN PRN Reason: Pain, moderate (4-7) - Labs Labs: 05/11/18 06:25 05/11/18 06:25 PT 11.1 SECONDS (9.4-12.5) 05/05/18 23:05 INR 0.97 05/05/18 23:05 APTT 29.9 Seconds (25.1-36.5) 05/05/18 23:05 - Constitutional Appears: Well, Non-toxic - Head Exam Head Exam: ATRAUMATIC, NORMOCEPHALIC - Eye Exam Eye Exam: EOMI, Normal appearance - ENT Exam ENT Exam: Mucous Membranes Moist - Neck Exam Neck Exam: Normal Inspection - Respiratory Exam Respiratory Exam: Clear to Ausculation Bilateral, NORMAL BREATHING PATTERN. absent: Accessory Muscle Use - Cardiovascular Exam Cardiovascular Exam: RRR, +S1, +S2 - GI/Abdominal Exam GI & Abdominal Exam: absent: Guarding, Tenderness Additional comments: staple line and surgical incisions clean - Extremities Exam Extremities Exam: Normal Inspection. 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 pain; responded to single dose of tolvaptan two days ago ; need to keep volume replete in light of copious NG drainage; -continue IVF with isotonic saline -avoid NSAIDS for pain (no absolute contraindication but can potentiate effect of SIADH); -will re-dose tolvaptan as needed; Status: Acute (2) Small bowel obstruction Assessment & Plan: s/p ex-lap with short segment small bowel resection; now with resolving ileus; has relatively little NG drainage noted today; -starting IV protonix 40 mg daily to avoid ensuing metabolic alkalosis; -Adding 40 meq of KPO4 to NS at 100 cc/hr to avoid ensuing hypokalemia; Status: Acute (3) CHF (congestive heart failure) Status: Acute Case reviewed and discussed with attending physician, Dr. Block <Francesco Block - Last Filed: 05/12/18 08:31> Objective - Vital Signs/Intake and Output Vital Signs (last 24 hours): Temp Pulse Resp BP Pulse Ox 97.7 F 82 20 153/98 H 98 05/12/18 06:00 05/12/18 06:00 05/12/18 06:00 05/12/18 06:00 05/12/18 06:00 Intake and Output: 05/12/18 05/12/18 06:59 18:59 Intake Total 3400 Output Total 2940 Balance 460 - Medications Medications: Current Medications Acetaminophen (Tylenol 325mg Tab) 650 mg PO Q6H [facility] Last Admin: 05/11/18 20:00 Dose: Not Given Enoxaparin Sodium (Lovenox) 40 mg SC DAILY [facility]; Protocol Last Admin: 05/11/18 10:08 Dose: 40 mg Potassium Chloride 40 meq/ (Sodium Chloride) 1,020 mls @ 100 mls/hr IV .[id number] [facility] Last Admin: 05/11/18 23:24 Dose: 100 mls/hr Lidocaine (Lidoderm) 1 ea TD DAILY [facility] Last Admin: 05/11/18 10:07 Dose: 1 ea Ondansetron HCl (Zofran Inj) 4 mg IVP Q4 PRN PRN Reason: Nausea/Vomiting Last Admin: 05/10/18 08:10 Dose: 4 mg Oxycodone/Acetaminophen (Percocet 5/325 Mg Tab) 1 tab PO Q6H PRN PRN Reason: Pain, severe (8-10) Stop: 05/12/18 12:42 Last Admin: 05/09/18 21:19 Dose: 1 tab Pantoprazole Sodium (Protonix Inj) 40 mg IVP DAILY [facility] Last Admin: 05/11/18 10:09 Dose: 40 mg Phenol/Menthol (Phenaseptic 1.4% Throat [place]) 2 ml MT Q2H PRN PRN Reason: Pain, Mild (1-3) Last Admin: 05/10/18 20:31 Dose: 2 spr Potassium Chloride (Potassium Chloride Oral Soln) 40 meq PO DAILY [facility] Last Admin: 05/11/18 10:08 Dose: Not Given Tramadol HCl (Ultram) 25 mg PO Q6H PRN PRN Reason: Pain, moderate (4-7) - Labs Labs: 05/12/18 06:30 05/12/18 06:30 PT 11.1 SECONDS (9.4-12.5) 05/05/18 23:05 INR 0.97 05/05/18 23:05 APTT 29.9 Seconds (25.1-36.5) 05/05/18 23:05 Assessment and Plan (1) Hyponatremia Status: Acute (2) Small bowel obstruction Status: Acute (3) CHF (congestive heart failure) Status: Acute Attending/Attestation - Attestation I have personally seen and examined this patient.: Yes I have fully participated in the care of the patient.: Yes I have reviewed all pertinent clinical information, including history, physical exam and plan: Yes Notes (Text): Patient seen and examined; I agree with the resident's note as above with the following additions/edits: Patient admitted s/p recent open appendectomy, underwent short segment small bowel resection on this admission; now with ileus, possible SBO; NG tube placed yesterday; had been draining copious amount of bilious fluid but drainage has slowed considerably; euvolemic on exam; appears comfortable; Hyponatremia, likely SIADH, improved after single dose of tolvaptan; will continue to monitor and keep volume replete; -continue NS at 100 cc/hr (w/ 40 meq KCl per L); further K replenishment prn; -continue IV protonix 40 mg daily; -avoid NSAIDS (though not absolute contraindication);
--- NOTE | 2018-05-11 16:44 | RAD ---
Date of service: 05/11/2018 HISTORY: abdominal pain COMPARISON: No prior. FINDINGS: BOWEL: Normal. No obstruction. No free air. BONES: Normal. OTHER FINDINGS: None. IMPRESSION: There is a surgical drain in the right lower quadrant. There is no evidence of obstruction.
--- NOTE | 2018-05-11 19:54 | CP.PCM.PN ---
<Dave Cheung - Last Filed: 05/11/18 20:03> Subjective - Date & Time of Evaluation Date of Evaluation: 05/11/18 Time of Evaluation: 05:00 - Subjective Subjective: Pt seen and examined this morning at bedside. Pt has NG tube in place, reports bowel movements and flatus Objective - Vital Signs/Intake and Output Vital Signs (last 24 hours): Temp Pulse Resp BP Pulse Ox 97.3 F L 83 20 140/99 H 97 05/11/18 14:00 05/11/18 14:00 05/11/18 14:00 05/11/18 14:00 05/11/18 14:00 - Medications Medications: Current Medications Acetaminophen (Tylenol 325mg Tab) 650 mg PO Q6H [facility] Last Admin: 05/11/18 17:26 Dose: Not Given Enoxaparin Sodium (Lovenox) 40 mg SC DAILY [facility]; Protocol Last Admin: 05/11/18 10:08 Dose: 40 mg Potassium Chloride 40 meq/ (Sodium Chloride) 1,020 mls @ 100 mls/hr IV .[id number] [facility] Last Admin: 05/11/18 10:50 Dose: 100 mls/hr Lidocaine (Lidoderm) 1 ea TD DAILY [facility] Last Admin: 05/11/18 10:07 Dose: 1 ea Ondansetron HCl (Zofran Inj) 4 mg IVP Q4 PRN PRN Reason: Nausea/Vomiting Last Admin: 05/10/18 08:10 Dose: 4 mg Oxycodone/Acetaminophen (Percocet 5/325 Mg Tab) 1 tab PO Q6H PRN PRN Reason: Pain, severe (8-10) Stop: 05/12/18 12:42 Last Admin: 05/09/18 21:19 Dose: 1 tab Pantoprazole Sodium (Protonix Inj) 40 mg IVP DAILY [facility] Last Admin: 05/11/18 10:09 Dose: 40 mg Phenol/Menthol (Phenaseptic 1.4% Throat [place]) 2 ml MT Q2H PRN PRN Reason: Pain, Mild (1-3) Last Admin: 05/10/18 20:31 Dose: 2 spr Potassium Chloride (Potassium Chloride Oral Soln) 40 meq PO DAILY [facility] Last Admin: 05/11/18 10:08 Dose: Not Given Tramadol HCl (Ultram) 25 mg PO Q6H PRN PRN Reason: Pain, moderate (4-7) - Labs Labs: 05/11/18 06:25 05/11/18 06:25 PT 11.1 SECONDS (9.4-12.5) 05/05/18 23:05 INR 0.97 05/05/18 23:05 APTT 29.9 Seconds (25.1-36.5) 05/05/18 23:05 - Constitutional Appears: Well, Non-toxic, No Acute Distress - Eye Exam Eye Exam: EOMI - ENT Exam ENT Exam: Mucous Membranes Moist - Neck Exam Neck Exam: Full ROM - Respiratory Exam Respiratory Exam: Clear to Ausculation Bilateral, NORMAL BREATHING PATTERN. absent: Accessory Muscle Use, Wheezes, Respiratory Distress, Stridor - Cardiovascular Exam Cardiovascular Exam: RRR, +S1, +S2. absent: Diastolic murmur, Murmur - GI/Abdominal Exam GI & Abdominal Exam: Soft, Normal Bowel Sounds. absent: Tenderness - Extremities Exam Extremities Exam: Full ROM - Neurological Exam Neurological Exam: Alert, Awake, Oriented x3 - Psychiatric Exam Psychiatric exam: Normal Affect, Normal Mood - Skin Skin Exam: Dry, Intact, Warm Assessment and Plan - Assessment and Plan (Free Text) Assessment: Pt is a 57yo male who was recently admitted for appendectomy, and returns with an SBO. Pt subsequently underwent lysis of adhesions and surgical resection of SBO. Plan: SBO, pt recently underwent open appendectomy with lysis of adhesions and rese ction of SBO - Zofran for nausea - continue incentive spirometry - percocet for pain control - CTAP: findings likely reflective of adynamic ileus, rather than mechanical bowel obstruction. But cannot exclude cecum/ileocecal valve. Bowel is distended with fluid. - Abdominal Xray: no signs of obstruction - Surgical consult - Dr. Sarmiento Chronic normocytic anemia - Hgb 10.4 - likely dilutional - continue to monitor Hyponatremia - continue to monitor - NephDr. Mckayla lowery Ppx - lovenox - NPO Pt seen, examined, assessment and plan discussed with Dr Simone Cheung PGY1 <Joseluis Nichols - Last Filed: 05/15/18 15:17> Objective - Vital Signs/Intake and Output Vital Signs (last 24 hours): Temp Pulse Resp BP Pulse Ox 97.5 F L 79 20 134/99 H 99 05/14/18 14:00 05/14/18 14:00 05/14/18 14:00 05/14/18 14:00 05/14/18 14:00 - Labs Labs: 05/14/18 06:30 05/14/18 06:30 PT 11.1 SECONDS (9.4-12.5) 05/05/18 23:05 INR 0.97 05/05/18 23:05 APTT 29.9 Seconds (25.1-36.5) 05/05/18 23:05 Attending/Attestation - Attestation I have personally seen and examined this patient.: Yes I have fully participated in the care of the patient.: Yes I have reviewed all pertinent clinical information, including history, physical exam and plan: Yes
--- NOTE | 2018-05-12 02:37 | PN ---
DATE: 05/11/2018 SUBJECTIVE: The patient is seen earlier today in room 560, bed 2. No fevers and no chills. PHYSICAL EXAMINATION VITAL SIGNS: Temperature is 97, blood pressure is 140/80, respiratory rate of 18. HEENT: Examination of HEENT is unremarkable. NECK: Supple. LUNGS: Decreased breath sounds. HEART: Normal S1 and S2. ABDOMEN: Soft, nontender. LABORATORY EXAMINATION: Reveals the patient's white count is down to 9.9, hemoglobin of 10, and platelets of 556. BUN of 6, creatinine of 0.7. Procalcitonin 0.1. Urinalysis is noted. Toxicology is noted. Microbiology; blood cultures are negative. The patient's abdominal x-ray reveals no evidence of obstruction. The patient also had a CAT scan of the abdomen and pelvis yesterday, adynamic ileus, was read per Dr. Kris Rose. ASSESSMENT AND PLAN: A 57-year-old male with small bowel obstruction and adhesion, status post small-bowel resection, status post adhesiolysis on postprocedure day #5, history of perforated appendicitis, history of appendectomy, polysubstance abuse, and afebrile, currently now off of antibiotics and has a new nasogastric tube in and afebrile, normal white count. The patient is at risk for developing nosocomial infections. Jesus Man MD
[2018-05-12 06:57] LABS: BASO # 0.06 K/mm3 (0.0-2.0); BASO % 0.5 % (0.0-3.0); EOS # 0.2 (0.0-0.7); EOS % 1.4 % (1.5-5.0); GRAN # 6.95 (1.4-6.5); GRAN % 62.5 % (50.0-68.0); HEMOGLOBIN 11.3 g/dL (14.0-18.0); LYMPH # 2.4 (1.2-3.4); LYMPH % 21.7 % (22.0-35.0); MEAN CELL VOLUME 89.8 fl (80.0-105.0); MEAN CORPUSCULAR HEMOGLOBIN 30.4 pg (25.0-35.0); MEAN CORPUSCULAR HGB CONC 33.8 g/dl (31.0-37.0); MEAN PLATELET VOLUME 7.7 fl (7.0-11.0); MONO # 1.6 (0.1-0.6); MONO % 13.9 % (1.0-6.0); RBC 3.72 10^6/uL (3.5-6.1); RED CELL DISTRIBUTION WIDTH 13.8 % (11.5-14.5); WHITE BLOOD COUNT 11.1 10^3/ul (4.5-11.0)
--- NOTE | 2018-05-12 07:07 | CP.PCM.PN ---
<Allie Escalante - Last Filed: 05/12/18 12:53> Subjective - Date & Time of Evaluation Date of Evaluation: 05/12/18 Time of Evaluation: 12:40 - Subjective Subjective: Allie Escalante DO, PGY-2: Nephrology Progress Note Patient was seen and examined at bedside. Patient is comfortable. Patient denies nausea, vomiting, or diarrhea. We will follow up with urine osmoles and urine sodium. Objective - Vital Signs/Intake and Output Vital Signs (last 24 hours): Temp Pulse Resp BP Pulse Ox 98.3 F 87 18 146/108 H 96 05/11/18 21:57 05/11/18 21:57 05/11/18 21:57 05/11/18 21:57 05/11/18 21:57 Intake and Output: 05/12/18 05/12/18 06:59 18:59 Intake Total 3400 Output Total 2940 Balance 460 - Medications Medications: Current Medications Acetaminophen (Tylenol 325mg Tab) 650 mg PO Q6H [facility] Last Admin: 05/11/18 20:00 Dose: Not Given Enoxaparin Sodium (Lovenox) 40 mg SC DAILY [facility]; Protocol Last Admin: 05/11/18 10:08 Dose: 40 mg Potassium Chloride 40 meq/ (Sodium Chloride) 1,020 mls @ 100 mls/hr IV .[id number] [facility] Last Admin: 05/11/18 23:24 Dose: 100 mls/hr Lidocaine (Lidoderm) 1 ea TD DAILY [facility] Last Admin: 05/11/18 10:07 Dose: 1 ea Ondansetron HCl (Zofran Inj) 4 mg IVP Q4 PRN PRN Reason: Nausea/Vomiting Last Admin: 05/10/18 08:10 Dose: 4 mg Oxycodone/Acetaminophen (Percocet 5/325 Mg Tab) 1 tab PO Q6H PRN PRN Reason: Pain, severe (8-10) Stop: 05/12/18 12:42 Last Admin: 05/09/18 21:19 Dose: 1 tab Pantoprazole Sodium (Protonix Inj) 40 mg IVP DAILY [facility] Last Admin: 05/11/18 10:09 Dose: 40 mg Phenol/Menthol (Phenaseptic 1.4% Throat [place]) 2 ml MT Q2H PRN PRN Reason: Pain, Mild (1-3) Last Admin: 05/10/18 20:31 Dose: 2 spr Potassium Chloride (Potassium Chloride Oral Soln) 40 meq PO DAILY [facility] Last Admin: 05/11/18 10:08 Dose: Not Given Tramadol HCl (Ultram) 25 mg PO Q6H PRN PRN Reason: Pain, moderate (4-7) - Labs Labs: 05/12/18 06:30 05/11/18 06:25 PT 11.1 SECONDS (9.4-12.5) 05/05/18 23:05 INR 0.97 05/05/18 23:05 APTT 29.9 Seconds (25.1-36.5) 05/05/18 23:05 - Constitutional Appears: Well, Non-toxic - Head Exam Head Exam: ATRAUMATIC, NORMOCEPHALIC - Eye Exam Eye Exam: EOMI, Normal appearance - ENT Exam ENT Exam: Mucous Membranes Moist - Neck Exam Neck Exam: Normal Inspection - Respiratory Exam Respiratory Exam: Clear to Ausculation Bilateral, NORMAL BREATHING PATTERN. absent: Accessory Muscle Use - Cardiovascular Exam Cardiovascular Exam: RRR, +S1, +S2 - GI/Abdominal Exam GI & Abdominal Exam: Soft Additional comments: staple intact - Extremities Exam Extremities Exam: Normal Inspection. absent: Calf Tenderness - Back Exam Back Exam: NORMAL INSPECTION. absent: CVA tenderness (L), CVA tenderness (R) - Neurological Exam Neurological Exam: Alert, Awake, Oriented x3 - Psychiatric Exam Psychiatric exam: Normal Affect, Normal Mood - Skin Skin Exam: Dry, Intact, Normal Color, Warm Assessment and Plan - Assessment and Plan (Free Text) Assessment: 1) Hyponatremia - Resolving 2) Hypertension - Amlodipine 10 mg Case reviewed and discussed with attending physician, Dr. Block <Francesco Block - Last Filed: 05/13/18 08:34> Objective - Vital Signs/Intake and Output Vital Signs (last 24 hours): Temp Pulse Resp BP Pulse Ox 97.3 F L 89 18 140/100 H 97 05/13/18 06:00 05/13/18 06:00 05/13/18 06:00 05/13/18 06:00 05/13/18 06:00 - Medications Medications: Current Medications Acetaminophen (Tylenol 325mg Tab) 650 mg PO Q6H [facility] Last Admin: 05/13/18 02:56 Dose: Not Given Amlodipine Besylate (Norvasc) 5 mg PO DAILY [facility] Enoxaparin Sodium (Lovenox) 40 mg SC DAILY [facility]; Protocol Last Admin: 05/12/18 12:54 Dose: 40 mg Lidocaine (Lidoderm) 1 ea TD DAILY [facility] Last Admin: 05/12/18 10:53 Dose: 1 ea Ondansetron HCl (Zofran Inj) 4 mg IVP Q4 PRN PRN Reason: Nausea/Vomiting Last Admin: 05/10/18 08:10 Dose: 4 mg Pantoprazole Sodium (Protonix Inj) 40 mg IVP DAILY [facility] Last Admin: 05/12/18 09:51 Dose: 40 mg Phenol/Menthol (Phenaseptic 1.4% Throat [place]) 2 ml MT Q2H PRN PRN Reason: Pain, Mild (1-3) Last Admin: 05/10/18 20:31 Dose: 2 spr Potassium Chloride (Potassium Chloride Oral Soln) 40 meq PO DAILY [facility] Last Admin: 05/12/18 09:43 Dose: Not Given Tramadol HCl (Ultram) 25 mg PO Q6H PRN PRN Reason: Pain, moderate (4-7) Last Admin: 05/13/18 06:41 Dose: 25 mg - Labs Labs: 05/13/18 06:20 05/13/18 06:20 PT 11.1 SECONDS (9.4-12.5) 05/05/18 23:05 INR 0.97 05/05/18 23:05 APTT 29.9 Seconds (25.1-36.5) 05/05/18 23:05 Assessment and Plan (1) Hyponatremia Status: Acute (2) Small bowel obstruction Status: Acute (3) CHF (congestive heart failure) Status: Acute Attending/Attestation - Attestation I have personally seen and examined this patient.: Yes I have fully participated in the care of the patient.: Yes I have reviewed all pertinent clinical information, including history, physical exam and plan: Yes Notes (Text): Patient seen and examined; I agree with the resident's note as above with the following additions/edits: Patient admitted s/p recent open appendectomy, underwent short segment small bowel resection on this admission; now with ileus, possible SBO; NG now out; euvolemic on exam; appears comfortable; Hyponatremia, likely SIADH, improved after single dose of tolvaptan; sodium slightly decreased today; -decreasing IV to NS at 50 cc/hr; further K replenishment prn; -continue IV protonix 40 mg daily; -avoid NSAIDS (though not absolute contraindication); -can add amlodipine if needed for BP control; -repeating urine osm, Na;
[2018-05-12 07:13] LABS: ALB/GLOB RATIO 0.8 (1.1-1.8); ALBUMIN 2.9 g/dL (3.0-4.8); ALT/SGPT 17 U/L (7-56); AST/SGOT 31 U/L (17-59); BLOOD UREA NITROGEN 7 mg/dL (7-21); CALCIUM 8.6 mg/dL (8.4-10.5); GFR NON-AFRICAN AMERICAN > 60
--- NOTE | 2018-05-12 08:04 | CP.PCM.PN ---
Subjective - Date & Time of Evaluation Date of Evaluation: 05/12/18 Time of Evaluation: 08:00 - Subjective Subjective: General Surgery Progress Note for Dr. Sarmiento Patient seen and examined at bedside. No acute events reported overnight. NGT in place draining 1300 cc of brownish fluid in 24 hours. He admits to flatus and had 2 bowel movements yesterday. He denies fevers, chills, shortness of breath, or chest pain. Objective - Vital Signs/Intake and Output Vital Signs (last 24 hours): Temp Pulse Resp BP Pulse Ox 97.7 F 82 20 153/98 H 98 05/12/18 06:00 05/12/18 06:00 05/12/18 06:00 05/12/18 06:00 05/12/18 06:00 Intake and Output: 05/12/18 05/12/18 06:59 18:59 Intake Total 3400 Output Total 2940 Balance 460 - Medications Medications: Current Medications Acetaminophen (Tylenol 325mg Tab) 650 mg PO Q6H [facility] Last Admin: 05/11/18 20:00 Dose: Not Given Enoxaparin Sodium (Lovenox) 40 mg SC DAILY [facility]; Protocol Last Admin: 05/11/18 10:08 Dose: 40 mg Potassium Chloride 40 meq/ (Sodium Chloride) 1,020 mls @ 100 mls/hr IV .[id number] [facility] Last Admin: 05/11/18 23:24 Dose: 100 mls/hr Lidocaine (Lidoderm) 1 ea TD DAILY [facility] Last Admin: 05/11/18 10:07 Dose: 1 ea Ondansetron HCl (Zofran Inj) 4 mg IVP Q4 PRN PRN Reason: Nausea/Vomiting Last Admin: 05/10/18 08:10 Dose: 4 mg Oxycodone/Acetaminophen (Percocet 5/325 Mg Tab) 1 tab PO Q6H PRN PRN Reason: Pain, severe (8-10) Stop: 05/12/18 12:42 Last Admin: 05/09/18 21:19 Dose: 1 tab Pantoprazole Sodium (Protonix Inj) 40 mg IVP DAILY [facility] Last Admin: 05/11/18 10:09 Dose: 40 mg Phenol/Menthol (Phenaseptic 1.4% Throat [place]) 2 ml MT Q2H PRN PRN Reason: Pain, Mild (1-3) Last Admin: 05/10/18 20:31 Dose: 2 spr Potassium Chloride (Potassium Chloride Oral Soln) 40 meq PO DAILY [facility] Last Admin: 05/11/18 10:08 Dose: Not Given Tramadol HCl (Ultram) 25 mg PO Q6H PRN PRN Reason: Pain, moderate (4-7) - Labs Labs: 05/12/18 06:30 05/12/18 06:30 PT 11.1 SECONDS (9.4-12.5) 05/05/18 23:05 INR 0.97 05/05/18 23:05 APTT 29.9 Seconds (25.1-36.5) 05/05/18 23:05 - Constitutional Appears: Well, Non-toxic, No Acute Distress - Head Exam Head Exam: ATRAUMATIC, NORMOCEPHALIC - Eye Exam Eye Exam: Normal appearance - ENT Exam ENT Exam: Mucous Membranes Moist Additional comments: NGT in place - Respiratory Exam Respiratory Exam: NORMAL BREATHING PATTERN. absent: Respiratory Distress - Cardiovascular Exam Cardiovascular Exam: RRR. absent: Bradycardia, Tachycardia - GI/Abdominal Exam GI & Abdominal Exam: Soft, Tenderness. absent: Distended, Firm Additional comments: Tender to palpation at incision site, site C/D/I, Shivam drain in place draining 5 cc of serosanguinous fluids overnight. - Extremities Exam Extremities Exam: Normal Inspection - Neurological Exam Neurological Exam: Alert, Awake, Oriented x3 - Psychiatric Exam Psychiatric exam: Normal Affect, Normal Mood - Skin Skin Exam: Dry, Intact, Normal Color, Warm Assessment and Plan - Assessment and Plan (Free Text) Assessment: Patient is a 57 year old male s/p open appendectomy with post-op SBO requiring re-op exploration with persistent n/v. Plan: - Remove NGT today - Replete electrolytes as needed - Follow up AM labs - Pain control - Encourage ambulation Case discussed with Dr. Torsten Severino PGY-1
[2018-05-12] MEDS: Potassium Chloride 40 mEq/30 ml LIQ UD PO SCH (09:43)
[2018-05-12] MEDS: Lidocaine 5% Patch TD SCH (10:53)
[2018-05-12] MEDS: Enoxaparin 40 mg Syringe SC SCH (12:54)
--- NOTE | 2018-05-12 17:41 | CP.PCM.PN ---
<Dave Cheung - Last Filed: 05/12/18 17:47> Subjective - Date & Time of Evaluation Date of Evaluation: 05/12/18 Time of Evaluation: 06:00 - Subjective Subjective: Pt seen and examined. NG tube was d/c'd per surgery today. Pt had 1300cc output from NG tube in previous 24 hours. Pt has not had any additional bowel movements but has been passing gas. Pt reports mild lower left quadrant abdominal pain. Denies nausea/vomiting. No other complaints. Objective - Vital Signs/Intake and Output Vital Signs (last 24 hours): Temp Pulse Resp BP Pulse Ox 97.9 F 102 H 16 153/98 H 97 05/12/18 14:00 05/12/18 14:00 05/12/18 14:00 05/12/18 06:00 05/12/18 14:00 Intake and Output: 05/12/18 05/12/18 06:59 18:59 Intake Total 3400 Output Total 2940 Balance 460 - Medications Medications: Current Medications Acetaminophen (Tylenol 325mg Tab) 650 mg PO Q6H [facility] Last Admin: 05/12/18 17:18 Dose: Not Given Enoxaparin Sodium (Lovenox) 40 mg SC DAILY [facility]; Protocol Last Admin: 05/12/18 12:54 Dose: 40 mg Lidocaine (Lidoderm) 1 ea TD DAILY [facility] Last Admin: 05/12/18 10:53 Dose: 1 ea Ondansetron HCl (Zofran Inj) 4 mg IVP Q4 PRN PRN Reason: Nausea/Vomiting Last Admin: 05/10/18 08:10 Dose: 4 mg Pantoprazole Sodium (Protonix Inj) 40 mg IVP DAILY [facility] Last Admin: 05/12/18 09:51 Dose: 40 mg Phenol/Menthol (Phenaseptic 1.4% Throat [place]) 2 ml MT Q2H PRN PRN Reason: Pain, Mild (1-3) Last Admin: 05/10/18 20:31 Dose: 2 spr Potassium Chloride (Potassium Chloride Oral Soln) 40 meq PO DAILY [facility] Last Admin: 05/12/18 09:43 Dose: Not Given Tramadol HCl (Ultram) 25 mg PO Q6H PRN PRN Reason: Pain, moderate (4-7) - Labs Labs: 05/12/18 06:30 05/12/18 06:30 PT 11.1 SECONDS (9.4-12.5) 05/05/18 23:05 INR 0.97 05/05/18 23:05 APTT 29.9 Seconds (25.1-36.5) 05/05/18 23:05 - Constitutional Appears: Non-toxic, No Acute Distress - Head Exam Head Exam: ATRAUMATIC, NORMAL INSPECTION, NORMOCEPHALIC - Eye Exam Eye Exam: EOMI - ENT Exam ENT Exam: Mucous Membranes Moist - Neck Exam Neck Exam: Full ROM, Normal Inspection - Respiratory Exam Respiratory Exam: Clear to Ausculation Bilateral, NORMAL BREATHING PATTERN. absent: Accessory Muscle Use, Rhonchi, Wheezes, Respiratory Distress - Cardiovascular Exam Cardiovascular Exam: RRR, +S1, +S2. absent: Diastolic murmur, Murmur - GI/Abdominal Exam GI & Abdominal Exam: Soft Additional comments: drain in place, serosanginous midline surgical incision, stapled, healing well, no signs of infection - Extremities Exam Extremities Exam: Full ROM. absent: Calf Tenderness, Pedal Edema - Neurological Exam Neurological Exam: Alert, Awake, Oriented x3 - Psychiatric Exam Psychiatric exam: Normal Affect, Normal Mood - Skin Skin Exam: Dry, Intact, Normal Color Assessment and Plan - Assessment and Plan (Free Text) Assessment: Pt is a 57yo male who was recently admitted for appendectomy, and returns with an SBO. Pt subsequently underwent lysis of adhesions and surgical resection of SBO. NG tube is now out. Pt started on liquid diet. Plan: SBO, pt recently underwent open appendectomy with lysis of adhesions and resection of SBO - CTAP: findings likely reflective of adynamic ileus, rather than mechanical bowel obstruction. But cannot exclude cecum/ileocecal valve. Bowel is distended with fluid - repeat abdominal XRay (05/11): no signs of SBO - percocet for pain control - continue incentive spirometry - encourage ambulation - start liquid diet, will advance as tolerated. - Surgical, Dr. Sarmiento following, Pt. status post NG tube. Drained 1300cc over 24 hours - Nephro, IV protonix 40 mg daily to avoid metabolic alkalosis Chronic normocytic anemia - Hgb 11.3 - likely dilutional - continue to monitor Hyponatremia - likely SIADH from pain, continue to monitor - avoid NSAIDs for pain - Nephro, Dr. Block following HTN - BP 153/98 today - continue to monitor Ppx - lovenox - liquid diet, advance as tolerated - protonix Pt seen, examined, assessment and plan discussed with Dr Simone Cheung PGY1 <Joseluis Nichols - Last Filed: 05/15/18 15:17> Objective - Vital Signs/Intake and Output Vital Signs (last 24 hours): Temp Pulse Resp BP Pulse Ox 97.5 F L 79 20 134/99 H 99 05/14/18 14:00 05/14/18 14:00 05/14/18 14:00 05/14/18 14:00 05/14/18 14:00 - Labs Labs: 05/14/18 06:30 05/14/18 06:30 PT 11.1 SECONDS (9.4-12.5) 05/05/18 23:05 INR 0.97 05/05/18 23:05 APTT 29.9 Seconds (25.1-36.5) 05/05/18 23:05 Attending/Attestation - Attestation I have personally seen and examined this patient.: Yes I have fully participated in the care of the patient.: Yes I have reviewed all pertinent clinical information, including history, physical exam and plan: Yes Notes (Text): 05/15/18 15:17 Medical record note made by the resident after discussion with my direction and input after the patient was personally seen and examined by me. I have reviewed the chart and agree that the record accurately reflects by personal performance of the history, physical exam, data review, and medical decision-making, in the course for the patient. I have also personally directed the plan of care.
--- NOTE | 2018-05-13 06:58 | CP.PCM.PN ---
Subjective - Date & Time of Evaluation Date of Evaluation: 05/13/18 Time of Evaluation: 06:58 - Subjective Subjective: Allie Escalante DO, PGY-2: Nephrology Progress Note Patient was seen and examined at bedside. Patient is resting comfortable. Patient denies nausea, vomiting, or diarrhea. Patient is tolerating liquid diet. Nurse reports patient blood pressure is still on the high side. Objective - Vital Signs/Intake and Output Vital Signs (last 24 hours): Temp Pulse Resp BP Pulse Ox 97.9 F 96 H 20 117/83 97 05/12/18 23:08 05/12/18 23:08 05/12/18 23:08 05/12/18 23:08 05/12/18 23:08 - Medications Medications: Current Medications Acetaminophen (Tylenol 325mg Tab) 650 mg PO Q6H [facility] Last Admin: 05/13/18 02:56 Dose: Not Given Amlodipine Besylate (Norvasc) 5 mg PO DAILY [facility] Enoxaparin Sodium (Lovenox) 40 mg SC DAILY [facility]; Protocol Last Admin: 05/12/18 12:54 Dose: 40 mg Lidocaine (Lidoderm) 1 ea TD DAILY [facility] Last Admin: 05/12/18 10:53 Dose: 1 ea Ondansetron HCl (Zofran Inj) 4 mg IVP Q4 PRN PRN Reason: Nausea/Vomiting Last Admin: 05/10/18 08:10 Dose: 4 mg Pantoprazole Sodium (Protonix Inj) 40 mg IVP DAILY [facility] Last Admin: 05/12/18 09:51 Dose: 40 mg Phenol/Menthol (Phenaseptic 1.4% Throat [place]) 2 ml MT Q2H PRN PRN Reason: Pain, Mild (1-3) Last Admin: 05/10/18 20:31 Dose: 2 spr Potassium Chloride (Potassium Chloride Oral Soln) 40 meq PO DAILY [facility] Last Admin: 05/12/18 09:43 Dose: Not Given Tramadol HCl (Ultram) 25 mg PO Q6H PRN PRN Reason: Pain, moderate (4-7) Last Admin: 05/13/18 06:41 Dose: 25 mg - Labs Labs: 05/12/18 06:30 05/12/18 06:30 PT 11.1 SECONDS (9.4-12.5) 05/05/18 23:05 INR 0.97 05/05/18 23:05 APTT 29.9 Seconds (25.1-36.5) 05/05/18 23:05 - Constitutional Appears: Well, Non-toxic - Head Exam Head Exam: ATRAUMATIC, NORMOCEPHALIC - Eye Exam Eye Exam: EOMI, Normal appearance - ENT Exam ENT Exam: Mucous Membranes Moist - Neck Exam Neck Exam: Normal Inspection - Respiratory Exam Respiratory Exam: Accessory Muscle Use, NORMAL BREATHING PATTERN - Cardiovascular Exam Cardiovascular Exam: RRR, +S1, +S2 - GI/Abdominal Exam GI & Abdominal Exam: Soft. absent: Tenderness, Rebound Additional comments: staple line and incisions intact - Extremities Exam Extremities Exam: Normal Inspection. absent: Calf Tenderness - Neurological Exam Neurological Exam: Awake - Psychiatric Exam Psychiatric exam: Normal Affect, Normal Mood - Skin Skin Exam: Dry, Intact, Normal Color, Warm Assessment and Plan (1) Hyponatremia Assessment & Plan: Resolving, Na still on the low side. Will give salt tabs with meals and Lasix 20 mg daily. Lasix will also help with blood pressure. Status: Acute (2) Hypertension Assessment & Plan: Amlodipine 5 mg daily Lasix 20 mg PO daily Status: Acute
[2018-05-13 07:03] LABS: BASO # 0.06 K/mm3 (0.0-2.0); BASO % 0.5 % (0.0-3.0); EOS # 0.3 (0.0-0.7); EOS % 2.2 % (1.5-5.0); GRAN # 7.11 (1.4-6.5); GRAN % 59.3 % (50.0-68.0); HEMOGLOBIN 11.9 g/dL (14.0-18.0); LYMPH # 3.1 (1.2-3.4); LYMPH % 25.7 % (22.0-35.0); MEAN CORPUSCULAR HEMOGLOBIN 30.5 pg (25.0-35.0); MEAN CORPUSCULAR HGB CONC 34.3 g/dl (31.0-37.0); MEAN PLATELET VOLUME 7.8 fl (7.0-11.0); MONO # 1.5 (0.1-0.6); MONO % 12.3 % (1.0-6.0); RBC 3.9 10^6/uL (3.5-6.1); RED CELL DISTRIBUTION WIDTH 13.6 % (11.5-14.5)
[2018-05-13 07:31] LABS: ALB/GLOB RATIO 0.8 (1.1-1.8); ALBUMIN 3.1 g/dL (3.0-4.8); ALT/SGPT 21 U/L (7-56); AST/SGOT 43 U/L (17-59); BLOOD UREA NITROGEN 8 mg/dL (7-21); CALCIUM 8.7 mg/dL (8.4-10.5); GFR NON-AFRICAN AMERICAN > 60
--- NOTE | 2018-05-13 08:21 | PN ---
DATE: 05/12/2018 SUBJECTIVE: The patient is in bed in no acute distress, nontoxic. PHYSICAL EXAMINATION: VITAL SIGNS: Temperature is 98, blood pressure is 150/90, respiratory rate of 16. HEENT: Examination of HEENT is unremarkable. NECK: Supple. HEART: Normal S1, S2. LUNGS: Decreased breath sounds. ABDOMEN: Soft. LABORATORY EXAM: Reveals a white count of 11,000, hemoglobin of 11, BUN of 7, creatinine of 0.7 and urinalysis is noted. Toxicology is reviewed. ASSESSMENT AND PLAN: A 57-year-old male with small bowel obstruction and adhesions, small bowel resection, status post adhesiolysis and postprocedure day #6 with a perforated appendicitis, history of appendectomy, polysubstance, he is afebrile, currently off of antibiotics. We will follow with you. Jesus Man MD
[2018-05-13] MEDS: Lidocaine 5% Patch TD SCH (10:39)
[2018-05-13] MEDS: Enoxaparin 40 mg Syringe SC SCH (10:39)
[2018-05-13] MEDS: Potassium Chloride 40 mEq/30 ml LIQ UD PO SCH (10:41)
--- NOTE | 2018-05-13 11:16 | CP.PCM.PN ---
Subjective - Date & Time of Evaluation Date of Evaluation: 05/13/18 Time of Evaluation: 11:13 - Subjective Subjective: General Surgery progress note for Dr. Sarmiento Patient seen and examined at bedside. No acute events overnight. Patient admits to flatus but denies having any bowel movements today. Denies fevers, chills, nausea, vomiting, shortness of breath, chest pain, or any other complaints at this time. Objective - Vital Signs/Intake and Output Vital Signs (last 24 hours): Temp Pulse Resp BP Pulse Ox 97.3 F L 89 18 140/100 H 97 05/13/18 06:00 05/13/18 10:40 05/13/18 06:00 05/13/18 10:40 05/13/18 06:00 - Medications Medications: Current Medications Acetaminophen (Tylenol 325mg Tab) 650 mg PO Q6H [facility] Last Admin: 05/13/18 10:44 Dose: Not Given Amlodipine Besylate (Norvasc) 5 mg PO DAILY [facility] Last Admin: 05/13/18 10:40 Dose: 5 mg Enoxaparin Sodium (Lovenox) 40 mg SC DAILY [facility]; Protocol Last Admin: 05/13/18 10:39 Dose: 40 mg Lidocaine (Lidoderm) 1 ea TD DAILY [facility] Last Admin: 05/13/18 10:39 Dose: 1 ea Ondansetron HCl (Zofran Inj) 4 mg IVP Q4 PRN PRN Reason: Nausea/Vomiting Last Admin: 05/10/18 08:10 Dose: 4 mg Pantoprazole Sodium (Protonix Inj) 40 mg IVP DAILY [facility] Last Admin: 05/13/18 10:42 Dose: 40 mg Phenol/Menthol (Phenaseptic 1.4% Throat [place]) 2 ml MT Q2H PRN PRN Reason: Pain, Mild (1-3) Last Admin: 05/10/18 20:31 Dose: 2 spr Potassium Chloride (Potassium Chloride Oral Soln) 40 meq PO DAILY [facility] Last Admin: 05/13/18 10:41 Dose: 40 meq Tramadol HCl (Ultram) 25 mg PO Q6H PRN PRN Reason: Pain, moderate (4-7) Last Admin: 05/13/18 06:41 Dose: 25 mg - Labs Labs: 05/13/18 06:20 10/17/18 06:20 PT 11.1 SECONDS (9.4-12.5) 05/05/18 23:05 INR 0.97 05/05/18 23:05 APTT 29.9 Seconds (25.1-36.5) 05/05/18 23:05 - Constitutional Appears: Well, Non-toxic, No Acute Distress - Head Exam Head Exam: ATRAUMATIC, NORMOCEPHALIC - Eye Exam Eye Exam: Normal appearance - ENT Exam ENT Exam: Mucous Membranes Moist - Respiratory Exam Respiratory Exam: NORMAL BREATHING PATTERN. absent: Respiratory Distress - Cardiovascular Exam Cardiovascular Exam: RRR. absent: Bradycardia, Tachycardia - GI/Abdominal Exam GI & Abdominal Exam: Soft, Tenderness. absent: Distended, Firm Additional comments: Tender to palpation at incision site, site C/D/I, Shivam drain in place draining 5 cc of serosanguinous fluids overnight. - Extremities Exam Extremities Exam: Normal Inspection - Neurological Exam Neurological Exam: Alert, Awake, Oriented x3 - Psychiatric Exam Psychiatric exam: Normal Affect, Normal Mood - Skin Skin Exam: Dry, Intact, Normal Color, Warm Assessment and Plan - Assessment and Plan (Free Text) Assessment: Patient is a 57 year old male s/p open appendectomy with post-op SBO requiring re-op exploration with persistent n/v. Plan: - Advance to full liquid diet for lunch - Will advance to regular diet for dinner if patient tolerates full liquids at lunch - Replete electrolytes as needed - Follow up AM labs - Pain control - Encourage ambulation Case discussed with Dr. Torsten Severino PGY-1
--- NOTE | 2018-05-13 13:18 | CP.PCM.PN ---
<Dave Cheung - Last Filed: 05/13/18 13:38> Subjective - Date & Time of Evaluation Date of Evaluation: 05/13/18 Time of Evaluation: 06:00 - Subjective Subjective: Seen and examined this morning. Pt tolerating diet well. Admits to moving his bowels, and flatus. Denies nausea, vomiting. Objective - Vital Signs/Intake and Output Vital Signs (last 24 hours): Temp Pulse Resp BP Pulse Ox 97.3 F L 89 18 140/100 H 97 05/13/18 06:00 05/13/18 10:40 05/13/18 06:00 05/13/18 10:40 05/13/18 06:00 - Medications Medications: Current Medications Acetaminophen (Tylenol 325mg Tab) 650 mg PO Q6H [facility] Last Admin: 05/13/18 10:44 Dose: Not Given Amlodipine Besylate (Norvasc) 5 mg PO DAILY [facility] Last Admin: 05/13/18 10:40 Dose: 5 mg Enoxaparin Sodium (Lovenox) 40 mg SC DAILY [facility]; Protocol Last Admin: 05/13/18 10:39 Dose: 40 mg Furosemide (Lasix) 20 mg PO DAILY [facility] Lidocaine (Lidoderm) 1 ea TD DAILY [facility] Last Admin: 05/13/18 10:39 Dose: 1 ea Ondansetron HCl (Zofran Inj) 4 mg IVP Q4 PRN PRN Reason: Nausea/Vomiting Last Admin: 05/10/18 08:10 Dose: 4 mg Pantoprazole Sodium (Protonix Inj) 40 mg IVP DAILY [facility] Last Admin: 05/13/18 10:42 Dose: 40 mg Phenol/Menthol (Phenaseptic 1.4% Throat [place]) 2 ml MT Q2H PRN PRN Reason: Pain, Mild (1-3) Last Admin: 05/10/18 20:31 Dose: 2 spr Sodium Chloride (Sodium Chloride Tab) 2 gm PO [facility] Tramadol HCl (Ultram) 25 mg PO Q6H PRN PRN Reason: Pain, moderate (4-7) Last Admin: 05/13/18 06:41 Dose: 25 mg - Labs Labs: 05/13/18 06:20 05/13/18 06:20 PT 11.1 SECONDS (9.4-12.5) 05/05/18 23:05 INR 0.97 05/05/18 23:05 APTT 29.9 Seconds (25.1-36.5) 05/05/18 23:05 - Constitutional Appears: Well, No Acute Distress - Head Exam Head Exam: ATRAUMATIC, NORMAL INSPECTION, NORMOCEPHALIC - Eye Exam Eye Exam: EOMI. absent: Scleral icterus - ENT Exam ENT Exam: Mucous Membranes Moist - Neck Exam Neck Exam: Full ROM - Respiratory Exam Respiratory Exam: Clear to Ausculation Bilateral, NORMAL BREATHING PATTERN. absent: Wheezes, Respiratory Distress, Stridor - Cardiovascular Exam Cardiovascular Exam: RRR, +S1, +S2. absent: Diastolic murmur, Murmur - GI/Abdominal Exam GI & Abdominal Exam: Soft, Normal Bowel Sounds. absent: Rigid, Rebound Additional comments: pain to palpation, midline surgical incision present, healing well, no signs of infection - Extremities Exam Extremities Exam: Full ROM. absent: Pedal Edema - Neurological Exam Neurological Exam: Alert, Awake, Oriented x3 - Psychiatric Exam Psychiatric exam: Normal Affect, Normal Mood - Skin Skin Exam: Dry, Intact, Warm Assessment and Plan - Assessment and Plan (Free Text) Assessment: Pt is a 57yo male who was recently admitted for appendectomy, and returns with an SBO. Pt subsequently underwent lysis of adhesions and surgical resection of SBO. Plan: SBO, pt recently underwent open appendectomy with lysis of adhesions and resection of SBO - CT Abdomen and pelvis: findings likely reflective of adynamic ileus. But ryan ot exclude cecum/ileocecal valve. Bowel is distended with fluid - Abdominal XRay (05/11): no signs of SBO - lidoderm and tramadol for pain control - continue incentive spirometry, encourage ambulation - start liquid diet, will advance as tolerated. - Surgical, Dr. Sarmiento - Nephro, IV protonix 40 mg daily to avoid metabolic alkalosis Chronic normocytic anemia - Hgb 11.9 - likely dilutional, continue to monitor Hyponatremia - Na 132 - likely SIADH from pain, continue to monitor - avoid NSAIDs for pain - Dr. Mckayla Petty following HTN - BP 140/100 today - Amlodipine 5mg, Per nephro Ppx - lovenox - protonix - liquid diet, advance as tolerated Pt seen, examined, assessment and plan discussed with Dr Simone Cheung PGY1 <Joseluis Nichols - Last Filed: 05/15/18 15:16> Objective - Vital Signs/Intake and Output Vital Signs (last 24 hours): Temp Pulse Resp BP Pulse Ox 97.5 F L 79 20 134/99 H 99 05/14/18 14:00 05/14/18 14:00 05/14/18 14:00 05/14/18 14:00 05/14/18 14:00 - Labs Labs: 05/14/18 06:30 05/14/18 06:30 PT 11.1 SECONDS (9.4-12.5) 05/05/18 23:05 INR 0.97 05/05/18 23:05 APTT 29.9 Seconds (25.1-36.5) 05/05/18 23:05 Attending/Attestation - Attestation I have personally seen and examined this patient.: Yes I have fully participated in the care of the patient.: Yes I have reviewed all pertinent clinical information, including history, physical exam and plan: Yes Notes (Text): 05/15/18 15:16 Medical record note made by the resident after discussion with my direction and input after the patient was personally seen and examined by me. I have reviewed the chart and agree that the record accurately reflects by personal performance of the history, physical exam, data review, and medical decision-making, in the course for the patient. I have also personally directed the plan of care.
[2018-05-13 22:36] VITALS: RESP 20
--- NOTE | 2018-05-14 04:31 | PN ---
DATE: 05/13/2018 SUBJECTIVE: Patient is in bed, in no acute distress. Nontoxic. PHYSICAL EXAMINATION: VITAL SIGNS: Temperature is 98, blood pressure is 120/70, respiratory rate of 16. HEENT: Unremarkable. NECK: Supple. LUNGS: Have decreased breath sounds. HEART: Normal S1 and S2. ABDOMEN: Soft. LABORATORY EXAMINATION: Reveals a white count of 12,000, hemoglobin of 11, platelets of 585. BUN of 8, creatinine of 0.7. Urinalysis is noted and toxicology is noted, and microbiology is reviewed. The blood cultures, no growth. Review of orders reveals the patient to be on no antibiotic. ASSESSMENT AND PLAN: This is a 57-year-old male who was seen earlier today in 560, bed 2. He is doing better, resolution of small bowel obstruction and adhesion, small bowel resection, status post adhesiolysis, postprocedure day #7 for perforated appendicitis, history of appendectomy and polysubstance, afebrile. Currently off of antibiotics. Afebrile with white count which is 12,000. note is reviewed. The patient has small bowel obstruction. Patient recently underwent open appendectomy, lysis of adhesion and resection of small bowel obstruction. Now, appears to be improving, tolerating the diet, having bowel movements. No nausea or vomiting. We will follow with you. Jesus Man MD
[2018-05-14 07:14] LABS: BASO # 0.04 K/mm3 (0.0-2.0); BASO % 0.4 % (0.0-3.0); EOS # 0.3 (0.0-0.7); EOS % 3.3 % (1.5-5.0); GRAN # 4.95 (1.4-6.5); GRAN % 55.7 % (50.0-68.0); LYMPH # 2.4 (1.2-3.4); LYMPH % 26.5 % (22.0-35.0); MEAN CELL VOLUME 89.1 fl (80.0-105.0); MEAN CORPUSCULAR HEMOGLOBIN 30.1 pg (25.0-35.0); MEAN CORPUSCULAR HGB CONC 33.7 g/dl (31.0-37.0); MEAN PLATELET VOLUME 7.9 fl (7.0-11.0); MONO # 1.3 (0.1-0.6); MONO % 14.1 % (1.0-6.0); RBC 3.66 10^6/uL (3.5-6.1); RED CELL DISTRIBUTION WIDTH 13.7 % (11.5-14.5); WHITE BLOOD COUNT 8.9 10^3/ul (4.5-11.0)
[2018-05-14 07:21] LABS: ALB/GLOB RATIO 0.9 (1.1-1.8); ALT/SGPT 31 U/L (7-56); AST/SGOT 35 U/L (17-59); BLOOD UREA NITROGEN 7 mg/dL (7-21); CALCIUM 8.5 mg/dL (8.4-10.5); GFR NON-AFRICAN AMERICAN > 60
--- NOTE | 2018-05-14 08:19 | CP.PCM.PN ---
Subjective - Date & Time of Evaluation Date of Evaluation: 05/14/18 Time of Evaluation: 08:19 - Subjective Subjective: Surgery: Dr. Sarmiento Patient doing well. + BM +flatus. Tolerating regular diet. Denies n/v/f/c. Asking to go home today. Objective - Vital Signs/Intake and Output Vital Signs (last 24 hours): Temp Pulse Resp BP Pulse Ox 98.2 F 97 H 20 131/97 H 97 05/14/18 06:00 05/14/18 06:00 05/14/18 06:00 05/14/18 06:00 05/14/18 06:00 - Medications Medications: Current Medications Acetaminophen (Tylenol 325mg Tab) 650 mg PO Q6H [facility] Last Admin: 05/14/18 04:22 Dose: Not Given Amlodipine Besylate (Norvasc) 5 mg PO DAILY [facility] Last Admin: 05/13/18 10:40 Dose: 5 mg Enoxaparin Sodium (Lovenox) 40 mg SC DAILY [facility]; Protocol Last Admin: 05/13/18 10:39 Dose: 40 mg Furosemide (Lasix) 20 mg PO DAILY [facility] Last Admin: 05/13/18 13:49 Dose: 20 mg Lidocaine (Lidoderm) 1 ea TD DAILY [facility] Last Admin: 05/13/18 10:39 Dose: 1 ea Ondansetron HCl (Zofran Inj) 4 mg IVP Q4 PRN PRN Reason: Nausea/Vomiting Last Admin: 05/10/18 08:10 Dose: 4 mg Pantoprazole Sodium (Protonix Inj) 40 mg IVP DAILY [facility] Last Admin: 05/13/18 10:42 Dose: 40 mg Phenol/Menthol (Phenaseptic 1.4% Throat [place]) 2 ml MT Q2H PRN PRN Reason: Pain, Mild (1-3) Last Admin: 05/10/18 20:31 Dose: 2 spr Sodium Chloride (Sodium Chloride Tab) 2 gm PO WM [facility] Last Admin: 05/13/18 17:23 Dose: 2 gm Tramadol HCl (Ultram) 25 mg PO Q6H PRN PRN Reason: Pain, moderate (4-7) Last Admin: 05/14/18 01:16 Dose: 25 mg - Labs Labs: 05/14/18 06:30 05/14/18 06:30 PT 11.1 SECONDS (9.4-12.5) 05/05/18 23:05 INR 0.97 05/05/18 23:05 APTT 29.9 Seconds (25.1-36.5) 05/05/18 23:05 - Constitutional Appears: Non-toxic, No Acute Distress - Head Exam Head Exam: ATRAUMATIC, NORMOCEPHALIC - Eye Exam Eye Exam: EOMI, Normal appearance - ENT Exam ENT Exam: Mucous Membranes Moist - Respiratory Exam Respiratory Exam: NORMAL BREATHING PATTERN. absent: Respiratory Distress - Cardiovascular Exam Cardiovascular Exam: REGULAR RHYTHM. absent: Tachycardia - GI/Abdominal Exam GI & Abdominal Exam: Soft. absent: Distended, Guarding, Tenderness, Rebound - Extremities Exam Extremities Exam: Normal Inspection. absent: Calf Tenderness - Neurological Exam Neurological Exam: Alert, Awake, Oriented x3 Assessment and Plan - Assessment and Plan (Free Text) Assessment: 57 year old male s/p open appendectomy with post-op SBO requiring re-exploration and JIMMIE POD4 Plan: -clear for d/c from surgical standpoint -f/u in 1-2 weeks, call office for appointment -drain to be removed prior to d/c today -further recs per Dr. Torsten DE LA CRUZricardo PGY4
--- NOTE | 2018-05-14 08:21 | OP ---
PROCEDURE DATE: 05/06/2018 PREOPERATIVE DIAGNOSIS: Small bowel obstruction. POSTOPERATIVE DIAGNOSIS: Small bowel obstruction. PROCEDURES PERFORMED: 1. Exploratory laparoscopy converted to laparotomy. 2. Extensive lysis of dense intra-abdominal adhesion. 3. Resection of the small bowel. 4. Repair of the enterorrhaphy x2. SURGEON: Richard Sarmiento MD PROCESS MECHANIC: Dr. Camara ANESTHESIOLOGISTS: Dr. Mckeon and Dr. Garza ANESTHESIA: General endotracheal anesthesia. ESTIMATED BLOOD LOSS: Minimal. SPECIMEN: Portion of the small bowel. DESCRIPTION OF PROCEDURE: The patient is a 57-year-old male who was admitted with acute appendicitis about 10 days ago and had open appendectomy. Postoperatively the patient was doing fine for about 3 days and subsequently started developing some abdominal discomfort and distention and then patient developed partial small bowel obstruction who observed conservatively. As his small bowel obstruction did not improve over a few days, decision was made to proceed with the laparoscopy. First, standard time-out procedure took place when everybody in the room agreed as to the patient's identity, diagnoses and procedure to be performed. Using two towel clips, the anterior abdominal wall was elevated and Veress needle was inserted just inferior to the previous incision. The pneumoperitoneum was obtained, a 12-mm trocar was inserted through that incision. Careful evaluation of abdominal cavity revealed the presence of distended small bowel in its distal course and careful evaluation of the abdominal cavity revealed the presence of distended loops of small bowel. Vigorously, then we placed a second 5 mm trocar in the midline anterior to the periumbilical trocar. Careful dissection started by pulling down the small bowel in order to expose the point of obstruction. Due to the bowel distention as well as the rigidity, we were unable to safely perform and a decision was made to proceed with laparotomy. Once the abdominal cavity was entered, careful dissection began and tedious lysis of adhesions was done followed by the an hour and 30 minutes. The dissection concentrated itself mostly in the area of the right lower quadrant where it appears that medially to the appendiceal stump, there was multiple adhesions of the small bowel. This was carefully and tediously taken down in order to straighten down and once it was successfully detached, the bowel was carefully inspected, there was two areas of evisceration and they were repaired with Lembert 3-0 silk stitches. The small area of severe damage to the small bowel wall tedious dense adhesions was completely resected and [id number] anastomosis was created using FABRICIO and TA staplers. Once this was all completed, the abdominal cavity was then copiously irrigated, all the irrigant fluid was suctioned out. A Shivam drain was placed in the right pericolic gutter along the anastomosis and attached to the abdominal wall skin using 2.0-stitch. Once this was attached, then proceed with closure of the abdominal cavity using #1 PDS for the fascia, 3-0 Vicryl for subcutaneous tissue, and 4-0 Monocryl for skin. A sterile Dermabond dressing was applied to the wound. The patient tolerated the procedure well and there were no complications. The patient was awakened and transferred to the recovery room for further observation. Richard Sarmiento MD
[2018-05-14] MEDS: Enoxaparin 40 mg Syringe SC SCH (09:51)
[2018-05-14] MEDS: Lidocaine 5% Patch TD SCH (09:52)
--- NOTE | 2018-05-14 10:26 | CP.PCM.PN ---
Subjective - Date & Time of Evaluation Date of Evaluation: 05/14/18 Time of Evaluation: 07:20 - Subjective Subjective: Allie Escalante DO, PGY-2: Nephrology Progress Note for Dr. Block Patient was seen and examined at bedside. Patient reports feeling good and tolerating appetite. He denies any chest pain, nausea, vomiting, diarrhea, shortness of breath, headache, swelling, or visual changes. Objective - Vital Signs/Intake and Output Vital Signs (last 24 hours): Temp Pulse Resp BP Pulse Ox 98.2 F 97 H 20 137/102 H 97 05/14/18 06:00 05/14/18 06:00 05/14/18 06:00 05/14/18 09:52 05/14/18 06:00 - Medications Medications: Current Medications Acetaminophen (Tylenol 325mg Tab) 650 mg PO Q6H [facility] Last Admin: 05/14/18 09:51 Dose: 650 mg Amlodipine Besylate (Norvasc) 5 mg PO DAILY [facility] Last Admin: 05/14/18 09:52 Dose: 5 mg Enoxaparin Sodium (Lovenox) 40 mg SC DAILY [facility]; Protocol Last Admin: 05/14/18 09:51 Dose: 40 mg Furosemide (Lasix) 20 mg PO DAILY [facility] Last Admin: 05/14/18 09:52 Dose: 20 mg Lidocaine (Lidoderm) 1 ea TD DAILY [facility] Last Admin: 05/14/18 09:52 Dose: 1 ea Ondansetron HCl (Zofran Inj) 4 mg IVP Q4 PRN PRN Reason: Nausea/Vomiting Last Admin: 05/10/18 08:10 Dose: 4 mg Pantoprazole Sodium (Protonix Inj) 40 mg IVP DAILY [facility] Last Admin: 05/14/18 09:51 Dose: 40 mg Phenol/Menthol (Phenaseptic 1.4% Throat [place]) 2 ml MT Q2H PRN PRN Reason: Pain, Mild (1-3) Last Admin: 05/10/18 20:31 Dose: 2 spr Sodium Chloride (Sodium Chloride Tab) 2 gm PO WM [facility] Last Admin: 05/14/18 09:51 Dose: 2 gm Tramadol HCl (Ultram) 25 mg PO Q6H PRN PRN Reason: Pain, moderate (4-7) Last Admin: 05/14/18 01:16 Dose: 25 mg - Labs Labs: 05/14/18 06:30 05/14/18 06:30 PT 11.1 SECONDS (9.4-12.5) 05/05/18 23:05 INR 0.97 05/05/18 23:05 APTT 29.9 Seconds (25.1-36.5) 05/05/18 23:05 - Constitutional Appears: Well, Non-toxic - Head Exam Head Exam: ATRAUMATIC, NORMOCEPHALIC - Eye Exam Eye Exam: EOMI, Normal appearance - ENT Exam ENT Exam: Mucous Membranes Moist - Neck Exam Neck Exam: Normal Inspection - Respiratory Exam Respiratory Exam: Clear to Ausculation Bilateral, NORMAL BREATHING PATTERN. absent: Accessory Muscle Use - Cardiovascular Exam Cardiovascular Exam: RRR, +S1, +S2 - GI/Abdominal Exam GI & Abdominal Exam: Soft. absent: Guarding, Tenderness, Rebound - Extremities Exam Extremities Exam: Normal Inspection. absent: Calf Tenderness, Pedal Edema - Neurological Exam Neurological Exam: Alert, Awake, Oriented x3 - Psychiatric Exam Psychiatric exam: Normal Affect, Normal Mood - Skin Skin Exam: Dry, Intact, Normal Color, Warm Assessment and Plan (1) Hyponatremia Assessment & Plan: Today is Na is 133. Would also recommend fluids restriction. Status: Acute (2) Hypertension Assessment & Plan: Amlodipine 5 mg daily Lasix 20 mg PO daily Status: Acute - Assessment and Plan (Free Text) Plan: Patient should get repeat BMP in one week.
[2018-05-14 16:56] VITALS: BP 134/99; PULSE 79; TEMP 97.5; O2SAT 99
--- NOTE | 2018-05-14 18:16 | CP.PCM.DIS ---
<Dave Cheung - Last Filed: 05/14/18 20:06> Provider - Provider Date of Admission: 05/06/18 02:16 Attending physician: Joseluis Nichols MD Time Spent in preparation of Discharge (in minutes): 45 Diagnosis - Discharge Diagnosis (1) SBO (small bowel obstruction) Status: Acute Priority: High (2) Anemia Status: Acute Priority: High (3) Hyponatremia Status: Acute Priority: High (4) HTN (hypertension) Status: Acute Priority: High Hospital Course - Lab Results Lab Results: Micro Results 05/05/18 23:35 Blood-Venous Blood Culture - Final NO GROWTH AFTER 5 DAYS 05/05/18 23:35 Blood-Venous Gram Stain - Final TEST NOT PERFORMED 05/05/18 23:05 Blood-Venous Blood Culture - Final NO GROWTH AFTER 5 DAYS 05/05/18 23:05 Blood-Venous Gram Stain - Final TEST NOT PERFORMED Most Recent Lab Values WBC 8.9 10^3/ul (4.5-11.0) D 05/14/18 06:30 RBC 3.66 10^6/uL (3.5-6.1) 05/14/18 06:30 Hgb 11.0 g/dL (14.0-18.0) L 05/14/18 06:30 Hct 32.6 % (42.0-52.0) L 05/14/18 06:30 MCV 89.1 fl (80.0-105.0) 05/14/18 06:30 MCH 30.1 pg (25.0-35.0) 05/14/18 06:30 MCHC 33.7 g/dl (31.0-37.0) 05/14/18 06:30 RDW 13.7 % (11.5-14.5) 05/14/18 06:30 Plt Count 515 10^3/uL (120.0-450.0) H 05/14/18 06:30 MPV 7.9 fl (7.0-11.0) 05/14/18 06:30 Gran % 55.7 % (50.0-68.0) 05/14/18 06:30 Lymph % (Auto) 26.5 % (22.0-35.0) 05/14/18 06:30 [place] % (Auto) 14.1 % (1.0-6.0) H 05/14/18 06:30 Eos % (Auto) 3.3 % (1.5-5.0) 05/14/18 06:30 Baso % (Auto) 0.4 % (0.0-3.0) 05/14/18 06:30 Gran # 4.95 (1.4-6.5) 05/14/18 06:30 Lymph # (Auto) 2.4 (1.2-3.4) 05/14/18 06:30 [place] # (Auto) 1.3 (0.1-0.6) H 05/14/18 06:30 Eos # (Auto) 0.3 (0.0-0.7) 05/14/18 06:30 Baso # (Auto) 0.04 K/mm3 (0.0-2.0) 05/14/18 06:30 PT 11.1 SECONDS (9.4-12.5) 05/05/18 23:05 INR 0.97 05/05/18 23:05 APTT 29.9 Seconds (25.1-36.5) 05/05/18 23:05 pO2 172 mm/Hg (30-55) H 05/07/18 08:30 VBG pH 7.36 (7.32-7.43) 05/07/18 08:30 VBG pCO2 41.0 (40-60) 05/07/18 08:30 VBG HCO3 23.2 mmol/l (21-28) 05/07/18 08:30 VBG Total CO2 24.5 mmol.L (22-28) 05/07/18 08:30 VBG O2 Sat (Calc) 98.6 % (40-65) H 05/07/18 08:30 VBG Base Excess -2.2 mmol/L (0.0-2.0) L 05/07/18 08:30 VBG Potassium 4.5 mmol/L (3.6-5.2) 05/07/18 08:30 Sodium 127.0 mmol/L (132-148) L 05/07/18 08:30 Chloride 101.0 mmol/L (98-107) 05/07/18 08:30 Glucose 119 mg/dl (75-110) H 05/07/18 08:30 Lactate 0.8 mmol/L (0.7-2.1) 05/07/18 08:30 FiO2 21.0 % 05/07/18 08:30 Sodium 133 mmol/L (132-148) 05/14/18 06:30 Potassium 4.1 mmol/L (3.6-5.0) 05/14/18 06:30 Chloride 97 mmol/L (98-107) L 05/14/18 06:30 Carbon Dioxide 27 mmol/L (21-33) 05/14/18 06:30 Anion Gap 13 (10-20) 05/14/18 06:30 BUN 7 mg/dL (7-21) 05/14/18 06:30 Creatinine 0.7 mg/dl (0.8-1.5) L 05/14/18 06:30 Est GFR ( Amer) > 60 05/14/18 06:30 Est GFR (Non-Af Amer) > 60 05/14/18 06:30 Random Glucose 97 mg/dL (70-110) 05/14/18 06:30 Serum Osmolality 267 mosm/kg (272-300) L 05/05/18 23:05 Lactic Acid 0.6 mmol/L (0.7-2.1) L 05/06/18 06:15 Calcium 8.5 mg/dL (8.4-10.5) 05/14/18 06:30 Phosphorus 3.1 mg/dL (2.5-4.5) 05/11/18 06:25 Magnesium 1.8 mg/dL (1.7-2.2) 05/11/18 06:25 Total Bilirubin 0.1 mg/dL (0.2-1.3) L 05/14/18 06:30 Direct Bilirubin 0.3 mg/dL (0.0-0.4) 05/09/18 06:30 AST 35 U/L (17-59) 05/14/18 06:30 ALT 31 U/L (7-56) 05/14/18 06:30 Alkaline Phosphatase 57 U/L (38-126) 05/14/18 06:30 Lactate Dehydrogenase 305 U/L (333-699) L 05/05/18 23:05 Total Creatine Kinase 28 U/L (35-230) L 05/05/18 23:05 Troponin I < 0.01 ng/mL 05/08/18 03:35 NT-Pro-B Natriuret Pep 186 pg/mL (0-450) 05/08/18 03:35 Total Protein 6.4 g/dL (5.8-8.3) 05/14/18 06:30 Albumin 3.0 g/dL (3.0-4.8) 05/14/18 06:30 Globulin 3.4 gm/dL 05/14/18 06:30 Albumin/Globulin Ratio 0.9 (1.1-1.8) L 05/14/18 06:30 Amylase 124 U/L (35-125) 05/05/18 23:05 Lipase 204 U/L (23-300) 05/05/18 23:05 Procalcitonin 0.10 NG/ML (0.19-0.49) L 05/06/18 06:59 Venous Blood Potassium 4.5 mmol/L (3.6-5.2) 05/07/18 08:30 Urine Color Yellow (YELLOW) 05/08/18 11:00 Urine Appearance Clear (CLEAR) 05/08/18 11:00 Urine pH 6.0 (4.7-8.0) 05/08/18 11:00 Ur Specific Drew 1.025 (1.005-1.035) 05/08/18 11:00 Urine Protein Trace mg/dL (<30 mg/dL) H 05/08/18 11:00 Urine Glucose (UA) Negative mg/dL (NEGATIVE) 05/08/18 11:00 Urine Ketones Negative mg/dL (NEGATIVE) 05/08/18 11:00 Urine Blood Small (NEGATIVE) H 05/08/18 11:00 Urine Nitrate Negative (NEGATIVE) 05/08/18 11:00 Urine Bilirubin Negative (NEGATIVE) 05/08/18 11:00 Urine Urobilinogen 0.2 E.U./dL (<1 E.U./dL) 05/08/18 11:00 Ur Leukocyte Esterase Negative Eva/uL (NEGATIVE) 05/08/18 11:00 Urine RBC 5 - 10 /hpf (0-2) 05/08/18 11:00 Urine WBC 0 - 2 /hpf (0-6) 05/08/18 11:00 Ur Epithelial Cells None /hpf (0-5) 05/08/18 11:00 Amorphous Sediment Few 05/08/18 11:00 Urine Bacteria Mod (NEG) 05/08/18 11:00 Urine Other Usperm 05/08/18 11:00 Urine Eosinophils Negative 05/06/18 16:25 Urine Osmolality 586 mosm/kg (300-1000) 05/13/18 02:00 Ur Random Sodium 94 meq/L 05/13/18 02:00 Urine Opiates Screen Positive (NEGATIVE) H 05/06/18 16:25 Urine Methadone Screen Negative (NEGATIVE) 05/06/18 16:25 Ur Barbiturates Screen Negative (NEGATIVE) 05/06/18 16:25 Ur Phencyclidine Scrn Negative (NEGATIVE) 05/06/18 16:25 Ur Amphetamines Screen Negative (NEGATIVE) 05/06/18 16:25 U Benzodiazepines Scrn Negative (NEGATIVE) 05/06/18 16:25 U Oth Cocaine Metabols Negative (NEGATIVE) 05/06/18 16:25 U Cannabinoids Screen Positive (NEGATIVE) H 05/06/18 16:25 Alcohol, Quantitative < 10 mg/dL (0-10) 05/05/18 23:05 - Hospital Course Hospital Course: Patient is a 57 yo male with a PMH of ETOH and recent open appendectomy here at [facility] [place] due to perforated appendicitis on 04/25. Post operative course (day 12) complicated by post operative ileus which resolved on 05/04 and patient was discharged home in good condition on Flagyl. On 05/06, Patient presented to ED tonight complaining of RLQ abdominal pain, nausea, vomiting and two bouts of diarrhea since discharge. Patient reported the pain is similar to that of when he originally had appendicitis, and reported his abdomen feels bloated. He denied chest pain, SOB, fever, chills, dizziness, headache, blurry vision. In the ED, patient was found to have leukocytosis with WBC of 17.4 Patient was given empirirc zosyn, zofran for nausea and hydromorphone for pain control which was later changed to percocet. CT showed small bowel obstruction with transition point in the right lower quadrant at the site of the surgical suture line. Patient was seen by surgery and underwent ex lap with small segment of small bowel resection and lysis of adhesions. ID was consulted to evaluate for possible c.diff and intra-abdominal infection. Patient was continued on Zosyn. Pt also had hyponatremia (131) for which pt was started on fluids which improved his hyponatremia but subsequently became worse. 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 On 05/08, pt reported SOB and feet and penile swelling and his fluids were discontinued. Echo was ordered which showed EF 50-55%. Patients abdominal pain improved but he continued with nausea and vomiting. Repeat CT 05/10 suggested adynamic ileus rather than SBO, and bowel was distended with fluid. Pts lasix was held and he was started on IV fluids due to vomiting from IV contrast. Patient was made NPO and NG tube was placed which drained copious amounts of bilious fluid and pt was started on IV protonix to avoid metabolic alkalosis and potassium to avoid hypokalemia per neprhology. Patients nausea and vomiting continued to improve and pt was able to have bowel movements. Abdominal Xray on 05/11 showed no obstruction. NG tube was dcd on 05/12 and Pt was started on liquid diets advancing as tolerated. Pt continued to improve back to baseline and he tolerated full diet well. Pt was also princess ated with Amlodipine 5mg for hypertension while admitted. He was discharged on Amlodipine 5mg PO daily for HTN and Lasix 20mg PO daily for hyponatremia. - Date & Time of H&P Date of H&P: 05/14/18 Time of H&P: 07:00 Discharge Exam - Head Exam Head Exam: ATRAUMATIC, NORMOCEPHALIC - Eye Exam Eye Exam: EOMI - ENT Exam ENT Exam: Mucous Membranes Moist - Neck Exam Neck exam: Full Rom - Respiratory Exam Respiratory Exam: NORMAL BREATHING PATTERN, UNREMARKABLE. absent: Accessory Muscle Use, Wheezes, Respiratory Distress - Cardiovascular Exam Cardiovascular Exam: RRR, +S1, +S2. absent: Diastolic murmur, Systolic Murmur - GI/Abdominal Exam GI & Abdominal Exam: Normal Bowel Sounds, Unremarkable. absent: Distended Additional comments: midline incision healing well, no signs of infection, red streaks - Extremities Exam Extremities exam: full ROM - Neurological Exam Neurological exam: Alert, Oriented x3 - Psychiatric Exam Psychiatric exam: Normal Affect, Normal Mood - Skin Skin Exam: Dry, Normal Color, Warm Discharge Plan - Discharge Medications Prescriptions: RX: amLODIPine [Norvasc] 5 mg PO DAILY #14 tab RX: Furosemide [Lasix] 20 mg PO DAILY #14 tab - Follow Up Plan Condition: FAIR Disposition: HOME/ ROUTINE Instructions: Small Bowel Obstruction, Postoperative Ileus (DC), Lysis of Adhesions (DC) Additional Instructions: 1. Please follow up with primary care physician within 3-5 days from discharge. 2. Follow up with general surgeon, Dr. Carr, in 2 weeks for staple remove. Follow up with tire mounter, Dr. Block, within 1 week. Complete basic metabolic panel prior to appointment with Dr. Block. 3. You may shower normally. 4. Take medications as directed. 5. Return to local emergency department for new or worsening symptoms. Referrals: Richard Sarmiento MD [Staff Provider] - Francesco Block MD [Staff Provider] - Isaiah Linda MD [Staff Provider] - <Joseluis Nichols - Last Filed: 05/15/18 15:14> Provider - Provider Date of Admission: 05/06/18 02:16 Attending physician: Joseluis Nichols MD Hospital Course - Lab Results Lab Results: Micro Results 05/05/18 23:35 Blood-Venous Blood Culture - Final NO GROWTH AFTER 5 DAYS 05/05/18 23:35 Blood-Venous Gram Stain - Final TEST NOT PERFORMED 05/05/18 23:05 Blood-Venous Blood Culture - Final NO GROWTH AFTER 5 DAYS 05/05/18 23:05 Blood-Venous Gram Stain - Final TEST NOT PERFORMED Most Recent Lab Values WBC 8.9 10^3/ul (4.5-11.0) D 05/14/18 06:30 RBC 3.66 10^6/uL (3.5-6.1) 05/14/18 06:30 Hgb 11.0 g/dL (14.0-18.0) L 05/14/18 06:30 Hct 32.6 % (42.0-52.0) L 05/14/18 06:30 MCV 89.1 fl (80.0-105.0) 05/14/18 06:30 MCH 30.1 pg (25.0-35.0) 05/14/18 06:30 MCHC 33.7 g/dl (31.0-37.0) 05/14/18 06:30 RDW 13.7 % (11.5-14.5) 05/14/18 06:30 Plt Count 515 10^3/uL (120.0-450.0) H 05/14/18 06:30 MPV 7.9 fl (7.0-11.0) 05/14/18 06:30 Gran % 55.7 % (50.0-68.0) 05/14/18 06:30 Lymph % (Auto) 26.5 % (22.0-35.0) 05/14/18 06:30 [place] % (Auto) 14.1 % (1.0-6.0) H 05/14/18 06:30 Eos % (Auto) 3.3 % (1.5-5.0) 05/14/18 06:30 Baso % (Auto) 0.4 % (0.0-3.0) 05/14/18 06:30 Gran # 4.95 (1.4-6.5) 05/14/18 06:30 Lymph # (Auto) 2.4 (1.2-3.4) 05/14/18 06:30 [place] # (Auto) 1.3 (0.1-0.6) H 05/14/18 06:30 Eos # (Auto) 0.3 (0.0-0.7) 05/14/18 06:30 Baso # (Auto) 0.04 K/mm3 (0.0-2.0) 05/14/18 06:30 PT 11.1 SECONDS (9.4-12.5) 05/05/18 23:05 INR 0.97 05/05/18 23:05 APTT 29.9 Seconds (25.1-36.5) 05/05/18 23:05 pO2 172 mm/Hg (30-55) H 05/07/18 08:30 VBG pH 7.36 (7.32-7.43) 05/07/18 08:30 VBG pCO2 41.0 (40-60) 05/07/18 08:30 VBG HCO3 23.2 mmol/l (21-28) 05/07/18 08:30 VBG Total CO2 24.5 mmol.L (22-28) 05/07/18 08:30 VBG O2 Sat (Calc) 98.6 % (40-65) H 05/07/18 08:30 VBG Base Excess -2.2 mmol/L (0.0-2.0) L 05/07/18 08:30 VBG Potassium 4.5 mmol/L (3.6-5.2) 05/07/18 08:30 Sodium 127.0 mmol/L (132-148) L 05/07/18 08:30 Chloride 101.0 mmol/L (98-107) 05/07/18 08:30 Glucose 119 mg/dl (75-110) H 05/07/18 08:30 Lactate 0.8 mmol/L (0.7-2.1) 05/07/18 08:30 FiO2 21.0 % 05/07/18 08:30 Sodium 133 mmol/L (132-148) 05/14/18 06:30 Potassium 4.1 mmol/L (3.6-5.0) 05/14/18 06:30 Chloride 97 mmol/L (98-107) L 05/14/18 06:30 Carbon Dioxide 27 mmol/L (21-33) 05/14/18 06:30 Anion Gap 13 (10-20) 05/14/18 06:30 BUN 7 mg/dL (7-21) 05/14/18 06:30 Creatinine 0.7 mg/dl (0.8-1.5) L 05/14/18 06:30 Est GFR ( Amer) > 60 05/14/18 06:30 Est GFR (Non-Af Amer) > 60 05/14/18 06:30 Random Glucose 97 mg/dL (70-110) 05/14/18 06:30 Serum Osmolality 267 mosm/kg (272-300) L 05/05/18 23:05 Lactic Acid 0.6 mmol/L (0.7-2.1) L 05/06/18 06:15 Calcium 8.5 mg/dL (8.4-10.5) 05/14/18 06:30 Phosphorus 3.1 mg/dL (2.5-4.5) 05/11/18 06:25 Magnesium 1.8 mg/dL (1.7-2.2) 05/11/18 06:25 Total Bilirubin 0.1 mg/dL (0.2-1.3) L 05/14/18 06:30 Direct Bilirubin 0.3 mg/dL (0.0-0.4) 05/09/18 06:30 AST 35 U/L (17-59) 05/14/18 06:30 ALT 31 U/L (7-56) 05/14/18 06:30 Alkaline Phosphatase 57 U/L (38-126) 05/14/18 06:30 Lactate Dehydrogenase 305 U/L (333-699) L 05/05/18 23:05 Total Creatine Kinase 28 U/L (35-230) L 05/05/18 23:05 Troponin I < 0.01 ng/mL 05/08/18 03:35 NT-Pro-B Natriuret Pep 186 pg/mL (0-450) 05/08/18 03:35 Total Protein 6.4 g/dL (5.8-8.3) 05/14/18 06:30 Albumin 3.0 g/dL (3.0-4.8) 05/14/18 06:30 Globulin 3.4 gm/dL 05/14/18 06:30 Albumin/Globulin Ratio 0.9 (1.1-1.8) L 05/14/18 06:30 Amylase 124 U/L (35-125) 05/05/18 23:05 Lipase 204 U/L (23-300) 05/05/18 23:05 Procalcitonin 0.10 NG/ML (0.19-0.49) L 05/06/18 06:59 Venous Blood Potassium 4.5 mmol/L (3.6-5.2) 05/07/18 08:30 Urine Color Yellow (YELLOW) 05/08/18 11:00 Urine Appearance Clear (CLEAR) 05/08/18 11:00 Urine pH 6.0 (4.7-8.0) 05/08/18 11:00 Ur Specific [place] 1.025 (1.005-1.035) 05/08/18 11:00 Urine Protein Trace mg/dL (<30 mg/dL) H 05/08/18 11:00 Urine Glucose (UA) Negative mg/dL (NEGATIVE) 05/08/18 11:00 Urine Ketones Negative mg/dL (NEGATIVE) 05/08/18 11:00 Urine Blood Small (NEGATIVE) H 05/08/18 11:00 Urine Nitrate Negative (NEGATIVE) 05/08/18 11:00 Urine Bilirubin Negative (NEGATIVE) 05/08/18 11:00 Urine Urobilinogen 0.2 E.U./dL (<1 E.U./dL) 05/08/18 11:00 Ur Leukocyte Esterase Negative Eva/uL (NEGATIVE) 05/08/18 11:00 Urine RBC 5 - 10 /hpf (0-2) 05/08/18 11:00 Urine WBC 0 - 2 /hpf (0-6) 05/08/18 11:00 Ur Epithelial Cells None /hpf (0-5) 05/08/18 11:00 Amorphous Sediment Few 05/08/18 11:00 Urine Bacteria Mod (NEG) 05/08/18 11:00 Urine Other Usperm 05/08/18 11:00 Urine Eosinophils Negative 05/06/18 16:25 Urine Osmolality 586 mosm/kg (300-1000) 05/13/18 02:00 Ur Random Sodium 94 meq/L 05/13/18 02:00 Urine Opiates Screen Positive (NEGATIVE) H 05/06/18 16:25 Urine Methadone Screen Negative (NEGATIVE) 05/06/18 16:25 Ur Barbiturates Screen Negative (NEGATIVE) 05/06/18 16:25 Ur Phencyclidine Scrn Negative (NEGATIVE) 05/06/18 16:25 Ur Amphetamines Screen Negative (NEGATIVE) 05/06/18 16:25 U Benzodiazepines Scrn Negative (NEGATIVE) 05/06/18 16:25 U Oth Cocaine Metabols Negative (NEGATIVE) 05/06/18 16:25 U Cannabinoids Screen Positive (NEGATIVE) H 05/06/18 16:25 Alcohol, Quantitative < 10 mg/dL (0-10) 05/05/18 23:05 Attending/Attestation - Attestation I have personally seen and examined this patient.: Yes I have fully participated in the care of the patient.: Yes I have reviewed all pertinent clinical information, including history, physical exam and plan: Yes Notes (Text): 05/15/18 15:10 Medical record note made by the resident after discussion with my direction and input after the patient was personally seen and examined by me. I have reviewed the chart and agree that the record accurately reflects by personal performance of the history, physical exam, data review, and medical decision-making, in the course for the patient. I have also personally directed the plan of care. 57 year old male with recent appendectomy who presented with abdominal pain. He was found to have SBO on CT scan. He was seen by surgery and is s/p ex lap with small segment of small bowel was resected .After surgery , he reported his abdominal pain has improved although he continues to have intermittent episodes of nausea/vomiting. Repeat CT abd/pelvis was done today which showed findings suggestive of adynamic ileus rather than mechanical bowel obstruction. Patient was managed conservatively.His symptoms has resolved.He is tolerating diet and is ambulatory,Abdominal drain ahs been removed by surgery. Hyponatremia is resolved. Patient will be discharged home and will follow up with PCP and Surgery. Management plan was discussed in detail with patient. Education was provided.
--- NOTE | 2018-05-15 10:39 | PN ---
DATE: 05/14/2018 SUBJECTIVE: The patient is in bed, in no acute distress, nontoxic. PHYSICAL EXAMINATION: VITAL SIGNS: On exam, temperature is 98, blood pressure is 130/80, respiratory rate of 16. HEENT: Examination of HEENT is unremarkable. NECK: Supple. LUNGS: Have decreased breath sounds. HEART: Normal S1, S2. ABDOMEN: Soft. LABORATORY DATA: Laboratory examination reveals a white count of 8.9, hemoglobin 11, BUN of 7, creatinine of 0.7. Urinalysis is noted. Toxicology is reviewed. ASSESSMENT AND PLAN: A 57-year-old male seen earlier this morning, resolution of small bowel obstruction and adhesion, small bowel resection, status post adhesiolysis, postprocedure day #8, perforated appendicitis. The patient is tolerating diet, moving gas. Currently, review of orders reveals the patient is off of antibiotics. Dr. Sarmiento's note from today is reviewed. The procedure note is from 05/06/2018, exploratory laparoscopy converted to a laparotomy, extensive lysis of dense intra-abdominal adhesions, resection of small bowel, repair of enterorrhaphy. Dr. Woods's note is reviewed. Off of antibiotics. Status post open appendectomy, status post small bowel obstruction and re-exploration. Currently off of antibiotics, afebrile, doing well. The patient is at risk for developing nosocomial infections. Jesus Man MD
== END 2018-05-14 17:20 | disposition home or self-care (01) | DRG 148 ==
LOC: ED 22:20 → ERH 05-06 02:16 → 5RNO 05-06 04:22
PROVIDERS: ADMIT Hospitalist; ATTEND Internal Medicine
PROC: 0DN80ZZ Release Small Intestine, Open Approach (ICD-10-PCS; principal; 2018-05-06 16:00)
PROC: 0DT80ZZ Resection of Small Intestine, Open Approach (ICD-10-PCS; 2018-05-06 16:00)
PROC: 0DQ80ZZ Repair Small Intestine, Open Approach (ICD-10-PCS; 2018-05-06 16:00)
DX: K56.51 Intestinal adhesions [bands], with partial obstruction (principal); E22.2 Syndrome of inappropriate secretion of antidiuretic hormone; I11.0 Hypertensive heart disease with heart failure; I50.9 Heart failure, unspecified; Z53.31 Laparoscopic surgical procedure converted to open procedure; I25.10 Atherosclerotic heart disease of native coronary artery without angina pectoris; F10.10 Alcohol abuse, uncomplicated; D64.9 Anemia, unspecified; I27.20 Pulmonary hypertension, unspecified; F12.90 Cannabis use, unspecified, uncomplicated; N48.89 Other specified disorders of penis; F17.210 Nicotine dependence, cigarettes, uncomplicated; Z95.5 Presence of coronary angioplasty implant and graft